=== PATIENT | female | born 1950 | race Caucasian/White ===

== ENCOUNTER 2020-09-15 15:47 | Outpatient (CLI) | payer MEDICARE, BC, SELFPAY ==
--- NOTE | 2020-09-15 16:04 | XR_ITS ---
WS: [id number] Lumbar spine with flexion, extension, and neutral lateral, 09/15/2020 Clinical Data: SPONDYLOLISTHESIS, LUMBAR REGION Comparison: None. Findings: No compression fractures are seen. There is disc space narrowing at L5-S1. There is 0.4 cm anterolis thesis of L4 on L5. No limitation of motion or change in subluxation is seen on flexion or extension. Minimal anterior osteoarthritic spurring is seen at L2-L4. There is calcification in the wall of the abdominal aorta but no aneurysm is seen. There are clips in the upper abdomen from a cholecystectomy. XR/XR lumbar spine f/e only [id number] Impression: 1. Degenerative disc disease at L5-S1. 2. Anterolisthesis of 0.4 cm of L4 and L5. 3. Negative for limitation of motion or change in subluxation on flexion or ext ension. 4. Minimal osteoarthritis L2-L4.
== END 2020-09-15 15:48 | disposition home or self-care (01) ==
LOC: RADWPI 16:02
PROVIDERS: PCP Nurse Practitioner Family; Visit Provider Nurse Practitioner
DX: M43.16 Spondylolisthesis, lumbar region (principal); M51.37 Other intervertebral disc degeneration, lumbosacral region; M47.816 Spondylosis without myelopathy or radiculopathy, lumbar region
CPT/HCPCS: 72120

== ENCOUNTER 2020-09-17 11:13 | Outpatient (CLI) | payer MEDICARE, BC, SELFPAY ==
[2020-09-17 11:46] LABS: Basophils % 0.3 %; Eosinophils # 0.2 10^3/uL (0.0-0.8); Eosinophils % 1.2 %; Hematocrit 42.9 % (37.0-47.0); Hemoglobin 13.9 g/dL (11.5-15.3); Lymphocytes # 2.5 10^3/uL (0.8-4.8); Mean Corpuscular HGB Conc 32.4 g/dL (30.0-36.0); Mean Corpuscular Hemoglobin 29.9 pg (28.0-34.0); Mean Corpuscular Volume 92.3 fL (81-99); Mean Platelet Volume 11.2 fL (7.4-10.4); Monocytes # 1.1 10^3/uL (0.2-0.9); Monocytes % 8.7 %; Neutrophils # 8.51 10^3/uL (1.8-7.7); Neutrophils % 69.6 %; Nucleated Red Blood Cells % 0 %; Platelet Count 333 10^3/cmm (130-400); Red Blood Count 4.65 10^6/uL (4.1-5.3); Red Cell Distribution Width 12.6 % (12.1-15.1); White Blood Count 12.3 10^3/uL (4.0-10.0)
[2020-09-17 12:19] LABS: Alanine Aminotransferase 35 U/L (0-33); Albumin Level 4.6 g/dL (3.5-5.2); Alkaline Phosphatase 119 IU/L (35-105); Anion Gap 13.4 (5-19); Aspartate Amino Transferase 27 U/L (0-32); Blood Urea Nitrogen 14 mg/dL (8-23); Calcium 9.8 mg/dL (8.5-10.5); Carbon Dioxide 31 mmol/L (22-29); Chloride 99 mmol/L (98-107); Globulin 2.5 g/dL (1.3-4.6); Glomerular Filtration Rate 99.1 mL/min (90-130); Glucose 95 mg/dL (65-115); Immunoglobulin IGA 60 mg/dL (70-400); Immunoglobulin IGG 621 mg/dL (700-1600); Immunoglobulin IGM 84 mg/dL (40-230); Osmolality Calculated 290 mOsm/kg (285-295); Potassium 3.4 mmol/L (3.5-5.1); Sodium 140 mmol/L (136-145); Total Bilirubin 0.4 mg/dL (0.15-1.2); Total Protein 7.1 g/dL (6.6-8.7)
[2020-09-18 16:03] LABS: Alternaria Alternata (M6) Ige <0.10 kU/L; Alternaria Class 0; Bermuda Class 0; Bermuda Grass (G2) Ige <0.10 kU/L; Cat Dander (E1) Ige <0.10 kU/L; Cat Dander Class 0; Common Ragweed (Short) (W1) Ig <0.10 kU/L; D. Farinae Class 0; Dermatophagoides Class 0; Dermatophagoides Farinae (D2) <0.10 kU/L; Dermatophagoides Pteronyssinus <0.10 kU/L; Dog Dander (E5) Ige <0.10 kU/L; Dog Dander Class 0; Elm (T8) Ige <0.10 kU/L; Elm Class 0; English Plantain (W9) Ige <0.10 kU/L; English Plantain Class 0; House Dust (Greer) (H1) Ige <0.10 kU/L; House Dust (Hollister- Stier) <0.10 kU/L; House Dust Class 0; Immunoglobulin E 5 kU/L (<OR=114); Immunoglobulin E 6 kU/L (<OR=114); Johnson Grass (G10) Ige <0.10 kU/L; Johnson Grass Cl 0; June Grass Class 0; June Grass(Kentucky Blue) (G8) <0.10 kU/L; Lamb'S Quarters (Goose Foot) <0.10 kU/L; Lamb'S Quarters Class 0; Maple (Box Elder) (T1) Ige <0.10 kU/L; Maple Class 0; Meadow Fescue (G4) Ige <0.10 kU/L; Meadow Fescue Class 0; Mucor Racemosus Class 0; Oak (T7) Ige <0.10 kU/L; Oak Class 0; Orchard Grass (Cocksfoot) (G3) <0.10 kU/L; Penicillium Class 0; Penicillium Notatum (M1) Ige <0.10 kU/L; Perennial Rye Grass (G5) Ige <0.10 kU/L; Perennial Rye Grass Class 0; Ragweeed Class 0; Rough Marsh Elder (W16) Ige <0.10 kU/L; Rough Marsh Elder Class 0; Sweet Vernal Class 0; Sweet Vernal Grass (G1) Ige <0.10 kU/L; Timothy Grass (G6) Ige <0.10 kU/L; Timothy Grass Class 0
== END 2020-09-17 11:14 | disposition home or self-care (01) ==
LOC: LAB 11:20
PROVIDERS: PCP Nurse Practitioner Family; Visit Provider Internal Medicine Pulmonary Disease
DX: D80.1 Nonfamilial hypogammaglobulinemia (principal); J45.909 Unspecified asthma, uncomplicated; R06.02 Shortness of breath; D89.2 Hypergammaglobulinemia, unspecified; J45.40 Moderate persistent asthma, uncomplicated
CPT/HCPCS: 80053; 82784; 82785; 85025; 86003

== ENCOUNTER → 2020-09-30 15:04 | Outpatient (BNVA) | payer MEDICARE, BC, SELFPAY | PROVIDERS: PCP Nurse Practitioner Family; Visit Provider Nurse Practitioner Family | DX: Z20.828 Contact with and (suspected) exposure to other viral communicable diseases (principal); J06.9 Acute upper respiratory infection, unspecified | CPT/HCPCS: 87635 ==

== ENCOUNTER 2020-10-03 08:36 | Outpatient (CLI) | payer MEDICARE, BC, SELFPAY ==
--- NOTE | 2020-10-03 08:55 | CT_ITS ---
WS: [id number] CT NECK TECHNIQUE: Contrast-enhanced CT of the neck with coronal and sagittal reformatted images. CLINICAL INFORMATION: THYROID NODULE COMPARISON: None. DLP: 2528.[address] scans at [facility] use at least one of these dose optimization techniques: automat ed exposure control; mA and/or kV adjustment per patient size (includes targeted exams where dose is matched to clinical indication); or iterative reconstruction. FINDINGS: Multinodular left thyroid lobe with multiple low-attenuation nodules. The largest nodule measures cheko roximately 10 mm. Nodularity extending into the thyroid isthmus. Prior right thyroidectomy. Parotid glands are normal. Normal submandibular glands. Tongue base is normal. Normal parapharyngeal fat. Normal posterior nasopharynx. No evidence of supraglottic or glottic mass. Normal vallecula and piriform sinuses. Subglottic airway is normal. Lung apices are well aerated. No cervical lymphadenopathy. Partially visualized intracranial contents appear unremarkable. Paranasal sinuses and mastoid air cells well aerated. CT/CT neck w con* [id number] IMPRESSION: 1. Multinodular left thyroid lobe extending into the isthmus. Largest nodules measure approximately 10 mm. 2. Prior right thyroidectomy. 3. No cervical lymphadenopathy. 4. Normal salivary glands. 5. Paranasal sinuses and mastoid air cells well aerated.
[2020-10-03] MEDS: iohexol 300 mg/mL 100 mL Btl IV (09:20)
== END 2020-10-03 08:37 | disposition home or self-care (01) ==
LOC: RADWPI 08:44
PROVIDERS: PCP Nurse Practitioner Family; Visit Provider Specialist
DX: E04.1 Nontoxic single thyroid nodule (principal)
CPT/HCPCS: 70491; Q9967

== ENCOUNTER 2020-10-16 08:03 | Outpatient (CLI) | payer MEDICARE, BC, SELFPAY ==
--- NOTE | 2020-10-16 08:09 | US_ITS ---
WS: [id number] ULTRASOUND RENAL TECHNIQUE: Ultrasound examination of both kidneys. CLINICAL INFORMATION: HEMATURIA/URINARY FREQUENCY COMPARISON: None. FINDINGS: RIGHT: Tiny right renal cyst measuring 12 mm. Right kidney is normal in size and appearance. Echogenicity: Normal. Cortical thickness: cm; Normal. Hydronephrosis: None. Perinephric fluid: None. Right kidney measures: 9.1 cm x 4.4 cm x 4.8 cm. LEFT: Left kidney is normal in size and appearance. Echogenicity: Normal. Cortical thickness: cm; Normal. Hydronephrosis: None. Perinephric fluid: None. Left kidney measures: 9.8 cm x 5.0 cm x 4.3 cm. Normal visualized aorta. US/US renal BI* [id number] IMPRESSION: Normal renal ultrasound
== END 2020-10-16 08:04 | disposition home or self-care (01) ==
LOC: RAD 08:07
PROVIDERS: PCP Nurse Practitioner Family; Visit Provider Nurse Practitioner Family
DX: R35.0 Frequency of micturition (principal); R31.9 Hematuria, unspecified
CPT/HCPCS: 76770

== ENCOUNTER 2020-10-24 09:14 | Outpatient (CLI) | payer MEDICARE, BC, SELFPAY ==
--- NOTE | 2020-10-24 09:17 | US_ITS ---
WS: [id number] URINARY BLADDER ULTRASOUND HISTORY: URINARY FREQUENCY/HEMATURIA COMPARISON: None available. Urinary bladder is well distended. No intraluminal filling defect. No free fluid adjacent to the urin rajeev bladder. Bladder Wall Thickness: 0.4 cm. Bladder Prevoid: 5.2 cm x 6.0 cm x 4.5 cm. Prevoid volume: 65 cubic cm Bladder Postvoid: No significant post void residual. US/US bladder [id number] IMPRESSION: No post void residual.
== END 2020-10-24 09:15 | disposition home or self-care (01) ==
LOC: RAD 09:16
PROVIDERS: PCP Nurse Practitioner Family; Visit Provider Nurse Practitioner Family
DX: R35.0 Frequency of micturition (principal); R31.9 Hematuria, unspecified
CPT/HCPCS: 76857

== ENCOUNTER → 2020-11-03 16:50 | Outpatient (BNVA) | payer MEDICARE, BC, SELFPAY | PROVIDERS: PCP Nurse Practitioner Family; Referring Provider Internal Medicine Pulmonary Disease; Visit Provider Nurse Practitioner Family | DX: N39.0 Urinary tract infection, site not specified (principal) | CPT/HCPCS: 81003; 87086 ==

== ENCOUNTER → 2020-11-17 14:32 | Outpatient (BNVA) | payer MEDICARE, SELFPAY | PROVIDERS: PCP Nurse Practitioner Family; Visit Provider Nurse Practitioner Family | DX: Z20.828 Contact with and (suspected) exposure to other viral communicable diseases (principal) | CPT/HCPCS: 87635 ==

== ENCOUNTER 2021-02-25 10:16 | Outpatient (CLI) | payer MEDICARE, SELFPAY ==
[2021-02-25 13:04] LABS: Basophils % 0.4 %; Eosinophils # 0.2 10^3/uL (0.0-0.8); Eosinophils % 1.9 %; Hematocrit 42.6 % (37.0-47.0); Hemoglobin 13.9 g/dL (11.5-15.3); Lymphocytes # 2.7 10^3/uL (0.8-4.8); Lymphocytes % 23.8 %; Mean Corpuscular HGB Conc 32.6 g/dL (30.0-36.0); Mean Corpuscular Hemoglobin 30.3 pg (28.0-34.0); Mean Corpuscular Volume 92.8 fL (81-99); Mean Platelet Volume 11.4 fL (7.4-10.4); Monocytes # 0.8 10^3/uL (0.2-0.9); Monocytes % 6.8 %; Neutrophils # 7.62 10^3/uL (1.8-7.7); Neutrophils % 66.8 %; Nucleated Red Blood Cells % 0 %; Platelet Count 374 10^3/cmm (130-400); Red Blood Count 4.59 10^6/uL (4.1-5.3); White Blood Count 11.4 10^3/uL (4.0-10.0)
[2021-02-25 13:26] LABS: Alanine Aminotransferase 23 U/L (0-33); Albumin Level 4.6 g/dL (3.5-5.2); Alkaline Phosphatase 101 IU/L (35-105); Anion Gap 13.4 (5-19); Aspartate Amino Transferase 17 U/L (0-32); Blood Urea Nitrogen 16 mg/dL (8-23); Calcium 8.9 mg/dL (8.5-10.5); Carbon Dioxide 27 mmol/L (22-29); Chloride 96 mmol/L (98-107); Globulin 2.3 g/dL (1.3-4.6); Glucose 100 mg/dL (65-115); Immunoglobulin IGA 91 mg/dL (70-400); Immunoglobulin IGG 646 mg/dL (700-1600); Immunoglobulin IGM 87 mg/dL (40-230); Lactate Dehydrogenase 161 U/L (135-214); Osmolality Calculated 277 mOsm/kg (285-295); Potassium 3.4 mmol/L (3.5-5.1); Sodium 133 mmol/L (136-145); Total Bilirubin 0.7 mg/dL (0.15-1.2); Total Protein 6.9 g/dL (6.6-8.7)
[2021-02-25 14:23] LABS: Erythrocyte Sedimentation Rate 24 mm/hr (0-15)
--- NOTE | 2021-02-25 17:45 | ONC CON_ITS ---
Dr. Koehler New Patient Note Patient: Anita Harmon Unit #: [id number]: 1950 Dicatated By: Greg Koehler M.D.Date of Visit: Feb 25, 2021 Onc MED New Patient/Consult Referring Physician: Chrissie Ortega Chief Complaint: Hypogammaglobulinemia. 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 She has history of having had polio at age 2, and she has post polio syndrome. Her other medical illnesses include hypertension, hyperlipidemia, and asthma/chronic bronchitis. She also has chronic pain due to fibromyalgia and degenerative disease of the spine. She has a history of having undergone an ablation procedure for cardiac arrhythmia. In February 2019 she was found on protein electrophoresis to have hypogammaglobulinemia with a total gammaglobulin level low at 0.58 g/dL. She had recently moved to this area from [place]. In December 2019 she was seen by Dr. Adair Hightower for hematology consultation. Her IgG level was reported to be low at 446 mg/dL. Replacement IVIG was not recommended, as she did not appear to be symptomatic with it. Sometime later she had further evaluation by Dr. Tram Carlin at [facility]. I do not have any of those records available. The patient indicates that her evaluation showed no evidence of multiple myeloma. She indicates that about a year ago she had a prolonged episode of bronchitis, lasting about 5 months. She has not, however, had any documented bacterial infections or other acute illnesses. She has limited activity due to her post polio syndrome. She is able to walk short distances holding onto something. She is otherwise sedentary. She also complains that she has no energy. Her ECOG score is 3. She has good appetite. She has been actively dieting, and she has had a weight loss of at least 15 pounds. She does not have fever. She has had some hot flashes and sweating. She has allergy related sinus symptoms. She does have some shortness of breath associated with her asthma and she also has some cough, mostly at night. She occasionally has chest pain. Lately she has been having some nausea and she also complains of having burning in her stomach. In addition, she recently has had diarrhea with 2-3 stools per day. She has a history of colonic polyps. Her last colonoscopy was about 6 years ago. She has had some ongoing bladder problems including intermittent episodes of hematuria and bladder incontinence. She has been seeing a urologist. She indicates that she has not had any documented urinary tract infection, though she has had antibiotic therapy on several occasions. She has generalized pain associated with fibromyalgia. She also has chronic low back pain and she recently has had more severe pain in her left sacroiliac area resulting from an injury. She is being seen at pain clinic. Past Medical History: Her medical history includes allergic rhinitis, asthma, chronic bronchitis, degenerative disease of the spine, fibromyalgia, history of cardiac arrhythmia, history of colonic polyps, history of thyroid nodules, hyperlipidemia, hypertension, post polio syndrome, and polio in 1953. Past Surgical History: Her surgical/procedural history includes rotator cuff repair on the right, hemithyroidectomy for thyroid nodules in 2018, cardiac ablation procedure in 2016, hysterectomy with unilateral oophorectomy in 1993, right foot surgery and left leg surgery in 1964, and tonsillectomy in 1964. Medications: Cartia XT 1 Caplet (of 180 mg) Capsule SR 24 HR Oral daily, Cyclobenzaprine HCl 1 Tablet (of 10 mg) Oral PRN, Fluticasone Furoate 1 [place](s) (of 27.5 mcg/spray) Suspension Nasal PRN, Gabapentin 1 Caplet (of 300 mg) Capsule Oral daily PRN, hydroCHLOROthiazide 1 Tablet (of 12.5 mg) Oral every am, Lisinopril 1 Tablet (of 10 mg) Oral b.i.d., Montelukast Sodium 1 Tablet (of 10 mg) Oral daily, Symbicort 1 Puff(s) (of 160-4.5 mcg/act) Aerosol Inhalation b.i.d., traMADol HCl 1 Tablet (of 50 mg) Oral b.i.d. Allergies: Celecoxib, Denosumab, Fluconazole, Metoprolol Tartrate, and Statins. Social History: Ms. Harmon is . She has a history of smoking 1 pack of cigarettes daily starting at age 16. She quit smoking at age 23. She does not drink alcohol. Family History: Father with pneumonia at age 93. Mother of heart attack at age 92. She has 2 sisters are still living and in good health. A maternal uncle had colon cancer. Her maternal grandfather had lung cancer and her paternal grandfather had a throat cancer. Review Of Symptoms: Constitutional - She complains that she has no energy. She has very limited activity. She is able to walk short distances holding onto something. She has good appetite. She has been on a diet, she has lost at least 15 pounds. She has not had fever. She does have some hot flashes and sweating. ECOG score is 3, Eyes - She has cataracts and she says she needs to have cataract surgery, ENMT - She has hearing loss and tinnitus. She has allergy related sinus symptoms. No mouth sores. No sore throat or difficulty swallowing, Hematologic/Lymphatic - No abnormal bruising or bleeding, Respiratory - She has asthma and she sometimes has shortness of breath. She also has some cough, mostly at night. No pleuritic pain or hemoptysis, Cardiovascular - She sometimes has chest pain. She has undergone cardiac ablation for arrhythmia, Gastrointestinal - She recently has had some nausea. She also complains of burning in her stomach. She also recently has been having diarrhea with 2-3 stools per day. No blood in the stool or black stools. She has a history of colonic polyps. Her last colonoscopy was 6 years ago, Genitourinary (F) - She has had episodes of hematuria and bladder incontinence. She has seen a urologist and she has been evaluated with cystoscopy, Musculoskeletal - She has generalized pain associated with fibromyalgia. She has chronic back pain and she recently has had pain radiating into the left hip and leg, Integumentary - No skin rash or other skin changes, Neurologic - No headache. She reports having occasional dizziness and facial numbness when her neck gets out of place. No other focal neurologic symptoms, Psychiatric - She has some anxiety. No depression. She has difficulty sleeping. Vital Signs: Performed on Feb 25, 2021 12:01: 8, 7, 33.40 (HIGH), 1.66 sq.m, 58 in, 99 %, 79 /min, 18 /min, 116/74 mm(hg), 98.2 F (LOW), and 159.8 lbs (HIGH). Physical Examination: Constitutional - She appears to be in reasonably good general health, Eyes - Sclerae nonicteric. Conjunctivae clear, ENMT - No lesions noted in the oral cavity, Neck - No mass or thyromegaly, Hematologic/Lymphatic - No cervical, clavicular, or axillary adenopathy, Respiratory - Lungs are clear with good air movement bilaterally, Cardiovascular - Heart rhythm is regular. There is no murmur, gallop, or rub noted, Abdomen - Soft and non-tender. Liver and spleen are not enlarged. There is no abdominal mass or ascites noted and there is no inguinal adenopathy, Back/Spine - She has significant tenderness in the lower lumbar/sacral area, Extremities - No edema. Pedal pulses are palpable bilaterally, Integumentary - No rashes. No suspicious skin lesions noted, Neurologic - She has weakness in the right leg and to a lesser extent the right arm from her polio. Problem List: 1. Hypogammaglobulinemia, presumed to be acquired. 2. History of polio in 1953 with post polio syndrome. 3. Hypertension. 4. Hyperlipidemia. 5. Asthma/bronchitis. 6. Allergic rhinitis. 7. Fibromyalgia. 8. Degenerative disease of the spine. 9. History of thyroid nodules. 10. History of colonic polyps. Problems Addressed with this Encounter and Plan: Patient with hypogammaglobulinemia. This is presumed to be acquired. Her previous evaluation at [facility] showed no evidence of multiple myeloma. Thus far she does not appear to be symptomatic with it, and there appears to have been no indication for treatment. I will check additional laboratory studies today to include CBC, comprehensive metabolic profile, sed rate, LDH level, serum protein electrophoresis, quantitative immunoglobulin levels, and serum free light chain assay. She will have further evaluation as indicated. However, unless she is having recurrent bacterial infections, there will be no indication for replacement IVIG. Signed By: Greg Koehler M.D. <<Signature on File>>
[2021-02-26 09:02] LABS: PROTEIN, TOTAL 6.4 g/dL (6.1-8.1)
[2021-02-26 12:52] LABS: ALBUMIN 3.9 g/dL (3.8-4.8); ALPHA 1 GLOBULIN 0.3 g/dL (0.2-0.3); ALPHA 2 GLOBULIN 0.8 g/dL (0.5-0.9); BETA 1 GLOBULIN 0.5 g/dL (0.4-0.6); BETA 2 GLOBULIN 0.3 g/dL (0.2-0.5); GAMMA GLOBULIN 0.6 g/dL (0.8-1.7)
[2021-02-26 16:07] LABS: KAPPA LIGHT CHAIN, FREE, SERUM 11.1 mg/L (3.3-19.4); KAPPA/LAMBDA LIGHT CHAINS FREE 1.06 (0.26-1.65); LAMBDA LIGHT CHAIN, FREE, SERU 10.5 mg/L (5.7-26.3)
== END 2021-02-25 10:17 | disposition home or self-care (01) ==
PROVIDERS: PCP Nurse Practitioner Family; Visit Provider Internal Medicine Medical Oncology
DX: D80.1 Nonfamilial hypogammaglobulinemia (principal); I10 Essential (primary) hypertension; E78.5 Hyperlipidemia, unspecified; J45.909 Unspecified asthma, uncomplicated; J40 Bronchitis, not specified as acute or chronic; J30.9 Allergic rhinitis, unspecified; M79.7 Fibromyalgia; M47.9 Spondylosis, unspecified; E04.2 Nontoxic multinodular goiter; Z86.010 Personal history of colon polyps; Z79.899 Other long term (current) drug therapy
CPT/HCPCS: 80053; 82784; 83615; 83883; 84155; 84165; 85025; 85651; 99204

== ENCOUNTER 2021-02-26 13:02 | Outpatient (CLI) | payer MEDICARE, SELFPAY ==
--- NOTE | 2021-02-26 13:07 | MM_ITS ---
WS: [id number] SCREENING DIGITAL MAMMOGRAM WITH CAD HISTORY: SCREENING COMPARISON: 01/31/2020, 01/22/2020 Bilateral CC and MLO views submitted. Computer aided detection analyzed. Breast composition: There are scattered areas of fibroglandular density. Increasing asymmetry in the anterior LEFT breast seen best on the MLO projection. Stable nodule measuring 6 mm with calcification RIGHT breast at 9:00. MM/[place] [id number] IMPRESSION: BI-RADS: 0-Incomplete: Need additional imaging evaluation FOLLOW UP: Need Additional Imaging LEFT breast: Spot compression views (CC and MLO). True ML. Ultrasound to follow if abnormality persists.
== END 2021-02-26 13:03 | disposition home or self-care (01) ==
LOC: RADSHAW 13:05
PROVIDERS: PCP Nurse Practitioner Family; Visit Provider Nurse Practitioner Family
DX: Z12.31 Encounter for screening mammogram for malignant neoplasm of breast (principal)
CPT/HCPCS: 77067

== ENCOUNTER 2021-03-23 14:45 | Outpatient (CLI) | payer MEDICARE, OTHER, SELFPAY ==
--- NOTE | 2021-03-23 15:00 | MM_ITS ---
WS: [id number] ADDITIONAL VIEWS LEFT MAMMOGRAM LEFT BREAST ULTRASOUND HISTORY: Left Breast asymmetry and density COMPARISON: 02/26/2021 LEFT MAMMOGRAM: Spot compression views and true ML. Mild increased asymmetric density in the anterior breast. No discrete mass or distortion. This is pro bably normal fibroglandular density. Ultrasound will be performed to confirm there is no underlying m ass. LEFT BREAST ULTRASOUND 2-D and color Doppler imaging submitted. Ultrasound directed to the upper outer quadrant of the LEFT breast. There is no solid mass or distort ion. There is a very small cyst at 3:00 with a maximum diameter of 4 mm. MM/[place] [id number] IMPRESSION: BI-RADS: 2-Benign FOLLOW UP: 1 Year Follow-up
--- NOTE | 2021-03-23 15:30 | US_ITS ---
WS: [id number] ADDITIONAL VIEWS LEFT MAMMOGRAM LEFT BREAST ULTRASOUND HISTORY: Left Breast asymmetry and density COMPARISON: 02/26/2021 LEFT MAMMOGRAM: Spot compression views and true ML. Mild increased asymmetric density in the anterior breast. No discrete mass or distortion. This is pro bably normal fibroglandular density. Ultrasound will be performed to confirm there is no underlying m ass. LEFT BREAST ULTRASOUND 2-D and color Doppler imaging submitted. Ultrasound directed to the upper outer quadrant of the LEFT breast. There is no solid mass or distort ion. There is a very small cyst at 3:00 with a maximum diameter of 4 mm. US/US breast LT limited* [id number] IMPRESSION: BI-RADS: 2-Benign FOLLOW UP: 1 Year Follow-up
== END 2021-03-23 14:46 | disposition home or self-care (01) ==
LOC: RADSHAW 14:50
PROVIDERS: PCP Nurse Practitioner Family; Visit Provider Nurse Practitioner Family
DX: N64.89 Other specified disorders of breast (principal)
CPT/HCPCS: 76642; 77065

== ENCOUNTER → 2021-04-10 09:56 | Outpatient (BNVA) | payer MEDICARE, OTHER, SELFPAY | PROVIDERS: PCP Nurse Practitioner Family; Visit Provider Surgery | DX: Z01.812 Encounter for preprocedural laboratory examination (principal); Z20.822 Contact with and (suspected) exposure to COVID-19 | CPT/HCPCS: 87635 ==

== ENCOUNTER 2021-04-15 07:36 | Day surgery (SDC) | payer MEDICARE, OTHER, SELFPAY ==
--- NOTE | 2021-04-15 08:08 | ANES.PREANE2 ---
Pre-Anesthetic Assessment Pre-Anesthetic Assessment: Height/Weight: Height 1.47 m Weight 72.303 kg Preop Diagnosis: History of colon polyps Proposed Procedure: Operation Date: 04/15/21 09:00 Proposed Procedures p Colonoscopy 75107 z86.010(Not Applicable) - Booker Story MD Was Beta Mamie taken within 24 hours: N/A Was Clonidine taken within 24 hours: N/A Social: Social History: No alcohol and No tobacco Exam: Pre-Anes Outpt Exam: alert, oriented x 3 and clear to auscultation bilaterally Airway: Submandibular: WNL Cervical ROM: WNL MP: 2 Dentition: Full Pulmonary: Pulmonary: Asthma CV/HEM: CV/HEM: Arrythmia (s/p ablation), HTN and Murmur () Metabolic: Metabolic: Hyperlipidemia Musc/skel: Comments: Post polio syndrome Anesthetic Plan: ASA status: 3 Anesthesia: MAC Risk of > 500 ml blood loss (7ml/kg in children): No PFSH Anesthesia PFSH: Medical History Diastolic heart failure History of aortic stenosis Hypertension Post-polio syndrome Recurrent UTI Surgical History H/O repair of left rotator cuff H/O repair of right rotator cuff H/O total hysterectomy Family History Mother Stroke Hypertension Family/Other Diabetes maternal aunt Thyroid condition maternal, maternal great aunt Breast cancer maternal aunt, age onset in her 50's Colon cancer, Onset Age: 61 maternal uncle Grandmother Stroke maternal, maternal great grandmother Father Hypertension Denies family history of Ovarian cancer Clotting disorder Heart disease Hyperlipidemia Anesthesia complication Bleeding disorder Uterine cancer Social History Smoking and tobacco status: former smoker Quit status (tobacco): has quit using tobacco Year quit tobacco: [id number] Former quit date comment: stopped at age 23 Second hand smoke exposure: No Smoking risk assessment/counseling performed?: Yes Alcohol intake: never Lives independently: Yes Household members: spouse and children Housing: House Marital status: service: No Current occupational status: disabled Pets and animals: Yes History of recent travel: No Current gender identity: Female Data Anesthesia Cardiac Studies: No Data to Display
[2021-04-15 08:11] VITALS: BP 133/68; PULSE 82; RESP 16; TEMP 36.4
--- NOTE | 2021-04-15 08:32 | P.HP_ITS ---
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 Patient had history of colon polyps removed back in 2013 and she denies any bleeding per rectum or colon cancer history. Patient recently moved to the area from [place]. And she is [place]. Interim history 04/15/2021 Patient comes today for surveillance colonoscopy ROS All systems have been reviewed negative except as per the above or per problem list Medications/Allergies* Home Medications Medication Instructions Recorded Confirmed Type alprazolam 0.5 mg tablet 0.5 mg PO DAILY PRN 09/10/20 04/13/21 History cyclobenzaprine 10 mg tablet 10 mg PO TID PRN 09/10/20 04/13/21 History diltiazem HCl 180 mg 180 mg PO BID cap 09/10/20 04/15/21 History capsule,extended release 24 hr fluticasone propionate 50 2 spray INTRANASAL DAILY PRN 09/10/20 04/13/21 History mcg/actuation nasal spray,suspension gabapentin 300 mg capsule 300 mg PO BID PRN 09/10/20 04/15/21 History lisinopril 10 mg tablet 10 mg PO BID 09/10/20 04/15/21 History ascorbic acid (vitamin C) 1,000 mg 1 gm PO DAILY tab 09/17/20 04/15/21 History tablet calcium carbonate 600 mg calcium 600 mg PO DAILY 09/17/20 04/15/21 History (1,500 mg) tablet cholecalciferol (vitamin D3) 125 125 mcg PO DAILY 09/17/20 04/15/21 History mcg (5,000 unit) capsule hydrochlorothiazide 12.5 mg capsule 12.5 mg PO DAILY 09/17/20 04/15/21 History omega-3 fatty acids 1,000 mg 1,000 mg PO DAILY 09/17/20 04/15/21 History capsule tramadol 50 mg tablet 50 mg PO DAILY PRN 12/01/20 04/15/21 History montelukast [Singulair] 10 mg PO DAILY PRN 04/13/21 04/15/21 History zinc 22 mg PO DAILY 04/13/21 04/15/21 History Allergies/Adverse Reactions Allergy/AdvReac Type Severity Reaction Status Date / Time [id number] Reductase Allergy Severe legs feel Verified 04/15/21 08:33 Inhibitor like rubber Pertinent History/Comorbid Conditions* Medical History (Updated 03/05/21 @ 10:28 by Booker Story MD) Diastolic heart failure History of aortic stenosis Hypertension Post-polio syndrome Recurrent UTI Surgical History (Updated 11/06/20 @ 22:03 by Angle Lockwood APRN) H/O repair of left rotator cuff H/O repair of right rotator cuff H/O total hysterectomy Family History (Updated 12/01/20 @ 14:07 by Kavita Stevens RN) Colon cancer Family/Other, Onset Age: 61 maternal uncle Diabetes Family/Other maternal aunt Breast cancer Family/Other maternal aunt, age onset in her 50's Hypertension Mother Father Thyroid condition Family/Other maternal, maternal great aunt Stroke Mother Grandmother maternal, maternal great grandmother Denies family history of Ovarian cancer Clotting disorder Heart disease Hyperlipidemia Anesthesia complication Bleeding disorder Uterine cancer Social History Smoking and tobacco status: former smoker Quit status (tobacco): has quit using tobacco Year quit tobacco: [id number] Former quit date comment: stopped at age 23 Second hand smoke exposure: No Smoking risk assessment/counseling performed?: Yes Alcohol intake: never Lives independently: Yes Household members: spouse and children Housing: House Marital status: service: No Current occupational status: disabled Pets and animals: Yes History of recent travel: No Current gender identity: Female Pertinent Exam Findings alert, oriented x 3, clear to auscultation bilaterally, regular rate & rhythm and procedure specific exam findings (Abdominal examination nontender nondistended soft) Recommendations Surgery/Procedure today (Surveillance colonoscopy) Other Plans: Plan of care; After thorough history and physical examination and reviewing the chart, plan to perform surveillance colonoscopy. I discussed with the patient in details the risks,benefits,alternatives and indications.The risk of aspiration, bleeding, soft tissue injury, perforation of the colon and other potential concomitant complications were explained to the patient in details,also the potential need for Laproscoy/Laparotomy to repair any related complications including but not limited to colectomy and or Closotomy.The patient understood this well and did agree to proceed. Rationale was carefully and clearly discussed with the patient.Appropriate informed consent have been reviewed and signed All questions have been answered and all concerns have been addressed to patient's satisfaction. Verbal and written Instructions were given to the patient for colonoscopy prep Coding Level of Care Code Acute Tack Maker for Charlotte Callaway
[2021-04-15] MEDS: sodium chloride 0.9% 1,000 ML 30 ML IV (08:35)
[2021-04-15 09:45] VITALS: BP 137/72; PULSE 81; RESP 16; TEMP 36.2; O2SAT 95
[2021-04-15 10:02] VITALS: BP 135/68; PULSE 69; RESP 18; TEMP 36.6; O2SAT 98
--- NOTE | 2021-04-15 12:48 | ANE.PACU2 ---
Inpatient post-anesthesia follow up: Airway intact: Yes Vital signs: Temperature 98 F Pulse Rate 69 Respiratory Rate 18 Blood Pressure 135/68 Pulse Oximetry 98 Oxygen Delivery Me thod Room Air Oxygen Flow Rate Fraction of Inspir ed Oxygen Hydration adequate: Yes Nausea and vomiting: No Pain level: 1 Mental status: Baseline
== END 2021-04-15 10:12 | disposition home or self-care (01) ==
PROVIDERS: PCP Nurse Practitioner Family; Visit Provider Surgery
PROC: 0DJD8ZZ Inspection of Lower Intestinal Tract, Via Natural or Artificial Opening Endoscopic (ICD-10-PCS; CPT 45378; principal; 2021-04-15 09:00)
DX: Z12.11 Encounter for screening for malignant neoplasm of colon (principal); Z86.010 Personal history of colon polyps; I11.0 Hypertensive heart disease with heart failure; I50.30 Unspecified diastolic (congestive) heart failure; E78.5 Hyperlipidemia, unspecified; Z85.42 Personal history of malignant neoplasm of other parts of uterus; Z87.891 Personal history of nicotine dependence; J45.909 Unspecified asthma, uncomplicated
CPT/HCPCS: 45385; 88305; 96360; 96361; J2704; J7030

== ENCOUNTER 2021-04-17 14:53 | Outpatient (CLI) | payer MEDICARE, OTHER, SELFPAY ==
--- NOTE | 2021-04-17 15:00 | USCV_ITS ---
Anita Harmon Age: 70 Gender: F : 1950 Exam Date: 04/17/2021 15:11 Ordering Phys: Girma Corona M.D ([email or web address]) Technologist: Flores Bailey [place] [facility] [place]: Chest pain BP: 130 / 75 HR: 75 Rhythm: Sinus Technical Quality: Technically difficult study MEASUREMENTS (Male / Female) Normal Values 2D ECHO LV Diastolic Diameter PLAX 4.0 cm 4.2 - 5.9 / 3.9 - 5.3 cm LV Systolic Diameter PLAX 2.5 cm IVS Diastolic Thickness 1.3 cm 0.6 - 1.0 / 0.6 - 0.9 cm IVS Systolic Thickness 1.6 cm LVPW Diastolic Thickness 0.7 cm 0.6 - 1.0 / 0.6 - 0.9 cm LVPW Systolic Thickness 1.1 cm RV Chamber Size 2.9 cm LVOT Diameter 2.0 cm LV Ejection Fraction 2D Teich 68.6 % LV Ejection Fraction MOD 2C 71.6 % LV Ejection Fraction 2C AL 72.5 % LA Diameter 3.4 cm LA Width 3.5 cm LA Height 4.0 cm RA Width 3.5 cm RA Height 4.1 cm Aorta at Sinotubular Diameter 2.6 cm M-MODE LV Diastolic Diameter MM 4.8 cm 4.2 - 5.9 / 3.9 - 5.3 cm LV Systolic Diameter MM 2.8 cm LV Ejection Fraction MM Teich 72.6 % IVS Diastolic Thickness MM 1.0 cm 0.6 - 1.0 / 0.6 - 0.9 cm IVS Systolic Thickness MM 1.5 cm LVPW Diastolic Thickness MM 0.9 cm 0.6 - 1.0 / 0.6 - 0.9 cm LVPW Systolic Thickness MM 1.9 cm Aortic Annulus Diameter 2.3 cm LA Ao Ratio MM 1.5 MV E Point Septal Separation 0.4 cm DOPPLER AV Peak Velocity 105.0 cm/s LVOT Peak Velocity 85.0 cm/s AV Area Cont Eq vti 3.0 cm squared AV Area Cont Eq pk 2.5 cm squared MV Area PHT 5.0 cm squared Mitral E to A Ratio 0.7 MV E' Velocity 36.5 cm/s Mitral E to MV E' Ratio 7.0 Mitral E to LV E' Lateral Ratio 6.9 Mitral E to LV E' Septal Ratio 7.2 TR Peak Velocity 237.8 cm/s TR Peak Gradient 22.6 mmHg TV Peak E Velocity 54.0 cm/s Right Atrial Pressure 3.0 mmHg Pulmonary Artery Systolic Pressu 25.6 mmHg PV Peak Velocity 60.0 cm/s RV Acceleration Time 0.0 s RV Ejection Time 0.3 s RV AcT/ET 0.2 FINDINGS Left Ventricle Normal left ventricular size. LV systolic function is normal with EF of 55-60%. No regional wall motion abnormalities. Grade 1 diastolic dysfunction Right Ventricle The right ventricle is normal in size and function. Right Atrium The right atrium is normal in size. Left Atrium The left atrium is normal in size. Mitral Valve Mild mitral annular calcification without significant stenosis or prolapse. There is trace mitral regurgitation. Aortic Valve Structurally normal aortic valve without significant sclerosis or stenosis. There is no aortic regurgitation. Tricuspid Valve Structurally normal tricuspid valve without significant stenosis. Mild tricuspid regurgitation. RVSP is 25-30mmHg Pulmonic Valve Structurally normal pulmonic valve without significant stenosis. There is no pulmonic regurgitation. Pericardium Normal pericardium without effusion. Aorta Normal ascending aorta dimension. CONCLUSIONS LV systolic function is normal with EF of 55-60% Grade 1 diastolic dysfunction Trace mitral regurgitation RVSP is normal and is 25-30mmHg No comparison studies are available Girma Corona MD (Electronically Signed) Final Date: 22 April 2021 13:56 S
== END 2021-04-17 14:54 | disposition home or self-care (01) ==
LOC: RAD 14:55
PROVIDERS: PCP Nurse Practitioner Family; Visit Provider Internal Medicine
DX: R07.9 Chest pain, unspecified (principal); I34.0 Nonrheumatic mitral (valve) insufficiency
CPT/HCPCS: 93306

== ENCOUNTER 2021-05-21 12:16 | Emergency (ER) | payer MEDICARE, OTHER, SELFPAY ==
[2021-05-21 12:28] VITALS: BP 132/71; PULSE 85; RESP 18; TEMP 36.7; O2SAT 97; BMI 34.0
--- NOTE | 2021-05-21 14:59 | XR_ITS ---
WS: [id number] Portable AP upright chest, 05/21/2021 Clinical Data: chest pain Comparison: None. Findings: No nodules, masses or effusions are seen. The heart is normal. The pulmonary vascularity is not increased. No pneumonia or pneumothorax is seen. The aortic arch shows mild tortuosity. There ar e orthopedic anchors in the right humeral head. XR/XR chest 1V portable [id number] Impression: Atherosclerosis.
[2021-05-21 15:03] VITALS: BP 137/81; PULSE 70; RESP 20; O2SAT 99
[2021-05-21 15:22] LABS: Basophils % 0.3 %; Eosinophils # 0.2 10^3/uL (0.0-0.8); Eosinophils % 1.4 %; Hematocrit 40.9 % (37.0-47.0); Hemoglobin 13.1 g/dL (11.5-15.3); Lymphocytes # 3.2 10^3/uL (0.8-4.8); Lymphocytes % 24.7 %; Mean Corpuscular Hemoglobin 29.6 pg (28.0-34.0); Mean Corpuscular Volume 92.3 fL (81-99); Mean Platelet Volume 11.7 fL (7.4-10.4); Monocytes % 7.8 %; Neutrophils # 8.34 10^3/uL (1.8-7.7); Neutrophils % 65.5 %; Nucleated Red Blood Cells % 0 %; Platelet Count 351 10^3/cmm (130-400); Red Blood Count 4.43 10^6/uL (4.1-5.3); Red Cell Distribution Width 13.2 % (12.1-15.1); White Blood Count 12.7 10^3/uL (4.0-10.0)
--- NOTE | 2021-05-21 15:57 | ED_ITS ---
Documented by User: Wilber Marcano DO 05/22/21 06:16 HPI - Chest Pain General: Chief Complaint: Chest Pain Stated Complaint: CHEST PAINS Time Seen by Provider: 05/21/21 14:40 History of Present Illness: HPI narrative: 70-year-old female presents emergency room with complaint of left-sided chest pain began earlier today while she was at rest there is all spontaneously after approximately 10 minutes. She did not notice any exacerbation by palpation or by movement. She has no known history of coronary artery disease no previous angiogram stenting bypass for stress testing. She not having any chest pain at this time. MD complaint: chest pain Onset (ago): hour(s) Timing of current episode: episodic Prior episodes: No Onset: during rest Pain location: left chest Pain radiation: none Severity: moderate Quality: aching and heaviness Relieving factors: nothing Exacerbating factors: nothing Context: recent illness Associated symptoms: Deny abdominal pain, diaphoresis, dyspnea, fever(s), leg edema, nausea, palpitations, sense of impending doom, syncope or vomiting Treatment prior to arrival: none Review of Systems Const: Denies: fever(s) or diaphoresis ENMT: Denies: throat pain, ear or mastoid pain, nasal discharge or nasal congestion Card: Denies: palpitations or syncope Resp: Denies: dyspnea GI: Denies: abdominal pain, nausea or vomiting : Denies: flank pain, difficulty voiding, dysuria, urinary frequency or urinary urgency Skin/Breast: Denies: rash or pruritus PFSH ED PFSH: Medical History Diastolic heart failure Diverticulosis History of aortic stenosis Hypertension Post-polio syndrome Recurrent UTI Surgical History H/O repair of left rotator cuff H/O repair of right rotator cuff H/O total hysterectomy Family History Mother Stroke Hypertension Family/Other Diabetes maternal aunt Thyroid condition maternal, maternal great aunt Breast cancer maternal aunt, age onset in her 50's Colon cancer, Onset Age: 61 maternal uncle Grandmother Stroke maternal, maternal great grandmother Father Hypertension Denies family history of Ovarian cancer Clotting disorder Heart disease Hyperlipidemia Anesthesia complication Bleeding disorder Uterine cancer Social History Smoking and tobacco status: former smoker Quit status (tobacco): has quit using tobacco Year quit tobacco: [id number] Former quit date comment: stopped at age 23 Second hand smoke exposure: No Smoking risk assessment/counseling performed?: Yes Alcohol intake: never Lives independently: Yes Household members: spouse and children Housing: House Marital status: service: No Current occupational status: disabled Pets and animals: Yes History of recent travel: No Current gender identity: Female Physical Exam Const: COMMON NORMALS: no acute distress GENERAL APPEARANCE: cooperative and comfortable ORIENTATION/CONSCIOUSNESS: Yes awake, Yes oriented to person, Yes oriented to place and Yes oriented to time HENMT: COMMON NORMALS: normocephalic, atraumatic, hearing grossly normal bilaterally and external ears normal HEAD & SCALP: normocephalic and atraumatic EXTERNAL EAR: Yes external ears normal Eye: COMMON NORMALS: Equal, round and reactive pupils present, EOMs intact bilaterally, conjunctivae normal and no scleral icterus CONJUNCTIVA: Yes conjunctivae normal PUPIL: Yes Equal, round and reactive pupils present Neck/C-Spine: COMMON NORMALS: full ROM, no lymphadenopathy, supple and no JVD Lymph: LYMPHATIC: no lymphadenopathy noted and no lymphedema noted Resp: COMMON NORMALS: normal respiratory effort, No retractions, No use of accessory muscles and clear to auscultation bilaterally AUSCULTATION: clear to auscultation bilaterally Cardio: COMMON NORMALS: no JVD, regular rate, regular rhythm and No murmurs present (Cardio) RATE: regular rate RHYTHM: regular rhythm GI: COMMON NORMALS: Soft to palpation and No hepatosplenomegaly present AUSCULTATION: Yes normoactive bowel sounds PALPATION: Yes Soft to palpation, No Tenderness to palpation present (GI), No Guarding due to palpation present (GI) and Yes No hepatosplenomegaly present Extremity: COMMON NORMALS: normal to inspection, capillary refill normal, no clubbing, cyanosis or edema, no calf tenderness and no pedal edema Neuro: SENSORIUM/ORIENTATION: Yes oriented to person, Yes oriented to place and Yes oriented to time Skin: COMMON NORMALS: no rashes or lesions noted GENERAL SKIN EXAM: no rashes or lesions noted Course Vital Signs: Vital signs: Vital Signs Temperature 98.0 F 05/21/21 12:28 Pulse Rate 64 05/21/21 19:36 Respiratory Rate 19 H 05/21/21 19:36 Blood Pressure 130/52 05/21/21 19:36 Pulse Oximetry 98 05/21/21 19:36 MDM - Chest Pain MDM Narrative: Medical decision making narrative: Care turned over to Dr. Han at change shift see his notes for final diagnosis and disposition Lab Data: Labs: Lab Results 05/21/21 05/21/21 05/21/21 Range/Units 15:10 15:10 15:10 WBC 12.7 H (4.0-10.0) 10^3/ uL RBC 4.43 (4.1-5.3) 10^6/u L Hgb 13.1 (11.5-15.3) g/dL Hct 40.9 (37.0-47.0) % MCV 92.3 (81-99) fL MCH 29.6 (28.0-34.0) pg MCHC 32.0 (30.0-36.0) g/dL RDW 13.2 (12.1-15.1) % Plt Count 351 (130-400) 10^3/c mm MPV 11.7 H (7.4-10.4) fL Neut % (Auto) 65.5 % Lymph % (Auto) 24.7 % Ashley % (Auto) 7.8 % Eos % (Auto) 1.4 % Baso % (Auto) 0.3 % Neut # (Auto) 8.34 H (1.8-7.7) 10^3/u L Lymph # (Auto) 3.2 (0.8-4.8) 10^3/u L Ashley # (Auto) 1.0 H (0.2-0.9) 10^3/u L Eos # (Auto) 0.2 (0.0-0.8) 10^3/u L Baso # (Auto) 0.0 (0.0-0.1) 10^3/u L Nucleated RBC % (a uto) 0 % Nucleated RBCs # 0.0 /100WBC Sodium Cancelled Potassium Cancelled Chloride Cancelled Carbon Dioxide Cancelled Anion Gap Cancelled BUN Cancelled Creatinine Cancelled GFR Calculation Cancelled Glucose Cancelled Calculated Osmolal ity Cancelled Calcium Cancelled Total Bilirubin Cancelled AST Cancelled ALT Cancelled Alkaline Phosphata se Cancelled Creatine Kinase Cancelled Troponin T Baselin e Cancelled Troponin T 120 Min lummi (0-10) ng/L Delta Troponin T (0-10) ABS# Total Protein Cancelled Albumin Cancelled Globulin Cancelled Lipase Cancelled 05/21/21 05/21/21 05/21/21 Range/Units 15:32 15:32 17:35 WBC (4.0-10.0) 10^3/ uL RBC (4.1-5.3) 10^6/u L Hgb (11.5-15.3) g/dL Hct (37.0-47.0) % MCV (81-99) fL MCH (28.0-34.0) pg MCHC (30.0-36.0) g/dL RDW (12.1-15.1) % Plt Count (130-400) 10^3/c mm MPV (7.4-10.4) fL Neut % (Auto) % Lymph % (Auto) % Ashley % (Auto) % Eos % (Auto) % Baso % (Auto) % Neut # (Auto) (1.8-7.7) 10^3/u L Lymph # (Auto) (0.8-4.8) 10^3/u L Ashley # (Auto) (0.2-0.9) 10^3/u L Eos # (Auto) (0.0-0.8) 10^3/u L Baso # (Auto) (0.0-0.1) 10^3/u L Nucleated RBC % (a uto) % Nucleated RBCs # /100WBC Sodium 138 Potassium 3.7 Chloride 98 Carbon Dioxide 28 Anion Gap 15.7 BUN 19 Creatinine 0.5 GFR Calculation 122.0 Glucose 101 Calculated Osmolal ity 288 Calcium 9.9 Total Bilirubin 0.7 AST 16 ALT 19 Alkaline Phosphata se 105 Creatine Kinase 41 Troponin T Baselin e 6 Troponin T 120 Min lummi 7.06 (0-10) ng/L Delta Troponin T 1.06 (0-10) ABS# Total Protein 6.6 Albumin 4.1 Globulin 2.5 Lipase 36 Discharge Plan Discharge Patient Disposition: Home Clinical Impression: Chest pain Qualifiers: Chest pain type: unspecified Qualified Code(s): R07.9 - Chest pain, unspecified Condition: Stable Prescriptions: No Action alprazolam 0.5 mg tablet 0.5 mg PO DAILY PRN (Reason: Anxiety) RF: 0 fluticasone propionate [Allergy Relief (fluticasone)] 50 mcg/actuation spray,suspension 2 spray INTRANASAL DAILY PRN (Reason: Dry Nasal Passages) RF: 0 lisinopril 10 mg tablet 10 mg PO BID RF: 0 gabapentin 300 mg capsule 300 mg PO BID PRN (Reason: Pain) RF: 0 cyclobenzaprine 10 mg tablet 10 mg PO TID PRN (Reason: Pain) RF: 0 diltiazem HCl [Cartia XT] 180 mg capsule,extended release 24hr 180 mg PO BID RF: 0 tramadol 50 mg tablet 50 mg PO DAILY PRN (Reason: Pain) RF: 0 hydrochlorothiazide 12.5 mg capsule 12.5 mg PO DAILY RF: 0 cholecalciferol (vitamin D3) 125 mcg (5,000 unit) capsule 125 mcg PO DAILY RF: 0 calcium carbonate [Calcium 600] 600 mg calcium (1,500 mg) tablet 600 mg PO DAILY RF: 0 omega-3 fatty acids [Fish Oil Concentrate] 1,000 mg capsule 1,000 mg PO DAILY RF: 0 ascorbic acid (vitamin C) 1,000 mg tablet 1 gm PO DAILY RF: 0 albuterol sulfate [Ventolin HFA] 90 mcg/actuation HFA aerosol inhaler 2 puff INHALATION QID PRN (Reason: shortness of breath or wheezing) Qty: 18 RF: 3 omeprazole 20 mg capsule,delayed release(DR/EC) 20 mg PO DAILY RF: 0 Symbicort 160-4.5 mcg/actuation HFA aerosol inhaler 2 puff INHALATION BID RF: 0 Elderberry 1 tab PO DAILY RF: 0 zinc 1 tab PO DAILY RF: 0 montelukast [Singulair] 10 mg tablet 10 mg PO DAILY PRN (Reason: Prevent Allergic Reaction) RF: 0 Discharge Orders: Discharge ED (Routine); Ordered 05/21/21 Ordered By: Omero Han Referrals: Chrissie Ortega, DIRECTOR OF CARDIAC REHABILITATION [Primary Care Provider] - 1-3 days Discharge Diet: Advance as tolerated Discharge Activity: Resume usual activity Patient Instructions: Chest Pain (ED) Coding Level of Care Code ED Fishing Accessories Maker for Chg Fwd Documented by User: Omero Han MD 05/21/21 19:35 HPI - Chest Pain General: Chief Complaint: Chest Pain Stated Complaint: CHEST PAINS Time Seen by Provider: 05/21/21 14:40 PFSH ED PFSH: Medical History Diastolic heart failure Diverticulosis History of aortic stenosis Hypertension Post-polio syndrome Recurrent UTI Surgical History H/O repair of left rotator cuff H/O repair of right rotator cuff H/O total hysterectomy Family History Mother Stroke Hypertension Family/Other Diabetes maternal aunt Thyroid condition maternal, maternal great aunt Breast cancer maternal aunt, age onset in her 50's Colon cancer, Onset Age: 61 maternal uncle Grandmother Stroke maternal, maternal great grandmother Father Hypertension Denies family history of Ovarian cancer Clotting disorder Heart disease Hyperlipidemia Anesthesia complication Bleeding disorder Uterine cancer Social History Smoking and tobacco status: former smoker Quit status (tobacco): has quit using tobacco Year quit tobacco: [id number] Former quit date comment: stopped at age 23 Second hand smoke exposure: No Smoking risk assessment/counseling performed?: Yes Alcohol intake: never Lives independently: Yes Household members: spouse and children Housing: House Marital status: service: No Current occupational status: disabled Pets and animals: Yes History of recent travel: No Current gender identity: Female Course Vital Signs: Vital signs: Vital Signs Temperature 98.0 F 05/21/21 12:28 Pulse Rate 64 05/21/21 19:36 Respiratory Rate 19 H 05/21/21 19:36 Blood Pressure 130/52 05/21/21 19:36 Pulse Oximetry 98 05/21/21 19:36 MDM - Chest Pain MDM Narrative: Medical decision making narrative: Patient presents here with chest pain has had negative troponins here and EKGs have been normal. She is pain-free here. She has no signs of aortic dissection. She is stable for discharge follow-up PCP in 2 to 4 days return if worsening. Lab Data: Labs: Lab Results 05/21/21 05/21/21 05/21/21 Range/Units 15:10 15:10 15:10 WBC 12.7 H (4.0-10.0) 10^3/ uL RBC 4.43 (4.1-5.3) 10^6/u L Hgb 13.1 (11.5-15.3) g/dL Hct 40.9 (37.0-47.0) % MCV 92.3 (81-99) fL MCH 29.6 (28.0-34.0) pg MCHC 32.0 (30.0-36.0) g/dL RDW 13.2 (12.1-15.1) % Plt Count 351 (130-400) 10^3/c mm MPV 11.7 H (7.4-10.4) fL Neut % (Auto) 65.5 % Lymph % (Auto) 24.7 % Ashley % (Auto) 7.8 % Eos % (Auto) 1.4 % Baso % (Auto) 0.3 % Neut # (Auto) 8.34 H (1.8-7.7) 10^3/u L Lymph # (Auto) 3.2 (0.8-4.8) 10^3/u L Ashley # (Auto) 1.0 H (0.2-0.9) 10^3/u L Eos # (Auto) 0.2 (0.0-0.8) 10^3/u L Baso # (Auto) 0.0 (0.0-0.1) 10^3/u L Nucleated RBC % (a uto) 0 % Nucleated RBCs # 0.0 /100WBC Sodium Cancelled Potassium Cancelled Chloride Cancelled Carbon Dioxide Cancelled Anion Gap Cancelled BUN Cancelled Creatinine Cancelled GFR Calculation Cancelled Glucose Cancelled Calculated Osmolal ity Cancelled Calcium Cancelled Total Bilirubin Cancelled AST Cancelled ALT Cancelled Alkaline Phosphata se Cancelled Creatine Kinase Cancelled Troponin T Baselin e Cancelled Troponin T 120 Min lummi (0-10) ng/L Delta Troponin T (0-10) ABS# Total Protein Cancelled Albumin Cancelled Globulin Cancelled Lipase Cancelled 05/21/21 05/21/21 05/21/21 Range/Units 15:32 15:32 17:35 WBC (4.0-10.0) 10^3/ uL RBC (4.1-5.3) 10^6/u L Hgb (11.5-15.3) g/dL Hct (37.0-47.0) % MCV (81-99) fL MCH (28.0-34.0) pg MCHC (30.0-36.0) g/dL RDW (12.1-15.1) % Plt Count (130-400) 10^3/c mm MPV (7.4-10.4) fL Neut % (Auto) % Lymph % (Auto) % Ashley % (Auto) % Eos % (Auto) % Baso % (Auto) % Neut # (Auto) (1.8-7.7) 10^3/u L Lymph # (Auto) (0.8-4.8) 10^3/u L Ashley # (Auto) (0.2-0.9) 10^3/u L Eos # (Auto) (0.0-0.8) 10^3/u L Baso # (Auto) (0.0-0.1) 10^3/u L Nucleated RBC % (a uto) % Nucleated RBCs # /100WBC Sodium 138 Potassium 3.7 Chloride 98 Carbon Dioxide 28 Anion Gap 15.7 BUN 19 Creatinine 0.5 GFR Calculation 122.0 Glucose 101 Calculated Osmolal ity 288 Calcium 9.9 Total Bilirubin 0.7 AST 16 ALT 19 Alkaline Phosphata se 105 Creatine Kinase 41 Troponin T Baselin e 6 Troponin T 120 Min lummi 7.06 (0-10) ng/L Delta Troponin T 1.06 (0-10) ABS# Total Protein 6.6 Albumin 4.1 Globulin 2.5 Lipase 36 Imaging Data^: CXR: Radiologist's impression: [address] [address] XRay Report Signed Patient: Anita Harmon Unit #: [id number] : 1950 [id number] Age/Sex: 70 / F ADM Date: 05/21/21 Loc: ER Room/Bed: Attending Dr: Ordering Provider/Ordering MD: Wilber Marcano DO Date of Service: 05/21/21 Procedure(s): XR chest 1V portable [id number] Accession Number(s): [id number] Report Number: [id number] WS: [id number] Portable AP upright chest, 05/21/2021 Clinical Data: chest pain Comparison: None. Findings: No nodules, masses or effusions are seen. The heart is normal. The pulmonary vascularity is not increased. No pneumonia or pneumothorax is seen. The aortic arch shows mild tortuosity. There are orthopedic anchors in the right humeral head. XR/XR chest 1V portable [id number] Impression: Atherosclerosis. Discharge Plan Discharge Patient Disposition: Home Clinical Impression: Chest pain Qualifiers: Chest pain type: unspecified Qualified Code(s): R07.9 - Chest pain, unspecified Condition: Stable Prescriptions: No Action alprazolam 0.5 mg tablet 0.5 mg PO DAILY PRN (Reason: Anxiety) RF: 0 fluticasone propionate [Allergy Relief (fluticasone)] 50 mcg/actuation spray,suspension 2 spray INTRANASAL DAILY PRN (Reason: Dry Nasal Passages) RF: 0 lisinopril 10 mg tablet 10 mg PO BID RF: 0 gabapentin 300 mg capsule 300 mg PO BID PRN (Reason: Pain) RF: 0 cyclobenzaprine 10 mg tablet 10 mg PO TID PRN (Reason: Pain) RF: 0 diltiazem HCl [Cartia XT] 180 mg capsule,extended release 24hr 180 mg PO BID RF: 0 tramadol 50 mg tablet 50 mg PO DAILY PRN (Reason: Pain) RF: 0 hydrochlorothiazide 12.5 mg capsule 12.5 mg PO DAILY RF: 0 cholecalciferol (vitamin D3) 125 mcg (5,000 unit) capsule 125 mcg PO DAILY RF: 0 calcium carbonate [Calcium 600] 600 mg calcium (1,500 mg) tablet 600 mg PO DAILY RF: 0 omega-3 fatty acids [Fish Oil Concentrate] 1,000 mg capsule 1,000 mg PO DAILY RF: 0 ascorbic acid (vitamin C) 1,000 mg tablet 1 gm PO DAILY RF: 0 albuterol sulfate [Ventolin HFA] 90 mcg/actuation HFA aerosol inhaler 2 puff INHALATION QID PRN (Reason: shortness of breath or wheezing) Qty: 18 RF: 3 omeprazole 20 mg capsule,delayed release(DR/EC) 20 mg PO DAILY RF: 0 Symbicort 160-4.5 mcg/actuation HFA aerosol inhaler 2 puff INHALATION BID RF: 0 Elderberry 1 tab PO DAILY RF: 0 zinc 1 tab PO DAILY RF: 0 montelukast [Singulair] 10 mg tablet 10 mg PO DAILY PRN (Reason: Prevent Allergic Reaction) RF: 0 Discharge Orders: Discharge ED (Routine); Ordered 05/21/21 Ordered By: Omero Han Referrals: Chrissie Ortega DIRECTOR OF CARDIAC REHABILITATION [Primary Care Provider] - 1-3 days Discharge Diet: Advance as tolerated Discharge Activity: Resume usual activity Patient Instructions: Chest Pain (ED) Coding Level of Care Code ED Fishing Accessories Maker for [place]
[2021-05-21 16:02] LABS: Alanine Aminotransferase 19 U/L (0-33); Albumin Level 4.1 g/dL (3.5-5.2); Alkaline Phosphatase 105 IU/L (35-105); Anion Gap 15.7 (5-19); Aspartate Amino Transferase 16 U/L (0-32); Blood Urea Nitrogen 19 mg/dL (8-23); Calcium 9.9 mg/dL (8.5-10.5); Carbon Dioxide 28 mmol/L (22-29); Chloride 98 mmol/L (98-107); Creatine Phosphokinase 41 U/L (26-192); Globulin 2.5 g/dL (1.3-4.6); Glucose 101 mg/dL (65-115); Lipase 36 U/L (13-60); Osmolality Calculated 288 mOsm/kg (285-295); Potassium 3.7 mmol/L (3.5-5.1); Sodium 138 mmol/L (136-145); Total Bilirubin 0.7 mg/dL (0.15-1.2); Total Protein 6.6 g/dL (6.6-8.7)
[2021-05-21 16:03] VITALS: BP 131/74; PULSE 67; RESP 18; O2SAT 98
[2021-05-21 16:03] LABS: Troponin(5th) Baseline 6 ng/L (0-10)
[2021-05-21] MEDS: aspirin 81 mg Chew Tablet 324 MG PO (16:04)
--- NOTE | 2021-05-21 16:59 | ECG_ITS ---
[facility] Test Date: 2021-05-21 Pat Name: Anita Harmon Department: Room: Gender: Female Shoe Folder: : 1950 Requested By: Wilber Valerio Order Number: [id number] Fuentes MD: Lea Andres M.D. Measurements Intervals [place] Rate: 61 P: 57 SC: 140 QRS: 40 QRSD: 102 T: 43 QT: 411 QTc: 417 Interpretive Statements SINUS RHYTHM LOW QRS VOLTAGE IN PRECORDIAL LEADS [QRS DEFLECTION < 1.0 mV IN CHEST LEADS] No previous ECG available for comparison Electronically Signed On 05-22-2021 6:35:55 CDT by Lea Andres M.D. [id number]
[2021-05-21 17:22] VITALS: BP 120/60; PULSE 71; RESP 18; O2SAT 100
[2021-05-21 18:21] LABS: Troponin 5 2HR 7.06 ng/L (0-10); Troponin 5 2HR Delta 1.06 ABS# (0-10)
[2021-05-21 19:36] VITALS: BP 130/52; PULSE 64; RESP 19; O2SAT 98
== END 2021-05-21 19:36 | disposition home or self-care (01) ==
PROVIDERS: Family Medicine; Emergency Provider Emergency Medicine; PCP Nurse Practitioner Family
DX: R07.9 Chest pain, unspecified (principal); I11.0 Hypertensive heart disease with heart failure; I50.30 Unspecified diastolic (congestive) heart failure; Z87.891 Personal history of nicotine dependence
CPT/HCPCS: 36415; 71045; 80053; 82550; 83690; 84484; 85025; 93005; 99283

== ENCOUNTER 2021-06-02 08:30 | Outpatient (CLI) | payer MEDICARE, OTHER, SELFPAY ==
--- NOTE | 2021-06-02 08:39 | CT_ITS ---
WS: [id number] CT ABDOMEN CONTRAST TECHNIQUE: Contrast enhanced CT of the abdomen with coronal and sagittal reformatted images. CLINICAL INFORMATION: ABDOMINAL PAIN LEFT UPPER QUADRANT, HYPOTENSION COMPARISON: None. DLP: 729.[address] scans at [facility] use at least one of these dose optimization techniques: automat ed exposure control; mA and/or kV adjustment per patient size (includes targeted exams where dose is matched to clinical indication); or iterative reconstruction. FINDINGS:Mild transmural thickening of the transverse colon with slight surrounding induration in the right upper quadrant with a few diverticuli suspicious for early or mild acute diverticulitis or col itis. Descending left colon has a more normal appearance. Moderate transverse colon constipation.Fat attenuation lesion within the proximal ascending colon and distal to the ileocecal valve measuring 1. 4 x 1.2 cm likely lipomatous polyp. This can be further evaluated with colonoscopy. Prior postoperative changes hysterectomy and cholecystectomy. Diffuse fatty infiltration the liver. N ormal portal vein and splenic vein. Normal spleen. Normal GE junction. Lung bases are well aerated. N ormal pancreas. Adrenal glands are normal. No hydronephrosis in either kidney. Right renal cyst measu ring 1.5 CM. Smaller right renal cysts. Normal caliber abdominal aorta. Mild aortic calcification. Fa t-containing inguinal hernia. Mild lumbar curve convex left. CT/CT abdomen w con* [id number] IMPRESSION: 1. Suspected transverse colon diverticulitis/colitis more prominent in the rig ht upper quadrant along the hepatic flexure. No abscess or fluid collection. 2. Moderate transverse colon constipation. 3. Fat attenuation lesion within the proximal ascending colon and distal to th e ileocecal valve measuring 1.4 x 1.2 cm likely lipomatous polyp. This can be f urther evaluated with colonoscopy. 4. Diffuse fatty infiltration of the liver. Prior cholecystectomy. Mild hepato megaly. 5. Normal bilateral renal parenchymal enhancement. 6. A few right renal cysts largest measuring 1.5 CM.
[2021-06-02] MEDS: iohexol 300 mg/mL 50 mL Btl PO (08:46)
[2021-06-02] MEDS: iohexol 300 mg/mL 100 mL Btl IV (09:11)
== END 2021-06-02 08:31 | disposition home or self-care (01) ==
PROVIDERS: PCP Nurse Practitioner Family; Visit Provider Nurse Practitioner Family
DX: R10.12 Left upper quadrant pain (principal); I95.9 Hypotension, unspecified; Q61.02 Congenital multiple renal cysts; K76.0 Fatty (change of) liver, not elsewhere classified
CPT/HCPCS: 74160; Q9967

== ENCOUNTER 2021-07-08 08:25 | Outpatient (CLI) | payer MEDICARE, OTHER, SELFPAY ==
--- NOTE | 2021-07-08 08:55 | CT_ITS ---
WS: [id number] CT ABDOMEN AND PELVIS WITH CONTRAST HISTORY: DIVERTICULITIS, ACUTE TECHNIQUE: Imaging performed of the abdomen and pelvis with IV contrast. Single phase imaging of the abdomen. Coronal and sagittal reformats are submitted. All CT scans at [facility] use at least one of these dose optimization techniques: automated exposure control; mA and/or kV adjustment per patient size (includes targeted exams where dose is matched to clinical indication); or iterativ e reconstruction. IV CONTRAST: Omnipaque 300; 95 mL IV. Oral contrast: Yes. DLP: 1096.61 mGycm COMPARISON: 06/02/2021 Lower thorax: Lung bases are clear. Heart is normal size. No hiatal hernia. Liver/biliary system: Normal size liver. Mild central bile duct dilatation. Probably physiologic. No mass. Normal portal vein. Gallbladder: Status post cholecystectomy. Pancreas: Normal size pancreas and pancreatic duct. No adjacent inflammation. Spleen: Normal size spleen. No mass or infarct. Adrenal glands: Normal. Right kidney: Normal size kidney. Cortical cyst with no solid mass. The largest cyst in the upper kid cierra measures 1.5 cm and stable. Left kidney: Normal. Aorta: Mild atherosclerosis with no aneurysm. Lymphadenopathy: None. Free fluid: None. GI tract: Extensive fecal retention. Colon is tortuous. Numerous diverticula throughout the colon. Th ere is no obstructive pattern. Previously described area of colitis or diverticulitis in the RIGHT co adolph has resolved. The appendix is not definitely visualized. Lipoma near the ileocecal valve is not a s well visualized today. Abdominal wall: Unremarkable abdominal wall. No hernia. Pelvis: Prior hysterectomy. No pelvic mass or free fluid. Extensive fatty replacement of several musc les in the RIGHT pelvis. Bones: Dystrophic changes at the LEFT femoral head. There is lateral subluxation of the abnormal femo ral head in relation to a vertical acetabulum. CT/CT abdomen pelvis w con* [id number] IMPRESSION: 1. Resolved diverticulitis/colitis of the RIGHT colon. 2. Numerous diverticula and diffuse constipation. No acute findings. 3. Prior cholecystectomy and hysterectomy. 4. Extensive fatty replacement of the muscles of the RIGHT pelvis. 5. 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
[2021-07-08] MEDS: iohexol 300 mg/mL 50 mL Btl PO (09:36)
[2021-07-08] MEDS: iohexol 300 mg/mL 100 mL Btl IV (10:13)
== END 2021-07-08 08:26 | disposition home or self-care (01) ==
PROVIDERS: PCP Clinical Nurse Specialist Adult Health; Visit Provider Clinical Nurse Specialist Adult Health
DX: K57.92 Diverticulitis of intestine, part unspecified, without perforation or abscess without bleeding (principal); R19.7 Diarrhea, unspecified; R10.12 Left upper quadrant pain; K59.00 Constipation, unspecified; K57.90 Diverticulosis of intestine, part unspecified, without perforation or abscess without bleeding; M16.12 Unilateral primary osteoarthritis, left hip; Z90.49 Acquired absence of other specified parts of digestive tract; Z90.710 Acquired absence of both cervix and uterus
CPT/HCPCS: 74177; Q9967

== ENCOUNTER → 2021-08-03 10:03 | Outpatient (BNVA) | payer MEDICARE, OTHER, SELFPAY | PROVIDERS: PCP Clinical Nurse Specialist Adult Health; Visit Provider Internal Medicine Pulmonary Disease | DX: Z01.818 Encounter for other preprocedural examination (principal); Z20.822 Contact with and (suspected) exposure to COVID-19; J45.909 Unspecified asthma, uncomplicated | CPT/HCPCS: 87635 ==

== ENCOUNTER 2021-08-06 12:39 | Outpatient (CLI) | payer MEDICARE, OTHER, SELFPAY ==
--- NOTE | 2021-08-06 13:20 | PFTS_ITS ---
Date of Study:08/06/21 Date of Dictation: MECHANICS: Forced vital capacity (FVC) is normal. Forced expiratory volume in one second (FEV1) is normal. FEV1/FVC is normal. FLOW VOLUME LOOP: Normal. LUNG VOLUMES: Total lung capacity (TLC) is normal. Residual volume (RV) is normal. DIFFUSING CAPACITY FOR CARBON MONOXIDE: Normal. INTERPRETATION: The pulmonary function tests are normal. MTDD
== END 2021-08-06 12:40 | disposition home or self-care (01) ==
LOC: RT 12:40
PROVIDERS: PCP Clinical Nurse Specialist Adult Health; Visit Provider Internal Medicine Pulmonary Disease
DX: J45.909 Unspecified asthma, uncomplicated (principal)
CPT/HCPCS: 94010; 94726; 94729

== ENCOUNTER 2021-09-02 13:56 | Outpatient (CLI) | payer MEDICARE, OTHER, SELFPAY ==
[2021-09-02 14:45] LABS: Basophils % 0.3 %; Eosinophils # 0.2 10^3/uL (0.0-0.8); Eosinophils % 1.8 %; Hematocrit 40.3 % (37.0-47.0); Lymphocytes # 2.8 10^3/uL (0.8-4.8); Lymphocytes % 23.1 %; Mean Corpuscular HGB Conc 32.3 g/dL (30.0-36.0); Mean Corpuscular Hemoglobin 29.9 pg (28.0-34.0); Mean Corpuscular Volume 92.6 fl (81-99); Mean Platelet Volume 11.1 fL (7.4-10.4); Neutrophils # 7.96 10^3/uL (1.8-7.7); Neutrophils % 66.5 %; Nucleated Red Blood Cells % 0 %; Platelet Count 347 10^3/cmm (130-400); Red Blood Count 4.35 10^6/uL (4.1-5.3); Red Cell Distribution Width 13.5 % (12.1-15.1)
[2021-09-02 15:18] LABS: Alanine Aminotransferase 18 U/L (0-33); Alkaline Phosphatase 101 IU/L (35-105); Anion Gap 12.3 (5-19); Aspartate Amino Transferase 13 U/L (0-32); Blood Urea Nitrogen 12 mg/dL (8-23); Carbon Dioxide 29 mmol/L (22-29); Chloride 103 mmol/L (98-107); Globulin 2.6 g/dL (1.3-4.6); Glomerular Filtration Rate 157.8 mL/min (90-130); Glucose 94 mg/dL (65-115); Osmolality Calculated 292 mOsm/kg (285-295); Potassium 3.3 mmol/L (3.5-5.1); Sodium 141 mmol/L (136-145); Total Bilirubin 0.3 mg/dL (0.15-1.2); Total Protein 6.6 g/dL (6.6-8.7)
[2021-09-03 16:23] LABS: PROTEIN, TOTAL 6.5 g/dL (6.1-8.1)
[2021-09-04 08:12] LABS: ALBUMIN 3.9 g/dL (3.8-4.8); ALPHA 1 GLOBULIN 0.4 g/dL (0.2-0.3); ALPHA 2 GLOBULIN 0.8 g/dL (0.5-0.9); BETA 1 GLOBULIN 0.5 g/dL (0.4-0.6); BETA 2 GLOBULIN 0.3 g/dL (0.2-0.5); GAMMA GLOBULIN 0.6 g/dL (0.8-1.7)
== END 2021-09-02 13:57 | disposition home or self-care (01) ==
LOC: ONCMED 14:01
PROVIDERS: PCP Clinical Nurse Specialist Adult Health; Visit Provider Internal Medicine Medical Oncology
DX: D80.1 Nonfamilial hypogammaglobulinemia (principal)
CPT/HCPCS: 36415; 80053; 84155; 84165; 85025; 88184; 88185

== ENCOUNTER 2021-11-23 14:10 | Outpatient (CLI) | payer MEDICARE, SELFPAY ==
[2021-11-23 15:19] LABS: Basophils # 0.1 10^3/uL (0.0-0.1); Basophils % 0.4 %; Eosinophils # 0.3 10^3/uL (0.0-0.8); Eosinophils % 2.5 %; Hematocrit 42.7 % (37.0-47.0); Hemoglobin 13.9 g/dL (11.5-15.3); Lymphocytes # 3.2 10^3/uL (0.8-4.8); Lymphocytes % 25.4 %; Mean Corpuscular HGB Conc 32.6 g/dL (30.0-36.0); Mean Corpuscular Hemoglobin 29.9 pg (28.0-34.0); Mean Corpuscular Volume 91.8 fl (81-99); Monocytes # 0.8 10^3/uL (0.2-0.9); Monocytes % 6.6 %; Neutrophils # 8.11 10^3/uL (1.8-7.7); Neutrophils % 64.9 %; Nucleated Red Blood Cells % 0 %; Platelet Count 398 10^3/cmm (130-400); Red Blood Count 4.65 10^6/uL (4.1-5.3); Red Cell Distribution Width 11.9 % (12.1-15.1); White Blood Count 12.5 10^3/uL (4.0-10.0)
[2021-11-23 15:46] LABS: Alanine Aminotransferase 22 U/L (0-33); Albumin Level 4.6 g/dL (3.5-5.2); Alkaline Phosphatase 110 IU/L (35-105); Anion Gap 19.8 (5-19); Aspartate Amino Transferase 23 U/L (0-32); Blood Urea Nitrogen 12 mg/dL (8-23); Carbon Dioxide 23 mmol/L (22-29); Chloride 97 mmol/L (98-107); Globulin 2.6 g/dL (1.3-4.6); Glomerular Filtration Rate 157.8 mL/min (90-130); Glucose 101 mg/dL (65-115); Osmolality Calculated 282 mOsm/kg (285-295); Potassium 3.8 mmol/L (3.5-5.1); Sodium 136 mmol/L (136-145); Total Bilirubin 0.4 mg/dL (0.15-1.2); Total Protein 7.2 g/dL (6.6-8.7)
[2021-11-23 17:25] LABS: Immunoglobulin IGA 78 mg/dL (70-400); Immunoglobulin IGG 735 mg/dL (700-1600); Immunoglobulin IGM 122 mg/dL (40-230)
[2021-11-23 18:20] LABS: Bilirubin Urine Neg (Negative); Blood Urine Trace (Negative); Glucose Urine UA Norm (Normal); Ketones Urine Negative (Negative); Leukocyte Esterase Urine Trace (Negative); Nitrate Urine Negative (Negative); Protein Urine Neg (Negative); Urine Appearance Clear (CLEAR); Urine Color Yellow (Yellow); Urobilinogen Urine Norm (Negative); pH Urine 5 (5-7)
[2021-11-23 18:21] LABS: Add Urine Microscopic? YES; Bacteria Urine 2+ /hpf; RBC Urine RARE /hpf (0-2); Squamous Epithelial Cell Urine 0-4 /hpf (0-5); WBC Urine 15-25 /hpf (0-5)
[2021-11-23 18:22] LABS: Add Urine Culture? Yes
--- NOTE | 2021-11-24 12:33 | ONC FU_ITS ---
Dr. Koehler Patient Follow-Up Note Patient: Anita Harmon Unit #: [id number]: [id number] Dicatated By: Greg Koehler M.D.Date of Visit:Nov 23, 2021 Onc Med Follow-up/Prog Note Chief Complaint: Hypogammaglobulinemia. 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 In February 2019 she was found on protein electrophoresis to have hypogammaglobulinemia with a total gammaglobulin level low at 0.58 g/dL. She had recently moved to this area from [place]. In December 2019 she was seen by Dr. Adair Hightower for hematology consultation. Her IgG level was reported to be low at 446 mg/dL. Replacement IVIG was not recommended, as she did not appear to be symptomatic with it. Sometime later she had further evaluation by Dr. Tram Carlin at [facility]. I did not have any of those records available. Her evaluation reportedly showed no evidence of multiple myeloma. I had seen her initially on 02/25/2021. She indicated that a year earlier she had a prolonged episode of bronchitis, lasting about 5 months. She otherwise had no documented bacterial infections or other acute illnesses. She had some ongoing bladder problems including intermittent episodes of hematuria and bladder incontinence. She had no documented urinary tract infection, but she had been given antibiotic therapy on several occasions. Her CBC at that time showed hemoglobin 13.9 g with white blood cell count 11,400 count 374,000. Sed rate was just slightly elevated at 24 mm/h. Comprehensive metabolic profile is unremarkable except for slightly low potassium at 3.4 mmol/L. Her protein electrophoresis showed decreased hypogammaglobulinemia with a total gammaglobulin of 0.6 g/dL. The quantitative immunoglobulin levels included slightly low IgG at 646 mg/dL, with IgA normal at 91 mg/dL and with IgM normal at 87 mg/dL. With those findings, she was recommended to continue expectant management. She has history of having had polio at age 2, and she has post polio syndrome. Her other medical illnesses include hypertension, hyperlipidemia, and asthma/chronic bronchitis. She also has chronic pain due to fibromyalgia and degenerative disease of the spine. She has a history of having undergone an ablation procedure for cardiac arrhythmia. She has a history of colonic polyps, and she has a history of the thyroid nodules. She underwent hemithyroidectomy in 2018. Her most recent colonoscopy was around 2014. She has a history of smoking 1 pack of cigarettes daily from age 16 to age 23. INTERIM HISTORY: In May 2021 she was seen in the emergency room with abdominal pain. Her abdominal CT scan showed suspected transverse colon diverticulitis/colitis which was noted to be more prominent in the right upper quadrant along the hepatic flexure. There was moderate transverse colon constipation. A fat attenuation lesion within the proximal ascending colon and distal to the ileocecal valve was felt to most likely represent a lipomatous polyp. There was evidence for diffuse fatty infiltration of the liver with mild hepatomegaly. The spleen was not enlarged. She was given empiric antibiotic therapy with ciprofloxacin and metronidazole with improvement noted on a follow-up CT abdomen/pelvis in June 2021. She is seen now for a follow-up visit. She has limited activity, and she complains that she feels exhausted all the time. Her ECOG score is 3. She has good appetite. She has not had fever. She occasionally has sweating at night. Other than having lots of pain with her postpolio syndrome and fibromyalgia, her main complaint is that she has been choking on food about every day. She is scheduled to see a prosthetics lab technician in [place] on the of this month. She also complains of having burning in her lips, tongue, and throat. She has been on Symbicort for her asthma. She still has some cough and shortness of breath. She also has been having pain in her left lateral chest area. It tends to occur with activity. She occasionally has nausea. She has not had any overt acid reflux symptoms. She has chronic constipation, which she also occasionally has diarrhea. She has not had any further rectal bleeding. She is having urinary frequency with some urgency/incontinence. Her most significant pain is in the left shoulder, back, and left leg. Lately she has had headaches, but she thinks that is coming from her neck. She has a little bit of dizziness. She also has neuralgia pain. Medications: Cartia XT 1 Caplet (of 180 mg) Capsule SR 24 HR Oral daily, Cyclobenzaprine HCl 1 Tablet (of 10 mg) Oral PRN, Fluticasone Furoate 1 Danevang(s) (of 27.5 mcg/spray) Suspension Nasal PRN, Gabapentin 1 Caplet (of 300 mg) Capsule Oral daily PRN, hydroCHLOROthiazide 1 Tablet (of 12.5 mg) Oral every am, Lisinopril 1 Tablet (of 10 mg) Oral b.i.d., Montelukast Sodium 1 Tablet (of 10 mg) Oral daily, Symbicort 1 Puff(s) (of 160-4.5 mcg/act) Aerosol Inhalation b.i.d., traMADol HCl 1 Tablet (of 50 mg) Oral b.i.d. Allergies: Celecoxib, Denosumab, Fluconazole, Metoprolol Tartrate, and Statins. Vital Signs: Weight is 169 pounds. Blood pressure 128/81, pulse 80, respirations 17, temp 98.5 degrees, oxygen saturation 98%. Physical Examination: Constitutional - She looks pretty good generally, Eyes - Sclerae nonicteric. Conjunctivae clear, ENMT - No lesions noted in the oral cavity, Hematologic/Lymphatic - No cervical, clavicular, or axillary adenopathy, Respiratory - Lungs are clear with good air movement bilaterally, Cardiovascular - Heart rhythm is regular. There is no murmur, gallop, or rub noted, Abdomen - Soft . Liver and spleen are not enlarged. There is no abdominal mass or ascites noted and there is no inguinal adenopathy, Extremities - No edema, Neurologic - She has residual weakness on the right side from her polio. Lab/Imaging: CBC shows hemoglobin 13.9 g, white blood cell count 12,500, and platelet count 398,000. Comprehensive metabolic profile shows normal renal function with BUN 12 and creatinine 0.4 mg/dL. Alkaline phosphatase is slightly elevated at 110/105 IU/L. The bilirubin and the other liver enzymes are normal. Her quantitative immunoglobulin levels are in the low normal range with IgG 735 mg/dL, IgA 78 mg/dL, and IgM 122 mg/dL. Problem List: 1. Hypogammaglobulinemia, presumed to be acquired. 2. History of polio in 1953 with post polio syndrome. 3. Hypertension. 4. Hyperlipidemia. 5. Asthma/bronchitis. 6. Allergic rhinitis. 7. Fibromyalgia. 8. Degenerative disease of the spine. 9. History of thyroid nodules. 10. History of colonic polyps. Problems Addressed with this Encounter and Plan: Patient with hypogammaglobulinemia. This is presumed to be acquired. Her previous evaluation at [facility] showed no evidence of multiple myeloma. Thus did not appear to be symptomatic with it. Expectant management was recommended, as there appeared to be no indication for treatment. During follow-up she empiric required antibiotic therapy for diverticulitis. Her clinical status has otherwise been stable. Her serum protein electrophoresis and serum free light chain studies have shown no evidence for underlying monoclonal gammopathy/plasma cell dyscrasia. Her quantitative immunoglobulin levels are just in the low normal range. As such, she will continue expectant management. I will check urinalysis and culture today, she will have treatment that has indicated. I will otherwise just plan to see her for a follow-up visit in 6 months. Signed By: Greg Koehler M.D. <<Signature on File>>
[2021-11-24 14:57] LABS: PROTEIN, TOTAL 7.3 g/dL (6.1-8.1)
[2021-11-25 09:22] LABS: ALBUMIN 4.5 g/dL (3.8-4.8); ALPHA 1 GLOBULIN 0.4 g/dL (0.2-0.3); ALPHA 2 GLOBULIN 0.8 g/dL (0.5-0.9); BETA 1 GLOBULIN 0.6 g/dL (0.4-0.6); BETA 2 GLOBULIN 0.3 g/dL (0.2-0.5); GAMMA GLOBULIN 0.7 g/dL (0.8-1.7)
== END 2021-11-23 14:11 | disposition home or self-care (01) ==
LOC: ONCMED 14:15
PROVIDERS: PCP Clinical Nurse Specialist Adult Health; Visit Provider Internal Medicine Medical Oncology
DX: D80.1 Nonfamilial hypogammaglobulinemia (principal); Z86.12 Personal history of poliomyelitis; I10 Essential (primary) hypertension; E78.5 Hyperlipidemia, unspecified; J45.909 Unspecified asthma, uncomplicated; M79.7 Fibromyalgia; M47.9 Spondylosis, unspecified; Z86.010 Personal history of colon polyps; K57.92 Diverticulitis of intestine, part unspecified, without perforation or abscess without bleeding; R52 Pain, unspecified; Z79.899 Other long term (current) drug therapy
CPT/HCPCS: 36415; 80053; 81001; 82784; 84155; 84165; 85025; 86023; 87077; 87086; 87186; 99214

== ENCOUNTER 2021-12-10 15:18 | Outpatient (CLI) | payer MEDICARE, OTHER, SELFPAY ==
[2021-12-10 16:54] LABS: Add Urine Microscopic? YES; Bacteria Urine TRACE /hpf; Bilirubin Urine Neg (Negative); Blood Urine 2+ (Negative); Glucose Urine UA Norm (Normal); Ketones Urine Negative (Negative); Leukocyte Esterase Urine 2+ (Negative); Nitrate Urine Negative (Negative); Protein Urine Neg (Negative); Squamous Epithelial Cell Urine 0-4 /hpf (0-5); Urine Appearance Clear (CLEAR); Urine Color Yellow (Yellow); Urobilinogen Urine Norm (Negative); WBC Urine 15-25 /hpf (0-5); pH Urine 5 (5-7)
[2021-12-10 16:55] LABS: Add Urine Culture? No
== END 2021-12-10 15:19 | disposition home or self-care (01) ==
PROVIDERS: PCP Clinical Nurse Specialist Adult Health; Visit Provider Internal Medicine Medical Oncology
DX: D80.1 Nonfamilial hypogammaglobulinemia (principal)
CPT/HCPCS: 81001

== ENCOUNTER 2022-03-24 13:33 | Outpatient (CLI) | payer MEDICARE, OTHER, SELFPAY ==
[2022-03-24 14:52] LABS: Anion Gap 12.5 (5-19); Blood Urea Nitrogen 15 mg/dL (8-23); Calcium 9.5 mg/dL (8.5-10.5); Carbon Dioxide 29 mmol/L (22-29); Chloride 101 mmol/L (98-107); Glucose 154 mg/dL (65-115); NT Pro B Type Natriuretic Pept 229 pg/mL (0-125); Osmolality Calculated 292 mOsm/kg (285-295); Potassium 3.5 mmol/L (3.5-5.1); Sodium 139 mmol/L (136-145)
== END 2022-03-24 13:34 | disposition home or self-care (01) ==
LOC: LAB 13:38
PROVIDERS: Visit Provider Internal Medicine
DX: I10 Essential (primary) hypertension (principal); R60.9 Edema, unspecified
CPT/HCPCS: 80048; 83880

== ENCOUNTER → 2022-04-01 13:43 | Outpatient (BNVA) | payer MEDICARE, OTHER, SELFPAY | PROVIDERS: Visit Provider Internal Medicine | DX: I11.0 Hypertensive heart disease with heart failure (principal); Z86.79 Personal history of other diseases of the circulatory system; Z87.891 Personal history of nicotine dependence | CPT/HCPCS: 99213; 99214 ==

== ENCOUNTER 2022-04-02 11:46 | Outpatient (CLI) | payer MEDICARE, OTHER, SELFPAY ==
[2022-04-02 13:17] LABS: Chol HDL Ratio 4.26 mg/dL (0.0-4.40); Cholesterol 264 mg/dL (0-200); HDL Cholesterol 62 mg/dL (60-100); LDL Cholesterol Calculated 174 mg/dL (50-129); LDL HDL Ratio 2.81 RATIO (0.00-3.22); Triglycerides 142 mg/dL (0-150)
== END 2022-04-02 11:47 | disposition home or self-care (01) ==
LOC: LAB 11:52
PROVIDERS: PCP Clinical Nurse Specialist Adult Health; Visit Provider Internal Medicine
DX: E78.5 Hyperlipidemia, unspecified (principal)
CPT/HCPCS: 80061

== ENCOUNTER 2022-04-08 10:21 | Outpatient (CLI) | payer MEDICARE, OTHER, SELFPAY ==
--- NOTE | 2022-04-08 10:26 | MM_ITS ---
WS: [id number] BILATERAL SCREENING DIGITAL BREAST TOMOSYNTHESIS MAMMOGRAM WITH CAD HISTORY: SCREENING COMPARISON: 03/23/2021, 02/26/2021 and 01/22/2020 Bilateral CC and MLO views with tomosynthesis and synthetic mammography submitted. Computer aided det ection analyzed. Breast composition: There are scattered areas of fibroglandular density. No suspicious masses, microc alcifications or architectural distortion. Benign calcifications RIGHT breast. Asymmetry in the LEFT breast is stable. MM/[place] [id number] IMPRESSION: BI-RADS: 2-Benign FOLLOW UP: 1 Year Follow-up
== END 2022-04-08 10:22 | disposition home or self-care (01) ==
LOC: RAD 10:23
PROVIDERS: PCP Clinical Nurse Specialist Adult Health; Visit Provider Clinical Nurse Specialist Adult Health
DX: Z12.31 Encounter for screening mammogram for malignant neoplasm of breast (principal)
CPT/HCPCS: 77063; 77067

== ENCOUNTER → 2022-05-20 09:24 | Outpatient (BNVA) | payer MEDICARE, OTHER, SELFPAY | PROVIDERS: PCP Clinical Nurse Specialist Adult Health; Visit Provider Internal Medicine Pulmonary Disease | DX: J45.40 Moderate persistent asthma, uncomplicated (principal); R91.8 Other nonspecific abnormal finding of lung field; D89.2 Hypergammaglobulinemia, unspecified; R68.2 Dry mouth, unspecified; H04.123 Dry eye syndrome of bilateral lacrimal glands; R13.10 Dysphagia, unspecified; Z87.891 Personal history of nicotine dependence; I10 Essential (primary) hypertension; E78.00 Pure hypercholesterolemia, unspecified | CPT/HCPCS: 85651; 86038; 86140; 86200; 86235; 86431; 99214 ==

== ENCOUNTER → 2022-05-31 13:09 | Outpatient (BNVA) | payer MEDICARE, OTHER, SELFPAY | PROVIDERS: PCP Clinical Nurse Specialist Adult Health; Visit Provider Clinical Nurse Specialist Adult Health | DX: R30.0 Dysuria (principal); N64.4 Mastodynia | CPT/HCPCS: 81003; 87077; 87086; 87184 ==

== ENCOUNTER 2022-06-18 12:55 | Outpatient (CLI) | payer MEDICARE, OTHER, SELFPAY ==
--- NOTE | 2022-06-18 13:10 | US_ITS ---
WS: [id number] ULTRASOUND RIGHT BREAST HISTORY: painful nipples COMPARISON: 03/23/2021 TECHNIQUE: 2-D and Doppler. In the area of pain involving the RIGHT breast there is a hypoechoic mass with mild heterogeneity frederick suring 12 x 7 x 12 mm. There is increased vascularity centrally. Mass is taller than it is wide and i s localized to the 12:00 at the areolar. This does appear separate from the nipple. No similar findin g on the LEFT breast. US/US breast BI limited* [id number] IMPRESSION: BI-RADS: 4-Suspicious Finding-Biopsy Should Be Considered FOLLOW-UP: Biopsy Recommended Ultrasound-guided biopsy RIGHT breast recommended of the heterogeneous mass at 12:00 which is palpable. Notified Sinan Wakefield NP at 06/18/2022 2:53 PM. Left message at the office for Sinan Wakefield review the report.
== END 2022-06-18 12:56 | disposition home or self-care (01) ==
LOC: RAD 12:56
PROVIDERS: PCP Clinical Nurse Specialist Adult Health; Visit Provider Clinical Nurse Specialist Adult Health
DX: N64.4 Mastodynia (principal); N63.15 Unspecified lump in the right breast, overlapping quadrants
CPT/HCPCS: 76642

== ENCOUNTER 2022-06-22 12:28 | Oncology outpatient (recurring) (ONCR) | payer MEDICARE, OTHER, SELFPAY ==
[2022-06-22 13:33] LABS: Basophils # 0.1 10^3/uL (0.0-0.1); Basophils % 0.4 %; Eosinophils # 0.3 10^3/uL (0.0-0.8); Eosinophils % 2.6 %; Hematocrit 42.8 % (37.0-47.0); Hemoglobin 13.6 g/dL (11.5-15.3); Lymphocytes # 3.6 10^3/uL (0.8-4.8); Lymphocytes % 27.8 %; Mean Corpuscular HGB Conc 31.8 g/dL (30.0-36.0); Mean Corpuscular Hemoglobin 29.2 pg (28.0-34.0); Mean Corpuscular Volume 91.8 fl (81-99); Mean Platelet Volume 12.3 fL (7.4-10.4); Monocytes % 7.9 %; Neutrophils # 7.99 10^3/uL (1.8-7.7); Neutrophils % 60.9 %; Nucleated Red Blood Cells % 0 %; Platelet Count 368 10^3/cmm (130-400); Red Blood Count 4.66 10^6/uL (4.1-5.3); Red Cell Distribution Width 13.5 % (12.1-15.1); White Blood Count 13.1 10^3/uL (4.0-10.0)
[2022-06-22 14:00] LABS: Alanine Aminotransferase 17 U/L (0-33); Albumin Level 4.4 g/dL (3.5-5.2); Alkaline Phosphatase 107 IU/L (35-105); Anion Gap 17.1 (5-19); Aspartate Amino Transferase 15 U/L (0-32); Blood Urea Nitrogen 17 mg/dL (8-23); Calcium 9.8 mg/dL (8.5-10.5); Carbon Dioxide 28 mmol/L (22-29); Chloride 99 mmol/L (98-107); Globulin 2.7 g/dL (1.3-4.6); Glucose 106 mg/dL (65-115); Immunoglobulin IGA 96 mg/dL (70-400); Immunoglobulin IGG 781 mg/dL (700-1600); Immunoglobulin IGM 131 mg/dL (40-230); Osmolality Calculated 292 mOsm/kg (285-295); Potassium 4.1 mmol/L (3.5-5.1); Sodium 140 mmol/L (136-145); Total Bilirubin 0.4 mg/dL (0.15-1.2); Total Protein 7.1 g/dL (6.6-8.7)
[2022-06-22 16:01] LABS: Miscellaneous Test See Scanned Lab Rpt
[2022-06-22 16:33] LABS: Add Urine Culture? No; Bilirubin Urine Neg (Negative); Blood Urine Neg (Negative); Glucose Urine UA Norm (Normal); Ketones Urine Negative (Negative); Leukocyte Esterase Urine 1+ (Negative); Nitrate Urine Negative (Negative); Protein Urine Neg (Negative); RBC Urine 0-4 /hpf (0-2); Squamous Epithelial Cell Urine 0-4 /hpf (0-5); Urine Appearance Clear (CLEAR); Urine Color Yellow (Yellow); Urobilinogen Urine Norm (Negative); WBC Urine 0-4 /hpf (0-5); pH Urine 7 (5-7)
[2022-06-23 12:57] LABS: KAPPA LIGHT CHAIN, FREE, SERUM 15.2 mg/L (3.3-19.4); KAPPA/LAMBDA LIGHT CHAINS FREE 1.06 (0.26-1.65); LAMBDA LIGHT CHAIN, FREE, SERU 14.4 mg/L (5.7-26.3)
[2023-08-09 16:36] LABS: Immunofixation Serum SEE REPORT
== END 2022-07-14 23:59 | disposition home or self-care (01) ==
PROVIDERS: PCP Clinical Nurse Specialist Adult Health; Visit Provider Internal Medicine Medical Oncology
DX: D80.1 Nonfamilial hypogammaglobulinemia (principal); M16.12 Unilateral primary osteoarthritis, left hip; R92.8 Other abnormal and inconclusive findings on diagnostic imaging of breast; R30.0 Dysuria
CPT/HCPCS: 36415; 80053; 81001; 82784; 83883; 84155; 84165; 85025; 86334; 99214

== ENCOUNTER 2022-06-23 10:20 | Outpatient (CLI) | payer MEDICARE, OTHER, SELFPAY ==
--- NOTE | 2022-06-23 10:45 | FL_ITS ---
WS: [id number] FL barium swallow [id number] REASON FOR EXAM: Difficulty with swallowing. FLUOROSCOPY TIME: 1min [id number] # OF SPOT FILMS: 58 TECHNIQUE: Due to the patient's limited mobility she was examined in the right lateral decubitus position and in the supine position. The swallowing of barium was evaluated with fluoroscopy and multiple rapid sequ ence spot films for the evaluation of motility. FINDINGS: The hypoechoic and oral pharynx appeared normally functional. No aspiration. Cervical and thoracic esophagus demonstrated persistent normal primary stripping wave. There are mini mal intermittent tertiary contractions in the thoracic esophagus. There is a moderate hiatal hernia with out significant Schatzki ring or stenosis. Reflux was not elicited. FL/FL barium swallow [id number] IMPRESSION: Barium swallow as above without significant abnormality.
== END 2022-06-23 10:21 | disposition home or self-care (01) ==
LOC: RAD 10:26
PROVIDERS: PCP Clinical Nurse Specialist Adult Health; Visit Provider Internal Medicine Pulmonary Disease
DX: R13.10 Dysphagia, unspecified (principal)
CPT/HCPCS: 74220

== ENCOUNTER → 2022-07-01 13:10 | Outpatient (BNVA) | payer MEDICARE, OTHER, SELFPAY | PROVIDERS: PCP Clinical Nurse Specialist Adult Health; Visit Provider Surgery | DX: R10.9 Unspecified abdominal pain (principal); D17.5 Benign lipomatous neoplasm of intra-abdominal organs | CPT/HCPCS: 99213 ==

== ENCOUNTER 2022-07-12 12:53 | Outpatient (CLI) | payer MEDICARE, OTHER, SELFPAY ==
--- NOTE | 2022-07-12 13:04 | US_ITS ---
WS: [id number] ULTRASOUND-GUIDED RIGHT BREAST BIOPSY CLINICAL INFORMATION: abnormal U/S right breast COMPARISON: June 18, 2022 FINDINGS: The procedure including risks, benefits, and complications were discussed with the patient who agreed to proceed. Using sterile technique patient was prepped and draped in the usual sterile fashion. Aft er 1% lidocaine utilizing real-time ultrasound guidance 5 14-gauge cores were obtained of the RIGHT b reast lesion at the 12 o'clock position areola. Subsequently a titanium clip was placed in the biopsy cavity. No immediate complications. Pathology demonstrates A. Breast, right breast areola lesion , ultrasound-guided biopsy: - Benign breast tissue with stromal sclerosis. - No atypia or malignancy identified. US/[place] [id number] IMPRESSION: 1. Uncomplicated ultrasound-guided RIGHT breast biopsy. 2. The pathology demonstrates benign breast tissue with stromal sclerosis. No atypia or malignancy. 3. Recommend 6 month follow-up with diagnostic mammography and ultrasound RIG T breast to confirm stability postbiopsy. BI-RADS: 2-Benign FOLLOW UP: 6 Month Follow-up
== END 2022-07-12 12:54 | disposition home or self-care (01) ==
LOC: RAD 12:54
PROVIDERS: PCP Clinical Nurse Specialist Adult Health; Visit Provider Clinical Nurse Specialist Adult Health
DX: N63.15 Unspecified lump in the right breast, overlapping quadrants (principal)
CPT/HCPCS: 19083; 88305

== ENCOUNTER 2022-07-21 13:26 | Outpatient (CLI) | payer MEDICARE, OTHER, SELFPAY ==
--- NOTE | 2022-07-21 13:41 | XR_ITS ---
WS: [id number] Chest 2 views, 07/21/2022 Clinical Data: rule out pneumonia Comparison: Portable chest, 05/21/2021. Findings: No nodules, masses or effusions are seen. The heart is normal. The pulmonary vascularity is not increased. No pneumothorax is seen. There is minimal patchy opacity in the lingula of the left u pper lobe obscuring the left cardiac border which could represent atelectasis and/or minimal pneumoni a. There are clips in the right upper quadrant from a cholecystectomy. There are orthopedic anchors i n the right humeral head. XR/XR chest 2V* [id number] Impression: Minimal opacity overlying left cardiac border which could represent atelectasis and/or minimal pneumonia in the lingula.
== END 2022-07-21 13:27 | disposition home or self-care (01) ==
LOC: RAD 13:31
PROVIDERS: PCP Clinical Nurse Specialist Adult Health; Visit Provider Internal Medicine Pulmonary Disease
DX: R05.8 Other specified cough (principal)
CPT/HCPCS: 71046

== ENCOUNTER → 2022-08-12 09:37 | Outpatient (BNVA) | payer MEDICARE, OTHER, SELFPAY | PROVIDERS: PCP Clinical Nurse Specialist Adult Health; Visit Provider Family Medicine | DX: N39.0 Urinary tract infection, site not specified (principal); R30.0 Dysuria | CPT/HCPCS: 81000; 87086 ==

== ENCOUNTER 2022-08-17 07:18 | Outpatient (CLI) | payer MEDICARE, OTHER, SELFPAY ==
--- NOTE | 2022-08-17 07:28 | CT_ITS ---
WS: [id number] CT ABDOMEN AND PELVIS WITH CONTRAST HISTORY: HX OF COLON LIPOMA/ABD PAIN TECHNIQUE: Imaging performed of the abdomen and pelvis with IV contrast. Single phase imaging of the abdomen. Coronal and sagittal reformats are submitted. All CT scans at [facility] use at [address] one of these dose optimization techniques: automated exposure control; mA and/or kV adjustment per patient size (includes targeted exams where dose is matched to clinical indication); or iterative re construction. IV CONTRAST: Omnipaque 350; 95 mL IV. Oral contrast: No DLP: 1190.12 mGy.cm COMPARISON: 07/08/2021 Lower thorax: Lung bases are clear. Heart is normal size. No hiatal hernia. Liver/biliary system: Normal size liver. No mass identified. There is mild intrahepatic duct dilatati on which has mildly progressed since the prior examinations. No obstructing lesions are identified. C ommon bile duct is top normal at 9 mm. Gallbladder: Prior cholecystectomy. Pancreas: Normal size pancreas and pancreatic duct. No adjacent inflammation. Spleen: Normal size spleen. No mass or infarct. Adrenal glands: Normal. Right kidney: Normal size kidney. Small scattered hypoechoic cyst. No solid mass. No obstruction. Left kidney: Normal. Aorta: Mild atherosclerosis with no aneurysm. Lymphadenopathy: None. Free fluid: None. GI tract: Stomach is well-distended with oral contrast. No small bowel obstruction. There is moderate diffuse constipation with scattered diverticula throughout the colon. The lipoma is reidentified tod ay involving the cecum measuring 2.2 x 1.0 cm. There is a stalk noted at the base of the lipoma there fore this is probably mobile. No obstruction. The appendix is not definitely identified. Abdominal wall: Unremarkable abdominal wall. No hernia. Pelvis: No free fluid or adenopathy within the pelvis. Marked atrophy of the muscle surrounding the R IGHT pelvis. Bones: Severe deformity involving the LEFT hip and acetabulum with partial lateral subluxation. CT/CT abdomen pelvis w con* [id number] IMPRESSION: 1. 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 Lipoma is on a stalk t herefore is probably mobile within the RIGHT colon. No obstruction. 2. Prior cholecystectomy. 3. Mild intrahepatic and extrahepatic bile duct dilatation. May be physiologic and related to the cholecystectomy. No abnormality is noted at the pancreatic head or within the distal common bile duct. 4. Mild diffuse constipation with scattered diffuse diverticula. 5. Severe deformity and lateral subluxation of the LEFT hip.
[2022-08-17] MEDS: iohexol 350 mg/mL 100 mL Btl PO (08:14)
[2022-08-17 08:49] LABS: Blood Urea Nitrogen 13 mg/dL (8-23)
[2022-08-17] MEDS: iohexol 350 mg/mL 100 mL Btl IV (09:02)
== END 2022-08-17 07:19 | disposition home or self-care (01) ==
PROVIDERS: PCP Clinical Nurse Specialist Adult Health; Visit Provider Surgery
DX: R10.9 Unspecified abdominal pain (principal); D17.5 Benign lipomatous neoplasm of intra-abdominal organs; K83.8 Other specified diseases of biliary tract; K59.00 Constipation, unspecified; K57.30 Diverticulosis of large intestine without perforation or abscess without bleeding
CPT/HCPCS: 74177; 82565; 84520

== ENCOUNTER 2022-08-24 20:00 | Outpatient (CLI) | payer MEDICARE, OTHER, SELFPAY | END 2022-08-24 20:01 | disposition home or self-care (01) | LOC: SLEEP 08-25 07:22 | PROVIDERS: PCP Clinical Nurse Specialist Adult Health; Visit Provider Internal Medicine Pulmonary Disease | DX: G47.33 Obstructive sleep apnea (adult) (pediatric) (principal) | CPT/HCPCS: 95810 ==

== ENCOUNTER → 2022-09-13 08:53 | Outpatient (BNVA) | payer MEDICARE, OTHER, SELFPAY | PROVIDERS: PCP Clinical Nurse Specialist Adult Health; Referring Provider Internal Medicine Medical Oncology; Visit Provider Student in an Organized Health Care Education/Training Program | DX: M16.12 Unilateral primary osteoarthritis, left hip (principal) | CPT/HCPCS: 73502; 99204 ==

== ENCOUNTER 2022-09-23 17:42 | Observation (INO) | payer MEDICARE, OTHER, SELFPAY ==
[2022-09-23] VITALS (19 sets, daily range): BP systolic 111–142; BP diastolic 52–75; PULSE 87–120; RESP 16–20; TEMP 36.8; O2SAT 90–100; BMI 33.6
--- NOTE | 2022-09-23 17:58 | XRR_ITS ---
PROCEDURE INFORMATION: Exam: XR Left Hip Exam date and time: 09/23/2022 7:05 PM Age: 71 years old Clinical indication: Hip pain; Left hip; Patient HX: Patient is scheduled for hip replacement TECHNIQUE: Imaging protocol: Radiologic exam of the Left hip. Views: 2 or 3 views hip with pelvis when performed. COMPARISON: CR XR hip LT 2-3V wo/w pel* [id number] 09/13/2022 8:54 AM FINDINGS: Bones/joints: Severe joint space narrowing with [id number] contact and flattening of the femoral head. Negative for fracture. Soft tissues: Unremarkable. XR/XR hip LT 2-3V wo/w pel* [id number] IMPRESSION: Severe DJD of the left hip.
--- NOTE | 2022-09-23 18:13 | W.ED.EXTPRO ---
HPI - Extremity Problem General: Chief complaint: Weakness Stated complaint: wEAKNESS, LEG/ARM TINGLE Time Seen by Provider: 09/23/22 17:53 Source: patient and EMS Mode of arrival: EMS Limitations: no limitations History of Present Illness: 71-year-old female who has a history of chronic hip pain along with fibromyalgia states that over the last few weeks she has had worsening pain in that hip she supposed to have a hip replacement states she is also had weakness has been severely weak and feels dehydrated states she does not be able walk she denies any fever denies any vomiting denies any diarrhea denies any chest pain. Associated symptoms: Deny chest pain, fever(s) or rash Review of Systems Const: Denies: fever(s), chills, body aches or change in appetite Eyes: Denies: blurry vision or eye discomfort ENMT: Denies: throat pain or dental pain Card: Denies: chest pain Resp: Denies: dyspnea GI: Denies: abdominal pain, nausea, vomiting or diarrhea : Denies: dysuria Musc: Reports: extremity pain Skin/Breast: Denies: rash Neuro: Denies: headache(s) Psych: Denies: depression Josiah/Lymph: Denies: easy bruising All/Imm: Denies: urticaria PFSH ED PFSH: Medical History Aortic atherosclerosis Arthritis Asthma Degenerative arthritis 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 Diastolic heart failure Diverticulosis Fibromyalgia History of aortic stenosis Hyperlipidemia Hypertension Nonfamilial hypogammaglobulinemia Post-polio syndrome Recurrent UTI Restrictive cardiomyopathy Surgical History H/O cardiac radiofrequency ablation H/O partial thyroidectomy H/O repair of left rotator cuff H/O repair of right rotator cuff H/O total hysterectomy History of colonoscopy with polypectomy History of ear surgery tube in left ear History of surgery on lower extremity 3 surgeries on the right leg, 1 surgery on left leg History of tonsillectomy Family History Mother Stroke Hypertension Family/Other Diabetes maternal aunt Thyroid condition maternal, maternal great aunt Breast cancer maternal aunt, age onset in her 50's Colon cancer, Onset Age: 61 maternal uncle Grandmother Stroke maternal, maternal great grandmother Father Hypertension Denies family history of Ovarian cancer Clotting disorder Heart disease Hyperlipidemia Anesthesia complication Bleeding disorder Uterine cancer Social History Smoking and tobacco status: never smoked Physical Exam Const: COMMON NORMALS: no acute distress, patient oriented x3 and healthy appearing HENMT: COMMON NORMALS: normocephalic and atraumatic HEAD & SCALP: normocephalic and atraumatic Eye: COMMON NORMALS: Equal, round and reactive pupils present and EOMs intact bilaterally PUPIL: Yes Equal, round and reactive pupils present Neck/C-Spine: COMMON NORMALS: full ROM and supple Chest: COMMONS NORMALS: normal inspection of the chest and normal palpation of entire chest wall Resp: COMMON NORMALS: normal respiratory effort, No retractions, No use of accessory muscles and clear to auscultation bilaterally AUSCULTATION: clear to auscultation bilaterally Cardio: COMMON NORMALS: regular rate, regular rhythm and No murmurs present (Cardio) RATE: regular rate RHYTHM: regular rhythm GI: COMMON NORMALS: Normal to inspection, nondistended, normoactive bowel sounds present, Soft to palpation, non-tender and no masses PALPATION: Yes Soft to palpation Extremity: COMMON NORMALS: normal to inspection and full ROM Neuro: COMMON NORMALS: patient oriented x3, moves all extremities and no focal motor deficits Psych: COMMON NORMALS: mental status grossly normal, Normal thought process present and cooperative THOUGHT PROCESS: Normal thought process present Skin: COMMON NORMALS: no rashes or lesions noted and no wounds GENERAL SKIN EXAM: no rashes or lesions noted Course Vital Signs: Vital signs: Vital Signs Temperature 98.2 F 09/23/22 17:44 Pulse Rate 120 H 09/23/22 17:44 Respiratory Rate 16 09/23/22 20:58 Blood Pressure 114/71 09/23/22 19:00 Pulse Oximetry 100 09/23/22 19:05 Oxygen Delivery Me thod 09/23/22 17:44 MDM - Extremity (Nontraumatic) Medical Decision Making Patient presents with left hip pain that is chronic in nature she also having some weakness difficulty walking due to severe weakness she is does appear to be slightly dehydrated here also has a leukocytosis no fever no signs of infection spoke to hospitalist will admit for observation. Lab Data : 09/23/22 18:05 09/23/22 18:05 Radiology Impressions Hip/Pelvis X-Ray 09/23/22 17:58 IMPRESSION: Severe DJD of the left hip. Chest/Abdomen/Pelvis CT 09/23/22 18:24 IMPRESSION: No acute findings. IMPRESSION: No acute findings. COMMENTS: Consistent with the [place] [employer]'s Incidental Findings Committee white paper (J Am Mayo Radiol 2018): Any incidental renal lesion less than 1 cm or classified as too small to characterize, or any incidental cystic renal lesion characterized as simple-appearing, is likely benign. No follow-up imaging is recommended for these lesions per consensus recommendations based on imaging criteria. Laboratory Results WBC 22.6 10^3/uL (4.0-10.0) H 09/23/22 18:05 RBC 4.52 10^6/uL (4.1-5.3) 09/23/22 18:05 Hgb 13.6 g/dL (11.5-15.3) 09/23/22 18:05 Hct 40.4 % (37.0-47.0) 09/23/22 18:05 MCV 89.4 fl (81-99) 09/23/22 18:05 MCH 30.1 pg (28.0-34.0) 09/23/22 18:05 MCHC 33.7 g/dL (30.0-36.0) 09/23/22 18:05 RDW 13.6 % (12.1-15.1) 09/23/22 18:05 Plt Count 387 10^3/cmm (130-400) 09/23/22 18:05 MPV 11.3 fL (7.4-10.4) H 09/23/22 18:05 Neut % (Auto) 79.7 % 09/23/22 18:05 Lymph % (Auto) 11.1 % 09/23/22 18:05 [place] % (Auto) 8.3 % 09/23/22 18:05 Eos % (Auto) 0.2 % 09/23/22 18:05 Baso % (Auto) 0.2 % 09/23/22 18:05 Neut # (Auto) 18.03 10^3/uL (1.8-7.7) H 09/23/22 18:05 Lymph # (Auto) 2.5 10^3/uL (0.8-4.8) 09/23/22 18:05 [place] # (Auto) 1.9 10^3/uL (0.2-0.9) H 09/23/22 18:05 Eos # (Auto) 0.0 10^3/uL (0.0-0.8) 09/23/22 18:05 Baso # (Auto) 0.1 10^3/uL (0.0-0.1) 09/23/22 18:05 Nucleated RBC % (auto) 0 % 09/23/22 18:05 Nucleated RBCs # 0.0 /100WBC 09/23/22 18:05 Sodium 133 mmol/L (136-145) L 09/23/22 18:05 Potassium 3.1 mmol/L (3.5-5.1) L 09/23/22 18:05 Chloride 92 mmol/L (98-107) L 09/23/22 18:05 Carbon Dioxide 25 mmol/L (22-29) 09/23/22 18:05 Anion Gap 19.1 (5-19) H 09/23/22 18:05 BUN 15 mg/dL (8-23) 09/23/22 18:05 Creatinine 0.7 mg/dL (0.5-0.9) 09/23/22 18:05 GFR Calculation Not Reportable 09/23/22 18:05 Glucose 171 mg/dL (65-115) H 09/23/22 18:05 Calculated Osmolality 281 mOsm/kg (285-295) L 09/23/22 18:05 Lactate 2.3 mmol/L (0.5-2.2) H 09/23/22 18:05 Calcium 10.0 mg/dL (8.5-10.5) 09/23/22 18:05 Total Bilirubin 1.0 mg/dL (0.15-1.2) 09/23/22 18:05 AST 16 U/L (0-32) 09/23/22 18:05 ALT 20 U/L (0-33) 09/23/22 18:05 Alkaline Phosphatase 120 U/L (35-105) H 09/23/22 18:05 Troponin T Baseline 9 ng/L (0-10) 09/23/22 18:05 Troponin T 120 Minute 10.67 ng/L (0-10) H 09/23/22 20:25 Delta Troponin T 1.67 ABS# (0-10) 09/23/22 20:25 Total Protein 7.6 g/dL (6.6-8.7) 09/23/22 18:05 Albumin 4.3 g/dL (3.5-5.2) 09/23/22 18:05 Globulin 3.3 g/dL (1.3-4.6) 09/23/22 18:05 Lipase 28 U/L (13-60) 09/23/22 18:05 Urine Color Yellow (Yellow) 09/23/22 19:08 Urine Appearance Clear (CLEAR) 09/23/22 19:08 Urine pH 6 (5-7) 09/23/22 19:08 Ur Specific [place] 1.010 (1.005-1.030) 09/23/22 19:08 Urine Protein 1+ (Negative) H 09/23/22 19:08 Urine Glucose (UA) Norm (Normal) 09/23/22 19:08 Urine Ketones 1+ (Negative) H 09/23/22 19:08 Urine Blood 2+ (Negative) H 09/23/22 19:08 Urine Nitrate Negative (Negative) 09/23/22 19:08 Urine Bilirubin Neg (Negative) 09/23/22 19:08 Urine Urobilinogen Norm mg/dL (Negative) 09/23/22 19:08 Ur Leukocyte Esterase Negative (Negative) 09/23/22 19:08 Urine RBC 0-4 /hpf (0-2) H 09/23/22 19:08 Urine WBC 10-15 /hpf (0-5) H 09/23/22 19:08 Ur Squamous Epith Cells 0-4 /hpf (0-5) H 09/23/22 19:08 Calcium Oxalate Crystal 3 /hpf 09/23/22 19:08 Amorphous Sediment Not Reportable 09/23/22 19:08 Urine Bacteria None /hpf (NONE) 09/23/22 19:08 Urine Mucus 1+ /hpf 09/23/22 19:08 EKG Data EKG 1: I personally reviewed and interpreted this EKG as follows: EKG interpretation date: 09/23/22 EKG interpretation time: 18:45 Interpretation: sinus tach hr [address] or t wave abnormalities qrs 98 qtc 401 EKG 2: I personally reviewed and interpreted this EKG as follows: EKG interpretation date: 09/23/22 EKG interpretation time: 20:46 Interpretation: nsr hr [address] or t wave abnormalities qrs 97 qtc 418 Discharge Plan Discharge Patient Disposition: Placed in Observation Clinical Impression: Leukocytosis, Hip pain, left, Weakness Coding Level of Care Code ED Inspector Optical Instrument for Chg Fwd Exam Comprehensive
[2022-09-23 18:15] LABS: Basophils # 0.1 10^3/uL (0.0-0.1); Basophils % 0.2 %; Eosinophils % 0.2 %; Hematocrit 40.4 % (37.0-47.0); Hemoglobin 13.6 g/dL (11.5-15.3); Lymphocytes # 2.5 10^3/uL (0.8-4.8); Lymphocytes % 11.1 %; Mean Corpuscular HGB Conc 33.7 g/dL (30.0-36.0); Mean Corpuscular Hemoglobin 30.1 pg (28.0-34.0); Mean Corpuscular Volume 89.4 fl (81-99); Mean Platelet Volume 11.3 fL (7.4-10.4); Monocytes # 1.9 10^3/uL (0.2-0.9); Monocytes % 8.3 %; Neutrophils # 18.03 10^3/uL (1.8-7.7); Neutrophils % 79.7 %; Nucleated Red Blood Cells % 0 %; Platelet Count 387 10^3/cmm (130-400); Red Blood Count 4.52 10^6/uL (4.1-5.3); Red Cell Distribution Width 13.6 % (12.1-15.1); White Blood Count 22.6 10^3/uL (4.0-10.0)
--- NOTE | 2022-09-23 18:24 | CTR_ITS ---
PROCEDURE INFORMATION: Exam: CTA Chest With Contrast Exam date and time: 09/23/2022 7:51 PM Age: 71 years old Clinical indication: Other: Left side pain; Dyspnea and other: Some pain; Additional info: Chest and left hip pain TECHNIQUE: Imaging protocol: Computed tomographic angiography of the chest with contrast. 3D rendering (Not supervised by radiologist): MIP and/or 3D reconstructed images were created by the technologist. Radiation optimization: All CT scans at this facility use at least one of these dose optimization techniques: automated exposure control; mA and/or kV adjustment per patient size (includes targeted exams where dose is matched to clinical indication); or iterative reconstruction. Contrast material: OMNIPAQUE 350; Contrast volume: 95 ml; Contrast route: INTRAVENOUS (IV); COMPARISON: CT abdomen pelvis w con* [id number] 08/17/2022 8:52 AM RADIATION DOSE METRICS: Total DLP (mGy-cm): 1190.39 FINDINGS: Pulmonary arteries: Normal. No pulmonary emboli. Aorta: No aortic aneurysm. No aortic dissection. Lungs: No consolidation. No masses. Pleural spaces: No pneumothorax. No pleural effusion. Heart: No cardiomegaly. No pericardial effusion. Lymph nodes: No enlarged lymph nodes. Bones/joints: Multiple rotator cuff anchors noted in the right humeral head. No acute fracture. Soft tissues: Unremarkable. PROCEDURE INFORMATION: Exam: CT Abdomen And Pelvis With Contrast Exam date and time: 09/23/2022 7:51 PM Age: 71 years old Clinical indication: Other: Left side pain; Dyspnea and other: Some pain; Additional info: Chest and left hip pain TECHNIQUE: Imaging protocol: Computed tomography of the abdomen and pelvis with contrast. Radiation optimization: All CT scans at this facility use at least one of these dose optimization techniques: automated exposure control; mA and/or kV adjustment per patient size (includes targeted exams where dose is matched to clinical indication); or iterative reconstruction. Contrast material: OMNIPAQUE 350; Contrast volume: 95 ml; Contrast route: INTRAVENOUS (IV); COMPARISON: CT abdomen pelvis w con* [id number] 08/17/2022 8:52 AM RADIATION DOSE METRICS: Total DLP (mGy-cm): 1190.39 FINDINGS: Liver: Normal. No mass. Gallbladder and bile ducts: Cholecystectomy. No ductal dilation. Pancreas: Normal. No ductal dilation. Spleen: Normal. No splenomegaly. Adrenal glands: Normal. No mass. Kidneys and ureters: Few scattered cysts noted in the right kidney measuring up to 2.7 cm in size. No hydronephrosis. Stomach and bowel: Colonic diverticulosis. No obstruction. No mucosal thickening. Appendix: No evidence of appendicitis. Intraperitoneal space: Unremarkable. No free air. No significant fluid collection. Vasculature: Unremarkable. No abdominal aortic aneurysm. Lymph nodes: Unremarkable. No enlarged lymph nodes. Urinary bladder: Kaye catheter noted within a decompressed bladder. Reproductive: Hysterectomy. Bones/joints: Severe DJD with joint space narrowing and [id number]-[id number] contact of the left hip. No acute fracture. Soft tissues: Unremarkable. CT/CT angio chest w abd pel w con IMPRESSION: No acute findings. IMPRESSION: No acute findings. COMMENTS: Consistent with the [place] [employer]'s Incidental Findings Committee white paper (J Am Mayo Radiol 2018): Any incidental renal lesion less than 1 cm or classified as too small to characterize, or any incidental cystic renal lesion characterized as simple-appearing, is likely benign. No follow-up imaging is recommended for these lesions per consensus recommendations based on imaging criteria.
[2022-09-23 18:40] LABS: Alanine Aminotransferase 20 U/L (0-33); Albumin Level 4.3 g/dL (3.5-5.2); Alkaline Phosphatase 120 U/L (35-105); Anion Gap 19.1 (5-19); Aspartate Amino Transferase 16 U/L (0-32); Blood Urea Nitrogen 15 mg/dL (8-23); Carbon Dioxide 25 mmol/L (22-29); Chloride 92 mmol/L (98-107); Globulin 3.3 g/dL (1.3-4.6); Glucose 171 mg/dL (65-115); Lipase 28 U/L (13-60); Osmolality Calculated 281 mOsm/kg (285-295); Potassium 3.1 mmol/L (3.5-5.1); Sodium 133 mmol/L (136-145); Total Protein 7.6 g/dL (6.6-8.7)
[2022-09-23] MEDS: sodium chloride 0.9% 1,000 ML 999 ML IV (18:40)
[2022-09-23] MEDS: morphine 4 mg/mL SDV 1 mL IVP ×2 (18:42→20:58)
[2022-09-23] MEDS: ondansetron 2 mg/ML SDV 2 mL 4 MG IVP (18:42)
--- NOTE | 2022-09-23 18:45 | ECG_ITS ---
[facility] Test Date: 2022-09-23 Pat Name: Anita Harmon Department: Room: Gender: Female Special Education Paraprofessional: : 1950 Requested By: Omero Han Order Number: [id number] Fuentes MD: Camden Ba M.D. Measurements Intervals [place] Rate: 103 P: 44 AR: 134 QRS: 43 QRSD: 98 T: 47 QT: 341 QTc: 448 Interpretive Statements SINUS TACHYCARDIA LOW QRS VOLTAGE IN PRECORDIAL LEADS [QRS DEFLECTION < 1.0 mV IN CHEST LEADS] ABNORMAL RHYTHM ECG Compared to ECG 05/21/2021 17:24:44 Sinus rhythm no longer present Electronically Signed On 09-25-2022 14:04:42 GENERAL ACCOUNTING MANAGER by Camden Ba M.D. [id number]
[2022-09-23 19:06] LABS: Troponin(5th) Baseline 9 ng/L (0-10)
[2022-09-23 19:08] LABS: Lactate (Lactic Acid level) 2.3 mmol/L (0.5-2.2)
[2022-09-23 19:29] LABS: Add Urine Culture? Yes; Add Urine Microscopic? YES; Bilirubin Urine Neg (Negative); Blood Urine 2+ (Negative); Calcium Oxalate Crystals Urine 3 /hpf; Glucose Urine UA Norm (Normal); Ketones Urine 1+ (Negative); Leukocyte Esterase Urine Negative (Negative); Mucus Urine 1+ /hpf; Nitrate Urine Negative (Negative); Protein Urine 1+ (Negative); RBC Urine 0-4 /hpf (0-2); Squamous Epithelial Cell Urine 0-4 /hpf (0-5); Urine Appearance Clear (CLEAR); Urine Color Yellow (Yellow); Urobilinogen Urine Norm (Negative); pH Urine 6 (5-7)
[2022-09-23] MEDS: iohexol 350 mg/mL 500 mL Btl (per mL) IV (19:55)
--- NOTE | 2022-09-23 20:46 | ECG_ITS ---
[facility] Test Date: 2022-09-23 Pat Name: Anita Harmon Department: Room: Gender: Female Weeder: : 1950 Requested By: Omero Han Order Number: [id number] Fuentes MD: Camden Ba M.D. Measurements Intervals [place] Rate: 93 P: 54 OK: 140 QRS: 56 QRSD: 97 T: 52 QT: 367 QTc: 458 Interpretive Statements SINUS RHYTHM SEPTAL MYOCARDIAL INFARCTION , OF INDETERMINATE AGE [40+ ms Q WAVE IN V1/V2] Compared to ECG 09/23/2022 18:45:13 Myocardial infarct finding now present Sinus tachycardia no longer present Electronically Signed On 09-25-2022 15:17:44 CONSUMER AFFAIRS MANAGER by Camden Ba M.D. [id number]
[2022-09-23 20:56] LABS: Troponin 5 2HR 10.67 ng/L (0-10)
[2022-09-23 20:59] LABS: Troponin 5 2HR Delta 1.67 ABS# (0-10)
[2022-09-23] MEDS: LORazepam 1 mg Tablet PO (21:55)
[2022-09-23 22:00] LABS: Erythrocyte Sedimentation Rate 27 mm/hr (0-15)
--- NOTE | 2022-09-23 22:41 | P.HP_ITS ---
Providers/Chief Complaint Admitting Physician: Jm Le Primary Care Provider: Sinan Wakefield Chief Complaint: wEAKNESS, LEG/ARM TINGLE History of Present Illness Pleasant 71-year-old lady with multiple comorbidities, including postpolio syndrome, severe DJD left hip, fibromyalgia, usually using a scooter to get around, has had some episodes of weakness, states that today had gotten out of bed, got into a chair, and then felt so weak she could not get up from the mirza r. Feels like her arms and legs would not cooperate when she try to use them. She states she has had some episodes of falls recently, one time falling down unknowingly as well with possible presyncopal episode. She has been having some headaches, has had to use her inhalers more often. Denies nausea vomiting or diarrhea. Has had some cramping in lower abdomen. Has had occasional pain in the left upper quadrant. Has also had some pain below the right shoulder blade, although has had to brace herself when she was falling down multiple times with her right arm. She states that she is so unusually weak that although usually she is able to transfer to and from her scooter, could not do that right now. Review of Systems Const: Reports: fatigue and malaise; Denies: fever(s) or chills Eyes: Denies: change in vision, eye discomfort or eye redness ENMT: Denies: throat pain, oral sores or ear or mastoid pain Card: Denies: chest pain, edema, pre-syncope or dyspnea on exertion Resp: Denies: dyspnea, productive cough, change in phlegm color or hemoptysis GI: Reports: abdominal pain and GI cramping (Suprapubic); Denies: nausea, vomiting, diarrhea, constipation, hematochezia or melena : Denies: flank pain, urinary frequency or hematuria Musc: Denies: back pain, joint swelling or joint redness Skin/Breast: Denies: rash or new lesions Neuro: Reports: headache(s); Denies: numbness in extremities, weakness in extremities, dizziness, confusion or seizure-like activity Endo: Denies: polyuria or polydipsia Josiah/Lymph: Denies: easy bleeding or tender lymph nodes All/Imm: Denies: urticaria or tongue swelling Medications/Allergies Home Medications Medication Instructions Recorded Confirmed Last Taken Type cyclobenzaprine 10 mg tablet 10 mg PO TID PRN Pain 09/10/20 09/14/22 Unknown History diltiazem HCl 180 mg 180 mg PO BID 09/10/20 09/14/22 05/21/21 History capsule,extended release 24 hr (Cartia XT) fluticasone propionate 50 2 spray intranasal DAILY PRN Dry 09/10/20 09/14/22 05/21/21 History mcg/actuation nasal Nasal Passages spray,suspension (Allergy Relief (fluticasone)) albuterol sulfate 90 mcg/actuation 2 puff inhalation QID PRN 09/17/20 09/14/22 Unknown Rx aerosol inhaler (Ventolin HFA) shortness of breath or wheezing #18 grams ascorbic acid (vitamin C) 1,000 mg 1 gm PO DAILY 09/17/20 09/14/22 05/21/21 History tablet calcium carbonate 600 mg calcium 600 mg PO DAILY 09/17/20 09/14/22 05/21/21 History (1,500 mg) tablet (Calcium) cholecalciferol (vitamin D3) 125 125 mcg PO DAILY 09/17/20 09/14/22 05/21/21 History mcg (5,000 unit) capsule zinc 1 tab PO DAILY 05/21/21 09/14/22 05/21/21 History montelukast 10 mg tablet 10 mg PO DAILY Prevent Allergic 08/27/21 09/14/22 Unknown Rx (Singulair) Reaction #30 tabs lisinopril 10 mg tablet 10 mg PO BID 09/30/21 09/14/22 Unknown History gabapentin 300 mg capsule 300 mg PO BID PRN Pain #60 caps 06/17/22 09/14/22 Unknown Rx hydrochlorothiazide 25 mg tablet 25 mg PO DAILY 06/22/22 09/14/22 Unknown History alprazolam 0.5 mg tablet 0.5 mg PO DAILY PRN Anxiety #30 07/08/22 09/14/22 Unknown Rx tabs omeprazole 20 mg capsule,delayed 20 mg PO DAILY #90 caps 07/08/22 09/14/22 Unknown Rx release budesonide-formoterol HFA 80 2 puff inhalation BID #10.2 grams 08/31/22 09/14/22 Unknown Rx mcg-4.5 mcg/actuation aerosol inhaler (Symbicort) meloxicam 15 mg tablet 15 mg PO DAILY #30 tabs 09/13/22 09/14/22 Unknown Rx nitroglycerin 0.4 mg sublingual 0.4 mg sublingual Q5M PRN chest 09/14/22 09/14/22 Unknown Rx tablet pain #20 tabs Allergies Allergy/AdvReac Type Severity Reaction Status Date / Time Cbpmfrj-OES-EfW Reductase Allergy Severe legs feel Verified 09/14/22 13:09 Inhibitor like rubber [Osjjoha-Jej-Tfu Reductase Inhibitor] PFSH Acute PFSH: Medical History Aortic atherosclerosis Arthritis Asthma Degenerative arthritis 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 Diastolic heart failure Diverticulosis Fibromyalgia History of aortic stenosis Hyperlipidemia Hypertension Nonfamilial hypogammaglobulinemia Post-polio syndrome Recurrent UTI Restrictive cardiomyopathy Surgical History H/O cardiac radiofrequency ablation H/O partial thyroidectomy H/O repair of left rotator cuff H/O repair of right rotator cuff H/O total hysterectomy History of colonoscopy with polypectomy History of ear surgery tube in left ear History of surgery on lower extremity 3 surgeries on the right leg, 1 surgery on left leg History of tonsillectomy Hx of adenoidectomy Family History Mother Stroke Hypertension Family/Other Diabetes maternal aunt Thyroid condition maternal, maternal great aunt Breast cancer maternal aunt, age onset in her 50's Colon cancer, Onset Age: 61 maternal uncle Grandmother Stroke maternal, maternal great grandmother Father Hypertension Denies family history of Ovarian cancer Clotting disorder Heart disease Hyperlipidemia Anesthesia complication Bleeding disorder Uterine cancer Social History Smoking and tobacco status: never smoked Vitals/I&O/Wt Last Vital Signs Temp 98.2 F 09/23/22 17:44 Pulse 87 09/23/22 22:21 Resp 16 09/23/22 22:21 BP 111/75 09/23/22 22:21 Pulse Ox 97 09/23/22 22:21 O2 Del Method 09/23/22 17:44 Weight last 48 hrs Weight 73.936 kg Physical Exam Narrative: Accompanied by family Const: COMMON NORMALS: patient oriented x3 and alert GENERAL APPEARANCE: cooperative ORIENTATION/CONSCIOUSNESS: Yes awake HENMT: COMMON NORMALS: oropharynx normal Neck/C-Spine: COMMON NORMALS: no JVD Resp: COMMON NORMALS: normal respiratory effort and clear to auscultation bilaterally AUSCULTATION: clear to auscultation bilaterally Cardio: COMMON NORMALS: no JVD, regular rhythm, S1 normal heart sound present, S2 normal heart sound present and No murmurs present (Cardio) RHYTHM: regular rhythm HEART SOUNDS: S1 normal heart sound present and S2 normal heart sound present GI: COMMON NORMALS: Normal to inspection, nondistended, normoactive bowel sounds present, Soft to palpation and non-tender PALPATION: Yes Soft to palpation Extremity: COMMON NORMALS: no joint enlargement and no pedal edema Neuro: COMMON NORMALS: patient oriented x3 and moves all extremities SENSORIUM/ORIENTATION: Yes alert Skin: COMMON NORMALS: no rashes or lesions noted GENERAL SKIN EXAM: no ra shes or lesions noted Urinary Catheter Management: Kaye: Cath Placed During This Visit: yes Urinary Catheter Date of Insertion: 09/23/22 Urinary Catheter Time of Insertion: 19:05 Data : 09/23/22 18:05 09/23/22 18:05 Micro: Microbiology 09/23/22 19:00 Blood Culture - Preliminary Blood SPECIMEN COLLECTED 09/23/22 18:56 Blood Culture - Preliminary Blood SPECIMEN COLLECTED A&P Assessment and plan (1) Weakness: IV hydration, check VBG, will check A1c, will give low-dose Lantus, sliding scale insulin. Treat possible UTI. Will additionally check orthostatics, TSH, serum cortisol, magnesium, Phos, B12, folic acid, vitamin D. CK. Complete troponin EKG series. We will additionally check COVID-19 PCR, influenza. PT assessment. Reported history of aortic stenosis, will assess limited TTE. In case not improving, and no additional flexion, consider other etiologies, further assessment with consideration including PMR, will check CRP, although CRP is not elevated. Or of neurologic causes, spinal stenosis, Guillain-Perez? or variant, etc. Does not otherwise have symptoms of cauda equina syndrome at this time. She does have some suprapubic cramping, but CT abdomen pelvis was nonacute. (2) Leukocytosis: Unclear cause of leukocytosis, possibly UTI related, follow-up urine culture. Treat empirically for now. Additionally assess serum cortisol, TSH. Does have left hip pain, quite significant DJD. Hip without erythema, significant swelling, less likely joint infection. We will request blood culture. (3) Hyperglycemia: Without known history of diabetes, also noted urine ketones. Will check serum ketones, A1c. Check VBG. (4) Ketonuria: As above (5) UTI (urinary tract infection): Possible UTI, although UA somewhat borderline. Follow-up urine culture. Ceftriaxone empirically for now. Plan Alk phos elevation: 120. Follow-up liver parameters. Consider following up GG T. Stiffness LLE: We will check CK. Does have severe DJD left hip. Left hip pain: Severe DJD, plans for hip replacement. Headaches: Has been having headaches, using her inhaler more. We will check COVID-19, flu. Hypokalemia: replace, check Mg Post polio syndrome, right lower extremity deformity. Also has severe DJD left hip. Will check vitamin D. Requested to list home medications, please review and reconcile once available. Aortic atherosclerosis Arthritis Asthma DJD Diastolic CHF History of diverticulitis Aortic stenosis HLD HTN Nonfamilial hypogammaglobulinemia Post polio syndrome Recurrent UTI Restrictive cardiomyopathy Other chronic problems noted Attestations Medical Necessity Statement*: Place in observation for additional assessment management of episodes of weakness, falls, presyncope. Coding Level of Care Code Acute Presales Engineer for g Fwd Diagnoses Weakness R53.1 Leukocytosis D72.829 Hyperglycemia R73.9 Ketonuria R82.4 UTI (urinary tract infection) N39.0
[2022-09-24] VITALS (9 sets, daily range): BP systolic 90–119; BP diastolic 47–69; PULSE 60–101; RESP 15–18; TEMP 36.4–36.9; O2SAT 91–96
[2022-09-24 00:07] LABS: Base Excess VBG 3.6 mmol/L (-3.0-3.0); Blood Gas Operator Identificat JB; Blood Gas Sample Site Not specified; Blood Gas Sample Type Venous; HCO3 VBG 26.6 mmol/L (24-28); Oxygen Device ROOM AIR; PCO2 VBG 34.6 mmHg (41-51); PO2 VBG 40.2 mmHg (25-40)
[2022-09-24] MEDS: cefTRIAXone 1,000 MG in sodium chloride 0.9% (plus) 50 ML 100 MG IV ×2 (01:00→23:13)
[2022-09-24] MEDS: lactated ringers 1,000 ML 100 ML IV ×3 (01:00→21:49)
[2022-09-24] MEDS: enoxaparin 40 mg/0.4 mL Syringe SUBCUT ×2 (01:01→23:12)
[2022-09-24 01:41] LABS: Influenza A by IFA negative (Negative); Influenza B by IFA negative (Negative)
[2022-09-24] MEDS: albuterol 2.5 mg/3 mL Neb INHALATION ×4 (01:48→20:40)
--- NOTE | 2022-09-24 01:52 | ECG_ITS ---
[facility] Test Date: 2022-09-24 Pat Name: Anita Harmon Department: Room: 253 Gender: Female Facilities Management Executive: : 1950 Requested By: Omero Han Order Number: [id number] Fuentes MD: Camden Ba M.D. Measurements Intervals [place] Rate: 94 P: 48 WV: 150 QRS: 29 QRSD: 96 T: 42 QT: 360 QTc: 451 Interpretive Statements SINUS RHYTHM Compared to ECG 09/23/2022 20:46:25 Myocardial infarct finding no longer present Electronically Signed On 09-25-2022 15:20:34 PRODUCTION QUALITY ANALYST by Camden Ba M.D. [id number]
[2022-09-24 02:38] LABS: Estmated Average Glucose 108; Hemoglobin A1C 5.4 % (4.0-6.0)
[2022-09-24 03:09] LABS: Adenovirus Not Detected (NOT DETECT); Chlamydia Pneumoniae Not Detected (NOT DETECT); Coronavirus 229E,HKU1,NL63,OC4 Not Detected (NOT DETECT); Human Metapneumovirus Not Detected (NOT DETECT); Human Rhinovirus/Enterovirus Not Detected (NOT DETECT); Influenza A Not Detected (NOT DETECT); Influenza A H1 Not Detected (NOT DETECT); Influenza A H1-2009 Not Detected (NOT DETECT); Influenza A H3 Not Detected (NOT DETECT); Influenza B Not Detected (NOT DETECT); Mycoplasma Pneumoniae Not Detected (NOT DETECT); Parainfluenza Virus Type 1 Not Detected (NOT DETECT); Parainfluenza Virus Type 2 Not Detected (NOT DETECT); Parainfluenza Virus Type 3 Not Detected (NOT DETECT); Parainfluenza Virus Type 4 Not Detected (NOT DETECT); Respiratory Syncytial Virus A Not Detected (NOT DETECT); Respiratory Syncytial Virus B Not Detected (NOT DETECT); SARS-COV-2 Not Detected (NOT DETECT)
[2022-09-24] MEDS: cyclobenzaprine 10 mg Tablet PO ×2 (04:06→21:47)
[2022-09-24 06:01] LABS: Basophils % 0.2 %; Eosinophils # 0.1 10^3/uL (0.0-0.8); Eosinophils % 0.4 %; Hematocrit 36.7 % (37.0-47.0); Lymphocytes # 2.7 10^3/uL (0.8-4.8); Lymphocytes % 15.8 %; Mean Corpuscular HGB Conc 32.7 g/dL (30.0-36.0); Mean Corpuscular Volume 91.8 fl (81-99); Mean Platelet Volume 12.1 fL (7.4-10.4); Monocytes # 1.9 10^3/uL (0.2-0.9); Monocytes % 11.3 %; Neutrophils # 12.03 10^3/uL (1.8-7.7); Neutrophils % 71.9 %; Nucleated Red Blood Cells % 0 %; Platelet Count 319 10^3/cmm (130-400); Red Cell Distribution Width 13.9 % (12.1-15.1); White Blood Count 16.7 10^3/uL (4.0-10.0)
[2022-09-24 06:29] LABS: Ketone (Acetest) Serum Negative (Negative)
[2022-09-24 06:30] LABS: Troponin 5 6HR 14.81 ng/L (0-10); Troponin 5 6HR Delta 5.81 ng/L (0-12)
[2022-09-24 06:37] LABS: Alanine Aminotransferase 78 U/L (0-33); Albumin Level 3.6 g/dL (3.5-5.2); Alkaline Phosphatase 131 U/L (35-105); Anion Gap 17.1 (5-19); Aspartate Amino Transferase 95 U/L (0-32); Blood Urea Nitrogen 11 mg/dL (8-23); Carbon Dioxide 27 mmol/L (22-29); Chloride 98 mmol/L (98-107); Globulin 2.9 g/dL (1.3-4.6); Glucose 117 mg/dL (65-115); Osmolality Calculated 288 mOsm/kg (285-295); Potassium 3.1 mmol/L (3.5-5.1); Sodium 139 mmol/L (136-145); Total Bilirubin 1.4 mg/dL (0.15-1.2); Total Protein 6.5 g/dL (6.6-8.7)
[2022-09-24 06:49] LABS: Cortisol Random 17.59 ug/dL (2.47-19.5)
[2022-09-24 06:57] LABS: Creatine Phosphokinase 50 U/L (26-192); Magnesium 1.8 mg/dL (1.7-2.3); Phosphorus 2.9 mg/dL (2.5-4.5)
[2022-09-24 07:01] LABS: Folate Level > 20.0 ng/mL (4.8-37.3)
[2022-09-24 07:14] LABS: 25 Hydroxy Vitamin D 50 ng/mL (30-100); Vitamin B12 612 pg/mL (232-1245)
[2022-09-24] MEDS: montelukast sodium 10 mg Tablet PO (08:56)
[2022-09-24] MEDS: pantoprazole DR 40 mg Tablet PO (08:56)
[2022-09-24] MEDS: dilTIAZem ER (24HR) 180 mg Capsule PO ×2 (08:56→17:24)
[2022-09-24] MEDS: acetaminophen 325 mg Tablet 650 MG PO ×2 (08:58→17:26)
[2022-09-24] MEDS: budesonide 0.5 mg/2 mL Neb 0.25 MG INHALATION ×2 (09:15→20:40)
--- NOTE | 2022-09-24 11:32 | P.PN_ITS ---
Subjective Subjective: Seen this morning. No acute events overnight. Patient states feels a lot better and is about to work with physical therapy at this time when seen. She says she is trying to get an appointment with the sleep center however its been a month and she has not had an appointment yet so that her BiPAP can be set up. Vitals/I&O/Wt Last Vital Signs Temp 98.1 F 09/24/22 07:49 Pulse 101 H 09/24/22 09:17 Resp 18 09/24/22 09:17 BP 99/61 09/24/22 07:49 Pulse Ox 91 09/24/22 09:17 O2 Del Method 09/24/22 09:17 09/23/22 09/24/22 09/24/22 22:59 06:59 14:59 Intake Total 50 / 50 1120 / 1120 Output Total 750 / 750 Balance -700 / -700 1120 / 1120 Weight last 48 hrs Weight 81.828 kg Weight 73.057 kg Weight 73.936 kg Physical Exam Narrative: Accompanied by family Const: COMMON NORMALS: patient oriented x3 and alert GENERAL APPEARANCE: cooperative ORIENTATION/CONSCIOUSNESS: Yes awake HENMT: COMMON NORMALS: oropharynx normal Neck/C-Spine: COMMON NORMALS: no JVD Resp: COMMON NORMALS: normal respiratory effort and clear to auscultation bilaterally AUSCULTATION: clear to auscultation bilaterally Cardio: COMMON NORMALS: no JVD, regular rhythm, S1 normal heart sound present, S2 normal heart sound present and No murmurs present (Cardio) RHYTHM: regular rhythm HEART SOUNDS: S1 normal heart sound present and S2 normal heart sound present GI: COMMON NORMALS: Normal to inspection, nondistended, normoactive bowel sounds present, Soft to palpation and non-tender PALPATION: Yes Soft to palpation Extremity: COMMON NORMALS: no joint enlargement and no pedal edema Neuro: COMMON NORMALS: patient oriented x3 and moves all extremities SENSORIUM/ORIENTATION: Yes alert Skin: COMMON NORMALS: no rashes or lesions noted GENERAL SKIN EXAM: no rashes or lesions noted Urinary Catheter Management: Kaye: Cath Placed During This Visit: yes Reason for Continuing Indwelling Catheter: Other Urinary Catheter Date of Insertion: 09/23/22 Urinary Catheter Time of Insertion: 19:05 Data : 09/24/22 04:36 09/24/22 04:36 Micro: Microbiology 09/23/22 19:00 Blood Culture - Preliminary Blood SPECIMEN COLLECTED 09/23/22 18:56 Blood Culture - Preliminary Blood SPECIMEN COLLECTED A&P Assessment and plan (1) UTI (urinary tract infection): (2) Hyperglycemia: (3) Ketonuria: (4) Leukocytosis: (5) Left hip pain: (6) Nonfamilial hypogammaglobulinemia: (7) Suspected sleep apnea: (8) History of colon polyps: (9) Asthma: (10) Recurrent UTI: (11) Diastolic heart failure: (12) History of aortic stenosis: (13) Hypertension: (14) Weakness: Plan #Generalized weakness #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 Check hemoglobin A1c. Patient was hyperglycemic on admission and had urine ketones. Did not report any poor oral intake or nausea vomiting prior to hospital admission. Did complain of generalized weakness. She states last few weeks and months she has had a decline. She is supposed to go for hip replacement soon and is working with outpatient orthopedics to have that scheduled ? Unsure cause of leukocytosis. Possibly UTI related versus stress response to dehydration. ? Continue IV fluids for now ? Check orthostatic vitals, TSH, cortisol, vitamin D, folic acid, B12 ? Follow urine culture ? Continue diltiazem 180 twice daily. We will hold lisinopril for now ? PT OT ? Patient need to follow-up with orthopedic surgery, primary care doctor as an outpatient for further management. ? Patient needs continued hospitalization for monitoring today. Recheck labs in AM. Full code DVT prophylaxis: Heparin Attestations Medical Necessity Statement*: Place in observation for additional assessment management of episodes of weakness, falls, presyncope. Coding Level of Care Code Acute Sprinkler Installer for Charlotte Callaway Diagnoses UTI (urinary tract infection) N39.0 Hyperglycemia R73.9 Ketonuria R82.4 Leukocytosis D72.829 Left hip pain M25.552 Nonfamilial hypogammaglobulinemia D80.1 Suspected sleep apnea R29.818 History of colon polyps Z86.010 Asthma J45.909 Recurrent UTI N39.0 Diastolic heart failure I50.30 History of aortic stenosis Z86.79 Hypertension I10 Weakness R53.1
[2022-09-24] MEDS: potassium chloride ER 20 mEq Tablet 40 MEQ PO (12:32)
[2022-09-24] MEDS: gabapentin 300 mg Capsule PO (21:47)
--- NOTE | 2022-09-24 23:34 | USCV_ITS ---
Anita Harmon Age: 71 Gender: F : 1950 Exam Date: 09/24/2022 00:07 Ordering Phys: Jm Le MD Technologist: ZHOU Exam Location: [facility] [place] Indication: weakness, aortic stenosis. History of ablation therapy for trigeminy 2016 BP: 111 / 75 HR: 94 Rhythm: Sinus Technical Quality: Adequate MEASUREMENTS (Male / Female) Normal Values 2D ECHO LV Diastolic Diameter PLAX 4.0 cm 4.2 - 5.9 / 3.9 - 5.3 cm LV Systolic Diameter PLAX 2.4 cm IVS Diastolic Thickness 0.9 cm 0.6 - 1.0 / 0.6 - 0.9 cm IVS Systolic Thickness 1.3 cm LVPW Diastolic Thickness 1.2 cm 0.6 - 1.0 / 0.6 - 0.9 cm LVPW Systolic Thickness 1.2 cm LVOT Diameter 1.9 cm LV Ejection Fraction 2D Teich 70.9 % LV Ejection Fraction MOD 2C 59.2 % LV Ejection Fraction 2C AL 58.8 % LA Diameter 3.3 cm LA Width 4.4 cm LA Height 4.7 cm RA Width 3.8 cm RA Height 4.5 cm Aorta at Sinotubular Diameter 2.8 cm IVC Diameter 1.4 cm M-MODE Aortic Annulus Diameter 2.5 cm LA Ao Ratio MM 1.4 MV E Point Septal Separation 0.3 cm DOPPLER AV Peak Velocity 119.0 cm/s LVOT Peak Velocity 111.0 cm/s AV Area Cont Eq vti 2.1 cm squared AV Area Cont Eq pk 2.6 cm squared MV Area PHT 5.1 cm squared Mitral E to A Ratio 0.7 MV E' Velocity 38.5 cm/s Mitral E to MV E' Ratio 9.0 Mitral E to LV E' Lateral Ratio 9.1 Mitral E to LV E' Septal Ratio 8.9 TR Peak Velocity 283.4 cm/s TR Peak Gradient 32.1 mmHg TR Mean Velocity 307.0 cm/s TR Mean Gradient 37.7 mmHg TR Velocity Time Integral 0.0 cm TV Peak E Velocity 65.0 cm/s Right Atrial Pressure 5.0 mmHg Pulmonary Artery Systolic Pressu 37.1 mmHg PV Peak Velocity 98.0 cm/s RV Acceleration Time 0.1 s RV Ejection Time 0.3 s RV AcT/ET 0.2 FINDINGS Left Ventricle Normal left ventricular size and systolic function, EF 59 %. No regional wall motion abnormalities. Right Ventricle The right ventricle is normal in size and function. Right Atrium The right atrium is normal in size. Left Atrium The left atrium is normal in size. Mitral Valve Mild to moderate mitral annular calcification. Aortic Valve No gross abnormalities noted Tricuspid Valve Moderate tricuspid valve regurgitation. Estimated pulmonary artery peak systolic pressure 37 mmHg Pulmonic Valve Pulmonic valve not well visualized. Pericardium Normal pericardium without effusion. Aorta Normal ascending aorta dimension. IVC Normal inferior vena cava. CONCLUSIONS Normal left ventricular size and systolic function, EF 59 %. No regional wall motion abnormalities. Mild to moderate mitral annular calcification. Moderate tricuspid valve regurgitation. Estimated pulmonary artery peak systolic pressure 37 mmHg. There is no pericardial effusion. There are no intracardiac masses. No similar previous studies are available for comparison Dr Cadmen Ba MD FAC (Electronically Signed) Final Date: 24 September 2022 20:39 S
[2022-09-25] VITALS: BP 96/60; PULSE 89; RESP 17; TEMP 36.5; O2SAT 93
[2022-09-25 01:00] VITALS: BP 161/83; PULSE 65; RESP 17; TEMP 36.5; O2SAT 96
[2022-09-25 04:00] VITALS: BP 111/68; PULSE 89; RESP 18; TEMP 36.6; O2SAT 95
[2022-09-25 05:29] LABS: Basophils % 0.2 %; Eosinophils # 0.3 10^3/uL (0.0-0.8); Eosinophils % 2.8 %; Hematocrit 34.1 % (37.0-47.0); Lymphocytes # 2.3 10^3/uL (0.8-4.8); Lymphocytes % 20.4 %; Mean Corpuscular HGB Conc 32.3 g/dL (30.0-36.0); Mean Corpuscular Hemoglobin 30.1 pg (28.0-34.0); Mean Corpuscular Volume 93.2 fl (81-99); Mean Platelet Volume 11.3 fL (7.4-10.4); Monocytes # 1.1 10^3/uL (0.2-0.9); Monocytes % 10.2 %; Nucleated Red Blood Cells % 0 %; Platelet Count 290 10^3/cmm (130-400); Red Blood Count 3.66 10^6/uL (4.1-5.3); Red Cell Distribution Width 13.9 % (12.1-15.1); White Blood Count 11.2 10^3/uL (4.0-10.0)
[2022-09-25 07:30] LABS: Alanine Aminotransferase 51 U/L (0-33); Albumin Level 2.9 g/dL (3.5-5.2); Alkaline Phosphatase 101 U/L (35-105); Blood Urea Nitrogen 7 mg/dL (8-23); Calcium 8.6 mg/dL (8.5-10.5); Carbon Dioxide 21 mmol/L (22-29); Chloride 105 mmol/L (98-107); Glucose 102 mg/dL (65-115); Osmolality Calculated 282 mOsm/kg (285-295); Sodium 137 mmol/L (136-145); Total Bilirubin 0.6 mg/dL (0.15-1.2); Total Protein 5.9 g/dL (6.6-8.7)
[2022-09-25 07:39] LABS: Anion Gap 15.1 (5-19); Aspartate Amino Transferase 34 U/L (0-32); Potassium 4.1 mmol/L (3.5-5.1)
[2022-09-25 08:00] VITALS: BP 121/72; PULSE 91; RESP 16; TEMP 36.7; O2SAT 93
[2022-09-25] MEDS: dilTIAZem ER (24HR) 180 mg Capsule PO (08:32)
[2022-09-25] MEDS: montelukast sodium 10 mg Tablet PO (08:32)
[2022-09-25] MEDS: pantoprazole DR 40 mg Tablet PO (08:32)
[2022-09-25] MEDS: lactated ringers 1,000 ML 100 ML IV (08:32)
--- NOTE | 2022-09-25 09:07 | P.DS_ITS ---
Discharge Providers Date of Admission: 09/23/22 21:43 Date of Discharge: September 25, 2022 Attending Provider at Admission: Jm Le Attending Provider at Discharge: Carolyn Mario MD Primary Care Provider: Sinan Wakefield Diagnoses at Discharge Discharge Diagnosis (1) UTI (urinary tract infection): Status: Acute (2) Hyperglycemia: Status: Acute (3) Ketonuria: Status: Acute (4) Leukocytosis: Status: Acute (5) Left hip pain: Status: Acute (6) Nonfamilial hypogammaglobulinemia: Status: Acute (7) Suspected sleep apnea: Status: Acute (8) History of colon polyps: Status: Acute (9) Asthma: Status: Acute (10) Recurrent UTI: Status: Acute (11) Diastolic heart failure: Status: Acute (12) History of aortic stenosis: Status: Acute (13) Hypertension: Status: Acute (14) Weakness: Status: Acute Reason for Visit Reason for Visit: wEAKNESS, LEG/ARM TINGLE Brief History: Pleasant 71-year-old lady with multiple comorbidities, including postpolio syndrome, severe DJD left hip, fibromyalgia, usually using a scooter to get around, has had some episodes of weakness, states that today had gotten out of bed, got into a chair, and then felt so weak she could not get up from the chair.? Feels like her arms and legs would not cooperate when she try to use them.? She states she has had some episodes of falls recently, one time falling down unknowingly as well with possible presyncopal episode. She has been having some headaches, has had to use her inhalers more often.? Denies nausea vomiting or diarrhea.? Has had some cramping in lower abdomen.? Has had occasional pain in the left upper quadrant. Has also had some pain below the right shoulder blade, although has had to brace herself when she was falling down multiple times with her right arm. She states that she is so unusually weak that although usually she is able to transfer to and from her scooter, could not do that right now. Hospital Course Hospital Course She presented with generalized weakness and dehydration. She also had urine ketones at admission. She was resuscitated with IV fluids and felt a lot better. Her blood pressure medications were adjusted. Hydrochlorothiazide was stopped. Lisinopril was also discontinued. Blood pressure a lot better at that point. Leukocytosis was there most likely due to stress response due to dehydration. Patient was evaluated by physical therapy as well. Due to hospital hospital stay patient'sbaseline and felt much better. Weakness is also improving. She is supposed to have a hip replacement done with orthopedic surgery as an outpatient. She was encouraged to follow-up with Dr. Gregory as an outpatient. Patient also had concerns regarding her sleep study and setting up CPAP for her sleep apnea. They will be calling centralized scheduling to have that scheduled. PT recommended KAFO brace for the patient which will be set up by patient's primary care. Discussed all of the above and patient in detail care with patient and her is able to demonstrate understanding and agreed to the above plan. Patient's labs reviewed today. She did have a good possibility of a UTI and has a history of recurrent UTIs. Patient was covered empirically with 5 days of antibiotics with cefpodoxime at discharge. Patient is discharged home in stable condition. Patient to follow-up with PCP at this point. Physical Exam Narrative: Accompanied by family Const: COMMON NORMALS: patient oriented x3 and alert GENERAL APPEARANCE: cooperative ORIENTATION/CONSCIOUSNESS: Yes awake HENMT: COMMON NORMALS: oropharynx normal Neck/C-Spine: COMMON NORMALS: no JVD Resp: COMMON NORMALS: normal respiratory effort and clear to auscultation bilaterally AUSCULTATION: clear to auscultation bilaterally Cardio: COMMON NORMALS: no JVD, regular rhythm, S1 normal heart sound present, S2 normal heart sound present and No murmurs present (Cardio) RHYTHM: regular rhythm HEART SOUNDS: S1 normal heart sound present and S2 normal heart sound present GI: COMMON NORMALS: Normal to inspection, nondistended, normoactive bowel sounds present, Soft to palpation and non-tender PALPATION: Yes Soft to palpation Extremity: COMMON NORMALS: no joint enlargement and no pedal edema Neuro: COMMON NORMALS: patient oriented x3 and moves all extremities SENSORIUM/ORIENTATION: Yes alert Skin: COMMON NORMALS: no rashes or lesions noted GENERAL SKIN EXAM: no rashes or lesions noted Urinary Catheter Management: Kaye: Cath Placed During This Visit: yes Reason for Continuing Indwelling Catheter: Other Urinary Catheter Date of Insertion: 09/23/22 Urinary Catheter Time of Insertion: 19:05 Discharge Data Studies Completed and Pending Completed Studies During Hospitalization Category Date Time Status CT angio chest w abd pel w con Stat Cat Scan 09/23/22 18:24 Completed XR hip LT 2-3V wo/w pel* [id number] Stat Exams 09/23/22 17:58 Completed CV. echo complete* [id number] Routine Ultrasound 09/24/22 23:34 Completed Pending at discharge Category Date Time Status Blood Culture Stat Lab 09/23/22 19:00 Results Complete Blood Count w/Auto AM LABS Lab 09/26/22 04:00 Ordered Comprehensive Metabolic Panel AM LABS Lab 09/26/22 04:00 Ordered Urine Culture Stat Lab 09/23/22 19:08 Results Radiology Impressions Hip/Pelvis X-Ray 09/23/22 17:58 IMPRESSION: Severe DJD of the left hip. Chest/Abdomen/Pelvis CT 09/23/22 18:24 IMPRESSION: No acute findings. IMPRESSION: No acute findings. COMMENTS: Consistent with the [employer]'s Incidental Findings Committee white paper (J Am Mayo Radiol 2018): Any incidental renal lesion less than 1 cm or classified as too small to characterize, or any incidental cystic renal lesion characterized as simple-appearing, is likely benign. No follow-up imaging is recommended for these lesions per consensus recommendations based on imaging criteria. Laboratory Results WBC 11.2 10^3/uL (4.0-10.0) H 09/25/22 05:10 RBC 3.66 10^6/uL (4.1-5.3) L 09/25/22 05:10 Hgb 11.0 g/dL (11.5-15.3) L 09/25/22 05:10 Hct 34.1 % (37.0-47.0) L 09/25/22 05:10 MCV 93.2 fl (81-99) 09/25/22 05:10 MCH 30.1 pg (28.0-34.0) 09/25/22 05:10 MCHC 32.3 g/dL (30.0-36.0) 09/25/22 05:10 RDW 13.9 % (12.1-15.1) 09/25/22 05:10 Plt Count 290 10^3/cmm (130-400) 09/25/22 05:10 MPV 11.3 fL (7.4-10.4) H 09/25/22 05:10 Neut % (Auto) 66.0 % 09/25/22 05:10 Lymph % (Auto) 20.4 % 09/25/22 05:10 Power % (Auto) 10.2 % 09/25/22 05:10 Eos % (Auto) 2.8 % 09/25/22 05:10 Baso % (Auto) 0.2 % 09/25/22 05:10 Neut # (Auto) 7.40 10^3/uL (1.8-7.7) 09/25/22 05:10 Lymph # (Auto) 2.3 10^3/uL (0.8-4.8) 09/25/22 05:10 Power # (Auto) 1.1 10^3/uL (0.2-0.9) H 09/25/22 05:10 Eos # (Auto) 0.3 10^3/uL (0.0-0.8) 09/25/22 05:10 Baso # (Auto) 0.0 10^3/uL (0.0-0.1) 09/25/22 05:10 Nucleated RBC % (auto) 0 % 09/25/22 05:10 Nucleated RBCs # 0.0 /100WBC 09/25/22 05:10 ESR 27 mm/hr (0-15) H 09/23/22 18:05 Specimen Type Venous 09/23/22 23:58 Sample Site Not specified 09/23/22 23:58 Eliseo Test N/a 09/23/22 23:58 VBG pH 7.50 (7.32-7.42) H 09/23/22 23:58 VBG pCO2 34.6 mmHg (41-51) L 09/23/22 23:58 VBG pO2 40.2 mmHg (25-40) H 09/23/22 23:58 VBG HCO3 26.6 mmol/L (24-28) 09/23/22 23:58 VBG Base Excess 3.6 mmol/L (-3.0-3.0) H 09/23/22 23:58 VBG Hematocrit 41.0 % (37-47) 09/23/22 23:58 O2 Delivery Device Room air 09/23/22 23:58 System Development Engineer ID Arnie 09/23/22 23:58 Sodium 137 mmol/L (136-145) 09/25/22 07:02 Potassium 4.1 mmol/L (3.5-5.1) 09/25/22 07:02 Chloride 105 mmol/L (98-107) 09/25/22 07:02 Carbon Dioxide 21 mmol/L (22-29) L 09/25/22 07:02 Anion Gap 15.1 (5-19) 09/25/22 07:02 BUN 7 mg/dL (8-23) L 09/25/22 07:02 Creatinine 0.4 mg/dL (0.5-0.9) L 09/25/22 07:02 GFR Calculation Not Reportable 09/25/22 07:02 Glucose 102 mg/dL (65-115) 09/25/22 07:02 Estimat Average Glucose 108 09/23/22 18:05 Hemoglobin A1c 5.4 % (4.0-6.0) 09/23/22 18:05 Calculated Osmolality 282 mOsm/kg (285-295) L 09/25/22 07:02 Lactate 2.3 mmol/L (0.5-2.2) H 09/23/22 18:05 Calcium 8.6 mg/dL (8.5-10.5) 09/25/22 07:02 Phosphorus 2.9 mg/dL (2.5-4.5) 09/24/22 04:36 Phosphorus 3.0 mg/dL (2.5-4.5) 09/24/22 04:36 Magnesium 1.8 mg/dL (1.7-2.3) 09/24/22 04:36 Total Bilirubin 0.6 mg/dL (0.15-1.2) 09/25/22 07:02 AST 34 U/L (0-32) H 09/25/22 07:02 ALT 51 U/L (0-33) H 09/25/22 07:02 Alkaline Phosphatase 101 U/L (35-105) 09/25/22 07:02 Creatine Kinase 50 U/L (26-192) 09/24/22 04:36 Troponin T Baseline 9 ng/L (0-10) 09/23/22 18:05 Troponin T 120 Minute 10.67 ng/L (0-10) H 09/23/22 20:25 Delta Troponin T 1.67 ABS# (0-10) 09/23/22 20:25 Troponin T Hi Sens 6Hr 14.81 ng/L (0-10) H 09/24/22 04:36 Troponin T Hi Sens 6Hr Delta 5.81 ng/L (0-12) 09/24/22 04:36 C-Reactive Protein 3.0 mg/L (0.0-4.9) 09/23/22 18:05 Total Protein 5.9 g/dL (6.6-8.7) L 09/25/22 07:02 Albumin 2.9 g/dL (3.5-5.2) L 09/25/22 07:02 Globulin 3.0 g/dL (1.3-4.6) 09/25/22 07:02 Lipase 28 U/L (13-60) 09/23/22 18:05 Vitamin B12 612 pg/mL (232-1245) 09/24/22 04:36 25-OH Vitamin D Total 50 ng/mL (30-100) 09/24/22 04:36 Folate > 20.0 ng/mL (4.8-37.3) 09/24/22 04:36 TSH 2.30 uIU/mL (0.27-4.20) 09/24/22 04:36 Random Cortisol 17.59 ug/dL (2.47-19.5) 09/24/22 04:36 Urine Color Yellow (Yellow) 09/23/22 19:08 Urine Appearance Clear (CLEAR) 09/23/22 19:08 Urine pH 6 (5-7) 09/23/22 19:08 Ur Specific [place] 1.010 (1.005-1.030) 09/23/22 19:08 Urine Protein 1+ (Negative) H 09/23/22 19:08 Urine Glucose (UA) Norm (Normal) 09/23/22 19:08 Urine Ketones 1+ (Negative) H 09/23/22 19:08 Urine Blood 2+ (Negative) H 09/23/22 19:08 Urine Nitrate Negative (Negative) 09/23/22 19:08 Urine Bilirubin Neg (Negative) 09/23/22 19:08 Urine Urobilinogen Norm mg/dL (Negative) 09/23/22 19:08 Ur Leukocyte Esterase Negative (Negative) 09/23/22 19:08 Urine RBC 0-4 /hpf (0-2) H 09/23/22 19:08 Urine WBC 10-15 /hpf (0-5) H 09/23/22 19:08 Ur Squamous Epith Cells 0-4 /hpf (0-5) H 09/23/22 19:08 Calcium Oxalate Crystal 3 /hpf 09/23/22 19:08 Amorphous Sediment Not Reportable 09/23/22 19:08 Urine Bacteria None /hpf (NONE) 09/23/22 19:08 Urine Mucus 1+ /hpf 09/23/22 19:08 Serum Ketones Negative (Negative) 09/24/22 04:36 Coronavirus 229E (PCR) Not detected (NOT DETECT) 09/24/22 01:05 Influenza Type A Ag negative (Negative) 09/24/22 01:05 Influenza Type B Ag negative (Negative) 09/24/22 01:05 SARS-CoV-2 (PCR) Not detected (NOT DETECT) 09/24/22 01:05 Vitals Last Vital Signs Temp 98.0 F 09/25/22 08:00 Pulse 91 09/25/22 08:00 Resp 16 09/25/22 08:00 BP 121/72 09/25/22 08:00 Pulse Ox 93 09/25/22 08:00 O2 Del Method 09/25/22 08:00 Discharge Plan Discharge Patient Disposition: Home Condition: Stable Prescriptions: New cefpodoxime 200 mg tablet 200 mg PO BID 4 Days Qty: 8 0RF Rx Instructions: must administer with a meal/food Continued fluticasone propionate [Allergy Relief (fluticasone)] 50 mcg/actuation spray,suspension 2 spray INTRANASAL DAILY PRN (Reason: Dry Nasal Passages) Rx Instructions: administer into each nostril cyclobenzaprine 10 mg tablet 10 mg PO TID PRN (Reason: Pain) diltiazem HCl [Cartia XT] 180 mg capsule,extended release 24hr 180 mg PO BID cholecalciferol (vitamin D3) 125 mcg (5,000 unit) capsule 125 mcg PO DAILY calcium carbonate [Calcium 600] 600 mg calcium (1,500 mg) tablet 600 mg PO DAILY ascorbic acid (vitamin C) 1,000 mg tablet 1 gm PO DAILY albuterol sulfate [Ventolin HFA] 90 mcg/actuation HFA aerosol inhaler 2 puff INHALATION QID PRN (Reason: shortness of breath or wheezing) Qty: 18 3RF nitroglycerin 0.4 mg tablet, sublingual 0.4 mg sublingual Q5M PRN (Reason: chest pain) Qty: 20 0RF Rx Instructions: do not exceed 3 doses per episode montelukast [Singulair] 10 mg tablet 10 mg PO DAILY Qty: 30 3RF gabapentin 300 mg capsule 300 mg PO BID PRN (Reason: Pain) Qty: 60 2RF omeprazole 20 mg capsule,delayed release(DR/EC) 20 mg PO DAILY Qty: 90 3RF alprazolam 0.5 mg tablet 0.5 mg PO DAILY PRN (Reason: Anxiety) Qty: 30 5RF budesonide-formoterol [Symbicort] 80-4.5 mcg/actuation HFA aerosol inhaler 2 puff inhalation BID Qty: 10.2 3RF zinc 1 tab PO DAILY Discontinued lisinopril 10 mg tablet 10 mg PO BID hydrochlorothiazide 25 mg tablet 25 mg PO DAILY Discharge Orders: Discharge Order (Routine); Ordered 09/25/22 Ordered By: Carolyn Mario Referrals: Sinan Wakefield, [employer] [Primary Care Provider] - 4-7 days Discharge Diet: Usual diet Discharge Activity: Resume usual activity Patient Instructions: Cefpodoxime Proxetil (By mouth), Opioid Safety Activity Restrictions/Additional Instructions: F/u with PCP for setting up sleep study and cpap outpatient F/U with Dr. Gregory for your left hip Complete your antibiotics as directed F/u with PCP within 4-7 days of discharge You will need a KAFO brace as an outpatient. Please work with your PCP to have that setup. Discharge Attestations Time Spent in Discharge Care*: greater than 30 min Quality Metrics Clinical Quality Measures [ No reported AMI, CVA or VTE this stay] Coding Level of Care Code Acute Chg FW DC note Diagnoses UTI (urinary tract infection) N39.0 Hyperglycemia R73.9 Ketonuria R82.4 Leukocytosis D72.829 Left hip pain M25.552 Nonfamilial hypogammaglobulinemia D80.1 Suspected sleep apnea R29.818 History of colon polyps Z86.010 Asthma J45.909 Recurrent UTI N39.0 Diastolic heart failure I50.30 History of aortic stenosis Z86.79 Hypertension I10 Weakness R53.1
[2022-09-25 09:20] VITALS: PULSE 83; RESP 18; O2SAT 95
[2022-09-25] MEDS: budesonide 0.5 mg/2 mL Neb 0.25 MG INHALATION (09:42)
[2022-09-25] MEDS: albuterol 2.5 mg/3 mL Neb INHALATION (09:42)
[2022-09-25 11:42] VITALS: BP 127/83; PULSE 94; RESP 17; TEMP 36.7; O2SAT 95
== END 2022-09-25 13:00 | disposition home or self-care (01) ==
LOC: ER 21:54 → MEDSURG 22:07
PROVIDERS: Admitting Provider Internal Medicine; Emergency Provider Emergency Medicine; PCP Clinical Nurse Specialist Adult Health; Visit Provider Internal Medicine
DX: N39.0 Urinary tract infection, site not specified (principal); R73.9 Hyperglycemia, unspecified; R82.4 Acetonuria; D72.829 Elevated white blood cell count, unspecified; D80.1 Nonfamilial hypogammaglobulinemia; R29.818 Other symptoms and signs involving the nervous system; Z86.010 Personal history of colon polyps; J45.909 Unspecified asthma, uncomplicated; I11.0 Hypertensive heart disease with heart failure; I50.30 Unspecified diastolic (congestive) heart failure; Z86.79 Personal history of other diseases of the circulatory system; R53.1 Weakness; G47.33 Obstructive sleep apnea (adult) (pediatric); M79.7 Fibromyalgia; E78.5 Hyperlipidemia, unspecified; M16.12 Unilateral primary osteoarthritis, left hip
CPT/HCPCS: 36415; 51702; 71275; 73502; 74177; 80053; 81001; 82009; 82306; 82533; 82550; 82607; 82746; 82803; 83036; 83605; 83690; 83735; 84100; 84443; 84484; 85025; 85651; 86140; 87040; 87086; 87635; 87804; 93005; 93306; 94640; 96361; 96372; 96374; 96375; 97110; 97162; 97530; 99285; G0378; J0696; J1650; J2270; J2405; J7030; J7120; J7613; J7626; Q9967

== ENCOUNTER 2022-10-05 20:00 | Outpatient (CLI) | payer MEDICARE, OTHER, SELFPAY | END 2022-10-05 20:01 | disposition home or self-care (01) | LOC: SLEEP 10-06 05:10 | PROVIDERS: PCP Clinical Nurse Specialist Adult Health; Visit Provider Internal Medicine Pulmonary Disease | DX: G47.33 Obstructive sleep apnea (adult) (pediatric) (principal) | CPT/HCPCS: 95811 ==

== ENCOUNTER → 2022-10-11 09:19 | Outpatient (BNVA) | payer MEDICARE, OTHER, SELFPAY | PROVIDERS: PCP Clinical Nurse Specialist Adult Health; Visit Provider Student in an Organized Health Care Education/Training Program | DX: M16.12 Unilateral primary osteoarthritis, left hip (principal); G14 Postpolio syndrome; M25.361 Other instability, right knee | CPT/HCPCS: 73502; 99214 ==

== ENCOUNTER → 2022-10-14 15:25 | Outpatient (BNVA) | payer MEDICARE, OTHER, SELFPAY | PROVIDERS: PCP Clinical Nurse Specialist Adult Health; Visit Provider Internal Medicine | DX: I11.0 Hypertensive heart disease with heart failure (principal); I50.30 Unspecified diastolic (congestive) heart failure; I35.0 Nonrheumatic aortic (valve) stenosis | CPT/HCPCS: 99214 ==

== ENCOUNTER 2022-10-22 08:52 | Outpatient (CLI) | payer MEDICARE, OTHER, SELFPAY ==
[2022-10-22 09:05] VITALS: BMI 33.8
--- NOTE | 2022-10-22 09:15 | ECG_ITS ---
[facility] Test Date: 2022-10-22 Pat Name: Anita Harmon Department: Room: Gender: Female Bartender Helper: : 1950 Requested By: Girma Corona Order Number: [id number] Fuentes MD: Girma Corona M.D. Interpretive Statements NAME OF STUDY: LEXISCAN SESTAMIBI STRESS TEST INDICATION: [Chest Pain] Procedure: At the baseline, the blood pressure was 132/68 mmHg with a heart rate of 76 bpm. The electrocardiogram showed normal sinus rhythm, normal axis with normal ST and T's. The Lexiscan was infused over a period of 20 seconds. A total of 0.4 mg of Lexiscan was infused. The stress phase was continued for a total of 5 minutes. Heart rate was at the end of stress phase was 93 bpm and a blood pressure of 107/62 mmHg. The EKG at the peak infusion revealed normal sinus rhythm with no significant ST-T wave changes. Sestamibi was injected 20 seconds after the Lexiscan infusion. Blood pressure at the end of recovery phase was 122/62 mmHg with a heart rate of 86 bpm. Conclusion: 1. Normal EKG response to Lexiscan infusion 2. No Lexiscan induced chest pain or cardiac arrhythmia. 3. Normal blood pressure and heart rate response. 4. Sestamibi/sestamibi perfusion scan pending; see separate report. Electronically Signed On 11-07-2022 13:34:52 TRAINING SPECIALIST by Girma Corona M.D. [email or web address]
--- NOTE | 2022-10-22 09:16 | NMCV_ITS ---
NM ignacio perf SPECT r/s* [id number] Anita Harmon Age: 71 Gender: F : 1950 Exam Date: 10/22/2022 10:22 Ordering Phys: Girma Corona M.D ([email or web address]) Technologist: CHASITY Dempsey Exam Location: [facility] [place] Indications: CHEST PAIN STRESS TEST Please [facility] for [facility] IMAGE PROTOCOL Rest/Stress 1 Lexiscan Day Radiopharmaceutical Dose (mCi) Administration Site Administered by Rest: Tc-99m 10.6 IV CHASITY Norman Sestamibi Stress:Tc-99m 32.8 IV CHASITY Norman Sestamibi Rest: 22-Oct-2022 60 Discovery 630 Stress: 22-Oct-2022 30 Discovery 630 0.4mg Lexiscan. Supine position only as patient was unable to lay prone. SPECT RESULTS Technical Quality: Excellent Raw Data Analysis: Normal Image Corrections: No attenuation or motion correction applied Summed Stress Score: 7 Summed Rest Score: 3 Summed Difference Score: 4 PERFUSION FINDINGS There is a small in size, partially reversible perfusion defect noted in the apical lateral and inferolateral france. This is consistent with small sized prior infarct with small to medium sized area of nils-infarct ischemia in the left circumflex artery territory. FUNCTIONAL RESULTS (calculated via Gated SPECT) Stress Image LV EF (%): 83 Stress EDV (mL):52 TID: 1 Stress ESV (mL):9 FUNCTIONAL FINDINGS: There is normal left ventricular systolic function. IMPRESSIONS 1. 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 2. LV systolic function is normal Girma Corona MD (Electronically Signed) Final Date: 25 October 2022 09:11 S
[2022-10-22] MEDS: regadenoson 0.4 Mg/5 ml Syringe IVP (10:56)
[2022-10-22 11:08] VITALS: BP 122/62; PULSE 86
== END 2022-10-22 08:53 | disposition home or self-care (01) ==
LOC: CDL 08:53
PROVIDERS: PCP Clinical Nurse Specialist Adult Health; Visit Provider Internal Medicine
DX: R07.9 Chest pain, unspecified (principal)
CPT/HCPCS: 36415; 78452; 93017; 96374; A9500; J2785

== ENCOUNTER 2022-10-27 07:20 | Emergency (ER) | payer MEDICARE, OTHER, SELFPAY ==
--- NOTE | 2022-10-27 07:23 | XRR_ITS ---
PROCEDURE INFORMATION: Exam: XR Chest Exam date and time: 10/27/2022 7:47 AM Age: 71 years old Clinical indication: Pain; Angina pectoris; Additional info: Cp TECHNIQUE: Imaging protocol: Radiologic exam of the chest. Views: 1 view. Total images: 1 COMPARISON: CR XR chest 2V* [id number] 07/21/2022 1:50 PM FINDINGS: Lungs: Unremarkable. No consolidation. Pleural spaces: Unremarkable. No pleural effusion. No pneumothorax. Heart/Mediastinum: Unremarkable. No cardiomegaly. Bones/joints: Unremarkable. Soft tissues: Soft tissue anchor in the right humeral head. XR/XR chest 1V portable [id number] IMPRESSION: No acute findings.
[2022-10-27 07:28] VITALS: BP 142/76; PULSE 85; RESP 14; TEMP 36.3; O2SAT 99; BMI 33.8
--- NOTE | 2022-10-27 07:49 | ECG_ITS ---
[facility] Test Date: 2022-10-27 Pat Name: Anita Harmon Department: Room: Gender: Female Pre Billing Specialist: : 1950 Requested By: Manolo Gregory Order Number: [id number] Fuentes MD: Camden Ba M.D. Measurements Intervals [place] Rate: 72 P: 57 MT: 150 QRS: 53 QRSD: 101 T: 41 QT: 414 QTc: 456 Interpretive Statements SINUS RHYTHM Compared to ECG 09/24/2022 01:52:54 No significant changes Electronically Signed On 10-27-2022 18:08:14 TEST EQUIPMENT MECHANIC by Camden Ba M.D. [id number]
--- NOTE | 2022-10-27 08:07 | W.ED.CHESTPA ---
HPI - Chest Pain General: Chief Complaint: Chest Pain Stated Complaint: chest pain/SOB Time Seen by Provider: 10/27/22 07:28 Source: patient Mode of arrival: ambulatory History of Present Illness: 71-year-old female presents emergency room stating she could not catch her breath. Gives an extensive description of difficulties having with a new BiPAP machine. States she woke up with it last night felt like it was not working but felt like it was smothering her. She states she has been having chest pressure intermittently for the last 2 weeks. She took nitro for the first time last night took 2 tablets 5 minutes apart and states she had resolution of her symptoms she is completely asymptomatic now her vitals are stable and she is not having any difficulty breathing. Patient has a history of postpolio syndrome and uses a motorized chair to get around. MD complaint: chest pain Onset (ago): minute(s) Timing of current episode: episodic Prior episodes: Yes Onset: during rest Pain location: substernal Pain radiation: none Severity: mild Quality: heaviness Relieving factors: nitroglycerin Exacerbating factors: nothing Associated symptoms: Reports dyspnea; Deny abdominal pain, diaphoresis, fever(s), leg edema, nausea, palpitations, sense of impending doom, syncope or vomiting Treatment prior to arrival: nitroglycerin Review of Systems Const: Denies: fever(s), chills, fatigue, malaise or diaphoresis ENMT: Denies: throat pain, ear or mastoid pain, nasal discharge or nasal congestion Card: Reports: chest pain; Denies: palpitations, irregular heart rhythm, edema or syncope Resp: Reports: dyspnea; Denies: productive cough or non-productive cough GI: Denies: abdominal pain, nausea or vomiting : Denies: flank pain, difficulty voiding, dysuria, urinary frequency or urinary urgency Skin/Breast: Denies: rash or pruritus PFSH ED PFSH: Medical History Aortic atherosclerosis Arthritis Asthma Degenerative arthritis 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 Diastolic heart failure Diverticulosis Fibromyalgia History of aortic stenosis Hyperlipidemia Hypertension Nonfamilial hypogammaglobulinemia Post-polio syndrome Recurrent UTI Restrictive cardiomyopathy Surgical History H/O cardiac radiofrequency ablation H/O partial thyroidectomy H/O repair of left rotator cuff H/O repair of right rotator cuff H/O total hysterectomy History of colonoscopy with polypectomy History of ear surgery tube in left ear History of surgery on lower extremity 3 surgeries on the right leg, 1 surgery on left leg History of tonsillectomy Hx of adenoidectomy Family History Mother Stroke Hypertension Family/Other Diabetes maternal aunt Thyroid condition maternal, maternal great aunt Breast cancer maternal aunt, age onset in her 50's Colon cancer, Onset Age: 61 maternal uncle Grandmother Stroke maternal, maternal great grandmother Father Hypertension Denies family history of Ovarian cancer Clotting disorder Heart disease Hyperlipidemia Anesthesia complication Bleeding disorder Uterine cancer Social History Smoking and tobacco status: never smoked Alcohol intake: never Marital status: Marital status details: to Richard Physical Exam Const: COMMON NORMALS: no acute distress GENERAL APPEARANCE: cooperative and comfortable ORIENTATION/CONSCIOUSNESS: Yes awake, Yes oriented to person, Yes oriented to place and Yes oriented to time HENMT: COMMON NORMALS: normocephalic, atraumatic and hearing grossly normal bilaterally HEAD & SCALP: normocephalic and atraumatic Resp: COMMON NORMALS: normal respiratory effort, No retractions, No use of accessory muscles and clear to auscultation bilaterally AUSCULTATION: clear to auscultation bilaterally Cardio: COMMON NORMALS: regular rate, regular rhythm and No murmurs present (Cardio) RATE: regular rate RHYTHM: regular rhythm GI: COMMON NORMALS: Soft to palpation and No hepatosplenomegaly present AUSCULTATION: Yes normoactive bowel sounds PALPATION: Yes Soft to palpation, No Tenderness to palpation present (GI), No Guarding due to palpation present (GI) and Yes No hepatosplenomegaly present Extremity: COMMON NORMALS: normal to inspection, capillary refill normal, no clubbing, cyanosis or edema, no calf tenderness and no pedal edema Neuro: SENSORIUM/ORIENTATION: Yes oriented to person, Yes oriented to place and Yes oriented to time Skin: COMMON NORMALS: no rashes or lesions noted GENERAL SKIN EXAM: no rashes or lesions noted Course Vital Signs: Vital signs: Vital Signs Temperature 97.4 F L 10/27/22 07:28 Pulse Rate 79 10/27/22 10:56 Respiratory Rate 18 10/27/22 10:56 Blood Pressure 145/81 10/27/22 10:56 Pulse Oximetry 99 10/27/22 10:56 Oxygen Delivery Me thod 10/27/22 07:28 MDM - Chest Pain Medical Decision Making Cardiac enzymes negative EKG did not show anything acute chest x-ray unremarkable. Given Jorde of her symptoms were brought upon by difficulty with the BiPAP. She did recently have a stress test did not think repeating it is necessarily helpful to have her follow-up with cardiology. There was some question of some nils-infarct ischemia from the looks of the suspect they are planning to treat medically she has no change in troponin now we will refer her back to her cardiology clinic. Medical Records I reviewed the patient's medical records. Lab Data I reviewed the patient's lab results. 10/27/22 07:59 Radiology Impressions Chest X-Ray 10/27/22 07:23 IMPRESSION: No acute findings. Laboratory Results WBC 11.6 10^3/uL (4.0-10.0) H 10/27/22 07:59 RBC 4.52 10^6/uL (4.1-5.3) 10/27/22 07:59 Hgb 13.4 g/dL (11.5-15.3) 10/27/22 07:59 Hct 41.2 % (37.0-47.0) 10/27/22 07:59 MCV 91.2 fl (81-99) 10/27/22 07:59 MCH 29.6 pg (28.0-34.0) 10/27/22 07:59 MCHC 32.5 g/dL (30.0-36.0) 10/27/22 07:59 RDW 13.5 % (12.1-15.1) 10/27/22 07:59 Plt Count 362 10^3/cmm (130-400) 10/27/22 07:59 MPV 11.0 fL (7.4-10.4) H 10/27/22 07:59 Neut % (Auto) 60.4 % 10/27/22 07:59 Lymph % (Auto) 28.9 % 10/27/22 07:59 Crawford % (Auto) 7.9 % 10/27/22 07:59 Eos % (Auto) 2.3 % 10/27/22 07:59 Baso % (Auto) 0.3 % 10/27/22 07:59 Neut # (Auto) 6.98 10^3/uL (1.8-7.7) 10/27/22 07:59 Lymph # (Auto) 3.4 10^3/uL (0.8-4.8) 10/27/22 07:59 Crawford # (Auto) 0.9 10^3/uL (0.2-0.9) 10/27/22 07:59 Eos # (Auto) 0.3 10^3/uL (0.0-0.8) 10/27/22 07:59 Baso # (Auto) 0.0 10^3/uL (0.0-0.1) 10/27/22 07:59 Nucleated RBC % (auto) 0 % 10/27/22 07:59 Nucleated RBCs # 0.0 /100WBC 10/27/22 07:59 Sodium 139 mmol/L (136-145) 10/27/22 07:40 Potassium 3.2 mmol/L (3.5-5.1) L 10/27/22 07:40 Chloride 99 mmol/L (98-107) 10/27/22 07:40 Carbon Dioxide 29 mmol/L (22-29) 10/27/22 07:40 Anion Gap 14.2 (5-19) 10/27/22 07:40 BUN 16 mg/dL (8-23) 10/27/22 07:40 Creatinine 0.6 mg/dL (0.5-0.9) 10/27/22 07:40 GFR Calculation Not Reportable 10/27/22 07:40 Glucose 126 mg/dL (65-115) H 10/27/22 07:40 Calculated Osmolality 291 mOsm/kg (285-295) 10/27/22 07:40 Calcium 10.0 mg/dL (8.5-10.5) 10/27/22 07:40 Total Bilirubin 0.6 mg/dL (0.15-1.2) 10/27/22 07:40 AST 16 U/L (0-32) 10/27/22 07:40 ALT 21 U/L (0-33) 10/27/22 07:40 Alkaline Phosphatase 100 U/L (35-105) 10/27/22 07:40 Troponin T Baseline 8 ng/L (0-10) 10/27/22 07:59 Troponin T 120 Minute 8.37 ng/L (0-10) 10/27/22 09:58 Delta Troponin T 0.37 ABS# (0-10) 10/27/22 09:58 NT-Pro-B Natriuret Pep 34 pg/mL (0-125) 10/27/22 07:40 Total Protein 7.3 g/dL (6.6-8.7) 10/27/22 07:40 Albumin 4.0 g/dL (3.5-5.2) 10/27/22 07:40 Globulin 3.3 g/dL (1.3-4.6) 10/27/22 07:40 Discharge Plan Discharge Patient Disposition: Home Clinical Impression: Atypical chest pain, Apnea, sleep Condition: Stable Prescriptions: No Action cyclobenzaprine 10 mg tablet 10 mg PO TID PRN (Reason: Pain) diltiazem HCl [Cartia XT] 180 mg capsule,extended release 24hr 180 mg PO BID cholecalciferol (vitamin D3) 125 mcg (5,000 unit) capsule 125 mcg PO DAILY calcium carbonate [Calcium 600] 600 mg calcium (1,500 mg) tablet 600 mg PO DAILY ascorbic acid (vitamin C) 1,000 mg tablet 1 gm PO DAILY albuterol sulfate [Ventolin HFA] 90 mcg/actuation HFA aerosol inhaler 2 puff INHALATION QID PRN (Reason: shortness of breath or wheezing) Qty: 18 3RF (DME) kafo See Rx Instructions .Route .MEDSUPPLY Qty: 1 0RF Rx Instructions: As directed Double upright locking hinge KAFO hydrochlorothiazide 12.5 mg capsule 12.5 mg PO DAILY montelukast [Singulair] 10 mg tablet 10 mg PO DAILY Qty: 30 3RF gabapentin 300 mg capsule 300 mg PO BID PRN (Reason: Pain) Qty: 60 2RF budesonide-formoterol [Symbicort] 80-4.5 mcg/actuation HFA aerosol inhaler 2 puff inhalation BID Qty: 10.2 3RF fluticasone propionate [Allergy Relief (fluticasone)] 50 mcg/actuation spray,suspension 2 spray INTRANASAL DAILY PRN (Reason: Dry Nasal Passages) Qty: 16 5RF Rx Instructions: administer into each nostril alprazolam 0.5 mg tablet 0.5 mg PO DAILY PRN (Reason: Anxiety) Qty: 30 2RF nitroglycerin 0.4 mg tablet, sublingual 0.4 mg sublingual Q5M PRN (Reason: chest pain) Qty: 20 0RF Rx Instructions: do not exceed 3 doses per episode zinc acetate 50 mg (zinc) Capsule 50 mg PO DAILY Qty: 0 potassium chloride 10 mEq capsule, extended release 10 meq PO EVERY OTHER DAY omeprazole 20 mg capsule,delayed release(DR/EC) 20 mg PO DAILY PRN (Reason: Heartburn) Discharge Orders: Discharge ED (Routine); Ordered 10/27/22 Ordered By: Wilber Marcano Referrals: Sinan Wakefield, SENIOR BACK END JAVA DEVELOPER [Primary Care Provider] - Discharge Diet: Usual diet Discharge Activity: Resume usual activity Patient Instructions: Opioid Safety, Pain Management Activity Restrictions/Additional Instructions: You are seen for shortness of breath related to the use of your BiPAP machine. Recommending follow-up with your primary caregiver and the supplier gave the BiPAP to see if any adjustments are needed for that. He recently had a stress test. We do not recommend that at this point that you have another 1 he had reported some mild chest discomfort related to shortness of breath the cardiac enzymes and EKG were normal no recommendation for change medication at this time follow-up with a rental clerk tool and equipment in the next 1 to 2 weeks return to the emergency room if further problems. Coding Level of Care Code ED Director Franchise Sales for [employer] Fwtomas Exam Detailed
[2022-10-27 08:09] LABS: Basophils % 0.3 %; Eosinophils # 0.3 10^3/uL (0.0-0.8); Eosinophils % 2.3 %; Hematocrit 41.2 % (37.0-47.0); Hemoglobin 13.4 g/dL (11.5-15.3); Lymphocytes # 3.4 10^3/uL (0.8-4.8); Lymphocytes % 28.9 %; Mean Corpuscular HGB Conc 32.5 g/dL (30.0-36.0); Mean Corpuscular Hemoglobin 29.6 pg (28.0-34.0); Mean Corpuscular Volume 91.2 fl (81-99); Monocytes # 0.9 10^3/uL (0.2-0.9); Monocytes % 7.9 %; Neutrophils # 6.98 10^3/uL (1.8-7.7); Neutrophils % 60.4 %; Nucleated Red Blood Cells % 0 %; Platelet Count 362 10^3/cmm (130-400); Red Blood Count 4.52 10^6/uL (4.1-5.3); Red Cell Distribution Width 13.5 % (12.1-15.1); White Blood Count 11.6 10^3/uL (4.0-10.0)
[2022-10-27 08:30] LABS: Troponin(5th) Baseline 8 ng/L (0-10)
[2022-10-27 08:45] LABS: Alanine Aminotransferase 21 U/L (0-33); Alkaline Phosphatase 100 U/L (35-105); Anion Gap 14.2 (5-19); Aspartate Amino Transferase 16 U/L (0-32); Blood Urea Nitrogen 16 mg/dL (8-23); Carbon Dioxide 29 mmol/L (22-29); Chloride 99 mmol/L (98-107); Globulin 3.3 g/dL (1.3-4.6); Glucose 126 mg/dL (65-115); NT Pro B Type Natriuretic Pept 34 pg/mL (0-125); Osmolality Calculated 291 mOsm/kg (285-295); Potassium 3.2 mmol/L (3.5-5.1); Sodium 139 mmol/L (136-145); Total Bilirubin 0.6 mg/dL (0.15-1.2); Total Protein 7.3 g/dL (6.6-8.7)
--- NOTE | 2022-10-27 09:24 | ECG_ITS ---
[facility] Test Date: 2022-10-27 Pat Name: Anita Harmon Department: Room: Gender: Female Assembler Hydraulic Backhoe: : 1950 Requested By: Manolo Gregory Order Number: [id number] Dill MD: Camden Ba M.D. Measurements Intervals [place] Rate: 71 P: 52 AR: 140 QRS: 63 QRSD: 92 T: 56 QT: 419 QTc: 457 Interpretive Statements SINUS RHYTHM Compared to ECG 10/27/2022 07:49:38 No significant changes Electronically Signed On 10-27-2022 18:25:44 KITCHEN FOOD SERVER by Camden Ba M.D. [id number]
[2022-10-27 09:52] VITALS: BP 160/72; PULSE 71; RESP 18; O2SAT 99
[2022-10-27 10:22] LABS: Troponin 5 2HR 8.37 ng/L (0-10)
[2022-10-27 10:46] LABS: Troponin 5 2HR Delta 0.37 ABS# (0-10)
[2022-10-27 10:56] VITALS: BP 145/81; PULSE 79; RESP 18; O2SAT 99
== END 2022-10-27 10:55 | disposition home or self-care (01) ==
PROVIDERS: Physician Assistant; Emergency Provider Family Medicine; PCP Clinical Nurse Specialist Adult Health
DX: R07.89 Other chest pain (principal); G47.30 Sleep apnea, unspecified; I11.0 Hypertensive heart disease with heart failure; I50.30 Unspecified diastolic (congestive) heart failure; E78.5 Hyperlipidemia, unspecified
CPT/HCPCS: 36415; 71045; 80053; 83880; 84484; 85025; 93005; 99285

== ENCOUNTER 2022-11-01 13:07 | Outpatient (CLI) | payer MEDICARE, OTHER, SELFPAY ==
[2022-11-01 14:28] LABS: Basophils % 0.3 %; Eosinophils # 0.2 10^3/uL (0.0-0.8); Eosinophils % 2.1 %; Hematocrit 42.9 % (37.0-47.0); Hemoglobin 14.1 g/dL (11.5-15.3); Lymphocytes % 32.7 %; Mean Corpuscular HGB Conc 32.9 g/dL (30.0-36.0); Mean Corpuscular Hemoglobin 29.6 pg (28.0-34.0); Mean Corpuscular Volume 90.1 fl (81-99); Mean Platelet Volume 11.9 fL (7.4-10.4); Monocytes # 0.7 10^3/uL (0.2-0.9); Monocytes % 7.4 %; Neutrophils # 5.23 10^3/uL (1.8-7.7); Neutrophils % 57.3 %; Nucleated Red Blood Cells % 0 %; Platelet Count 394 10^3/cmm (130-400); Red Blood Count 4.76 10^6/uL (4.1-5.3); Red Cell Distribution Width 13.3 % (12.1-15.1); White Blood Count 9.1 10^3/uL (4.0-10.0)
[2022-11-01 14:57] LABS: Alanine Aminotransferase 24 U/L (0-33); Albumin Level 4.3 g/dL (3.5-5.2); Alkaline Phosphatase 99 U/L (35-105); Anion Gap 14.4 (5-19); Aspartate Amino Transferase 21 U/L (0-32); Blood Urea Nitrogen 14 mg/dL (8-23); Calcium 9.6 mg/dL (8.5-10.5); Carbon Dioxide 29 mmol/L (22-29); Chloride 101 mmol/L (98-107); Globulin 3.1 g/dL (1.3-4.6); Glucose 97 mg/dL (65-115); Immunoglobulin IGA 112 mg/dL (70-400); Immunoglobulin IGG 754 mg/dL (700-1600); Immunoglobulin IGM 114 mg/dL (40-230); Osmolality Calculated 292 mOsm/kg (285-295); Potassium 3.4 mmol/L (3.5-5.1); Sodium 141 mmol/L (136-145); Total Bilirubin 0.7 mg/dL (0.15-1.2); Total Protein 7.4 g/dL (6.6-8.7)
[2022-11-02 06:39] LABS: PROTEIN, TOTAL 6.7 g/dL (6.1-8.1)
[2022-11-02 11:54] LABS: ALPHA 1 GLOBULIN 0.4 g/dL (0.2-0.3); ALPHA 2 GLOBULIN 0.8 g/dL (0.5-0.9); BETA 1 GLOBULIN 0.5 g/dL (0.4-0.6); BETA 2 GLOBULIN 0.3 g/dL (0.2-0.5); GAMMA GLOBULIN 0.7 g/dL (0.8-1.7)
== END 2022-11-01 13:08 | disposition home or self-care (01) ==
PROVIDERS: PCP Clinical Nurse Specialist Adult Health; Visit Provider Internal Medicine Medical Oncology
DX: D80.1 Nonfamilial hypogammaglobulinemia (principal)
CPT/HCPCS: 36415; 80053; 82784; 84155; 84165; 85025

== ENCOUNTER 2022-11-12 06:00 | Oncology outpatient (recurring) (ONCR) | payer MEDICARE, OTHER, SELFPAY | END 2022-11-13 23:59 | disposition home or self-care (01) | PROVIDERS: PCP Clinical Nurse Specialist Adult Health; Visit Provider Internal Medicine Medical Oncology | DX: D80.1 Nonfamilial hypogammaglobulinemia (principal); M16.12 Unilateral primary osteoarthritis, left hip; R92.8 Other abnormal and inconclusive findings on diagnostic imaging of breast; R30.0 Dysuria; G14 Postpolio syndrome; G47.33 Obstructive sleep apnea (adult) (pediatric); J45.40 Moderate persistent asthma, uncomplicated; R91.8 Other nonspecific abnormal finding of lung field; D89.2 Hypergammaglobulinemia, unspecified; R68.2 Dry mouth, unspecified; H04.123 Dry eye syndrome of bilateral lacrimal glands; R13.10 Dysphagia, unspecified; Z87.891 Personal history of nicotine dependence | CPT/HCPCS: 99214 ==

== ENCOUNTER → 2022-11-15 13:27 | Outpatient (BNVA) | payer MEDICARE, OTHER, SELFPAY | PROVIDERS: PCP Clinical Nurse Specialist Adult Health; Visit Provider Nurse Practitioner Family | DX: N39.0 Urinary tract infection, site not specified (principal) | CPT/HCPCS: 81000; 87086 ==

== ENCOUNTER → 2022-11-19 09:15 | Outpatient (BNVA) | payer MEDICARE, OTHER, SELFPAY | PROVIDERS: PCP Clinical Nurse Specialist Adult Health; Visit Provider Nurse Practitioner Family | DX: I11.0 Hypertensive heart disease with heart failure (principal); I50.30 Unspecified diastolic (congestive) heart failure | CPT/HCPCS: 99214 ==

== ENCOUNTER 2022-11-22 06:00 | Oncology outpatient (recurring) (ONCR) | payer MEDICARE, OTHER, SELFPAY ==
[2022-11-22 15:19] LABS: Add Urine Microscopic? NO; Charge for UA Resulting for Rev
[2022-11-22 15:44] LABS: Bilirubin Urine Neg (Negative); Blood Urine Neg (Negative); Glucose Urine UA Norm (Normal); Ketones Urine Negative (Negative); Leukocyte Esterase Urine Negative (Negative); Nitrate Urine Negative (Negative); Protein Urine Neg (Negative); Urine Appearance Clear (CLEAR); Urine Color Yellow (Yellow); Urobilinogen Urine Neg (Negative); pH Urine 5 (5-7)
== END 2022-12-13 23:59 | disposition home or self-care (01) ==
LOC: ONCMED 12-15 11:05
PROVIDERS: PCP Clinical Nurse Specialist Adult Health; Visit Provider Internal Medicine Medical Oncology
DX: R35.0 Frequency of micturition (principal); R30.9 Painful micturition, unspecified
CPT/HCPCS: 81003

== ENCOUNTER → 2022-12-30 12:14 | Outpatient (BNVA) | payer MEDICARE, OTHER, SELFPAY | PROVIDERS: PCP Clinical Nurse Specialist Adult Health; Visit Provider Clinical Nurse Specialist Adult Health | DX: E87.6 Hypokalemia (principal) | CPT/HCPCS: 80048 ==

== ENCOUNTER 2023-01-06 12:25 | Outpatient (CLI) | payer MEDICARE, OTHER, SELFPAY ==
--- NOTE | 2023-01-06 12:30 | CT_ITS ---
WS: [id number] CT LEFT HIP NONCONTRAST TECHNIQUE: Noncontrast CT of the LEFT hip to include the LEFT knee and tibia/fibula. CLINICAL INFORMATION: Surgery 01/26/2023 DLP: 670.[address] scans at [facility] use at least one of these dose optimization techniques: automated e xposure control; mA and/or kV adjustment per patient size (includes targeted exams where dose is matc hed to clinical indication); or iterative reconstruction. FINDINGS: Advanced osteoarthritis LEFT hip with ilyl-xt-mowp articulation and superior subluxation of the femor al head with impingement on the superolateral acetabulum. Hypertrophic changes along the superolatera l acetabulum. Mild flattening of the femoral head with sclerosis. Erosion of the acetabulum. External rotation of the LEFT hip. Advanced facet arthropathy lower lumbar spine. Mild degenerative arthritis bilateral sacroiliac joint s. Sigmoid diverticulosis. CT/CT hip LT wo con* [id number] IMPRESSION: Images obtained for preoperative purposes.
== END 2023-01-06 12:26 | disposition home or self-care (01) ==
LOC: RAD 12:27
PROVIDERS: PCP Clinical Nurse Specialist Adult Health; Visit Provider Student in an Organized Health Care Education/Training Program
DX: M16.12 Unilateral primary osteoarthritis, left hip (principal)
CPT/HCPCS: 73700

== ENCOUNTER → 2023-01-10 09:30 | Outpatient (BNVA) | payer MEDICARE, OTHER, SELFPAY | PROVIDERS: PCP Clinical Nurse Specialist Adult Health; Visit Provider Student in an Organized Health Care Education/Training Program | DX: M16.12 Unilateral primary osteoarthritis, left hip (principal); G14 Postpolio syndrome | CPT/HCPCS: 99214 ==

== ENCOUNTER → 2023-01-12 11:11 | Outpatient (BNVA) | payer MEDICARE, OTHER, SELFPAY | PROVIDERS: PCP Clinical Nurse Specialist Adult Health; Visit Provider Clinical Nurse Specialist Adult Health | DX: R35.0 Frequency of micturition (principal) | CPT/HCPCS: 81000 ==

== ENCOUNTER 2023-01-18 11:34 | Outpatient (CLI) | payer MEDICARE, OTHER, SELFPAY | END 2023-01-18 11:35 | disposition home or self-care (01) | LOC: RT 01-19 11:36 | PROVIDERS: PCP Clinical Nurse Specialist Adult Health; Visit Provider Student in an Organized Health Care Education/Training Program | DX: Z13.6 Encounter for screening for cardiovascular disorders (principal) | CPT/HCPCS: 93005 ==

== ENCOUNTER 2023-01-26 11:10 | Inpatient (IN) | payer MEDICARE, OTHER, SELFPAY ==
[2022-11-09 14:10] VITALS: BMI 33.6
--- NOTE | 2022-11-09 14:28 | P.ANESASSM_ITS ---
Pre-Anesthetic Assessment Height/Weight: Height 1.47 m Weight 73.028 kg Preop Diagnosis: History of colon polyps Operation Date: 11/17/22 07:00 Proposed Procedures p total left hip replacement 56480 M16.12(Left) - Polo Gregory DO Familial anesthetic complications: None Social No alcohol and No tobacco Exam alert, oriented x 3, clear to auscultation bilaterally and regular rate & rhythm Airway Mallampati: Class II Dentition: other (missing) Pulmonary Asthma and Sleep Apnea CV/HEM Coronary Artery Disease, Congestive Heart Failure and Hypertension EF 60%, negative stress test 11/04 [facility] polio affects R leg and arm, has some Curvature of spine Anesthetic Plan ASA status: 3 Anesthesia: Regional (specify below) (Spinal) Other: ? adductor Risk of > 500 ml blood loss (7ml/kg in children): Yes, adequate IV access and fluids planned Medications/Allergies Home Medications Medication Instructions Recorded Confirmed Last Taken Type cyclobenzaprine 10 mg tablet 10 mg PO TID PRN Pain 09/10/20 11/09/22 09/23/22 10:00 History albuterol sulfate 90 mcg/actuation 2 puff inhalation QID PRN 09/17/20 11/09/22 09/23/22 17:00 Rx aerosol inhaler (Ventolin HFA) shortness of breath or wheezing #18 grams ascorbic acid (vitamin C) 1,000 mg 1 gm PO DAILY 09/17/20 11/09/22 10/27/22 History tablet calcium carbonate 600 mg calcium 600 mg PO DAILY 09/17/20 11/09/22 10/27/22 History (1,500 mg) tablet (Calcium) cholecalciferol (vitamin D3) 125 125 mcg PO DAILY 09/17/20 11/09/22 10/27/22 History mcg (5,000 unit) capsule zinc acetate 50 mg (zinc) capsule 50 mg PO DAILY ##0 05/21/21 11/09/22 10/27/22 History montelukast 10 mg tablet 10 mg PO DAILY Prevent Allergic 08/27/21 11/09/22 10/26/22 Rx (Singulair) Reaction #30 tabs budesonide-formoterol HFA 80 2 puff inhalation BID #10.2 grams 08/31/22 11/09/22 10/27/22 Rx mcg-4.5 mcg/actuation aerosol inhaler (Symbicort) hydrochlorothiazide 12.5 mg capsule 25 mg PO DAILY 09/28/22 11/09/22 10/27/22 History 6.25 mg kafo #1 ea 09/28/22 11/09/22 Unknown Rx fluticasone propionate 50 2 spray intranasal DAILY PRN Dry 10/11/22 11/09/22 Unknown Rx mcg/actuation nasal Nasal Passages #16 grams spray,suspension (Allergy Relief (fluticasone)) alprazolam 0.5 mg tablet 0.5 mg PO DAILY PRN Anxiety #30 10/15/22 11/09/22 Unknown Rx tabs nitroglycerin 0.4 mg sublingual 0.4 mg sublingual Q5M PRN chest 10/21/2210/27/22 Rx tablet pain #20 tabs omeprazole 20 mg capsule,delayed 20 mg PO DAILY PRN Heartburn 10/27/22 11/09/22 Unknown History release lisinopril 10 mg tablet 10 mg PO DAILY #30 tabs 10/28/22 11/09/22 Unknown Rx Cartia XT 180 mg capsule,extended 180 mg PO BID #60 caps 10/29/22 11/09/22 Unknown Rx release (diltiazem HCl) gabapentin 300 mg capsule 300 mg PO BID PRN Pain #60 caps 11/03/22 11/09/22 Unknown Rx potassium chloride 10 mEq 10 meq PO DAILY 11/03/22 11/09/22 Unknown History capsule,extended release budesonide-formoterol HFA 80 inhalation 11/09/22 11/09/22 Unknown History mcg-4.5 mcg/actuation aerosol inhaler (Symbicort) magnesium 250 mg tablet 250 mg PO DAILY 11/09/22 11/09/22 Unknown History Allergies Allergy/AdvReac Type Severity Reaction Status Date / Time Gfuzywk-GRX-OvX Reductase Allergy Severe legs feel Verified 11/09/22 14:00 Inhibitor like rubber [Tnhdjxa-Czi-Rfh Reductase Inhibitor] [facility] Anesthesia Medical History Aortic atherosclerosis Arthritis Asthma Degenerative arthritis 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 Diastolic heart failure Diverticulosis Fibromyalgia History of aortic stenosis Hyperlipidemia Hypertension Nonfamilial hypogammaglobulinemia Post-polio syndrome Recurrent UTI Restrictive cardiomyopathy Surgical History H/O cardiac radiofrequency ablation H/O partial thyroidectomy H/O repair of left rotator cuff H/O repair of right rotator cuff H/O total hysterectomy History of colonoscopy with polypectomy History of ear surgery tube in left ear History of surgery on lower extremity 3 surgeries on the right leg, 1 surgery on left leg History of tonsillectomy Hx of adenoidectomy Family History Mother Stroke Hypertension Family/Other Diabetes maternal aunt Thyroid condition maternal, maternal great aunt Breast cancer maternal aunt, age onset in her 50's Colon cancer, Onset Age: 61 maternal uncle Grandmother Stroke maternal, maternal great grandmother Father Hypertension Denies family history of Ovarian cancer Clotting disorder Heart disease Hyperlipidemia Anesthesia complication Bleeding disorder Uterine cancer Social History Smoking and tobacco status: never smoked Alcohol intake: never Marital status: Marital status details: to Richard Willy Anesthesia Cardiac Studies: Echocardiogram 09/24/22 Echocardiogram Ultrasound 04/17/21 Sestamibi Stress Test (Cardiology) 10/22
--- NOTE | 2023-01-18 10:13 | ECG_ITS ---
[facility] Test Date: 2023-01-18 Pat Name: Anita Harmon Department: Room: Gender: Female Piped Buttonhole Machine Operator: : 1950 Requested By: Polo Gregory Order Number: [id number] Fuentes MD: Steven Reyes M.D. Measurements Intervals [place] Rate: 84 P: 50 TN: 143 QRS: 33 QRSD: 98 T: 15 QT: 370 QTc: 439 Interpretive Statements SINUS RHYTHM LOW QRS VOLTAGE IN PRECORDIAL LEADS [QRS DEFLECTION < 1.0 mV IN CHEST LEADS] Compared to ECG 10/27/2022 09:49:31 Low QRS voltage now present Electronically Signed On 01-18-2023 18:21:32 CONSTRUCTION PIT WORKER by Steven Reyes M.D. [id number]
[2023-01-18 10:14] VITALS: BMI 32.5
--- NOTE | 2023-01-18 10:49 | ANES.PREANE2 ---
Pre-Anesthetic Assessment Height/Weight: Height 1.47 m Weight 70.76 kg Preop Diagnosis: Left hip degenerative joint disease Operation Date: 01/26/23 07:00 Proposed Procedures p total left hip replacement 98922 M16.12(Left) - Polo Gregory DO Familial anesthetic complications: none Social No alcohol and No tobacco Exam alert, oriented x 3, clear to auscultation bilaterally and regular rate & rhythm Airway Mallampati: Class II Dentition: full Pulmonary Asthma and Sleep Apnea CV/HEM Congestive Heart Failure (diastolic) Mycardial perfusion scan 11/04 ?IMPRESSIONS ?1. 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 ?2. LV systolic function is normal Sestamibi Stress test Conclusion: 1.? Normal EKG response to Lexiscan infusion 2.? No Lexiscan induced chest pain or cardiac arrhythmia. 3.? Normal blood pressure and heart rate response. 4.? Sestamibi/sestamibi perfusion scan pending; see separate report. Echo 10/05 CONCLUSIONS ?Normal left ventricular size and systolic function, EF 59 %. No ?regional wall motion abnormalities. ?Mild to moderate mitral annular calcification. ?Moderate tricuspid valve regurgitation. ? Estimated pulmonary artery peak systolic pressure 37 mmHg. ?There is no pericardial effusion. ?There are no intracardiac masses. 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, has some Curvature of spine Anesthetic Plan ASA status: 4 Anesthesia: Regional (specify below) Risk of > 500 ml blood loss (7ml/kg in children): No Medications/Allergies Home Medications Medication Instructions Recorded Confirmed Last Taken Type albuterol sulfate 90 mcg/actuation 2 puff inhalation QID PRN 09/17/20 01/12/23 09/23/22 17:00 Rx aerosol inhaler (Ventolin HFA) shortness of breath or wheezing #18 grams ascorbic acid (vitamin C) 1,000 mg 1 gm PO DAILY 09/17/20 01/18/23 01/17/23 History tablet calcium carbonate 600 mg calcium 600 mg PO DAILY 09/17/20 01/18/23 01/17/23 History (1,500 mg) tablet (Calcium) cholecalciferol (vitamin D3) 125 125 mcg PO DAILY 09/17/20 01/18/23 01/17/23 History mcg (5,000 unit) capsule zinc acetate 50 mg (zinc) capsule 50 mg PO DAILY ##0 05/21/21 01/12/23 10/27/22 History montelukast 10 mg tablet 10 mg PO DAILY Prevent Allergic 08/27/21 01/12/23 10/26/22 Rx (Singulair) Reaction #30 tabs budesonide-formoterol HFA 80 2 puff inhalation BID #10.2 grams 08/31/22 01/18/23 01/18/23 Rx mcg-4.5 mcg/actuation aerosol inhaler (Symbicort) kafo #1 ea 09/28/22 01/12/23 Unknown Rx fluticasone propionate 50 2 spray intranasal DAILY PRN Dry 10/11/22 01/12/23 Unknown Rx mcg/actuation nasal Nasal Passages #16 grams spray,suspension (Allergy Relief (fluticasone)) alprazolam 0.5 mg tablet 0.5 mg PO DAILY PRN Anxiety #30 10/15/22 01/12/23 Unknown Rx tabs nitroglycerin 0.4 mg sublingual 0.4 mg sublingual Q5M PRN chest 10/21/22 01/12/23 10/27/22 Rx tablet pain #20 tabs omeprazole 20 mg capsule,delayed 20 mg PO DAILY PRN Heartburn 10/27/22 01/12/23 Unknown History release lisinopril 10 mg tablet 10 mg PO DAILY #30 tabs 10/28/22 01/12/23 Unknown Rx Cartia XT 180 mg capsule,extended 180 mg PO BID #60 caps 10/29/22 01/18/23 01/17/23 Rx release (diltiazem HCl) potassium chloride 10 mEq 10 meq PO DAILY 11/03/22 01/18/23 01/17/23 History capsule,extended release magnesium 250 mg tablet 250 mg PO DAILY 11/09/22 01/18/23 01/17/23 History hydrochlorothiazide 25 mg tablet 25 mg PO DAILY 12/30/22 01/18/23 01/17/23 History nystatin 100,000 unit/mL oral 1 ml PO DAILY #60 mL 01/12/23 01/18/23 Unknown Rx suspension sulfamethoxazole 800 1 tab PO Q12H #10 tabs 01/12/23 01/18/23 Unknown Rx mg-trimethoprim 160 mg tablet (Bactrim DS) cyclobenzaprine 10 mg tablet 10 mg PO TID PRN Pain #90 tabs 01/17/23 01/18/23 Unknown Rx Allergies Allergy/AdvReac Type Severity Reaction Status Date / Time Vmrrfgh-GVO-VkE Reductase Allergy Severe legs feel Verified 01/12/23 11:10 Inhibitor like rubber [Vfbxwks-Rrk-Tjv Reductase Inhibitor] PFSH Anesthesia Medical History Aortic atherosclerosis Asthma Degenerative arthritis Degenerative joint disease of spine Diastolic heart failure Diverticulosis Fibromyalgia History of aortic stenosis Hyperlipidemia Hypertension Nonfamilial hypogammaglobulinemia Post-polio syndrome Recurrent UTI Restrictive cardiomyopathy Surgical History H/O cardiac radiofrequency ablation H/O partial thyroidectomy H/O repair of left rotator cuff H/O repair of right rotator cuff H/O total hysterectomy History of colonoscopy with polypectomy History of ear surgery tube in left ear History of surgery on lower extremity 3 surgeries on the right leg, 1 surgery on left leg History of tonsillectomy Hx of adenoidectomy Family History Mother Stroke Hypertension Family/Other Diabetes maternal aunt Thyroid condition maternal, maternal great aunt Breast cancer maternal aunt, age onset in her 50's Colon cancer, Onset Age: 61 maternal uncle Grandmother Stroke maternal, maternal great grandmother Father Hypertension Denies family history of Ovarian cancer Clotting disorder Heart disease Hyperlipidemia Anesthesia complication Bleeding disorder Uterine cancer Social History Smoking and tobacco status: never smoked Alcohol intake: never Marital status: Marital status details: to Richard Data Anesthesia Cardiac Studies: Echocardiogram 09/24/22 Echocardiogram Ultrasound 04/17/21 Sestamibi Stress Test (Cardiology) 10/22/22
[2023-01-18 10:54] LABS: Add Urine Microscopic? YES; Bilirubin Urine Neg (Negative); Blood Urine Trace (Negative); Glucose Urine UA Norm (Normal); Ketones Urine Negative (Negative); Leukocyte Esterase Urine Negative (Negative); Nitrate Urine Negative (Negative); Protein Urine Neg (Negative); Urine Appearance Clear (CLEAR); Urine Color Yellow (Yellow); Urobilinogen Urine Neg (Negative); pH Urine 5 (5-7)
[2023-01-18 11:00] LABS: RBC Urine RARE /hpf (0-2); Squamous Epithelial Cell Urine RARE /hpf (0-5)
[2023-01-18 11:01] LABS: Add Urine Culture? No
[2023-01-26] VITALS (19 sets, daily range): BP systolic 84–135; BP diastolic 46–66; PULSE 61–92; RESP 15–18; TEMP 36.1–36.8; O2SAT 93–100
--- NOTE | 2023-01-26 06:45 | XRR_ITS ---
PROCEDURE INFORMATION: Exam: XR Chest Exam date and time: 01/26/2023 6:55 AM Age: 72 years old Clinical indication: Screening exam; Pre-employment physical; Prior surgery; Surgery type: Pre op clearance; Additional info: Preop clearance TECHNIQUE: Imaging protocol: Radiologic exam of the chest. Views: 1 view. COMPARISON: CR XR chest 1V portable [id number] 10/27/2022 7:47 AM FINDINGS: Lungs: Normal lung volumes. No interstitial or air space opacities seen. Pleural spaces: No pleural effusion. No pneumothorax. Heart/Mediastinum: Normal heart size. Normal mediastinum. Midline trachea. Bones/joints: No acute osseous abnormalities seen. Postsurgical changes of the right humeral head are once again seen. Surgical clips are seen in the right upper quadrant of the abdomen, likely related to prior cholecystectomy. XR/XR chest 1V portable [id number] IMPRESSION: No acute cardiopulmonary disease on the chest radiograph.
--- NOTE | 2023-01-26 07:07 | W.PM.OPSUD ---
Surgery/Procedure H&P Update DATE OF PROCEDURE: January 26, 2023 DATE H&P PERFORMED: 01/10/23 CHANGES TO PREVIOUS DOCUMENTATION: None PREOP DIAGNOSIS: Left hip degenerative joint disease PRIMARY INDICATION FOR PROCEDURE: Left hip degenerative joint disease PLANNED PROCEDURE: Operation Date: 01/26/23 08:10 Proposed Procedures p total left hip replacement 17602,M16. 12(Left) - Polo Gregory DO
[2023-01-26] MEDS: lactated ringers 500 ML IV (07:37)
[2023-01-26] MEDS: acetaminophen 1,000 MG/100 ML PIGGYBACK 400 MG IV ×3 (07:38→23:04)
--- NOTE | 2023-01-26 07:39 | ANES.PAUD2 ---
Pre-Anesthetic Update Pre-Anesthetic Assessment: Date of Surgery/Procedure: 01/26/23 Preop Diagnosis: Left hip degenerative joint disease Proposed Procedure: Operation Date: 01/26/23 08:10 Proposed Procedures p total left hip replacement 40916,M16. 12(Left) - Polo Gregory, DO Any changes to Pre-Anesthetic Assessment?: No Last Intake: Intake Last Liquid Date 01/25/23 Last Liquid Time 23:45 Last Solid Date 01/25/23 Last Solid Time 17:00 Vitals: Temperature 97.7 F 01/26/23 07:05 Temperature Source Temporal Artery S can 01/26/23 07:05 Pulse Rate 79 01/26/23 07:05 Respiratory Rate 18 01/26/23 07:05 Blood Pressure 135/65 01/26/23 07:05 Blood Pressure Kathy n 88 01/26/23 07:05 Pulse Oximetry 99 01/26/23 07:05 Oxygen Delivery Me thod 01/26/23 07:05 Exam: Pre-Anes Outpt Exam: alert, oriented x 3, clear to auscultation bilaterally and regular rate & rhythm Cardiac Studies: Echocardiogram 09/24/22 Echocardiogram Ultrasound 04/17/21 Sestamibi Stress Test (Cardiology) 10/22/22
[2023-01-26] MEDS: ketorolac 30 mg/mL INJ IVP (07:42)
[2023-01-26 07:58] LABS: Basophils # 0.1 10^3/uL (0.0-0.1); Basophils % 0.5 %; Eosinophils # 0.2 10^3/uL (0.0-0.8); Hematocrit 43.9 % (37.0-47.0); Hemoglobin 14.3 g/dL (11.5-15.3); Mean Corpuscular HGB Conc 32.6 g/dL (30.0-36.0); Mean Corpuscular Hemoglobin 28.9 pg (28.0-34.0); Mean Corpuscular Volume 88.9 fl (81-99); Mean Platelet Volume 11.2 fL (7.4-10.4); Monocytes # 0.9 10^3/uL (0.2-0.9); Monocytes % 7.7 %; Neutrophils # 6.89 10^3/uL (1.8-7.7); Neutrophils % 62.5 %; Nucleated Red Blood Cells % 0 %; Platelet Count 421 10^3/cmm (130-400); Red Blood Count 4.94 10^6/uL (4.1-5.3); Red Cell Distribution Width 13.1 % (12.1-15.1)
[2023-01-26] MEDS: midazolam 1 mg/mL INJ 2 mL 2 MG IVP (08:08)
[2023-01-26 08:15] LABS: Alanine Aminotransferase 43 U/L (0-33); Albumin Level 4.5 g/dL (3.5-5.2); Alkaline Phosphatase 94 U/L (35-105); Anion Gap 19.1 (5-19); Aspartate Amino Transferase 34 U/L (0-32); Blood Urea Nitrogen 16 mg/dL (8-23); Carbon Dioxide 26 mmol/L (22-29); Chloride 98 mmol/L (98-107); Creatinine Clr Calc Pharmacy 71.0057; Globulin 3.1 g/dL (1.3-4.6); Glucose 127 mg/dL (65-115); Osmolality Calculated 293 mOsm/kg (285-295); Potassium 3.1 mmol/L (3.5-5.1); Sodium 140 mmol/L (136-145); Total Bilirubin 0.6 mg/dL (0.15-1.2); Total Protein 7.6 g/dL (6.6-8.7)
[2023-01-26] MEDS: sodium chloride 0.9% 1,000 ML 30 ML IV (08:35)
[2023-01-26] MEDS: ceFAZolin 2,000 MG in sodium chloride 0.9% (plus) 50 ML 100 MG IV ×3 (08:40→23:56)
[2023-01-26] MEDS: tranexamic acid 1,000 mg/10mL SDV 1000 MG IV (09:22)
--- NOTE | 2023-01-26 10:34 | SUR.OPER ---
Family Notified Of Patient's Status Via Phone.
[2023-01-26] MEDS: vancomycin 1,000 MG SDV 1000 MG XX (10:57)
--- NOTE | 2023-01-26 11:48 | XR_ITS ---
WS: [id number] XR hip LT 2-3V wo/w pel* [id number] REASON FOR EXAM: postop KALYANI FINDINGS: Total left hip arthroplasty. Components of the arthroplasty are in proper position and alignment. No bone abnormality. XR/XR hip LT 2-3V wo/w pel* [id number] IMPRESSION: Total left hip arthroplasty without abnormality.
--- NOTE | 2023-01-26 12:08 | P.OP_ITS ---
Brief Operative Note Date of procedure: 01/26/23 Pre-op diagnosis: Left hip degenerative joint disease, acetabular dysplasia Post-op diagnosis: same Procedure Done: Left total hip arthroplasty, posterior approach?Stuart robotic assisted Surgeon: Polo Gregory Estimated blood loss (mL): 300 Complications: None Post-op Plan: Patient taken to PACU in stable condition. Spinal anesthesia wearing off. Patient's dressings on in place clean dry and intact. Will be admitted to the floor postoperatively. PT/OT. Will likely need residential placement after surgery due to inability to have help at home. Postpolio syndrome patient. Left lower extremity can be weightbearing as tolerated. We will have postoperative antibiotics, postoperative TXA, postop DVT prophylaxis and pain control. Orthopedics will continue to follow postoperatively on the floor. Condition: stable Disposition: floor Coding Level of Care Code Acute Code for Charlotte Fwtomas
--- NOTE | 2023-01-26 12:08 | P.OP_ITS ---
Operative Report Date of procedure: January 26, 2023 Pre-op diagnosis: Preop Diagnosis Left hip degenerative joint disease, left hip acetabular dysplasia. Post-op diagnosis: Same Procedure: Procedure: Right total hip arthroplasty?Stuart posterior approach Implants: [place] Trident TriTanium acetabular shell 50 mm Jason 6.5 mm acetabular screws 3x (20 mm, 20 mm, 30 mm) MDM liner inner diameter 38 mm alpha code D [place] Accolade II size 3 132 degree MDM 38 D outer diameter with +0 mm femoral head Surgeon: Polo Gregory DO Estimated blood loss: 300 mL IV fluids: 500 mL Urine output: 250 mL Complications: None Findings: See operative report narrative Condition: stable Disposition: floor Brief History: Patient was seen evaluate in the outpatient setting worked up for left hip degenerative joint disease with acetabular dysplasia. Patient has postpolio syndrome on the right side. This is her main stabilizing leg for transfers and has severe pain and cannot even sit comfortably in her scooter at baseline. We talked about treatment options as far as nonoperative and operative intervention. Offered a corticosteroid injection but ultimately at this point time she like to have this fixed if at all possible. She has been seen evaluated by her healthcare primary providers as well as specialist and cleared to proceed with surgical intervention as she has been medically optimized. At this point time we detailed out the risk benefits complication alternatives to treatment options. She understands the risks with surgery for left total hip arthroplasty at this point time agrees to proceed. All questions been answered. Procedure: Patient was seen evaluate in preoperative holding area.? Consent was reviewed and signed with patient.? Correct extremity was then marked.? Patient seen evaluate by anesthesia department once cleared for surgery she was taken back to the operative suite.? She underwent spinal anesthesia per the anesthesia department.? This point time she was then placed on the operative suite and table.? She was then placed in lateral decubitus patient worked with the left hip up.? She was secured to the pegboard.? All bony prominences well-padded she was properly secured to the bed.? At this point time the left lower extremity was then prepped and draped in standard orthopedic fashion with care not to drape out the iliac wing for pelvic array placement.? Final timeout performed.? Patient received appropriate preoperative antibiotics. Started off with establishment of my pelvic array pins.? A small longitudinal incision was made directly over the iliac wing. 2 fingerbreadths above the ASIS along the iliac wing.? Sharp scalpel excision through skin and subcutaneous tissue directly onto bone.? Next I then loaded my pelvic pin.? This was then drilled through the iliac wing corridor with excellent fixation.? Next I then loaded the guide which was placed directly onto bone and then subsequently placed 2 more pins to secure fixation.? Next the pelvic array was then sent had excellent visualization with the Stuart robot and was secured.? Next a sterile EKG electrode was placed at the distal aspect of the femur for our distal referencing checkpoint. Next I proceeded with my standard posterior approach.? Sharp scalpel through skin and subcutaneous tissue this was centered over the greater trochanter.? I then utilized a Dow elevator over the gluteus sarah fascia.? Next the fascia was then split longitudinally with bipolar electrocautery.? Next a Charnley retractor was then placed.? All bone was then placed into the abductors.? A standard full-thickness release of the piriformis and the short external rotators along with the capsule to 1 full thick sleeve for later repair was then placed straight down to the lesser trochanter.? Lesser trochanter was then subsequently identified.? Prior to dislocating the hip we then placed our greater trochanter femur checkpoint.? We marked our appropriate checkpoint for referencing on her pelvic array.? At this point in time we then established both of our checkpoints as well as her referencing for leg lengths I utilized the small square staple on the lateral aspect of the thigh to lalito my distal point.? The legs were marked and traced to have appropriate position on the drapes to allow for accurate reading.? Once this was then established I then proceeded with dislocation of the femoral head.? At this point Hohmann's were then placed superiorly and inferiorly.? sciatic nerve was protected throughout this case.? At this point time I then utilized the Stuart robot and referencing point to reference different aspects along the femoral head and neck for my appropriate neck length.? These were referenced on the inferior mid substance as well as up into the superior shoulder of the femoral neck.? This marked my Subsequently oscillating saw was used to make my femoral neck cut.? Next the leg was placed in appropriate position and my anterior and posterior acetabular retractors then placed.? Next I excised the labrum and then remove the pulse in our.? I did do a small release of the inferior capsule which was severely taut to allow for easier placement of my reamers as well as reduction.? Acetabulum was thoroughly irrigated.? At this point we then proceeded with our acetabular mapping 15 points on the undersurface of the acetabulum as well as on the undersurface of the acetabulum and had confirming checkpoints to confirm that this was appropriate. Once satisfied with her acetabular registration we then proceeded with utilizing the [employer] robot for acetabular reaming. At this point in time keeping my retractors in place I subsequently loaded up the Stuart robot for my acetabular reaming.? I subsequently medialized with a 42mm with appropriate positioning.? Next I then set my 50 reamer under the Stuart robot and subsequently held this with appropriate preplanned preop planned 40 degrees abduction and 20 degrees of version. I then susequently reamed this to the appropriate depth.? We opened up the acetabular shell of the 50 mm Jason this was then loaded onto my impacting system and then I subsequently impacted this to appropriate depth and placement of Clusterholes for screw fixation.? Excellent press-fit fixation was noted of the acetabulum. This was then removed from the robot and I used the Stuart probe at the center to confirm on the CT scan that this was down on bone which it was.? Next I then drilled and placed 3 acetabular screws with excellent fixation these were drilled and measured to be 20 mm, 20 mm, 30 mm this was in the posterior superior aspect of the acetabulum had excellent fixation.? This completed her acetabular fixation. Given patient's unique anatomy given postpolio syndrome and high risk of dislocation I selected to utilize a MDM liner for added stability. We then loaded the MDM cementless liner 38 mm inner diameter alpha code D which was set at the appropriate position and then impacted with excellent fixation. ? I then placed a sponge into the acetabulum to protect the polyethylene while my femur preparation was performed.? At this point time I then utilized a small rongeur to clear off the shoulder of the femoral neck to clear out the soft tissue envelope for my box osteotome.? Next box osteotome was used a canal find er was placed as well as a lateral lysing rattail rasp.? Once I was appropriately lateralized I then sequentially broached up to a size 3 femoral stem.? This was impacted to appropriate depth and flushed with my femoral neck cut.? This point I loaded a standard size neck and subsequently reduced the hip.? At this point in time the hip was taken through range of motion before evaluating with the robot on her leg lengths.? Patient appeared to have equal leg lengths clinically.? The hip was taken through range of motion and had excellent stability with hip flexion and internal rotation with no evidence of instability had an appropriate shuck.? This point time utilized the Stuart probe from our femur checkpoint down to her distal checkpoint and had appropriate matching of her preoperative plan and had near close leg lengths however given patient's unique anatomy postpolio syndrome or concern was more for patient's stability. Satisfied with the appropriate tension of the abductors as well as excellent stability and leg lengths at this point I dislocated the hip and then called for my final implants.? Opened up a size 3 femoral Accolade 2 stem.? My trials were then removed and then subsequently impacted my Accolade 2 stem to the same level.? I once again trialed these standard +0 mm offset reduced this and again was excellent stability and leg lengths. I called for the final MDM liner this was assembled on the back table in the [facility] femoral head was then impacted on the dry trunnion and had excellent fixation and the hip was subsequently reduced.? We measured our final leg lengths which were appropriate patient had excellent stability in all ranges of motion.? This point time a robotic pins and checkpoints were removed.? I remove the femur checkpoint as well as my pelvic array and iliac wing pins.? Appropriate counts were then made.? This point time thoroughly irrigated the wound bed with pulse lavage.? Vancomycin powder was then sprinkled into the wound bed.? I then performed a standard capsular and external rotator repair utilizing #5 Ethibond and this was tied and repaired through bone tunnels hip was then kept in abduction external rotation 1 and subsequently closed the fascial layer with Ethibond suture as well as running strata fix suture.? I then closed the deep subcutaneous layer as well as superficial subcutaneous layer with running strata fix suture as well as 4-0 strata fix for skin.? Prineo glue dressing was then placed over the skin.? I then irrigated the pelvic array pin site.? There is were then closed with interrupted 0,2-0 Vicryl suture and Monocryl as well as Prineo glue for the skin.? Incisions were then covered with Silverlon dressing.? Patient was awakened from anesthesia and taken to PACU in stable condition Disposition: Patient taken to PACU in stable condition.? She will receive appropriate discharge instructions as well as DVT prophylaxis and pain medication.? She will be admitted to the floor for observation should be eval uated by the internal medicine team for medical management.? Patient received appropriate DVT prophylaxis as well as pain medication PT/OT weightbearing as tolerated left lower extremity with posterior hip precautions.? We will follow- up with patient in the office in 2 weeks.? Patient understands agrees with current plan.? All questions answered.
--- NOTE | 2023-01-26 12:08 | PM.PACU ---
PACU note Narrative: Patient taken to PACU in stable condition recovering well dressings on in place clean dry and intact. Patient's spinal anesthesia wearing off. She started regain full sensation to the left lower extremity we will assess thoroughly tomorrow after final anesthesia is worn off. She is able to wiggle her toes as well as plantarflex and dorsiflex her ankle. Distal pulses are palpable. Exam: awake Disposition: admitted
--- NOTE | 2023-01-26 12:17 | P.CONIM_ITS ---
Providers/Reason For Consult Consulting Physician/Specialty*: Hospitalist Reason for Consult*: Postoperative management Attending Physician: Polo Gregory DO Primary Care Provider: Sinan Wakefield History of Present Illness History of Present Illness Anita Harmon is a 72 year old female postop day 1 status post left total hip arthroplasty, CBC showing postoperative anemia, hospital service was requested for medical comanagement. Patient has remained hemodynamically stable currently on room air. No active distress. She carries history of sleep apnea, history of polio when she was a child. 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 No active discomfort. Review of Systems Const: Denies: fever(s) Eyes: Denies: change in vision ENMT: Denies: throat pain Card: Denies: chest pain Resp: Denies: dyspnea GI: Denies: abdominal pain : Denies: flank pain Musc: Denies: neck pain Skin/Breast: Denies: rash Neuro: Denies: headache(s) Psych: Denies: anxiety Endo: Denies: polyuria Josiah/Lymph: Denies: easy bruising All/Imm: Denies: urticaria Medications/Allergies Home Medications Medication Instructions Recorded Confirmed Last Taken Type albuterol sulfate 90 mcg/actuation 2 puff inhalation QID PRN 09/17/20 01/26/23 09/23/22 17:00 Rx aerosol inhaler (Ventolin HFA) shortness of breath or wheezing #18 grams ascorbic acid (vitamin C) 1,000 mg 1 gm PO DAILY 09/17/20 01/26/23 01/24/23 History tablet calcium carbonate 600 mg calcium 600 mg PO DAILY 09/17/20 01/26/23 01/24/23 History (1,500 mg) tablet (Calcium) cholecalciferol (vitamin D3) 125 125 mcg PO DAILY 09/17/20 01/26/23 01/24/23 History mcg (5,000 unit) capsule zinc acetate 50 mg (zinc) capsule 50 mg PO DAILY ##0 05/21/21 01/26/23 01/24/23 History montelukast 10 mg tablet 10 mg PO DAILY Prevent Allergic 08/27/21 01/26/23 01/24/23 Rx (Singulair) Reaction #30 tabs budesonide-formoterol HFA 80 2 puff inhalation BID #10.2 grams 08/31/22 01/26/23 01/25/23 Rx mcg-4.5 mcg/actuation aerosol inhaler (Symbicort) kafo #1 ea 09/28/22 01/27/23 Unknown Rx fluticasone propionate 50 2 spray intranasal DAILY PRN Dry 10/11/22 01/26/23 01/25/23 Rx mcg/actuation nasal Nasal Passages #16 grams spray,suspension (Allergy Relief (fluticasone)) nitroglycerin 0.4 mg sublingual 0.4 mg sublingual Q5M PRN chest 10/21/22 01/26/23 10/27/22 Rx tablet pain #20 tabs omeprazole 20 mg capsule,delayed 20 mg PO DAILY PRN Heartburn 10/27/22 01/26/23 Unknown History release lisinopril 10 mg tablet 10 mg PO DAILY #30 tabs 10/28/22 01/26/23 01/25/23 Rx Cartia XT 180 mg capsule,extended 180 mg PO BID #60 caps 10/29/22 01/26/23 01/25/23 Rx release (diltiazem HCl) potassium chloride 10 mEq 10 meq PO DAILY 11/03/22 01/26/23 01/25/23 History capsule,extended release magnesium 250 mg tablet 250 mg PO DAILY 11/09/22 01/26/23 01/24/23 History hydrochlorothiazide 25 mg tablet 25 mg PO DAILY 12/30/22 01/26/23 01/25/23 History nystatin 100,000 unit/mL oral 1 ml PO DAILY #60 mL 01/12/23 01/26/23 01/25/23 Rx suspension cyclobenzaprine 10 mg tablet 10 mg PO TID PRN Pain #90 tabs 01/17/23 01/26/23 Unknown Rx alprazolam 0.5 mg tablet 0.5 mg PO DAILY PRN anxiety #30 01/19/23 01/26/23 01/26/23 Rx tabs Allergies Allergy/AdvReac Type Severity Reaction Status Date / Time Etxdday-YJW-IsU Reductase Allergy Severe legs feel Verified 01/26/23 07:01 Inhibitor like rubber [Zycsxdq-Ggw-Tjy Reductase Inhibitor] PFSH Acute PFSH: Medical History Aortic atherosclerosis Asthma Degenerative arthritis Degenerative joint disease of spine Diastolic heart failure Diverticulosis Fibromyalgia History of aortic stenosis Hyperlipidemia Hypertension Nonfamilial hypogammaglobulinemia Post-polio syndrome Recurrent UTI Restrictive cardiomyopathy Surgical History H/O cardiac radiofrequency ablation H/O partial thyroidectomy H/O repair of left rotator cuff H/O repair of right rotator cuff H/O total hysterectomy History of colonoscopy with polypectomy History of ear surgery tube in left ear History of surgery on lower extremity 3 surgeries on the right leg, 1 surgery on left leg History of tonsillectomy Hx of adenoidectomy Family History Mother Stroke Hypertension Family/Other Diabetes maternal aunt Thyroid condition maternal, maternal great aunt Breast cancer maternal aunt, age onset in her 50's Colon cancer, Onset Age: 61 maternal uncle Grandmother Stroke maternal, maternal great grandmother Father Hypertension Denies family history of Ovarian cancer Clotting disorder Heart disease Hyperlipidemia Anesthesia complication Bleeding disorder Uterine cancer Social History Smoking and tobacco status: never smoked Alcohol intake: never Marital status: Marital status details: to Richard Vitals/I&O/Wt Last Vital Signs Temp 97.0 F L 01/26/23 11:47 Pulse 77 01/26/23 12:05 Resp 17 01/26/23 12:05 BP 84/62 01/26/23 12:05 Pulse Ox 98 01/26/23 12:05 O2 Del Method 01/26/23 12:05 01/25/23 01/26/23 01/26/23 22:59 06:59 14:59 Intake Total 1410 / 1410 Output Total 350 / 350 Balance 1060 / 1060 Physical Exam Narrative: Anxious. Euvolemic Awake and alert Sitting on excreter Awake and alert Nonfocal neuro exam Hemodynamically stable Complexion is normal EOMI Urinary Catheter Management: Kaye: Cath Placed During This Visit: yes Urinary Catheter Date of Insertion: 01/26/23 Urinary Catheter Time of Insertion: 08:50 Data 01/26/23 07:38 01/26/23 07:38 A&P Assessment and plan (1) Chronic cystitis: (2) Stomatitis: (3) JONY (obstructive sleep apnea): (4) Post-polio syndrome: (5) Anemia: Plan Postop day 1 Postoperative anemia Check H&H at 10 AM Hemodynamically stable Hold antihypertensives Judicious use of anticoagulating agent for DVT prophylaxis Obstructive sleep apnea: CPAP at night History of asthma: No acute exacerbation Continue DuoNeb Opioids along bowel regimen Full code History of hypogammaglobinemia: Follows with Dr. Koehler No acute exacerbation Disposition plan: Patient will need SNF placement, most likely on Tuesday, [facility] Consult Attestations Medical Necessity Statement: As per orthopedics Diagnoses Chronic cystitis N30.20 Stomatitis K12.1 JONY (obstructive sleep apnea) G47.33 Post-polio syndrome G14 Anemia D64.9
[2023-01-26] MEDS: montelukast sodium 10 mg Tablet PO (12:40)
[2023-01-26] MEDS: ondansetron 2 mg/ML SDV 2 mL 4 MG IVP ×2 (12:40→17:26)
[2023-01-26] MEDS: lactated ringers 1,000 ML 100 ML IV (12:40)
[2023-01-26] MEDS: potassium chloride ER 20 mEq Tablet 40 MEQ PO ×2 (12:55→13:06)
[2023-01-26] MEDS: chlorhexidine gluconate 0.12% Btl 473 mL 30 ML MUCOUS MEM ×3 (13:06→21:19)
[2023-01-26] MEDS: oxyCODONE 5 mg IR Tab/Cap PO ×3 (14:47→23:56)
[2023-01-26] MEDS: albuterol 2.5 mg/3 mL Neb INHALATION ×2 (15:15→20:44)
--- NOTE | 2023-01-26 15:33 | ANE.PACU2 ---
Inpatient post-anesthesia follow up: Airway intact: Yes Vital signs: Temperature 97.0 F Pulse Rate 70 Respiratory Rate 18 Blood Pressure 105/66 Pulse Oximetry 99 Oxygen Delivery Me thod Room Air Oxygen Flow Rate Fraction of Inspir ed Oxygen Hydration adequate: Yes Nausea and vomiting: No Pain level: 2 Mental status: Baseline
[2023-01-26] MEDS: ketorolac 30 mg/mL INJ 15 MG IVP (17:25)
[2023-01-26] MEDS: sennosides-docusate Tablet 2 TAB PO (17:26)
[2023-01-26] MEDS: calcium carb-vit d 600mg/400unit 1 Tablet 1 EACH PO (17:26)
[2023-01-26] MEDS: iron polysaccharide complex 150 mg Capsule PO (17:26)
[2023-01-26] MEDS: mupirocin oint 22 gm 1 APPLIC NASAL (17:27)
[2023-01-26] MEDS: budesonide 0.5 mg/2 mL Neb INHALATION (20:44)
[2023-01-26] MEDS: HYDROmorphone 1 mg/mL INJ 1 mL 0.5 MG IVP (21:15)
[2023-01-27] VITALS (14 sets, daily range): BP systolic 99–162; BP diastolic 58–79; PULSE 86–118; RESP 14–20; TEMP 36.6–37.5; O2SAT 91–99
[2023-01-27] MEDS: ketorolac 30 mg/mL INJ 15 MG IVP (01:41)
[2023-01-27 05:51] LABS: Basophils % 0.2 %; Eosinophils # 0.1 10^3/uL (0.0-0.8); Eosinophils % 1.1 %; Hematocrit 27.5 % (37.0-47.0); Hemoglobin 8.7 g/dL (11.5-15.3); Lymphocytes # 2.1 10^3/uL (0.8-4.8); Lymphocytes % 17.8 %; Mean Corpuscular HGB Conc 31.6 g/dL (30.0-36.0); Mean Corpuscular Hemoglobin 29.4 pg (28.0-34.0); Mean Corpuscular Volume 92.9 fl (81-99); Mean Platelet Volume 11.2 fL (7.4-10.4); Monocytes # 1.1 10^3/uL (0.2-0.9); Monocytes % 9.7 %; Neutrophils # 8.25 10^3/uL (1.8-7.7); Neutrophils % 70.9 %; Nucleated Red Blood Cells % 0 %; Platelet Count 272 10^3/cmm (130-400); Red Blood Count 2.96 10^6/uL (4.1-5.3); Red Cell Distribution Width 13.5 % (12.1-15.1); White Blood Count 11.6 10^3/uL (4.0-10.0)
[2023-01-27 06:05] LABS: Anion Gap 10.8 (5-19); Blood Urea Nitrogen 15 mg/dL (8-23); Calcium 8.6 mg/dL (8.5-10.5); Carbon Dioxide 26 mmol/L (22-29); Chloride 105 mmol/L (98-107); Creatinine Clr Calc Pharmacy 71.0057; Glucose 118 mg/dL (65-115); Osmolality Calculated 288 mOsm/kg (285-295); Potassium 3.8 mmol/L (3.5-5.1); Sodium 138 mmol/L (136-145)
[2023-01-27] MEDS: acetaminophen 1,000 MG/100 ML PIGGYBACK 400 MG IV (06:31)
[2023-01-27] MEDS: budesonide 0.5 mg/2 mL Neb INHALATION (07:51)
[2023-01-27] MEDS: albuterol 2.5 mg/3 mL Neb INHALATION ×3 (07:51→15:05)
[2023-01-27 08:03] LABS: Hematocrit 26.8 % (37.0-47.0); Hemoglobin 8.6 g/dL (11.5-15.3)
[2023-01-27] MEDS: iron polysaccharide complex 150 mg Capsule PO ×2 (08:59→17:44)
[2023-01-27] MEDS: montelukast sodium 10 mg Tablet PO (08:59)
[2023-01-27] MEDS: cholecalciferol (vitamin D3) 1,000 unit Tablet 1000 UNIT PO (08:59)
[2023-01-27] MEDS: sennosides-docusate Tablet 2 TAB PO ×2 (08:59→17:44)
[2023-01-27] MEDS: ceFAZolin 2,000 MG in sodium chloride 0.9% (plus) 50 ML 100 MG IV (08:59)
[2023-01-27] MEDS: mupirocin oint 22 gm 1 APPLIC NASAL ×2 (09:00→17:43)
[2023-01-27] MEDS: calcium carb-vit d 600mg/400unit 1 Tablet 1 EACH PO ×2 (09:00→17:44)
[2023-01-27] MEDS: multivitamin therapeutic Tablet 1 TAB PO (09:00)
[2023-01-27] MEDS: hydroCHLOROthiazide 25 mg Tablet PO (09:00)
[2023-01-27] MEDS: ondansetron 2 mg/ML SDV 2 mL 4 MG IVP (09:00)
[2023-01-27] MEDS: pantoprazole DR 40 mg Tablet PO (09:00)
[2023-01-27] MEDS: chlorhexidine gluconate 0.12% Btl 473 mL 30 ML MUCOUS MEM ×4 (09:01→20:13)
[2023-01-27 09:28] LABS: Hematocrit 29.4 % (37.0-47.0); Hemoglobin 9.3 g/dL (11.5-15.3)
--- NOTE | 2023-01-27 10:25 | PM.PN ---
Subjective Subjective: Hemoglobin stable No overnight events Patient endorsing nausea Vitals/I&O/Wt Last Vital Signs Temp 97.9 F 01/27/23 04:00 Pulse 102 H 01/27/23 07:52 Resp 16 01/27/23 07:52 BP 102/58 01/27/23 04:00 Pulse Ox 96 01/27/23 07:52 O2 Del Method 01/27/23 07:52 FiO2 21 01/26/23 20:47 01/26/23 01/27/23 01/27/23 22:59 06:59 14:59 Intake Total 260 / 1670 1270 / 2940 Output Total 600 / 950 Balance 260 / 1320 670 / 1990 Physical Exam Narrative: Awake and alert Nonfocal neuro exam Chronic leg weakness from polio Doing well on room air S1, S2 Euvolemic Urinary Catheter Management: Kaye: Cath Placed During This Visit: yes, but has since been removed by the nurse Reason for Continuing Indwelling Catheter: Decision to DC Catheter Urinary Catheter Date of Insertion: 01/26/23 Urinary Catheter Time of Insertion: 08:50 Date Urinary Catheter Removed: 01/27/23 Time Urinary Catheter Discontinued: 06:28 Data 01/27/23 09:19 01/27/23 05:23 A&P Assessment and plan (1) Anemia: (2) Post-polio syndrome: Plan H&H has been stable Discontinue IV fluids Start cardiac diet We can continue DVT prophylaxis Full code Patient is awaiting senior care placement which will be most likely on Tuesday Attestations Medical Necessity Statement*: On Tuesday Diagnoses Anemia D64.9 Post-polio syndrome G14
[2023-01-27] MEDS: lactated ringers 1,000 ML 100 ML IV ×2 (11:10→20:14)
--- NOTE | 2023-01-27 12:05 | PC.OT ---
OT EVALUATION ATTEMPTED THIS A.M. PATIENT FEELING POORLY AND HAS RETURNED TO BED. AGREEABLE TO ATTEMPT IN P.M.
[2023-01-27 13:00] LABS: Urine Color Yellow (Yellow)
[2023-01-27 13:01] LABS: Add Urine Microscopic? YES; Bilirubin Urine Neg (Negative); Blood Urine Neg (Negative); Glucose Urine UA Norm (Normal); Ketones Urine 1+ (Negative); Leukocyte Esterase Urine Trace (Negative); Nitrate Urine Negative (Negative); Protein Urine Neg (Negative); RBC Urine 0-4 /hpf (0-2); Urine Appearance Hazy (CLEAR); Urobilinogen Urine Neg (Negative); pH Urine 5 (5-7)
[2023-01-27 13:02] LABS: Add Urine Culture? No; WBC Urine 0-4 /hpf (0-5)
--- NOTE | 2023-01-27 14:05 | XRR_ITS ---
PROCEDURE INFORMATION: Exam: XR Left Hip Exam date and time: 01/27/2023 1:34 PM Age: 72 years old Clinical indication: Condition or disease; Joint replacement status; Left; Prior surgery; Surgery date: Post-operative (0-2 days); Surgery type: Total hip; Additional info: Assess status of post-op condition TECHNIQUE: Imaging protocol: Radiologic exam of the left hip. Views: 2 or 3 views hip with pelvis when performed. COMPARISON: CR XR hip LT 2-3V wo/w pel* [id number] 01/26/2023 10:59 AM FINDINGS: Bones/joints: metallic orthopedic hardware seen in the left hip. In good position. No acute fracture. Soft tissues: Unremarkable. XR/XR hip LT 2-3V wo/w pel* [id number] IMPRESSION: 1. No acute findings. 2. Metallic arthroplasty is seen in the left hip stable since prior
[2023-01-27] MEDS: oxyCODONE 5 mg IR Tab/Cap PO ×2 (14:28→21:40)
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
[2023-01-27] MEDS: ALPRAZolam 0.5 mg Tablet PO (16:03)
[2023-01-27] MEDS: apixaban 5 mg Tablet 2.5 MG PO (17:44)
[2023-01-27] MEDS: HYDROmorphone 1 mg/mL INJ 1 mL 0.5 MG IVP (20:44)
[2023-01-28] VITALS (15 sets, daily range): BP systolic 94–128; BP diastolic 55–77; PULSE 79–116; RESP 14–20; TEMP 36.5–38.3; O2SAT 83–100
[2023-01-28] MEDS: oxyCODONE 5 mg IR Tab/Cap PO ×5 (01:38→21:41)
[2023-01-28] MEDS: ketorolac 30 mg/mL INJ 15 MG IVP (04:00)
[2023-01-28] MEDS: lactated ringers 1,000 ML 100 ML IV (04:01)
[2023-01-28 05:09] LABS: Basophils % 0.2 %; Eosinophils # 0.1 10^3/uL (0.0-0.8); Eosinophils % 0.6 %; Hematocrit 23.7 % (37.0-47.0); Hemoglobin 7.6 g/dL (11.5-15.3); Lymphocytes # 2.8 10^3/uL (0.8-4.8); Lymphocytes % 16.8 %; Mean Corpuscular HGB Conc 32.1 g/dL (30.0-36.0); Mean Corpuscular Hemoglobin 29.6 pg (28.0-34.0); Mean Corpuscular Volume 92.2 fl (81-99); Mean Platelet Volume 11.6 fL (7.4-10.4); Monocytes % 12.3 %; Neutrophils # 11.48 10^3/uL (1.8-7.7); Neutrophils % 69.7 %; Nucleated Red Blood Cells % 0 %; Platelet Count 249 10^3/cmm (130-400); Red Blood Count 2.57 10^6/uL (4.1-5.3); Red Cell Distribution Width 13.6 % (12.1-15.1); White Blood Count 16.5 10^3/uL (4.0-10.0)
[2023-01-28 05:37] LABS: Anion Gap 15.5 (5-19); Blood Urea Nitrogen 7 mg/dL (8-23); Calcium 8.3 mg/dL (8.5-10.5); Carbon Dioxide 25 mmol/L (22-29); Chloride 102 mmol/L (98-107); Glucose 107 mg/dL (65-115); Osmolality Calculated 286 mOsm/kg (285-295); Potassium 3.5 mmol/L (3.5-5.1); Sodium 139 mmol/L (136-145)
[2023-01-28 05:51] LABS: Creatinine Clr Calc Pharmacy 71.0057
[2023-01-28] MEDS: iron polysaccharide complex 150 mg Capsule PO (07:59)
[2023-01-28] MEDS: pantoprazole DR 40 mg Tablet PO (08:00)
[2023-01-28] MEDS: apixaban 5 mg Tablet 2.5 MG PO (08:00)
[2023-01-28] MEDS: cholecalciferol (vitamin D3) 1,000 unit Tablet 1000 UNIT PO (08:01)
[2023-01-28] MEDS: hydroCHLOROthiazide 25 mg Tablet PO (08:01)
[2023-01-28] MEDS: montelukast sodium 10 mg Tablet PO (08:01)
[2023-01-28] MEDS: calcium carb-vit d 600mg/400unit 1 Tablet 1 EACH PO ×2 (08:02→18:32)
[2023-01-28] MEDS: multivitamin therapeutic Tablet 1 TAB PO (08:02)
[2023-01-28] MEDS: chlorhexidine gluconate 0.12% Btl 473 mL 30 ML MUCOUS MEM ×4 (08:03→21:38)
[2023-01-28] MEDS: mupirocin oint 22 gm 1 APPLIC NASAL ×2 (08:05→18:32)
--- NOTE | 2023-01-28 08:31 | PM.PN ---
Subjective Subjective: Patient seen and evaluated. Family at bedside patient resting comfortably. Patient's walked with therapy. Patient had drop in hemoglobin to 7.6 with a recheck of 8.3. Dressings clean dry and intact spoke with internal medicine and CT scan of the pelvis and hip was reviewed no significant postoperative hematoma collection noted or GI bleed appreciated. They are doing an anemia work-up. We will hold on Eliquis at this time and discontinue IV fluids as patient is tolerating diet and liquids to see if some of her hemoglobin is more dilutional. Appreciate internal medicine's assistance. At this point time she can continue to be weightbearing as tolerated to the left lower extremity for transfers recommend continue to work with PT/OT. Vitals/I&O/Wt Last Vital Signs Temp 99.1 F 01/28/23 05:03 Pulse 112 H 01/28/23 05:03 Resp 16 01/28/23 06:26 BP 94/55 01/28/23 05:03 Pulse Ox 83 L 01/28/23 05:03 O2 Del Method 01/28/23 05:03 FiO2 21 01/26/23 20:47 01/27/23 01/28/23 01/28/23 22:59 06:59 14:59 Intake Total 1006.667 / 1156.667 878.333 / 2035.000 Output Total 850 / 850 300 / 1150 Balance 156.667 / 306.667 578.333 / 885.000 Physical Exam Narrative: Patient seen and examined. Patient resting comfortably at bedside. No respiratory distress. Patient able to tolerate gentle hip range of motion without any pain or discomfort. Silverlon dressings on in place are clean dry and intact normal postoperative swelling/ecchymosis around the incision site left thigh compartments are soft and compressible. Patient is able to wiggle toes plantarflex and dorsiflex ankle endorses sensation intact light touch distally. Distal pulses are palpable. Urinary Catheter Management: Kaye: Cath Placed During This Visit: yes, but has since been removed by the nurse Reason for Continuing Indwelling Catheter: Not indwelling catheter Urinary Catheter Date of Insertion: 01/26/23 Urinary Catheter Time of Insertion: 08:50 Date Urinary Catheter Removed: 01/25/23 Time Urinary Catheter Discontinued: 06:00 Data 01/28/23 04:49 01/28/23 04:49 CT Abd/Pel: My impression: CT scan of the abdomen pelvis demonstrates stable left total hip arthroplasty with no significant postoperative hematoma accumulation or active bleed. A&P Assessment and plan (1) Status post total replacement of left hip: (2) Anemia: (3) Post-polio syndrome: Plan Weightbearing as tolerated to the left lower extremity Posterior hip precautions PT/OT Advance diet CT scan abdomen pelvis reviewed no postoperative hematoma appreciated. A.m. labs hemoglobin 7.6 with recheck 8.3. Internal medicine on board for medical management appreciate their assistance-working up patient's anemia likely some of this is dilutional CT scan negative for any significant postoperative hematoma collection or GI bleed. Agree with holding Eliquis as well as discontinuing IV fluids at this time and will just continue to monitor H&H. Pain control DVT prophylaxis-held given downtrending hemoglobin Case management for discharge planning as patient will likely need custodial placement. Continue to need hospitalization for pain control, nausea PT/OT, anemia workup Attestations Medical Necessity Statement*: Status post left total hip arthroplasty and requiring anemia workup Coding Level of Care Code Acute Code for Chg Fwd Diagnoses Status post total replacement of left hip Z96.642 Anemia D64.9 Post-polio syndrome G14 Time Spent (min) 30
[2023-01-28] MEDS: budesonide 0.5 mg/2 mL Neb INHALATION ×2 (08:51→20:52)
[2023-01-28] MEDS: albuterol 2.5 mg/3 mL Neb INHALATION ×3 (08:52→20:52)
--- NOTE | 2023-01-28 09:09 | CT_ITS ---
WS: [id number] CT ABDOMEN AND PELVIS NONCONTRAST HISTORY: acute anemia, on eliquis TECHNIQUE: Imaging performed through the abdomen and pelvis. Coronal and sagittal reformats are submi tted. All CT scans at [facility] use at least one of these dose optimization techniques: auto mated exposure control; mA and/or kV adjustment per patient size (includes targeted exams where dose is matched to clinical indication); or iterative reconstruction. DLP: 784.34 mGy.cm COMPARISON: 08/17/2022 Lower thorax: Lung bases are clear. Visualized heart is normal. No hiatal hernia. Liver: Mild hepatomegaly and hepatic steatosis. No bile duct dilatation or mass. Gallbladder: Prior cholecystectomy. Pancreas: Normal size and attenuation. Normal pancreatic duct. No pancreatitis or mass. Spleen: Normal. Adrenal glands: Normal. No mass. Right kidney: Normal size kidney with no mass or hydronephrosis. Left kidney: Normal size kidney with no mass or hydronephrosis. Aorta: Mild atherosclerosis abdominal aorta with no aneurysm. No free fluid, intraperitoneal air or significant lymphadenopathy. GI tract: Normal noncontrast imaging of the stomach, small bowel and colon. No obstruction or wall th ickening. Normal appendix. Abdominal wall: Negative. No hernia. Pelvis: Prior hysterectomy. No free fluid or adenopathy. Asymmetry of the paraspinal muscles. Moderate atrophy of the RIGHT psoas and RIGHT hip muscles. Osseous structures: Recent LEFT hip arthroplasty. Postsurgical changes are noted in the soft tissues. Numerous foci of air and stranding within the soft tissue planes. Consistent with the recent postope rative status. Small amount of thickening of muscle surrounding the hip probably from postsurgical bl eeding. Most significant changes are in the LEFT psoas and LEFT piriformis muscle. CT/CT abdomen pelvis wo con [id number] IMPRESSION: 1. No evidence for acute diverticulitis. 2. No free air or free fluid within the abdomen or pelvis. 3. Recent postoperative changes at the LEFT hip. 4. Chronic asymmetry involving the psoas muscle and muscle surrounding the hip s and pelvis. Marked atrophy on the RIGHT. 5. Despite the asymmetry the LEFT psoas muscle in the LEFT piriformis muscle a re larger suggests there is been a small amount of intramuscular bleeding from the recent surgery. This is only a small amount of postop bleeding.
[2023-01-28 09:57] LABS: Ferritin 116 ng/mL (15-150); Iron 17 ug/dL (37-145)
[2023-01-28] MEDS: sennosides-docusate Tablet 2 TAB PO ×2 (10:12→18:31)
[2023-01-28 10:13] LABS: Vitamin B12 1331 pg/mL (232-1245)
[2023-01-28 10:25] LABS: Folate Level > 20.0 ng/mL (4.8-37.3)
[2023-01-28 10:28] LABS: Hematocrit 25.5 % (37.0-47.0); Hemoglobin 8.3 g/dL (11.5-15.3)
[2023-01-28] MEDS: polyethylene glycol 3350 Pkt 17 gm PO (12:17)
[2023-01-28] MEDS: cefTRIAXone 1,000 MG in sodium chloride 0.9% (plus) 50 ML 100 MG IV (12:17)
[2023-01-28] MEDS: sucralfate 1 gm Tablet PO ×2 (12:19→23:31)
[2023-01-28] MEDS: iron sucrose 200 MG in sodium chloride 0.9% (100 ml) 100 ML 220 MG IV (13:19)
[2023-01-28 16:44] LABS: Hematocrit 25.4 % (37.0-47.0); Hemoglobin 8.3 g/dL (11.5-15.3)
--- NOTE | 2023-01-28 16:49 | PM.PN ---
Subjective Subjective: Patient was seen this morning, she complains of some pain in her left hip, no fevers, no chills, denies any blood or black stools has not had a bowel movement, denies a history of GI bleeds, no history of blood transfusions, she reports a remote history of a colonoscopy Vitals/I&O/Wt Last Vital Signs Temp 97.7 F 01/28/23 11:48 Pulse 89 01/28/23 16:24 Resp 16 01/28/23 16:39 BP 121/69 01/28/23 16:24 Pulse Ox 96 01/28/23 16:39 O2 Del Method 01/28/23 11:56 O2 Flow Rate 2 01/28/23 11:56 FiO2 21 01/26/23 20:47 01/28/23 01/28/23 01/28/23 06:59 14:59 22:59 Intake Total 878.333 / 2035.000 240 / 240 Output Total 300 / 1150 Balance 578.333 / 885.000 240 / 240 Physical Exam Const: COMMON NORMALS: no acute distress Resp: COMMON NORMALS: normal respiratory effort, No retractions, No use of accessory muscles and clear to auscultation bilaterally AUSCULTATION: clear to auscultation bilaterally Cardio: COMMON NORMALS: regular rate, regular rhythm, S1 normal heart sound present and S2 normal heart sound present RATE: regular rate RHYTHM: regular rhythm HEART SOUNDS: S1 normal heart sound present and S2 normal heart sound present GI: COMMON NORMALS: Normal to inspection, nondistended, normoactive bowel sounds present and non-tender Back/Pelvis: OTHER: Left hip, bruised, surgical site clean and dry, some bruising, tracking along psoas muscle Extremity: COMMON NORMALS: no pedal edema Urinary Catheter Management: Kaye: Cath Placed During This Visit: yes, but has since been removed by the nurse Reason for Continuing Indwelling Catheter: Not indwelling catheter Urinary Catheter Date of Insertion: 01/26/23 Urinary Catheter Time of Insertion: 08:50 Date Urinary Catheter Removed: 01/25/23 Time Urinary Catheter Discontinued: 06:00 Data 01/28/23 16:16 01/28/23 04:49 A&P Assessment and plan (1) Anemia: (2) Post-polio syndrome: (3) GI bleed: (4) Iron deficiency anemia: (5) UTI (urinary tract infection): Plan Acute anemia -Concerns for slow GI bleed -Some component related to postoperative anemia, some related to dilutional related to IV fluids -However abdominal CT shows 1.? No evidence for acute diverticulitis. 2.? No free air or free fluid within the abdomen or pelvis. 3.? Recent postoperative changes at the LEFT hip. 4.? Chronic asymmetry involving the psoas muscle and muscle surrounding the hips and pelvis. Marked atrophy on the RIGHT. 5.? Despite the asymmetry the LEFT psoas muscle in the LEFT piriformis muscle are larger suggests there is been a small amount of intramuscular bleeding from the recent surgery. This is only a small amount of postop bleeding -No evidence of retroperitoneal bleed -Some component related to dilution -The concern is with her acute drop in hemoglobin, and she was on Eliquis for DVT prophylaxis she might have a slow GI bleed -She does have evidence of iron deficiency anemia -We will get Hemoccult stool -Hold Eliquis -Protonix, Carafate -Monitor hemodynamics, monitor hemoglobin closely -She will receive 2 doses of IV Venofer -Transfuse if hemoglobin less than 7 -If her hemoglobin does drop below 7, will discuss with general surgery for consideration of EGD -Rocephin for possible UTI -SCDs for DVT prophylaxis, on anticoagulation currently on hold due to anemia -Receiving PT OT -Status post left hip arthroplasty, for 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
[2023-01-28] MEDS: pantoprazole 40 mg SDV IVP (21:42)
[2023-01-28 22:17] LABS: Hematocrit 24.3 % (37.0-47.0); Hemoglobin 7.8 g/dL (11.5-15.3)
[2023-01-29] VITALS (18 sets, daily range): BP systolic 101–134; BP diastolic 53–74; PULSE 85–105; RESP 13–21; TEMP 36.1–37.8; O2SAT 91–99
[2023-01-29 04:23] LABS: Basophils # 0.1 10^3/uL (0.0-0.1); Basophils % 0.3 %; Eosinophils # 0.3 10^3/uL (0.0-0.8); Eosinophils % 1.7 %; Hematocrit 24.4 % (37.0-47.0); Hemoglobin 7.8 g/dL (11.5-15.3); Lymphocytes # 2.3 10^3/uL (0.8-4.8); Lymphocytes % 15.3 %; Mean Corpuscular Hemoglobin 29.8 pg (28.0-34.0); Mean Corpuscular Volume 93.1 fl (81-99); Mean Platelet Volume 11.6 fL (7.4-10.4); Monocytes # 1.6 10^3/uL (0.2-0.9); Monocytes % 10.5 %; Neutrophils # 10.82 10^3/uL (1.8-7.7); Neutrophils % 71.7 %; Nucleated Red Blood Cells % 0 %; Platelet Count 251 10^3/cmm (130-400); Red Blood Count 2.62 10^6/uL (4.1-5.3); Red Cell Distribution Width 13.5 % (12.1-15.1); White Blood Count 15.1 10^3/uL (4.0-10.0)
[2023-01-29 04:52] LABS: Blood Urea Nitrogen 7 mg/dL (8-23); Calcium 8.7 mg/dL (8.5-10.5); Carbon Dioxide 29 mmol/L (22-29); Chloride 96 mmol/L (98-107); Glucose 112 mg/dL (65-115); Osmolality Calculated 285 mOsm/kg (285-295); Sodium 138 mmol/L (136-145)
[2023-01-29 04:56] LABS: Creatinine Clr Calc Pharmacy 71.0057
[2023-01-29] MEDS: oxyCODONE 5 mg IR Tab/Cap PO ×4 (05:41→23:02)
[2023-01-29 06:50] LABS: SARS Covid-2 Antigen negative (Negative)
[2023-01-29] MEDS: budesonide 0.5 mg/2 mL Neb INHALATION ×2 (07:21→19:29)
[2023-01-29] MEDS: albuterol 2.5 mg/3 mL Neb INHALATION ×4 (07:22→19:29)
--- NOTE | 2023-01-29 07:49 | USR_ITS ---
PROCEDURE INFORMATION: Exam: US Duplex Lower Extremity Veins, Bilateral Exam date and time: 01/29/2023 9:49 AM Age: 72 years old Clinical indication: Pain; Leg, lower; Bilateral; Prior surgery; Surgery date: Post-operative (0-2 days); Surgery type: Lt hip; Additional info: Dvt TECHNIQUE: Imaging protocol: Real-time duplex ultrasound of the bilateral extremities with 2-D styles scale, color Doppler flow and spectral waveform analysis including responses to compression and other maneuvers (when performed) with image documentation. Complete exam focused on the lower extremity veins. COMPARISON: [place] bladder [id number] 10/24/2020 9:44 AM FINDINGS: Right deep veins: Unremarkable. The common femoral, femoral, proximal profunda femoral and popliteal veins are patent without thrombus. Normal Doppler waveforms. Normal compressibility and/or augmentation response. Right superficial veins: Saphenofemoral junction is patent without thrombus. Left deep veins: Unremarkable. The common femoral, femoral, proximal profunda femoral and popliteal veins are patent without thrombus. Normal Doppler waveforms. Normal compressibility and/or augmentation response. Left superficial veins: Saphenofemoral junction is patent without thrombus. Soft tissues: Unremarkable. US/[place] [id number] IMPRESSION: No evidence of deep vein thrombosis.
--- NOTE | 2023-01-29 08:01 | PM.PN ---
Subjective Subjective: POD 3 Patient resting comfortably. Reports no changes from yesterday. Denies any shortness of breath, chest pain, headaches. Intermittent lightheadedness that comes and goes when she is up mobilizing. Mild left hip pain. Denies any new injuries. Vitals/I&O/Wt Last Vital Signs Temp 100.0 F H 01/29/23 05:08 Pulse 85 01/29/23 07:24 Resp 16 01/29/23 07:24 BP 106/60 01/29/23 05:08 Pulse Ox 92 01/29/23 07:24 O2 Del Method 01/29/23 07:24 O2 Flow Rate 2 01/28/23 20:58 FiO2 21 01/26/23 20:47 01/28/23 01/29/23 01/29/23 22:59 06:59 14:59 Intake Total 1600 / 1840 400 / 2240 Output Total 400 / 400 300 / 700 Balance 1200 / 1440 100 / 1540 Physical Exam Narrative: She is alert orient x3 she has good general appearance normal mood and affect. She is wiggling her left lower extremity without any problems she flex and extends the knee slightly with some discomfort in the left hip. She has good sensation to light touch toes are warm with good cap refill calves are supple no medial thigh tenderness. Incision is clean and dry with Silverlon dressing present. Urinary Catheter Management: Kaye: Cath Placed During This Visit: yes, but has since been removed by the nurse Reason for Continuing Indwelling Catheter: Not indwelling catheter Urinary Catheter Date of Insertion: 01/26/23 Urinary Catheter Time of Insertion: 08:50 Date Urinary Catheter Removed: 01/25/23 Time Urinary Catheter Discontinued: 06:00 Data 01/29/23 03:50 01/29/23 03:50 Micro: Microbiology 01/26/23 15:27 Occult Blood (FIT) - Final Stool Routine Collection A&P Assessment and plan (1) Status post total replacement of left hip: Hemoglobin is unchanged from yesterday at 7.8. Encouraged patient to continue with incentive spirometer for pulmonary toilet. From orthopedic standpoint ready for discharge when stable. Will defer to medical team for medical management. Continue to mobilize with physical therapy as tolerated. (2) Anemia: Attestations Medical Necessity Statement*: Defer to medical team Coding Level of Care Code Acute Code for Chg Fwd Diagnoses Status post total replacement of left hip Z96.642 Anemia D64.9
--- NOTE | 2023-01-29 08:41 | PM.PO ---
Providers/Reason For Consult Consulting Physician/Specialty*: Callum Oliva M.D./General Surgery Reason for Consult*: Acute blood loss anemia post left hip arthroplasty Attending Physician: Polo Gregory DO Primary Care Provider: Sinan Wakefield History of Present Illness History of Present Illness Anita Harmon is a 72 year old female who underwent left hip arthroplasty 48 hours ago, and is now demonstrating drop in hemoglobin by lab (which she appears to be tolerating thus far to a significant degree based on vital signs) and concern is raised that on-going chemoprophylaxis against DVT could be exacerbating acute upper GI blood loss. Request has been placed for urgent EGD today. Review of Systems General: Reports: 10 or more systems reviewed and unremarkable except in HPI and below Const: Denies: fever(s) or chills Eyes: Denies: change in vision Card: Denies: chest pain or irregular heart rhythm Resp: Denies: dyspnea, productive cough or hemoptysis GI: Denies: hematemesis, coffee ground emesis, hematochezia or melena : Denies: flank pain Musc: Reports: joint pain (left hip due to recent surgery) Neuro: Denies: numbness in extremities, dizziness or vertigo Josiah/Lymph: Denies: easy bruising or easy bleeding Medications/Allergies Home Medications Medication Instructions Recorded Confirmed Last Taken Type albuterol sulfate 90 mcg/actuation 2 puff inhalation QID PRN 09/17/20 01/26/23 09/23/22 17:00 Rx aerosol inhaler (Ventolin HFA) shortness of breath or wheezing #18 grams ascorbic acid (vitamin C) 1,000 mg 1 gm PO DAILY 09/17/20 01/26/23 01/24/23 History tablet calcium carbonate 600 mg calcium 600 mg PO DAILY 09/17/20 01/26/23 01/24/23 History (1,500 mg) tablet (Calcium) cholecalciferol (vitamin D3) 125 125 mcg PO DAILY 09/17/20 01/26/23 01/24/23 History mcg (5,000 unit) capsule zinc acetate 50 mg (zinc) capsule 50 mg PO DAILY ##0 05/21/21 01/26/23 01/24/23 History montelukast 10 mg tablet 10 mg PO DAILY Prevent Allergic 08/27/21 01/26/2301/24/23 Rx (Singulair) Reaction #30 tabs budesonide-formoterol HFA 80 2 puff inhalation BID #10.2 grams 08/31/22 01/26/23 01/25/23 Rx mcg-4.5 mcg/actuation aerosol inhaler (Symbicort) kafo #1 ea 09/28/22 01/27/23 Unknown Rx fluticasone propionate 50 2 spray intranasal DAILY PRN Dry 10/11/22 01/26/23 01/25/23 Rx mcg/actuation nasal Nasal Passages #16 grams spray,suspension (Allergy Relief (fluticasone)) nitroglycerin 0.4 mg sublingual 0.4 mg sublingual Q5M PRN chest 10/21/22 01/26/23 10/27/22 Rx tablet pain #20 tabs omeprazole 20 mg capsule,delayed 20 mg PO DAILY PRN Heartburn 10/27/22 01/26/23 Unknown History release lisinopril 10 mg tablet 10 mg PO DAILY #30 tabs 10/28/22 01/26/23 01/25/23 Rx Cartia XT 180 mg capsule,extended 180 mg PO BID #60 caps 10/29/22 01/26/23 01/25/23 Rx release (diltiazem HCl) potassium chloride 10 mEq 10 meq PO DAILY 11/03/22 01/26/23 01/25/23 History capsule,extended release magnesium 250 mg tablet 250 mg PO DAILY 11/09/22 01/26/23 01/24/23 History hydrochlorothiazide 25 mg tablet 25 mg PO DAILY 12/30/22 01/26/23 01/25/23 History nystatin 100,000 unit/mL oral 1 ml PO DAILY #60 mL 01/12/23 01/26/23 01/25/23 Rx suspension cyclobenzaprine 10 mg tablet 10 mg PO TID PRN Pain #90 tabs 01/17/23 01/26/23 Unknown Rx alprazolam 0.5 mg tablet 0.5 mg PO DAILY PRN anxiety #30 01/19/23 01/26/23 01/26/23 Rx tabs acetaminophen 500 mg tablet 500 mg PO Q6H Postop pain 14 days 01/28/23 Unknown Rx (Tylenol Extra Strength) #56 tabs cefdinir 300 mg capsule 300 mg PO BID 5 days #10 caps 01/28/23 Unknown Rx docusate sodium 100 mg capsule 100 mg PO DAILY PRN constipation 01/28/23 Unknown Rx (Colace) 10 days #10 caps ferrous sulfate 325 mg (65 mg 325 mg PO BID 30 days #60 tabs 01/28/23 Unknown Rx iron) tablet,delayed release ondansetron 4 mg disintegrating 4 mg PO DAILY 5 days #5 tabs 01/28/23 Unknown Rx tablet oxycodone 5 mg tablet 5 mg PO Q6H PRN pain 7 days #28 01/28/23 Unknown Rx tabs Allergies Allergy/AdvReac Type Severity Reaction Status Date / Time Lnzpjol-FKO-AtD Reductase Allergy Severe legs feel Verified 01/26/23 07:01 Inhibitor like rubber [Ladbhdh-Tid-Elt Reductase Inhibitor] Current Medications Generic Name Dose Route Start Last Admin Trade Name Freq PRN Reason Stop Dose Admin Albuterol Sulfate 2.5 mg 01/26/23 16:00 01/29/23 07:22 Albuterol 2.5 Mg/3 Ml Neb INHALATION 2.5 mg QID.RESPIRATORY JANIA Administration Alprazolam 0.5 mg 01/27/23 15:50 01/27/23 16:03 Alprazolam 0.5 Mg Tablet PO 0.5 mg TID PRN Administration ANXIETY Apixaban 2.5 mg 01/27/23 09:00 01/28/23 08:00 Apixaban 5 Mg Tablet PO 2.5 mg BID JANIA Administration Budesonide 0.5 mg 01/26/23 20:00 01/29/23 07:21 Budesonide 0.5 Mg/2 Ml Neb INHALATION 0.5 mg BID.RESPIRATORY JANIA Administration Calcium Carbonate 1 each 01/26/23 18:00 01/28/23 18:32 Calcium Carb-Vit D 600mg/400unit 1 Tablet PO 1 each BID JANIA Administration Chlorhexidine Gluconate 30 ml 01/26/23 13:00 01/28/23 21:38 Chlorhexidine Gluconate 0.12% Btl 473 Ml MUCOUS MEM 30 ml QID JANIA Administration Hydrochlorothiazide 25 mg 01/27/23 09:00 01/28/23 08:01 Hydrochlorothiazide 25 Mg Tablet PO 25 mg DAILY JANIA Administration Hydromorphone HCl 0.5 mg 01/26/23 12:04 01/27/23 20:44 Hydromorphone 1 Mg/Ml Inj 1 Ml IVP 0.5 mg Q4H PRN Administration BREAKTHROUGH PAIN Iron Sucrose 200 mg/ Sodium 110 mls @ 220 mls/hr 01/28/23 12:00 01/28/23 18:26 Chloride IV 01/29/23 12:29 Infused Q24H [facility] Infusion Lisinopril 10 mg 01/28/23 21:00 01/28/23 21:40 Lisinopril 10 Mg Tablet PO Not Given DAILY@2100 [facility] Montelukast Sodium 10 mg 01/26/23 13:00 01/28/23 08:01 Montelukast Sodium 10 Mg Tablet PO 10 mg DAILY [facility] Administration Multivitamins Therapeutic 1 tab 01/27/23 09:00 01/28/23 08:02 Multivitamin Therapeutic Tablet PO 1 tab DAILY [facility] Administration Mupirocin 1 applic 01/26/23 18:00 01/28/23 18:32 Mupirocin Oint 22 Gm NASAL 01/31/23 17:59 1 applic BID [facility] Administration Non-Formulary 180 mg 01/26/23 21:00 01/28/23 21:47 Medication (Cartia PO 180 mg Xt 180mg Cp24) BID@0900,2100 [facility] Administration Ondansetron HCl 4 mg 01/26/23 12:04 01/27/23 09:00 Ondansetron 2 Mg/Ml Sdv 2 Ml IVP 4 mg Q6H PRN Administration NAUSEA AND VOMITING Oxycodone HCl 5 mg 01/26/23 12:04 01/29/23 05:41 Oxycodone 5 Mg Ir Tab/Cap PO 5 mg Q4H PRN Administration MODERATE PAIN Pantoprazole Sodium 40 mg 01/28/23 09:15 01/28/23 21:42 Pantoprazole 40 Mg Sdv IVP 40 mg Q12H [facility] Administration Senna/Docusate Sodium 2 tab 01/26/23 18:00 01/28/23 18:31 Sennosides-Docusate Tablet PO 2 tab BID [facility] Administration Sucralfate 1 gm 01/28/23 12:00 01/28/23 23:31 Sucralfate 1 Gm Tablet PO 1 gm Q12H [facility] Administration Vitamin D 1,000 unit 01/27/23 09:00 01/28/23 08:01 Cholecalciferol (Vitamin D3) 1,000 Unit Tablet PO 1,000 unit DAILY JANIA Administration PFSH Acute PFSH: Medical History Aortic atherosclerosis Asthma Degenerative arthritis Degenerative joint disease of spine Diastolic heart failure Diverticulosis Fibromyalgia History of aortic stenosis Hyperlipidemia Hypertension Nonfamilial hypogammaglobulinemia Post-polio syndrome Recurrent UTI Restrictive cardiomyopathy Surgical History H/O cardiac radiofrequency ablation H/O partial thyroidectomy H/O repair of left rotator cuff H/O repair of right rotator cuff H/O total hysterectomy History of colonoscopy with polypectomy History of ear surgery tube in left ear History of surgery on lower extremity 3 surgeries on the right leg, 1 surgery on left leg History of tonsillectomy Hx of adenoidectomy Family History Mother Stroke Hypertension Family/Other Diabetes maternal aunt Thyroid condition maternal, maternal great aunt Breast cancer maternal aunt, age onset in her 50's Colon cancer, Onset Age: 61 maternal uncle Grandmother Stroke maternal, maternal great grandmother Father Hypertension Denies family history of Ovarian cancer Clotting disorder Heart disease Hyperlipidemia Anesthesia complication Bleeding disorder Uterine cancer Social History Smoking and tobacco status: never smoked Alcohol intake: never Marital status: Marital status details: to Richard Vitals/I&O/Wt Last Vital Signs Temp 100.0 F H 01/29/23 05:08 Pulse 85 01/29/23 07:24 Resp 16 01/29/23 07:24 BP 106/60 01/29/23 05:08 Pulse Ox 92 01/29/23 07:24 O2 Del Method 01/29/23 07:24 O2 Flow Rate 2 01/28/23 20:58 FiO2 21 01/26/23 20:47 01/28/23 01/29/23 01/29/23 22:59 06:59 14:59 Intake Total 1600 / 1840 400 / 2240 Output Total 400 / 400 300 / 700 Balance 1200 / 1440 100 / 1540 Physical Exam Const: COMMON NORMALS: no acute distress and patient oriented x3 HENMT: COMMON NORMALS: normocephalic HEAD & SCALP: normocephalic Eye: COMMON NORMALS: conjunctivae normal and no scleral icterus CONJUNCTIVA: Yes conjunctivae normal Neck/C-Spine: COMMON NORMALS: supple Resp: COMMON NORMALS: normal respiratory effort and clear to auscultation bilaterally AUSCULTATION: clear to auscultation bilaterally Cardio: COMMON NORMALS: regular rate and No murmurs present (Cardio) RATE: regular rate GI: COMMON NORMALS: Normal to inspection, nondistended, normoactive bowel sounds present and non-tender Extremity: LEFT LOWER EXTREMITY: Yes hip joint (fresh incision without drainage) Neuro: COMMON NORMALS: patient oriented x3, CN's II-XII intact bilaterally and no focal motor deficits Psych: COMMON NORMALS: cooperative and normal affect Urinary Catheter Management: Kaye: Cath Placed During This Visit: yes, but has since been removed by the nurse Reason for Continuing Indwelling Catheter: Not indwelling catheter Urinary Catheter Date of Insertion: 01/26/23 Urinary Catheter Time of Insertion: 08:50 Date Urinary Catheter Removed: 01/25/23 Time Urinary Catheter Discontinued: 06:00 Data 01/29/23 03:50 01/29/23 03:50 Micro: Microbiology 01/26/23 15:27 Occult Blood (FIT) - Final Stool Routine Collection Perioperative Risk Evaluation Type of surgery: Procedure risk: low risk procedure Status of surgery: Priority: urgent (neccessary within 6-24 hours) Medical history: Implantable Devices [employer] Implant Date Expiration Date Acetabular shell 1 [employer] [place]. 01/26/23 08/10/26 CLUSTERHOLE ACETAB ULAR SHELL 1 01/26/23 05/20/24 Coated hip femur p rosthesis, modular 1 [employer] [place]. 01/26/23 07/15/26 Metallic femoral h ead prosthesis 1 [employer] [place]. 01/26/23 10/12/27 Non-constrained po lyethylene acetabu lar liner 1 [employer] [place]. 01/26/23 08/05/26 Orthopaedic bone s crew, non-bioabsor bable, sterile 1 [employer] [place]. 01/26/23 08/08/25 Orthopaedic bone s crew, non-bioabsor bable, sterile 1 [employer] [place]. 01/26/23 09/24/27 Orthopaedic bone s crew, non-bioabsor bable, sterile 1 [employer] [place]. 01/26/23 04/22/26 Assessment: Risk of cardiovascular perioperative events: Low At this time, there is a low risk for cardiovascular perioperative events associated with this urgent low risk procedure. Risk of noncardiovascular perioperative events: Low At this time, there is a low risk for noncardiovascular perioperative events associated with this urgent low risk procedure. Recommendations: Patient medically optimized for surgery: Yes Yolanda-op med management: Currently, there are no high priority active medications. Therefore, no specific actions are indicated. Cardiac Studies: Echocardiogram 09/24/22 A&P Assessment and plan (1) Iron deficiency anemia: Plan EGD with possible biopsy on 01/29/23 Coding Level of Care Code Acute Code for Chg Fwd Diagnoses Iron deficiency anemia D50.9
[2023-01-29] MEDS: sodium chloride 0.9% 1,000 ML 30 ML IV (09:00)
--- NOTE | 2023-01-29 09:14 | PC.NURSE ---
Dr. Parada gave verbal order to order a HGB/HCT at 1200 noon today. Order completed.
[2023-01-29] MEDS: potassium chloride ER 20 mEq Tablet 40 MEQ PO (09:49)
[2023-01-29] MEDS: potassium chloride ER 20 mEq Tablet PO (09:50)
[2023-01-29] MEDS: montelukast sodium 10 mg Tablet PO (10:11)
[2023-01-29] MEDS: piperacillin-tazobactam 3.375 GM in sodium chloride 0.9% (plus) 50 ML IV ×2 (10:11→17:21)
[2023-01-29] MEDS: hydroCHLOROthiazide 25 mg Tablet PO (10:12)
[2023-01-29] MEDS: cholecalciferol (vitamin D3) 1,000 unit Tablet 1000 UNIT PO (10:12)
[2023-01-29] MEDS: multivitamin therapeutic Tablet 1 TAB PO (10:12)
--- NOTE | 2023-01-29 10:36 | P.PN_ITS ---
Subjective Subjective: Patient was seen this morning, she is feeling better, she feels a bit lightheaded, and feels weak, denies any bloody or black stools, she did have a bowel movement today look bloody her Hemoccult was negative however she remains persistently anemic, discussed risks and benefits of EGD she agreed to proceed Vitals/I&O/Wt Last Vital Signs Temp 98.0 F 01/29/23 09:30 Pulse 93 01/29/23 09:30 Resp 18 01/29/23 09:30 BP 101/55 01/29/23 09:30 Pulse Ox 93 01/29/23 09:30 O2 Del Method 01/29/23 09:30 O2 Flow Rate 3 01/29/23 09:22 FiO2 21 01/26/23 20:47 01/28/23 01/29/23 01/29/23 22:59 06:59 14:59 Intake Total 1600 / 1840 400 / 2240 200 / 200 Output Total 400 / 400 300 / 700 Balance 1200 / 1440 100 / 1540 200 / 200 Physical Exam Const: COMMON NORMALS: no acute distress and patient oriented x3 Resp: COMMON NORMALS: normal respiratory effort, No retractions, No use of accessory muscles and clear to auscultation bilaterally AUSCULTATION: clear to auscultation bilaterally Cardio: COMMON NORMALS: regular rate, regular rhythm, S1 normal heart sound present and S2 normal heart sound present RATE: regular rate RHYTHM: regular rhythm HEART SOUNDS: S1 normal heart sound present and S2 normal heart sound present GI: COMMON NORMALS: Normal to inspection, nondistended, normoactive bowel sounds present, non-tender and no masses Back/Pelvis: OTHER: On examination, left hip, bruising, swelling Extremity: COMMON NORMALS: no pedal edema Neuro: COMMON NORMALS: patient oriented x3 Psych: COMMON NORMALS: mental status grossly normal Urinary Catheter Management: Kaye: Cath Placed During This Visit: yes, but has since been removed by the nurse Reason for Continuing Indwelling Catheter: Not indwelling catheter Urinary Catheter Date of Insertion: 01/26/23 Urinary Catheter Time of Insertion: 08:50 Date Urinary Catheter Removed: 01/25/23 Time Urinary Catheter Discontinued: 06:00 Data 01/29/23 03:50 01/29/23 03:50 Micro: Microbiology 01/26/23 15:27 Occult Blood (FIT) - Final Stool Routine Collection A&P Assessment and plan (1) Anemia: (2) Post-polio syndrome: (3) GI bleed: (4) Iron deficiency anemia: (5) UTI (urinary tract infection): Plan Acute anemia -Concerns for slow GI bleed, will undergo EGD today -Some component related to postoperative anemia, some related to dilutional r elated to IV fluids -However abdominal CT shows 1.? No evidence for acute diverticulitis. 2.? No free air or free fluid within the abdomen or pelvis. 3.? Recent postoperative changes at the LEFT hip. 4.? Chronic asymmetry involving the psoas muscle and muscle surrounding the hips and pelvis. Marked atrophy on the RIGHT. 5.? Despite the asymmetry the LEFT psoas muscle in the LEFT piriformis muscle are larger suggests there is been a small amount of intramuscular bleeding from the recent surgery. This is only a small amount of postop bleeding -No evidence of retroperitoneal bleed -Some component related to dilution -The concern is with her acute drop in hemoglobin, and she was on Eliquis for DVT prophylaxis she might have a slow GI bleed -She does have evidence of iron deficiency anemia -Hemoccult stool negative -Hold Eliquis -Protonix, Carafate -Monitor hemodynamics, monitor hemoglobin closely -She will receive 2 doses of IV Venofer -Transfuse if hemoglobin less than 7 -undergoing EGD -Rocephin for possible UTI -She did have low-grade temperatures overnight, venous ultrasound for DVT, possibly postoperative, on antibiotics, broadened to Zosyn -SCDs for DVT prophylaxis, on anticoagulation currently on hold due to anemia -Receiving PT OT -Status post left hip arthroplasty, 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
--- NOTE | 2023-01-29 11:09 | PC.SOCIAL ---
Pg 2 IMM Explained to pt & , Pg 2 IMM. No questions voiced. Provided pt a copy. Initialed, dated, & timed a copy & placed in chart.
--- NOTE | 2023-01-29 11:12 | ANES.PAUD2 ---
Pre-Anesthetic Update Pre-Anesthetic Assessment: Date of Surgery/Procedure: 01/29/23 Preop Diagnosis: Abdominal pain/lipoma of the colon Proposed Procedure: Operation Date: 01/26/23 08:10 Proposed Procedures p total left hip replacement 09133,M16. 12(Left) - Polo Gregory DO Operation Date: 01/29/23 08:45 Proposed Procedures p EGD(Not Applicable) - Callum Oliva MD Any changes to Pre-Anesthetic Assessment?: No Last Intake: Intake Last Liquid Date 01/25/23 Last Liquid Time 23:45 Last Solid Date 01/25/23 Last Solid Time 17:00 Labs Last 48hrs: Short CBC 01/28/23 01/28/23 01/28/23 Range/Units 04:49 10:19 16:16 WBC 16.5 H (4.0-10.0) 10^3/ uL Hgb 7.6 L 8.3 L 8.3 L (11.5-15.3) g/dL Hct 23.7 L 25.5 L 25.4 L (37.0-47.0) % MCV 92.2 (81-99) fl Plt Count 249 (130-400) 10^3/c mm Neut % (Auto) 69.7 % Neut # (Auto) 11.48 H (1.8-7.7) 10^3/u L 01/28/23 01/29/23 Range/Units 22:12 03:50 WBC 15.1 H (4.0-10.0) 10^3/ uL Hgb 7.8 L 7.8 L (11.5-15.3) g/dL Hct 24.3 L 24.4 L (37.0-47.0) % MCV 93.1 (81-99) fl Plt Count 251 (130-400) 10^3/c mm Neut % (Auto) 71.7 % Neut # (Auto) 10.82 H (1.8-7.7) 10^3/u L BMP 01/28/23 01/29/23 04:49 03:50 Sodium 139 138 Potassium 3.5 3.0 L Chloride 102 96 L Carbon Dioxide 25 29 BUN 7 L 7 L Creatinine 0.4 L 0.4 L Glucose 107 112 Calcium 8.3 L 8.7 Urine 01/27/23 Range/Units 12:35 Urine Color Yellow (Yellow) Urine Appearance Hazy A (CLEAR) Urine pH 5 (5-7) Ur Specific Gravit y 1.020 (1.005-1.030) Urine Protein Neg (Negative) Urine Glucose (UA) Norm (Normal) Urine Ketones 1+ H (Negative) Urine Nitrate Negative (Negative) Urine Bilirubin Neg (Negative) Ur Leukocyte Rosa ase Trace H (Negative) Urine RBC 0-4 H (0-2) /hpf Urine WBC 0-4 H (0-5) /hpf COVID Results 01/29/23 06:00 SARS-CoV-2 Ag (Rap id) negative Vitals: Temperature 98.0 F 01/29/23 09:30 Temperature Source Oral 01/29/23 09:30 Pulse Rate 87 01/29/23 11:08 Pulse Rhythm 01/29/23 08:05 Pulse Strength 2+ Slightly Dimin ished 01/29/23 08:05 Respiratory Rate 16 01/29/23 11:08 Respiratory Effort Non-Labored 01/29/23 08:05 Respiratory Depth Normal 01/29/23 08:05 Respiratory Patter n 01/29/23 08:05 Blood Pressure 101/55 01/29/23 09:30 Blood Pressure Kathy n 70 01/29/23 09:30 Blood Pressure Pos ition Semi Fowlers 01/29/23 05:08 Pulse Oximetry 93 01/29/23 11:08 Oxygen Delivery Me thod 01/29/23 11:08 Oxygen Flow Rate 3 01/29/23 09:22 Fraction of Inspir ed Oxygen 21 01/26/23 20:47 Exam: Pre-Anes Outpt Exam: alert, oriented x 3, clear to auscultation bilaterally and regular rate & rhythm Additional Exam Findings (including area of procedure): Postop anemia. Cardiac Studies: Echocardiogram 09/24/22 Echocardiogram Ultrasound 04/17/21 Sestamibi Stress Test (Cardiology) 10/22/22
--- NOTE | 2023-01-29 11:13 | ANE.PACU2 ---
Inpatient post-anesthesia follow up: Airway intact: Yes Vital signs: Temperature 98.0 F Pulse Rate 87 Respiratory Rate 16 Blood Pressure [Or thostatic 162/75 Standing Left Arm] Blood Pressure [Or thostatic 146/76 Sitting Left Arm] Blood Pressure [Or thostatic 123/71 Lying Left Arm] Blood Pressure 101/55 Pulse Oximetry 93 Oxygen Delivery Me thod Room Air Oxygen Flow Rate 3 Fraction of Inspir ed Oxygen 21 Hydration adequate: Yes Nausea and vomiting: No Pain level: 2 Mental status: Baseline
[2023-01-29 12:19] LABS: Hematocrit 25.2 % (37.0-47.0)
[2023-01-29] MEDS: sucralfate 1 gm Tablet PO ×2 (12:22→23:28)
[2023-01-29] MEDS: iron sucrose 200 MG in sodium chloride 0.9% (100 ml) 100 ML 220 MG IV (12:44)
[2023-01-29] MEDS: chlorhexidine gluconate 0.12% Btl 473 mL 30 ML MUCOUS MEM ×3 (15:45→21:46)
[2023-01-29] MEDS: sennosides-docusate Tablet 2 TAB PO (17:21)
[2023-01-29] MEDS: calcium carb-vit d 600mg/400unit 1 Tablet 1 EACH PO (17:21)
[2023-01-29] MEDS: mupirocin oint 22 gm 1 APPLIC NASAL (17:22)
[2023-01-29 18:03] LABS: Hematocrit 26.3 % (37.0-47.0); Hemoglobin 8.3 g/dL (11.5-15.3)
[2023-01-29] MEDS: pantoprazole 40 mg SDV IVP (21:46)
[2023-01-29] MEDS: ALPRAZolam 0.5 mg Tablet PO (23:28)
[2023-01-30] VITALS (16 sets, daily range): BP systolic 101–104; BP diastolic 61–78; PULSE 86–107; RESP 16–22; TEMP 36.5–37.2; O2SAT 93–100
[2023-01-30] MEDS: piperacillin-tazobactam 3.375 GM in sodium chloride 0.9% (plus) 50 ML IV ×3 (01:29→17:10)
[2023-01-30] MEDS: albuterol 2.5 mg/3 mL Neb INHALATION ×3 (08:11→15:21)
[2023-01-30] MEDS: budesonide 0.5 mg/2 mL Neb INHALATION (08:11)
--- NOTE | 2023-01-30 08:39 | P.PN_ITS ---
Subjective Subjective: POD 4 Patient appears comfortable having a breathing treatment. Denies any left hip pain or changes with her hip pain. She underwent EGD yesterday. Denies any chest pain, shortness of breath, headaches or lightheadedness. Vitals/I&O/Wt Last Vital Signs Temp 97.7 F 01/30/23 04:00 Pulse 90 01/30/23 08:13 Resp 17 01/30/23 08:13 BP 101/62 01/30/23 08:00 Pulse Ox 96 01/30/23 08:13 O2 Del Method 01/30/23 08:13 O2 Flow Rate 3 01/29/23 20:00 FiO2 21 01/26/23 20:47 01/29/23 01/30/23 01/30/23 22:59 06:59 14:59 Intake Total 480 / 850 170 / 1020 160 / 160 Output Total 200 / 200 Balance 280 / 650 170 / 820 160 / 160 Physical Exam Narrative: She is alert orient x3 she has good general appearance normal mood and affect.? She is wiggling her left lower extremity without any problems she flex and extends the knee slightly with some discomfort in the left hip.? She has good sensation to light touch toes are warm with good cap refill calves are supple no medial thigh tenderness.? Incision is clean and dry with Silverlon dressing present and is clean and dry. Urinary Catheter Management: Kaye: Cath Placed During This Visit: yes, but has since been removed by the nurse Reason for Continuing Indwelling Catheter: Not indwelling catheter Urinary Catheter Date of Insertion: 01/26/23 Urinary Catheter Time of Insertion: 08:50 Date Urinary Catheter Removed: 01/25/23 Time Urinary Catheter Discontinued: 06:00 Data 01/29/23 17:45 01/29/23 03:50 A&P Assessment and plan (1) Status post total replacement of left hip: Physical therapy to continue to work with mobilization in hip precautions. Enc ouraged her to continue with incentive spirometry for pulmonary toilet. Hemoglobin at 8 3 up from yesterday at 7.8. Will defer to medical team for anticoagulation therapy. Patient underwent E GD yesterday. Patient appears stable from orthopedic/ left total hip perspective. Attestations Medical Necessity Statement*: Defer to medical team. Coding Level of Care Code Acute Code for Chg Fwd Diagnoses Status post total replacement of left hip Z96.642
[2023-01-30] MEDS: oxyCODONE 5 mg IR Tab/Cap PO ×3 (08:52→17:10)
[2023-01-30] MEDS: calcium carb-vit d 600mg/400unit 1 Tablet 1 EACH PO ×2 (08:52→17:09)
[2023-01-30] MEDS: mupirocin oint 22 gm 1 APPLIC NASAL ×2 (08:52→17:11)
[2023-01-30] MEDS: sennosides-docusate Tablet 2 TAB PO ×2 (08:52→17:09)
[2023-01-30] MEDS: chlorhexidine gluconate 0.12% Btl 473 mL 30 ML MUCOUS MEM ×4 (08:52→20:02)
[2023-01-30 09:48] LABS: Blood Urea Nitrogen 5 mg/dL (8-23); Calcium 8.8 mg/dL (8.5-10.5); Carbon Dioxide 30 mmol/L (22-29); Chloride 98 mmol/L (98-107); Creatinine Clr Calc Pharmacy 71.0057; Glucose 118 mg/dL (65-115); Osmolality Calculated 290 mOsm/kg (285-295); Sodium 141 mmol/L (136-145)
[2023-01-30 09:53] LABS: Basophils % 0.4 %; Eosinophils # 0.3 10^3/uL (0.0-0.8); Eosinophils % 2.8 %; Hematocrit 25.7 % (37.0-47.0); Hemoglobin 8.2 g/dL (11.5-15.3); Lymphocytes # 2.5 10^3/uL (0.8-4.8); Lymphocytes % 21.7 %; Mean Corpuscular HGB Conc 31.9 g/dL (30.0-36.0); Mean Corpuscular Hemoglobin 29.5 pg (28.0-34.0); Mean Corpuscular Volume 92.4 fl (81-99); Mean Platelet Volume 11.2 fL (7.4-10.4); Neutrophils # 7.46 10^3/uL (1.8-7.7); Neutrophils % 65.5 %; Nucleated Red Blood Cells % 0 %; Platelet Count 348 10^3/cmm (130-400); Red Blood Count 2.78 10^6/uL (4.1-5.3); Red Cell Distribution Width 13.6 % (12.1-15.1); White Blood Count 11.4 10^3/uL (4.0-10.0)
[2023-01-30] MEDS: potassium chloride ER 20 mEq Tablet 40 MEQ PO (10:31)
--- NOTE | 2023-01-30 11:56 | P.PN_ITS ---
Subjective Subjective: Patient was seen this morning, she tells me that she is working well with physical therapy, she is ambulating up to the bathroom with physical therapy, she nearly gave out, denies any bloody or black stools, she does report dizziness and lightheadedness when she sits up Vitals/I&O/Wt Last Vital Signs Temp 98.2 F 01/30/23 11:49 Pulse 96 01/30/23 11:49 Resp 17 01/30/23 11:49 BP 104/62 01/30/23 11:49 Pulse Ox 96 01/30/23 11:49 O2 Del Method 01/30/23 11:04 O2 Flow Rate 3 01/29/23 20:00 FiO2 21 01/26/23 20:47 01/29/23 01/30/23 01/30/23 22:59 06:59 14:59 Intake Total 480 / 850 170 / 1020 160 / 160 Output Total 200 / 200 200 / 200 Balance 280 / 650 170 / 820 -40 / -40 Physical Exam Const: COMMON NORMALS: no acute distress and patient oriented x3 Resp: COMMON NORMALS: normal respiratory effort, No retractions, No use of accessory muscles and clear to auscultation bilaterally AUSCULTATION: clear to auscultation bilaterally Cardio: COMMON NORMALS: regular rate, regular rhythm, S1 normal heart sound present and S2 normal heart sound present RATE: regular rate RHYTHM: regular rhythm HEART SOUNDS: S1 normal heart sound present and S2 normal heart sound present GI: COMMON NORMALS: Normal to inspection, nondistended, normoactive bowel sounds present and non-tender Extremity: COMMON NORMALS: no pedal edema NARRATIVE EXTREMITY EXAM: Left hip bruised Neuro: COMMON NORMALS: patient oriented x3 Psych: COMMON NORMALS: mental status grossly normal Urinary Catheter Management: Kaye: Cath Placed During This Visit: yes, but has since been removed by the nurse Reason for Continuing Indwelling Catheter: Not indwelling catheter Urinary Catheter Date of Insertion: 01/26/23 Urinary Catheter Time of Insertion: 08:50 Date Urinary Catheter Removed: 01/25/23 Time Urinary Catheter Discontinued: 06:00 Data 01/30/23 09:11 01/30/23 09:11 A&P Assessment and plan (1) Anemia: (2) Post-polio syndrome: (3) GI bleed: (4) Iron deficiency anemia: (5) UTI (urinary tract infection): Plan Acute anemia -Concerns for slow GI bleed, EGD had no acute findings of bleeding -Some component related to postoperative anemia, some related to dilutional related to IV fluids -The concern is with her acute drop in hemoglobin, and she was on Eliquis for DVT prophylaxis, concerns for possible postoperative bleeding into the hip -However abdominal CT shows 1.? No evidence for acute diverticulitis. 2.? No free air or free fluid within the abdomen or pelvis. 3.? Recent postoperative changes at the LEFT hip. 4.? Chronic asymmetry involving the psoas muscle and muscle surrounding the hips and pelvis. Marked atrophy on the RIGHT. 5.? Despite the asymmetry the LEFT psoas muscle in the LEFT piriformis muscle are larger suggests there is been a small amount of intramuscular bleeding from the recent surgery. This is only a small amount of postop bleeding -No evidence of retroperitoneal bleed -Some component related to dilution -EGD no acute bleeding -Hemoccult stool negative so I doubt a lower GI bleed -She does have evidence of iron deficiency anemia -Hemoccult stool negative -Hold Eliquis -Monitor hemodynamics, monitor hemoglobin closely -She has received 2 doses of IV Venofer -Transfuse if hemoglobin less than 7 -On Zosyn for possible UTI -She did have low-grade temperatures overnight, venous ultrasound for DVT negative for DVT,, possibly postoperative, on antibiotics, broadened to Zosyn -SCDs for DVT prophylaxis, start aspirin 81 mg for DVT prophylaxis -Receiving PT OT -Status post left hip arthroplasty, 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
[2023-01-30] MEDS: aspirin 81 mg EC Tablet PO (12:08)
[2023-01-30] MEDS: TRAMadol 50 mg Tablet PO (18:05)
[2023-01-30] MEDS: ALPRAZolam 0.5 mg Tablet PO (19:47)
[2023-01-31] VITALS (16 sets, daily range): BP systolic 97–126; BP diastolic 59–69; PULSE 78–96; RESP 12–20; TEMP 36.5–37.7; O2SAT 92–99
[2023-01-31] MEDS: oxyCODONE 5 mg IR Tab/Cap PO ×2 (00:52→11:51)
[2023-01-31] MEDS: piperacillin-tazobactam 3.375 GM in sodium chloride 0.9% (plus) 50 ML IV ×2 (00:53→08:33)
[2023-01-31 05:15] LABS: Basophils % 0.3 %; Eosinophils # 0.4 10^3/uL (0.0-0.8); Hematocrit 25.5 % (37.0-47.0); Hemoglobin 7.9 g/dL (11.5-15.3); Lymphocytes # 2.4 10^3/uL (0.8-4.8); Lymphocytes % 22.2 %; Mean Corpuscular Hemoglobin 29.8 pg (28.0-34.0); Mean Corpuscular Volume 96.2 fl (81-99); Mean Platelet Volume 11.1 fL (7.4-10.4); Monocytes # 1.4 10^3/uL (0.2-0.9); Monocytes % 12.4 %; Neutrophils # 6.56 10^3/uL (1.8-7.7); Neutrophils % 60.4 %; Nucleated Red Blood Cells % 0.2 %; Platelet Count 340 10^3/cmm (130-400); Red Blood Count 2.65 10^6/uL (4.1-5.3); Red Cell Distribution Width 14.1 % (12.1-15.1); White Blood Count 10.9 10^3/uL (4.0-10.0)
[2023-01-31 05:33] LABS: Anion Gap 12.7 (5-19); Blood Urea Nitrogen 8 mg/dL (8-23); Calcium 8.6 mg/dL (8.5-10.5); Carbon Dioxide 29 mmol/L (22-29); Chloride 102 mmol/L (98-107); Glucose 138 mg/dL (65-115); Osmolality Calculated 291 mOsm/kg (285-295); Potassium 3.7 mmol/L (3.5-5.1); Sodium 140 mmol/L (136-145)
[2023-01-31 05:37] LABS: Creatinine Clr Calc Pharmacy 71.0057
[2023-01-31 07:20] LABS: H. Pylori / CLO Test Negative
[2023-01-31] MEDS: albuterol 2.5 mg/3 mL Neb INHALATION ×2 (08:13→12:06)
[2023-01-31] MEDS: budesonide 0.5 mg/2 mL Neb INHALATION (08:14)
[2023-01-31] MEDS: cholecalciferol (vitamin D3) 1,000 unit Tablet 1000 UNIT PO (08:32)
[2023-01-31] MEDS: montelukast sodium 10 mg Tablet PO (08:32)
[2023-01-31] MEDS: pantoprazole DR 40 mg Tablet PO (08:32)
[2023-01-31] MEDS: hydroCHLOROthiazide 25 mg Tablet PO (08:32)
[2023-01-31] MEDS: calcium carb-vit d 600mg/400unit 1 Tablet 1 EACH PO (08:32)
[2023-01-31] MEDS: aspirin 81 mg EC Tablet PO (08:32)
[2023-01-31] MEDS: sennosides-docusate Tablet 2 TAB PO (08:32)
[2023-01-31] MEDS: multivitamin therapeutic Tablet 1 TAB PO (08:33)
[2023-01-31] MEDS: mupirocin oint 22 gm 1 APPLIC NASAL (08:33)
[2023-01-31] MEDS: chlorhexidine gluconate 0.12% Btl 473 mL 30 ML MUCOUS MEM ×2 (08:33→12:05)
[2023-01-31] MEDS: TRAMadol 50 mg Tablet PO (08:43)
[2023-01-31] MEDS: ALPRAZolam 0.5 mg Tablet PO (08:43)
--- NOTE | 2023-01-31 11:10 | PC.SOCIAL ---
IMM Update pg 2 of IMM updated and reviewed w/ patient. Copy provided and copy in chart dated, and initialed.
--- NOTE | 2023-01-31 11:39 | PM.DCS ---
Discharge Providers Date of Admission: 01/26/23 11:10 Date of Discharge: January 31, 2023 Attending Provider at Admission: Polo Gregory DO Attending Provider at Discharge: Polo Gregory DO Primary Care Provider: Sinan Wakefield Diagnoses at Discharge Discharge Diagnosis (1) Anemia: Status: Acute (2) Post-polio syndrome: Status: Acute (3) GI bleed: Status: Acute (4) Iron deficiency anemia: Status: Acute (5) UTI (urinary tract infection): Status: Acute Reason for Visit Reason for Visit: M16.53, [id number] Hospital Course Hospital Course Anita Harmon is a 72 year old female postop day 1 status post left total hip arthroplasty, CBC showing postoperative anemia, hospital service was requested for medical comanagement.? Patient has remained hemodynamically stable currently on room air.? No active distress.? She carries history of sleep apnea, history of polio when she was a child.? 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? No active discomfort.? Patient was admitted to [facility] for acute anemia status post left hip arthroplasty, -She underwent EGD, no evidence of acute bleeding, her Hemoccult stools were negative, no evidence of bloody or black stools -CT scan of the abdomen did not show any retroperitoneal bleed, did show some asymmetry of left psoas muscle and the left piriformis muscles a larger suggesting a small amount of intramuscular bleeding -Patient's hemoglobin did drop as low as 7.6 -With evidence of iron deficiency anemia, she received 2 doses of IV Venofer here -On examination her left hip, was slightly bruised, with bruising tracking around left gluteus, and down left thigh -Likely patient had some predisposing iron deficiency anemia, and with her surgery, and with her being placed on Eliquis for DVT prophylaxis, she likely has developed postoperative anemia and bleeding around the left hip -Patient overall was clinically monitored, I gave her 1 unit of blood on discharge given her hemoglobin 7.9 and her complaints of weakness and tiredness -Patient will be discharged with close follow-up with primary care provider as outpatient -Repeat hemoglobin in 48 hours -In terms of DVT prophylaxis, I have discharged on aspirin 81 mg once daily -I had an extensive discussion with patient and her family about my concerns for DVT -On the 1 hand I do not want her to develop worsening anemia and bleeding when she was on the Eliquis, but on the other hand I do not want her to have a DVT or PE which are both associated significant morbidity and mortality -Certainly is a difficult situation, but what I would recommend is ambulation, calf Exercises, and to follow-up with Dr. Gregory as outpatient in 2 weeks decide if her hemoglobin is stable to resume anticoagulation -After discussing the risk and benefits, patient and family voiced understanding, agreed to proceed with plan -Given her iron deficiency anemia, I will have her follow-up with hematology oncology as outpatient for consideration of IV infusions she does have hypogammaglobinemia, consideration of possible bone marrow biopsy -She also had a UTI during hospitalization, had postoperative low-grade temperature, no oxygen requirements, no cough complaints, urine culture so far negative, venous ultrasound negative for DVT, monitor for fevers as outpatient Physical Exam Const: COMMON NORMALS: no acute distress and patient oriented x3 Resp: COMMON NORMALS: normal respiratory effort, No retractions, No use of accessory muscles and clear to auscultation bilaterally AUSCULTATION: clear to auscultation bilaterally Cardio: COMMON NORMALS: regular rate, regular rhythm, S1 normal heart sound present and S2 normal heart sound present RATE: regular rate RHYTHM: regular rhythm HEART SOUNDS: S1 normal heart sound present and S2 normal heart sound present GI: COMMON NORMALS: Normal to inspection, nondistended, normoactive bowel sounds present Extremity: COMMON NORMALS: no pedal edema Neuro: COMMON NORMALS: patient oriented x3 Psych: COMMON NORMALS: mental status grossly normal Urinary Catheter Management: Kaye: Cath Placed During This Visit: yes, but has since been removed by the nurse Reason for Continuing Indwelling Catheter: Not indwelling catheter Urinary Catheter Date of Insertion: 01/26/23 Urinary Catheter Time of Insertion: 08:50 Date Urinary Catheter Removed: 01/25/23 Time Urinary Catheter Discontinued: 06:00 Discharge Data Studies Completed and Pending Completed Studies During Hospitalization Category Date Time Status CT abdomen pelvis wo con [id number] Routine Cat Scan 01/28/23 09:09 Completed XR chest 1V portable [id number] Routine Exams 01/26/23 06:45 Completed XR hip LT 2-3V wo/w pel* [id number] Routine Exams 01/26/23 11:48 Completed XR hip LT 2-3V wo/w pel* [id number] Stat Exams 01/27/23 14:05 [place] [id number] Stat Ultrasound 01/29/23 07:49 Completed Pending at discharge Category Date Time Status Basic Metabolic Panel AM LABS Lab 02/01/23 04:00 Ordered Basic Metabolic Panel AM LABS Lab 02/02/23 04:00 Ordered Complete Blood Count w/Auto AM LABS Lab 02/01/23 04:00 Ordered Complete Blood Count w/Auto AM LABS Lab 02/02/23 04:00 Ordered Leukocyte Reduced RBC Stat Lab 01/31/23 09:57 Results Type and Screen Stat Lab 01/31/23 09:57 Results Radiology Impressions Chest X-Ray 01/26/23 06:45 IMPRESSION: No acute cardiopulmonary disease on the chest radiograph. Hip/Pelvis X-Ray 01/27/23 14:05 IMPRESSION: 1. No acute findings. 2. Metallic arthroplasty is seen in the left hip stable since prior Abdomen/Pelvis CT 01/28/23 09:09 IMPRESSION: 1. No evidence for acute diverticulitis. 2. No free air or free fluid within the abdomen or pelvis. 3. Recent postoperative changes at the LEFT hip. 4. Chronic asymmetry involving the psoas muscle and muscle surrounding the hips and pelvis. Marked atrophy on the RIGHT. 5. Despite the asymmetry the LEFT psoas muscle in the LEFT piriformis muscle are larger suggests there is been a small amount of intramuscular bleeding from the recent surgery. This is only a small amount of postop bleeding. Venous Duplex 01/29/23 07:49 IMPRESSION: No evidence of deep vein thrombosis. Laboratory Results WBC 10.9 10^3/uL (4.0-10.0) H 01/31/23 04:48 RBC 2.65 10^6/uL (4.1-5.3) L 01/31/23 04:48 Hgb 7.9 g/dL (11.5-15.3) L 01/31/23 04:48 Hct 25.5 % (37.0-47.0) L 01/31/23 04:48 MCV 96.2 fl (81-99) 01/31/23 04:48 MCH 29.8 pg (28.0-34.0) 01/31/23 04:48 MCHC 31.0 g/dL (30.0-36.0) 01/31/23 04:48 RDW 14.1 % (12.1-15.1) 01/31/23 04:48 Plt Count 340 10^3/cmm (130-400) 01/31/23 04:48 MPV 11.1 fL (7.4-10.4) H 01/31/23 04:48 Neut % (Auto) 60.4 % 01/31/23 04:48 Lymph % (Auto) 22.2 % 01/31/23 04:48 [place] % (Auto) 12.4 % 01/31/23 04:48 Eos % (Auto) 4.0 % 01/31/23 04:48 Baso % (Auto) 0.3 % 01/31/23 04:48 Neut # (Auto) 6.56 10^3/uL (1.8-7.7) 01/31/23 04:48 Lymph # (Auto) 2.4 10^3/uL (0.8-4.8) 01/31/23 04:48 [place] # (Auto) 1.4 10^3/uL (0.2-0.9) H 01/31/23 04:48 Eos # (Auto) 0.4 10^3/uL (0.0-0.8) 01/31/23 04:48 Baso # (Auto) 0.0 10^3/uL (0.0-0.1) 01/31/23 04:48 Nucleated RBC % (auto) 0.2 % 01/31/23 04:48 Nucleated RBCs # 0.0 /100WBC 01/31/23 04:48 Sodium 140 mmol/L (136-145) 01/31/23 04:48 Potassium 3.7 mmol/L (3.5-5.1) 01/31/23 04:48 Chloride 102 mmol/L (98-107) 01/31/23 04:48 Carbon Dioxide 29 mmol/L (22-29) 01/31/23 04:48 Anion Gap 12.7 (5-19) 01/31/23 04:48 BUN 8 mg/dL (8-23) 01/31/23 04:48 Creatinine 0.4 mg/dL (0.5-0.9) L 01/31/23 04:48 GFR Calculation Not Reportable 01/31/23 04:48 Glucose 138 mg/dL (65-115) H 01/31/23 04:48 Calculated Osmolality 291 mOsm/kg (285-295) 01/31/23 04:48 Calcium 8.6 mg/dL (8.5-10.5) 01/31/23 04:48 Iron 17 ug/dL (37-145) L 01/28/23 04:49 Ferritin 116 ng/mL (15-150) 01/28/23 04:49 Total Bilirubin 0.6 mg/dL (0.15-1.2) 01/26/23 07:38 AST 34 U/L (0-32) H 01/26/23 07:38 ALT 43 U/L (0-33) H 01/26/23 07:38 Alkaline Phosphatase 94 U/L (35-105) 01/26/23 07:38 Total Protein 7.6 g/dL (6.6-8.7) 01/26/23 07:38 Albumin 4.5 g/dL (3.5-5.2) 01/26/23 07:38 Globulin 3.1 g/dL (1.3-4.6) 01/26/23 07:38 Vitamin B12 1331 pg/mL (232-1245) H 01/28/23 04:49 Folate > 20.0 ng/mL (4.8-37.3) 01/28/23 04:49 Urine Color Yellow (Yellow) 01/27/23 12:35 Urine Appearance Hazy (CLEAR) A 01/27/23 12:35 Urine pH 5 (5-7) 01/27/23 12:35 Ur Specific [place] 1.020 (1.005-1.030) 01/27/23 12:35 Urine Protein Neg (Negative) 01/27/23 12:35 Urine Glucose (UA) Norm (Normal) 01/27/23 12:35 Urine Ketones 1+ (Negative) H 01/27/23 12:35 Urine Blood Neg (Negative) 01/27/23 12:35 Urine Nitrate Negative (Negative) 01/27/23 12:35 Urine Bilirubin Neg (Negative) 01/27/23 12:35 Urine Urobilinogen Neg mg/dL (Negative) 01/27/23 12:35 Ur Leukocyte Esterase Trace (Negative) H 01/27/23 12:35 Urine RBC 0-4 /hpf (0-2) H 01/27/23 12:35 Urine WBC 0-4 /hpf (0-5) H 01/27/23 12:35 Ur Squamous Epith Cells None /hpf (0-5) 01/27/23 12:35 Amorphous Sediment Not Reportable 01/27/23 12:35 Urine Bacteria None /hpf (NONE) 01/27/23 12:35 H. pylori IgG Antibody Negative 01/29/23 09:20 SARS-CoV-2 Ag (Rapid) negative (Negative) 01/29/23 06:00 Blood Type A Positive 01/31/23 09:57 Rho(D) Type Positive 01/31/23 09:57 Antibody Screen Negative 01/31/23 09:57 PEG Antibody Screen Negative 01/26/23 07:38 Crossmatch See Detail 01/31/23 09:57 Vitals Last Vital Signs Temp 97.7 F 01/31/23 08:28 Pulse 88 01/31/23 08:28 Resp 20 H 01/31/23 08:28 BP 97/62 01/31/23 08:28 Pulse Ox 98 01/31/23 08:28 O2 Del Method 01/31/23 08:28 O2 Flow Rate 3 01/31/23 08:00 FiO2 21 01/26/23 20:47 Discharge Plan Discharge Patient Disposition: Xfer SNF Condition: Stable Prescriptions: New Colace 100 mg capsule 100 mg PO DAILY PRN (Reason: constipation) 10 Days Qty: 10 0RF ondansetron 4 mg tablet,disintegrating 4 mg PO DAILY 5 Days Qty: 5 0RF oxycodone 5 mg tablet 5 mg PO Q6H PRN (Reason: pain) 7 Days Qty: 28 0RF Tylenol Extra Strength 500 mg tablet 500 mg PO Q6H 14 Days Qty: 56 0RF cefdinir 300 mg capsule 300 mg PO BID 5 Days Qty: 10 0RF ferrous sulfate 325 mg (65 mg iron) tablet,delayed release (DR/EC) 325 mg PO BID 30 Days Qty: 60 0RF aspirin 81 mg capsule 81 mg PO DAILY 30 Days Qty: 30 0RF Continued cholecalciferol (vitamin D3) 125 mcg (5,000 unit) capsule 125 mcg PO DAILY calcium carbonate [Calcium 600] 600 mg calcium (1,500 mg) tablet 600 mg PO DAILY ascorbic acid (vitamin C) 1,000 mg tablet 1 gm PO DAILY albuterol sulfate [Ventolin HFA] 90 mcg/actuation HFA aerosol inhaler 2 puff INHALATION QID PRN (Reason: shortness of breath or wheezing) Qty: 18 3RF (DME) kafo See Rx Instructions .Route .MEDSUPPLY Qty: 1 0RF Rx Instructions: As directed Double upright locking hinge KAFO hydrochlorothiazide 25 mg tablet 25 mg PO DAILY magnesium 250 mg tablet 250 mg PO DAILY nystatin 100,000 unit/mL suspension 1 ml PO DAILY Qty: 60 0RF Rx Instructions: swish and spit montelukast [Singulair] 10 mg tablet 10 mg PO DAILY Qty: 30 3RF budesonide-formoterol [Symbicort] 80-4.5 mcg/actuation HFA aerosol inhaler 2 puff inhalation BID Qty: 10.2 3RF fluticasone propionate [Allergy Relief (fluticasone)] 50 mcg/actuation spray,suspension 2 spray INTRANASAL DAILY PRN (Reason: Dry Nasal Passages) Qty: 16 5RF Rx Instructions: administer into each nostril nitroglycerin 0.4 mg tablet, sublingual 0.4 mg sublingual Q5M PRN (Reason: chest pain) Qty: 20 0RF Rx Instructions: do not exceed 3 doses per episode potassium chloride 10 mEq capsule, extended release 10 meq PO DAILY cyclobenzaprine 10 mg tablet 10 mg PO TID PRN (Reason: Pain) Qty: 90 2RF alprazolam 0.5 mg tablet 0.5 mg PO DAILY PRN (Reason: anxiety) Qty: 30 0RF zinc acetate 50 mg (zinc) Capsule 50 mg PO DAILY Qty: 0 omeprazole 20 mg capsule,delayed release(DR/EC) 20 mg PO DAILY PRN (Reason: Heartburn) Held lisinopril 10 mg tablet 10 mg PO DAILY Qty: 30 11RF Hold Instructions: Resume on 02/07/23. hold until bp improves Rx Instructions: One at bedtime, if BP high enough diltiazem HCl [Cartia XT] 180 mg capsule,extended release 24hr 180 mg PO BID Qty: 60 11RF Hold Instructions: Resume on 02/07/23. hold until bp improves Discharge Orders: Discharge Order (Routine); Ordered 01/31/23 Ordered By: Shahab Parada Referrals: [facility] [Outside] Polo Gregory DO [Physician] - 02/10/23 9:00 am Isabella Booth MD [Staff Physician] - 2 weeks (fe defeciency) Discharge Diet: Advance as tolerated Discharge Activity: Increase activity as tolerated Patient Instructions: Opioid Safety Activity Restrictions/Additional Instructions: Orthopedic discharge instructions: Take pain medication as prescribed Take antinausea medication as needed Supplement with Citracal vitamin D for bone health and healing Ice as needed for pain and swelling Posterior hip precautions Patient is allowed to weight-bear as tolerated to the left lower extremity Keep incision clean dry and intact May leave Silverlon dressings on in place for 1 week then may remove and redress with a dry dressing Follow-up with Dr. Gregory in the office in 2 weeks Contact the office for any questions or concerns Patient will need to use home Bipap and settings are 13 IPAP over 9 EPAP -Please follow-up with primary care provider -Please recheck hemoglobin in 48 hours Discharge Attestations Time Spent in Discharge Care*: greater than 30 min Quality Metrics Clinical Quality Measures [ No reported AMI, CVA or VTE this stay] Coding Level of Care Code 41804 Total time (in minutes) for Discharge: 40 Diagnoses Anemia D64.9 Post-polio syndrome G14 GI bleed K92.2 Iron deficiency anemia D50.9 UTI (urinary tract infection) N39.0
--- NOTE | 2023-01-31 11:56 | PC.SOCIAL ---
IMM Update pg 2 of IMM updated and reviewed w/ patient. Copy provided and copy in chart dated, and initialed.
[2023-01-31] MEDS: FUROsemide 10 mg/mL SDV 4mL 40 MG IVP (12:05)
--- NOTE | 2023-01-31 16:02 | PM.PN ---
Subjective Subjective: Patient seen and examined this morning she is sitting upright and have breakfast is work with therapy seems less fatigued. Patient states she is ready for discharge today. Vitals/I&O/Wt Last Vital Signs Temp 98.3 F 01/31/23 15:32 Pulse 96 01/31/23 15:32 Resp 18 01/31/23 15:32 BP 126/66 01/31/23 15:32 Pulse Ox 96 01/31/23 15:32 O2 Del Method 01/31/23 12:00 O2 Flow Rate 3 01/31/23 08:00 FiO2 21 01/26/23 20:47 01/31/23 01/31/23 01/31/23 06:59 14:59 22:59 Intake Total 250 / 950 350 / 350 350 / 700 Output Total 400 / 600 1750 / 1750 700 / 2450 Balance -150 / 350 -1400 / -1400 -350 / -1750 Physical Exam Narrative: She is alert orient x3 she has good general appearance normal mood and affect.? She is wiggling her left lower extremity, wiggles toes plantarflex and dorsiflex ankle tolerates hip range of motion with no pain or discomfort. She has good sensation to light touch toes are warm with good cap refill calves are supple no medial thigh tenderness.? Incision is clean and dry with Silverlon dressing present and is clean and dry. Normal postoperative swelling and ecchymosis to the left hip. Urinary Catheter Management: Kaye: Cath Placed During This Visit: yes, but has since been removed by the nurse Reason for Continuing Indwelling Catheter: Not indwelling catheter Urinary Catheter Date of Insertion: 01/26/23 Urinary Catheter Time of Insertion: 08:50 Date Urinary Catheter Removed: 01/25/23 Time Urinary Catheter Discontinued: 06:00 Data 01/31/23 04:48 01/31/23 04:48 A&P Assessment and plan (1) Status post total replacement of left hip: (2) Anemia: (3) Post-polio syndrome: Plan Weightbearing as tolerated to the left lower extremity Posterior hip precautions PT/OT Advance diet A.m. labs hemoglobin 7.9?spoke with internal medicine they like to give her 1 unit of PRBC prior to her discharge, agreed in proceeding with this and spoke with patient she is agreeable to this as well. Internal medicine on board for medical management appreciate their assistance Spoke with internal medicine will have her discontinue our plan for Eliquis postoperatively given she has have a lower hemoglobin in the postoperative course and would recommend given her postpolio syndrome degree of mobility at baseline but at a higher risk of hypercoagulable events given her recent surgery would recommend a full dose aspirin 325 mg once daily postoperatively Pain control DVT prophylaxis-updated to aspirin 325 mg daily postoperatively Stable for discharge from orthopedic standpoint. Patient will discharge to SNF later today. Patient understands and agrees with current plan. All questions answered. She will see me in the office in 2 weeks. 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
--- NOTE | 2023-01-31 17:31 | PC.NURSE ---
Attempted calling report to [facility] no answer.
== END 2023-01-31 15:30 | disposition skilled nursing facility (03) | DRG 470 ==
LOC: MEDSURG 11:13
PROVIDERS: Family Medicine; Internal Medicine; Surgery; Admitting Provider Student in an Organized Health Care Education/Training Program; PCP Clinical Nurse Specialist Adult Health; Visit Provider Student in an Organized Health Care Education/Training Program
PROC: 8E0Y0CZ Robotic Assisted Procedure of Lower Extremity, Open Approach (ICD-10-PCS; CPT 27130; principal; 2023-01-26 07:40)
PROC: 0DJ08ZZ Inspection of Upper Intestinal Tract, Via Natural or Artificial Opening Endoscopic (ICD-10-PCS; CPT 43235; principal; 2023-01-29 08:45)
DX: M16.12 Unilateral primary osteoarthritis, left hip (principal); D62 Acute posthemorrhagic anemia; D80.1 Nonfamilial hypogammaglobulinemia; G14 Postpolio syndrome; D50.9 Iron deficiency anemia, unspecified; N30.20 Other chronic cystitis without hematuria; Z79.51 Long term (current) use of inhaled steroids; G47.33 Obstructive sleep apnea (adult) (pediatric); E89.0 Postprocedural hypothyroidism; Z87.440 Personal history of urinary (tract) infections; I10 Essential (primary) hypertension; M79.7 Fibromyalgia
CPT/HCPCS: 36415; 36430; 51702; 71045; 73502; 74176; 80048; 80053; 81001; 82274; 82607; 82728; 82746; 83540; 85014; 85018; 85025; 86850; 86900; 86920; 87077; 87426; 93970; 94640; 94660; 97110; 97116; 97161; 97167; 97530; 97535; C1713; C1776; C9113; J0131; J0690; J0696; J1170; J1756; J1885; J1940; J2250; J2370; J2405; J2543; J2704; J3010; J3370; J7030; J7120; J7613; J7626; P9016

== ENCOUNTER 2023-02-07 08:00 | Oncology outpatient (recurring) (ONCR) | payer OTHER, MEDICARE, SELFPAY ==
[2023-01-17 12:12] LABS: Basophils % 0.3 %; Eosinophils # 0.2 10^3/uL (0.0-0.8); Eosinophils % 1.7 %; Hematocrit 42.9 % (37.0-47.0); Hemoglobin 13.9 g/dL (11.5-15.3); Lymphocytes # 3.2 10^3/uL (0.8-4.8); Lymphocytes % 28.1 %; Mean Corpuscular HGB Conc 32.4 g/dL (30.0-36.0); Mean Corpuscular Hemoglobin 29.3 pg (28.0-34.0); Mean Corpuscular Volume 90.3 fl (81-99); Mean Platelet Volume 12.1 fL (7.4-10.4); Monocytes # 0.8 10^3/uL (0.2-0.9); Monocytes % 6.6 %; Neutrophils % 63.1 %; Nucleated Red Blood Cells % 0 %; Platelet Count 359 10^3/cmm (130-400); Red Blood Count 4.75 10^6/uL (4.1-5.3); Red Cell Distribution Width 13.1 % (12.1-15.1); White Blood Count 11.6 10^3/uL (4.0-10.0)
[2023-01-17 12:27] LABS: Alanine Aminotransferase 19 U/L (0-33); Albumin Level 4.2 g/dL (3.5-5.2); Alkaline Phosphatase 99 U/L (35-105); Aspartate Amino Transferase 36 U/L (0-32); Blood Urea Nitrogen 15 mg/dL (8-23); Calcium 9.4 mg/dL (8.5-10.5); Carbon Dioxide 26 mmol/L (22-29); Chloride 102 mmol/L (98-107); Globulin 3.2 g/dL (1.3-4.6); Glucose 110 mg/dL (65-115); Immunoglobulin IGA 107 mg/dL (70-400); Immunoglobulin IGG 821 mg/dL (700-1600); Immunoglobulin IGM 81 mg/dL (40-230); Osmolality Calculated 295 mOsm/kg (285-295); Sodium 142 mmol/L (136-145); Total Bilirubin 0.3 mg/dL (0.15-1.2); Total Protein 7.4 g/dL (6.6-8.7)
[2023-01-17 13:59] LABS: Anion Gap 17.4 (5-19); Potassium 3.4 mmol/L (3.5-5.1)
[2023-01-18 12:09] LABS: PROTEIN, TOTAL 6.9 g/dL (6.1-8.1)
[2023-01-18 15:29] LABS: KAPPA LIGHT CHAIN, FREE, SERUM 14.9 mg/L (3.3-19.4); KAPPA/LAMBDA LIGHT CHAINS FREE 1.02 (0.26-1.65); LAMBDA LIGHT CHAIN, FREE, SERU 14.6 mg/L (5.7-26.3)
[2023-01-18 16:44] LABS: ALPHA 1 GLOBULIN 0.4 g/dL (0.2-0.3); ALPHA 2 GLOBULIN 0.9 g/dL (0.5-0.9); BETA 1 GLOBULIN 0.5 g/dL (0.4-0.6); BETA 2 GLOBULIN 0.3 g/dL (0.2-0.5); GAMMA GLOBULIN 0.8 g/dL (0.8-1.7)
[2023-02-07 08:42] LABS: Basophils % 0.4 %; Eosinophils # 0.3 10^3/uL (0.0-0.8); Eosinophils % 2.4 %; Hematocrit 36.2 % (37.0-47.0); Hemoglobin 11.8 g/dL (11.5-15.3); Lymphocytes # 1.9 10^3/uL (0.8-4.8); Lymphocytes % 17.8 %; Mean Corpuscular HGB Conc 32.6 g/dL (30.0-36.0); Mean Corpuscular Hemoglobin 30.6 pg (28.0-34.0); Mean Corpuscular Volume 93.8 fl (81-99); Mean Platelet Volume 10.5 fL (7.4-10.4); Monocytes # 0.9 10^3/uL (0.2-0.9); Monocytes % 8.5 %; Neutrophils # 7.34 10^3/uL (1.8-7.7); Neutrophils % 70.4 %; Nucleated Red Blood Cells % 0 %; Platelet Count 501 10^3/cmm (130-400); Red Blood Count 3.86 10^6/uL (4.1-5.3); Red Cell Distribution Width 14.3 % (12.1-15.1); White Blood Count 10.4 10^3/uL (4.0-10.0)
[2023-02-07 09:04] LABS: Alanine Aminotransferase 21 U/L (0-33); Albumin Level 3.8 g/dL (3.5-5.2); Alkaline Phosphatase 133 U/L (35-105); Anion Gap 16.2 (5-19); Aspartate Amino Transferase 18 U/L (0-32); Blood Urea Nitrogen 8 mg/dL (8-23); Calcium 8.8 mg/dL (8.5-10.5); Carbon Dioxide 30 mmol/L (22-29); Chloride 94 mmol/L (98-107); Ferritin 471 ng/mL (15-150); Globulin 2.9 g/dL (1.3-4.6); Glucose 105 mg/dL (65-115); Iron 56 ug/dL (37-145); Osmolality Calculated 283 mOsm/kg (285-295); Potassium 3.2 mmol/L (3.5-5.1); Sodium 137 mmol/L (136-145); Total Bilirubin 0.6 mg/dL (0.15-1.2); Total Iron Binding Capacity 280 mcg/dl; Total Protein 6.7 g/dL (6.6-8.7); Unsaturated Iron Binding 224 ug/dL (112-347)
[2023-02-07 09:08] LABS: Creatinine Clr Calc Pharmacy 71.0057
== END 2023-02-11 23:59 | disposition home or self-care (01) ==
PROVIDERS: Nurse Practitioner Family; PCP Clinical Nurse Specialist Adult Health; Visit Provider Internal Medicine Medical Oncology
DX: D80.1 Nonfamilial hypogammaglobulinemia (principal); R30.0 Dysuria; M62.838 Other muscle spasm; Z96.642 Presence of left artificial hip joint; Z87.440 Personal history of urinary (tract) infections; R58 Hemorrhage, not elsewhere classified; N93.9 Abnormal uterine and vaginal bleeding, unspecified
CPT/HCPCS: 36415; 80053; 82728; 82784; 83540; 83550; 83883; 84155; 84165; 85025; 99213; 99214

== ENCOUNTER → 2023-02-10 09:03 | Outpatient (BNVA) | payer OTHER, SELFPAY | PROVIDERS: PCP Clinical Nurse Specialist Adult Health; Visit Provider Student in an Organized Health Care Education/Training Program | DX: Z96.642 Presence of left artificial hip joint (principal) | CPT/HCPCS: 73502; 99024 ==

== ENCOUNTER 2023-03-07 13:48 | Outpatient (CLI) | payer MEDICARE, OTHER, SELFPAY ==
[2023-03-07 14:40] LABS: Basophils % 0.4 %; Eosinophils # 0.3 10^3/uL (0.0-0.8); Eosinophils % 2.7 %; Hematocrit 41.3 % (37.0-47.0); Hemoglobin 13.8 g/dL (11.5-15.3); Lymphocytes # 2.8 10^3/uL (0.8-4.8); Lymphocytes % 25.1 %; Mean Corpuscular HGB Conc 33.4 g/dL (30.0-36.0); Mean Corpuscular Hemoglobin 30.9 pg (28.0-34.0); Mean Corpuscular Volume 92.6 fl (81-99); Monocytes # 0.9 10^3/uL (0.2-0.9); Monocytes % 7.7 %; Neutrophils # 7.23 10^3/uL (1.8-7.7); Neutrophils % 63.7 %; Nucleated Red Blood Cells % 0 %; Platelet Count 380 10^3/cmm (130-400); Red Blood Count 4.46 10^6/uL (4.1-5.3); Red Cell Distribution Width 13.5 % (12.1-15.1); White Blood Count 11.3 10^3/uL (4.0-10.0)
[2023-03-07 14:58] LABS: Alanine Aminotransferase 22 U/L (0-33); Albumin Level 4.1 g/dL (3.5-5.2); Alkaline Phosphatase 117 U/L (35-105); Anion Gap 13.2 (5-19); Aspartate Amino Transferase 18 U/L (0-32); Blood Urea Nitrogen 15 mg/dL (8-23); Carbon Dioxide 29 mmol/L (22-29); Chloride 98 mmol/L (98-107); Ferritin 186 ng/mL (15-150); Globulin 2.9 g/dL (1.3-4.6); Glucose 133 mg/dL (65-115); Iron 35 ug/dL (37-145); Osmolality Calculated 287 mOsm/kg (285-295); Percent Saturation 12.6 % (20-50); Potassium 3.2 mmol/L (3.5-5.1); Sodium 137 mmol/L (136-145); Total Bilirubin 0.3 mg/dL (0.15-1.2); Total Iron Binding Capacity 276 mcg/dl; Unsaturated Iron Binding 241 ug/dL (112-347)
== END 2023-03-07 13:49 | disposition home or self-care (01) ==
PROVIDERS: Nurse Practitioner Family; PCP Clinical Nurse Specialist Adult Health; Visit Provider Internal Medicine Medical Oncology
DX: D80.1 Nonfamilial hypogammaglobulinemia (principal); D64.9 Anemia, unspecified
CPT/HCPCS: 36415; 80053; 82728; 83540; 83550; 85025

== ENCOUNTER → 2023-03-24 10:11 | Outpatient (BNVA) | payer MEDICARE, OTHER, SELFPAY | PROVIDERS: PCP Clinical Nurse Specialist Adult Health; Visit Provider Student in an Organized Health Care Education/Training Program | DX: Z96.642 Presence of left artificial hip joint | CPT/HCPCS: 73502; 99024 ==

== ENCOUNTER 2023-04-14 11:12 | Outpatient (CLI) | payer MEDICARE, OTHER, SELFPAY ==
--- NOTE | 2023-04-14 11:24 | MM_ITS ---
WS: [id number] BILATERAL 3D TOMOSYNTHESIS DIGITAL DIAGNOSTIC MAMMOGRAPHY WITH CAD CLINICAL INFORMATION: 6 mo follow up mammogram HISTORY: 6 months postbiopsy COMPARISON: April 08, 2022 TECHNIQUE: Bilateral CC, MLO, and ML views. FINDINGS: The breasts are composed of heterogeneous fibroglandular density, which can limit the detection of sm all underlying mass lesions. Biopsy clip subareolar RIGHT breast. LEFT breast is unchanged in appearance. A few incidental punctate calcifications. ULTRASOUND BREAST BILATERAL TECHNIQUE: Ultrasound bilateral breast focused area of concern. CLINICAL INFORMATION: 6 mo follow up mammogram COMPARISON: March 23, 2021 FINDINGS: RIGHT BREAST: Ultrasound subareolar RIGHT breast with attention to the previously described lesion. 1 2:00 hypoechoic lesion previously biopsied is stable in appearance. This measures approximately 9 x 6 x 7 mm today. LEFT BREAST: 3 x 4 x 2 mm incidental LEFT breast cyst at the 12:00 position 3 cm from the nipple unc hanged from ultrasound March 23, 2021 MM/[place] [id number] IMPRESSION: BI-RADS: 2-Benign FOLLOW UP: 1 Year Follow-up Recommend return to annual screening mammography.
== END 2023-04-14 11:13 | disposition home or self-care (01) ==
LOC: RAD 11:17
PROVIDERS: PCP Clinical Nurse Specialist Adult Health; Visit Provider Clinical Nurse Specialist Adult Health
DX: R92.8 Other abnormal and inconclusive findings on diagnostic imaging of breast (principal)
CPT/HCPCS: 76642; 77062; G0279

== ENCOUNTER → 2023-04-26 12:49 | Outpatient (BNVA) | payer MEDICARE, OTHER, SELFPAY | PROVIDERS: PCP Electrodiagnostic Medicine; Visit Provider Internal Medicine | DX: J45.40 Moderate persistent asthma, uncomplicated (principal); G47.33 Obstructive sleep apnea (adult) (pediatric); R91.8 Other nonspecific abnormal finding of lung field; D89.2 Hypergammaglobulinemia, unspecified; R68.2 Dry mouth, unspecified; H04.123 Dry eye syndrome of bilateral lacrimal glands; R13.10 Dysphagia, unspecified | CPT/HCPCS: 99214 ==

== ENCOUNTER → 2023-05-03 14:07 | Outpatient (BNVA) | payer MEDICARE, OTHER, SELFPAY | PROVIDERS: PCP Electrodiagnostic Medicine; Visit Provider Nurse Practitioner Family | DX: Z96.642 Presence of left artificial hip joint (principal); M54.32 Sciatica, left side | CPT/HCPCS: 73502; 99213 ==

== ENCOUNTER 2023-05-19 12:32 | Outpatient (CLI) | payer MEDICARE, OTHER, SELFPAY ==
--- NOTE | 2023-05-19 12:59 | USCV_ITS ---
Anita Harmon Age: 72 Gender: F : 1950 Exam Date: 05/19/2023 13:12 Ordering Phys: Angle Lockwood APRN Technologist: SHARI [place]am Location: [facility] [place] [facility] [place] Indication: LLE PAIN AND SWELLING HISTORY: Lower extremity swelling. Lower extremity pain. PROCEDURES: Venous duplex imaging was performed in only the left lower extremity. The following venous structures were evaluated: common femoral vein, profunda vein, proximal portion of the greater saphenous vein, superficial femoral vein, and the popliteal vein. In addition, the posterior tibial and peroneal trunk were evaluated. Serial compression, augmentation maneuvers, and spectral Doppler flow evaluation were performed. FINDINGS: No evidence of DVT seen in any vessel visualized at this time. CONCLUSIONS No evidence of left lower extremity DVT. Keon De Los Santos MD (Electronically Signed) Final Date: 19 May 2023 13:18 S
== END 2023-05-19 12:33 | disposition home or self-care (01) ==
LOC: RAD 12:35
PROVIDERS: PCP Electrodiagnostic Medicine; Visit Provider Nurse Practitioner Family
DX: M79.89 Other specified soft tissue disorders (principal); M79.662 Pain in left lower leg
CPT/HCPCS: 93971

== ENCOUNTER → 2023-05-24 08:49 | Outpatient (BNVA) | payer MEDICARE, OTHER, SELFPAY | PROVIDERS: PCP Electrodiagnostic Medicine; Visit Provider Nurse Practitioner Family | DX: I11.0 Hypertensive heart disease with heart failure (principal); I50.30 Unspecified diastolic (congestive) heart failure; Z87.891 Personal history of nicotine dependence | CPT/HCPCS: 99214 ==

== ENCOUNTER 2023-05-25 13:45 | Oncology outpatient (recurring) (ONCR) | payer MEDICARE, OTHER, SELFPAY ==
[2023-05-18 11:09] VITALS: BP 134/82; PULSE 81; RESP 18; TEMP 36.2; O2SAT 97
[2023-05-18 11:31] LABS: Basophils % 0.3 %; Eosinophils # 0.2 10^3/uL (0.0-0.8); Eosinophils % 2.5 %; Hematocrit 41.3 % (37.0-47.0); Lymphocytes # 2.4 10^3/uL (0.8-4.8); Lymphocytes % 26.2 %; Mean Corpuscular HGB Conc 33.9 g/dL (30.0-36.0); Mean Corpuscular Hemoglobin 30.6 pg (28.0-34.0); Mean Corpuscular Volume 90.2 fl (81-99); Mean Platelet Volume 10.7 fL (7.4-10.4); Monocytes # 0.7 10^3/uL (0.2-0.9); Monocytes % 7.8 %; Neutrophils # 5.74 10^3/uL (1.8-7.7); Nucleated Red Blood Cells % 0 %; Platelet Count 333 10^3/cmm (130-400); Red Blood Count 4.58 10^6/uL (4.1-5.3); Red Cell Distribution Width 13.6 % (12.1-15.1); White Blood Count 9.1 10^3/uL (4.0-10.0)
[2023-05-18 11:59] LABS: Alanine Aminotransferase 20 U/L (0-33); Albumin Level 4.1 g/dL (3.5-5.2); Alkaline Phosphatase 100 U/L (35-105); Anion Gap 14.1 (5-19); Aspartate Amino Transferase 19 U/L (0-32); Blood Urea Nitrogen 16 mg/dL (8-23); Calcium 9.2 mg/dL (8.5-10.5); Carbon Dioxide 29 mmol/L (22-29); Chloride 101 mmol/L (98-107); Globulin 2.9 g/dL (1.3-4.6); Glucose 134 mg/dL (65-115); Immunoglobulin IGA 126 mg/dL (70-400); Immunoglobulin IGG 802 mg/dL (700-1600); Immunoglobulin IGM 214 mg/dL (40-230); Osmolality Calculated 295 mOsm/kg (285-295); Potassium 3.1 mmol/L (3.5-5.1); Sodium 141 mmol/L (136-145); Total Bilirubin 0.6 mg/dL (0.15-1.2)
[2023-05-18 13:56] LABS: Add Urine Microscopic? NO; Charge for UA Resulting for Rev
[2023-05-18 14:18] LABS: Bilirubin Urine Neg (Negative); Blood Urine Neg (Negative); Glucose Urine UA Norm (Normal); Ketones Urine Negative (Negative); Leukocyte Esterase Urine Negative (Negative); Nitrate Urine Negative (Negative); Protein Urine Neg (Negative); Specific Gravity, Urine 1.015 (1.005-1.030); Urine Appearance Clear (CLEAR); Urine Color Yellow (Yellow); Urobilinogen Urine Norm (Negative); pH Urine 8 (5-7)
[2023-05-18 14:19] LABS: Sulfosalicylic Acid Urine Negative (Negative)
[2023-05-18 14:55] LABS: NT Pro B Type Natriuretic Pept 170 pg/mL (0-125)
[2023-05-19 07:23] LABS: PROTEIN, TOTAL 6.8 g/dL (6.1-8.1)
[2023-05-19 13:15] LABS: KAPPA LIGHT CHAIN, FREE, SERUM 19.1 mg/L (3.3-19.4); KAPPA/LAMBDA LIGHT CHAINS FREE 1.03 (0.26-1.65); LAMBDA LIGHT CHAIN, FREE, SERU 18.6 mg/L (5.7-26.3)
[2023-05-19 14:50] LABS: ALBUMIN 3.9 g/dL (3.8-4.8); ALPHA 1 GLOBULIN 0.4 g/dL (0.2-0.3); ALPHA 2 GLOBULIN 0.8 g/dL (0.5-0.9); BETA 1 GLOBULIN 0.5 g/dL (0.4-0.6); BETA 2 GLOBULIN 0.3 g/dL (0.2-0.5); GAMMA GLOBULIN 0.9 g/dL (0.8-1.7)
[2023-05-25 13:21] VITALS: BP 131/69; PULSE 99; RESP 18; TEMP 36.6; O2SAT 95
[2023-05-25 14:04] LABS: Anion Gap 17.1 (5-19); Blood Urea Nitrogen 17 mg/dL (8-23); Calcium 9.3 mg/dL (8.5-10.5); Carbon Dioxide 26 mmol/L (22-29); Chloride 101 mmol/L (98-107); Glucose 127 mg/dL (65-115); NT Pro B Type Natriuretic Pept 74 pg/mL (0-125); Osmolality Calculated 293 mOsm/kg (285-295); Potassium 4.1 mmol/L (3.5-5.1); Sodium 140 mmol/L (136-145)
== END 2023-06-13 23:59 | disposition home or self-care (01) ==
PROVIDERS: Nurse Practitioner Family; PCP Electrodiagnostic Medicine; Visit Provider Internal Medicine Medical Oncology
DX: E78.6 Lipoprotein deficiency (principal); I50.30 Unspecified diastolic (congestive) heart failure; E87.6 Hypokalemia
CPT/HCPCS: 36415; 80048; 80053; 81003; 82784; 83735; 83880; 83883; 84155; 84165; 85025; 99214

== ENCOUNTER 2023-05-27 10:49 | Outpatient (CLI) | payer MEDICARE, OTHER, SELFPAY ==
[2023-05-27 11:26] LABS: Anion Gap 17.6 (5-19); Blood Urea Nitrogen 18 mg/dL (8-23); Calcium 9.1 mg/dL (8.5-10.5); Carbon Dioxide 28 mmol/L (22-29); Chloride 95 mmol/L (98-107); Glucose 146 mg/dL (65-115); Osmolality Calculated 289 mOsm/kg (285-295); Potassium 3.6 mmol/L (3.5-5.1); Sodium 137 mmol/L (136-145)
[2023-05-27 12:05] LABS: NT Pro B Type Natriuretic Pept 38 pg/mL (0-125)
== END 2023-05-27 10:50 | disposition home or self-care (01) ==
PROVIDERS: PCP Electrodiagnostic Medicine; Visit Provider Nurse Practitioner Family
DX: I50.30 Unspecified diastolic (congestive) heart failure (principal); Z87.891 Personal history of nicotine dependence
CPT/HCPCS: 36415; 80048; 83880; 99213

== ENCOUNTER 2023-06-02 15:12 | Outpatient (CLI) | payer MEDICARE, OTHER, SELFPAY ==
--- NOTE | 2023-06-02 15:15 | USCV_ITS ---
Anita Harmon Age: 72 Gender: F : 1950 Exam Date: 06/02/2023 15:27 Ordering Phys: Eugenie Stevens Technologist: Sonia Chandler Exam Location: [facility] [place] Indication: SOB, BP: 117 / 70 HR: 79 Rhythm: Sinus Technical Quality: Adequate MEASUREMENTS (Male / Female) Normal Values 2D ECHO LV Diastolic Diameter PLAX 3.9 cm 4.2 - 5.9 / 3.9 - 5.3 cm LV Systolic Diameter PLAX 1.9 cm IVS Diastolic Thickness 1.2 cm 0.6 - 1.0 / 0.6 - 0.9 cm IVS Systolic Thickness 1.6 cm LVPW Diastolic Thickness 1.0 cm 0.6 - 1.0 / 0.6 - 0.9 cm LVPW Systolic Thickness 1.7 cm LVOT Diameter 2.2 cm LV Ejection Fraction 2D Teich 82.8 % LV Ejection Fraction MOD 2C 45.3 % LV Ejection Fraction 2C AL 45.6 % LA Diameter 2.9 cm LA Width 2.6 cm LA Height 5.8 cm RA Width 3.5 cm RA Height 4.7 cm Aorta at Sinotubular Diameter 2.8 cm IVC Diameter 1.5 cm M-MODE Aortic Annulus Diameter 3.3 cm LA Ao Ratio MM 0.9 MV E Point Septal Separation 0.6 cm DOPPLER AV Peak Velocity 120.0 cm/s LVOT Peak Velocity 117.0 cm/s AV Area Cont Eq vti 4.1 cm squared AV Area Cont Eq pk 3.6 cm squared MV Peak Velocity 111.0 cm/s MV Area PHT 4.0 cm squared Mitral E to A Ratio 0.8 MV E' Velocity 44.0 cm/s Mitral E to MV E' Ratio 9.2 Mitral E to LV E' Lateral Ratio 8.1 Mitral E to LV E' Septal Ratio 10.6 TR Peak Velocity 239.8 cm/s TR Peak Gradient 23.0 mmHg Right Atrial Pressure 5.0 mmHg Pulmonary Artery Systolic Pressu 28.0 mmHg PV Peak Velocity 83.3 cm/s RV Acceleration Time 0.1 s RV Ejection Time 0.3 s RV AcT/ET 0.3 FINDINGS Left Ventricle Normal left ventricular size, systolic function and wall thickness, with no regional wall motion abnormalities. Grade I/IV diastolic dysfunction (abnormal relaxation filling pattern), normal to mildly elevated filling pressures. Left ventricular ejection fraction is estimated at 55 %. Right Ventricle Normal right ventricular size and systolic function. Right Atrium The right atrium is normal in size. Left Atrium The left atrium is normal in size. Mitral Valve Structurally normal mitral valve without significant stenosis or prolapse. There is no mitral regurgitation. Aortic Valve Structurally normal aortic valve without significant sclerosis or stenosis. There is no aortic regurgitation. Tricuspid Valve Structurally normal tricuspid valve. Trace to mild tricuspid valve regurgitation. Pulmonic Valve Pulmonic valve not well visualized. Pericardium Normal pericardium without effusion. Aorta Normal ascending aorta dimension. IVC The inferior vena cava appears normal. CONCLUSIONS Normal left ventricular size, systolic function and wall thickness, with no regional wall motion abnormalities. Grade I/IV diastolic dysfunction (abnormal relaxation filling pattern), normal to mildly elevated filling pressures. Left ventricular ejection fraction is estimated at 55 %. No changes noted from the previous study done [address] Steven Reyes MD (Electronically Signed) Final Date: 02 June 2023 17:21 S
== END 2023-06-02 15:13 | disposition home or self-care (01) ==
PROVIDERS: PCP Electrodiagnostic Medicine; Visit Provider Nurse Practitioner Family
DX: M70.62 Trochanteric bursitis, left hip (principal); Z96.642 Presence of left artificial hip joint; I50.30 Unspecified diastolic (congestive) heart failure
CPT/HCPCS: 73502; 93306; 99213

== ENCOUNTER 2023-07-13 12:26 | Emergency (ER) | payer MEDICARE, OTHER, SELFPAY ==
[2023-07-13 12:43] VITALS: BP 130/73; PULSE 86; RESP 18; TEMP 36.4; O2SAT 98; BMI 33.2
--- NOTE | 2023-07-13 15:40 | ED_ITS ---
HPI - Allergic Reaction General: Chief complaint: Allergic Reaction Stated complaint: allergic reaction Time Seen by Provider: 07/13/23 15:40 History of Present Illness: HPI narrative: Patient presents to the ER with complaints of nausea vomiting shortness of breath palpitations all darted yesterday approximately 1 hour after she received a shot in her left hip and left SI joint region. The shots were supposed to be plain lidocaine with no steroid. But they ended up being lidocaine with Kenalog. Patient has hypogammaglobulinemia has not supposed have any steroids at all per patient. Today patient shortness of breath is better but she still has nausea and vomiting. She has not been able to eat anything since last night. And she knows she is dehydrated. Review of Systems General: Reports: 10 or more systems reviewed and unremarkable except in HPI and below PFSH ED PFSH: Medical History Aortic atherosclerosis Asthma Degenerative arthritis Degenerative joint disease of spine Diastolic heart failure Diverticulosis Fibromyalgia History of aortic stenosis Hyperlipidemia Hypertension Nonfamilial hypogammaglobulinemia Post-polio syndrome Recurrent UTI Restrictive cardiomyopathy Surgical History H/O cardiac radiofrequency ablation H/O partial thyroidectomy H/O repair of left rotator cuff H/O repair of right rotator cuff H/O total hysterectomy History of colonoscopy with polypectomy History of ear surgery tube in left ear History of surgery on lower extremity 3 surgeries on the right leg, 1 surgery on left leg History of tonsillectomy History of total hip arthroplasty Hx of adenoidectomy Family History Mother Stroke Hypertension Family/Other Diabetes maternal aunt Thyroid condition maternal, maternal great aunt Breast cancer maternal aunt, age onset in her 50's Colon cancer, Onset Age: 61 maternal uncle Grandmother Stroke maternal, maternal great grandmother Father Hypertension Denies family history of Ovarian cancer Clotting disorder Heart disease Hyperlipidemia Anesthesia complication Bleeding disorder Uterine cancer Social History Smoking and tobacco status: former smoker Quit status (tobacco): has quit using tobacco Year quit tobacco: smoked as a tean for 3 ye Alcohol intake: never Substance/Drug Use: never Marital status: Marital status details: to Richard Do you think of yourself as: Straight/Heterosexual Physical Exam Const: COMMON NORMALS: no acute distress, average body habitus, patient oriented x3, no limitations, healthy appearing, alert and well nourished HENMT: COMMON NORMALS: normocephalic, atraumatic, hearing grossly normal bilaterally, external ears normal, Normal external nose present and moist oral mucous membranes HEAD & SCALP: normocephalic and atraumatic NOSE: Normal external nose present EXTERNAL EAR: Yes external ears normal Eye: COMMON NORMALS: Equal, round and reactive pupils present, EOMs intact bilaterally, conjunctivae normal and no scleral icterus CONJUNCTIVA: Yes conjunctivae normal PUPIL: Yes Equal, round and reactive pupils present Neck/C-Spine: COMMON NORMALS: full ROM, no lymphadenopathy, supple, no meningeal signs, no JVD and Thyroid normal THYROID: Thyroid normal Chest: COMMONS NORMALS: normal inspection of the chest and normal palpation of entire chest wall Resp: COMMON NORMALS: normal respiratory effort, No retractions, No use of accessory muscles and clear to auscultation bilaterally AUSCULTATION: clear to auscultation bilaterally Cardio: COMMON NORMALS: no JVD, regular rate, regular rhythm, S1 normal heart sound present, S2 normal heart sound present, No gallops present (Cardio), No clicks present (Cardio), No murmurs present (Cardio) and No rub (Cardio) RATE: regular rate RHYTHM: regular rhythm HEART SOUNDS: S1 normal heart sound present and S2 normal heart sound present GI: COMMON NORMALS: Normal to inspection, nondistended, normoactive bowel sounds present, Soft to palpation, non-tender, No hepatosplenomegaly present and no masses PALPATION: Yes Soft to palpation and Yes No hepatosplenomegaly present Neuro: COMMON NORMALS: patient oriented x3 SENSORIUM/ORIENTATION: Yes alert MENINGEAL SIGNS: Yes no meningeal signs Course Vital Signs: Vital signs: Vital Signs Temperature 97.6 F 07/13/23 12:43 Pulse Rate 75 07/13/23 16:48 Respiratory Rate 18 07/13/23 16:48 Blood Pressure 130/73 07/13/23 12:43 Pulse Oximetry 95 07/13/23 16:48 Oxygen Delivery Me thod Room Air 07/13/23 16:48 MDM - Allergic Reaction Medical Decision Making Patient presented to the ER with complaints of receiving a Kenalog steroid injection yesterday and since then has had nausea vomiting and shortness of b reath and palpitations and she think she is having a reaction to this. Lab work was obtained in a normal fashion which showed her white count was slightly elevated at 13.7 and testing was little low at 3.2. Otherwise benign. EKG and chest x-ray was benign. She was given 1 L of normal saline and 4 mg Zofran IV in the ER. Patient be discharged home with oral Zofran. Patient should follow- up with her PCP on an as-needed basis peripherally with the next 7 days for further evaluation and testing. Differential Diagnosis Unlikely anaphylaxis, allergic reaction, angioedema, contact dermatitis, adverse reaction to drug, viral enanthem or urticaria Lab Data I reviewed the patient's lab results. 07/13/23 16:11 07/13/23 16:11 Laboratory Results WBC 13.70 10^3/uL (3.29-11.43) H 07/13/23 16:11 RBC 4.80 10^6/uL (3.85-5.65) 07/13/23 16:11 Hgb 14.60 g/dL (11.27-16.99) 07/13/23 16:11 Hct 43.6 % (36-47) 07/13/23 16:11 MCV 90.8 fl (85-98) 07/13/23 16:11 MCH 30.4 pg (27-33) 07/13/23 16:11 MCHC 33.5 g/dL (30-55) 07/13/23 16:11 RDW 12.9 % (12.1-15.1) 07/13/23 16:11 Plt Count 404 10^3/cmm (157-399) H 07/13/23 16:11 MPV 11.0 fL (7.4-10.4) H 07/13/23 16:11 Neut % (Auto) 70.4 % 07/13/23 16:11 Lymph % (Auto) 20.6 % 07/13/23 16:11 Hood % (Auto) 7.0 % 07/13/23 16:11 Eos % (Auto) 1.4 % 07/13/23 16:11 Baso % (Auto) 0.3 % 07/13/23 16:11 Neut # (Auto) 9.65 10^3/uL (1.8-7.7) H 07/13/23 16:11 Lymph # (Auto) 2.8 10^3/uL (0.8-4.8) 07/13/23 16:11 Hood # (Auto) 1.0 10^3/uL (0.2-0.9) H 07/13/23 16:11 Eos # (Auto) 0.2 10^3/uL (0.0-0.8) 07/13/23 16:11 Baso # (Auto) 0.0 10^3/uL (0.0-0.1) 07/13/23 16:11 Nucleated RBC % (auto) 0 % 07/13/23 16:11 Nucleated RBCs # 0.0 /100WBC 07/13/23 16:11 Sodium 139 mmol/L (136-145) 07/13/23 16:11 Potassium 3.2 mmol/L (3.5-5.1) L 07/13/23 16:11 Chloride 97 mmol/L (98-107) L 07/13/23 16:11 Carbon Dioxide 28 mmol/L (22-29) 07/13/23 16:11 Anion Gap 17.2 (5-19) 07/13/23 16:11 BUN 17 mg/dL (8-23) 07/13/23 16:11 Creatinine 0.5 mg/dL (0.5-0.9) 07/13/23 16:11 GFR Calculation Not Reportable 07/13/23 16:11 Glucose 108 mg/dL (65-115) 07/13/23 16:11 Calculated Osmolality 290 mOsm/kg (285-295) 07/13/23 16:11 Calcium 9.7 mg/dL (8.5-10.5) 07/13/23 16:11 Total Bilirubin 1.0 mg/dL (0.15-1.2) 07/13/23 16:11 AST 24 U/L (0-32) 07/13/23 16:11 ALT 30 U/L (0-33) 07/13/23 16:11 Alkaline Phosphatase 122 U/L (35-105) H 07/13/23 16:11 Total Protein 7.8 g/dL (6.6-8.7) 07/13/23 16:11 Albumin 4.9 g/dL (3.5-5.2) 07/13/23 16:11 Globulin 2.9 g/dL (1.3-4.6) 07/13/23 16:11 EKG Data EKG 1: I personally reviewed and interpreted this EKG as follows: EKG interpretation date: 07/13/23 EKG interpretation time: 15:53 Prior EKG tracings: not available for review Interpretation: EKG showed ventricular rate 77 beats minute, CA interval 158, QRS duration 97, QTc 430, sinus rhythm, possible left atrial lodgment, Q waves in V3 V4 Discharge Plan Discharge Patient Disposition: Home Clinical Impression: Heart palpitations Nausea & vomiting Qualifiers: Vomiting type: unspecified Qualified Code(s): R11.2 - Nausea with vomiting, unspecified Condition: Stable Prescriptions: New ondansetron HCl 4 mg tablet 4 mg PO Q8H PRN (Reason: nausea and vomiting) Qty: 10 0RF No Action cholecalciferol (vitamin D3) 125 mcg (5,000 unit) capsule 125 mcg PO DAILY calcium carbonate [Calcium 600] 600 mg calcium (1,500 mg) tablet 600 mg PO DAILY ascorbic acid (vitamin C) 1,000 mg tablet 1 gm PO DAILY albuterol sulfate [Ventolin HFA] 90 mcg/actuation HFA aerosol inhaler 2 puff INHALATION QID PRN (Reason: shortness of breath or wheezing) Qty: 18 3RF (DME) kafo See Rx Instructions .Route .MEDSUPPLY Qty: 1 0RF Rx Instructions: As directed Double upright locking hinge KAFO potassium chloride 10 mEq capsule, extended release 10 meq PO DAILY Qty: 90 3RF hydrochlorothiazide 25 mg tablet 25 mg PO DAILY magnesium 250 mg tablet 250 mg PO DAILY nitroglycerin 0.4 mg tablet, sublingual 0.4 mg sublingual Q5M PRN (Reason: chest pain) Qty: 20 0RF Rx Instructions: do not exceed 3 doses per episode diltiazem HCl [Cartia XT] 180 mg capsule,extended release 24hr 180 mg PO BID Qty: 60 11RF Hold Instructions: Resume on 02/07/23. hold until bp improves cyclobenzaprine 10 mg tablet 10 mg PO TID PRN (Reason: Pain) Qty: 90 2RF alprazolam 0.5 mg tablet 0.5 mg PO DAILY PRN (Reason: anxiety) Qty: 30 0RF budesonide-formoterol [Symbicort] 80-4.5 mcg/actuation HFA aerosol inhaler 2 puff inhalation BID Qty: 10.2 3RF oxycodone 5 mg tablet 5 mg PO Q6H PRN (Reason: pain, postop total hip arthroplasty) 7 Days Qty: 28 0RF zinc acetate 50 mg (zinc) Capsule 50 mg PO DAILY Qty: 0 lisinopril 10 mg tablet 10 mg PO DAILY montelukast 10 mg tablet 10 mg PO DAILY PRN (Reason: Allergic Symptoms) fluticasone propionate 50 mcg/actuation spray,suspension 2 spray INTRANASAL DAILY PRN (Reason: Allergic Symptoms) omeprazole 20 mg capsule,delayed release(DR/EC) 20 mg PO DAILY PRN (Reason: Heartburn) Discharge Orders: Discharge ED (Routine); Ordered 07/13/23 Ordered By: Harpreet Mcdermott Referrals: Seamus Schroeder DO [Primary Care Provider] - 1 week Patient Instructions: Heart Palpitations, Acute Nausea and Vomiting (ED) Activity Restrictions/Additional Instructions: Please push plenty of fluids. Please take your medicine as directed. Please follow-up with your family practice doctor in the next 7 days or sooner as needed for further evaluation and treatment. Coding Level of Care Code ED Roll Forming Machine Set Up Operator for Charlotte Callaway
--- NOTE | 2023-07-13 15:41 | ECG_ITS ---
[facility] Test Date: 2023-07-13 Pat Name: Anita Harmon Department: Room: Gender: Female Loading Manager: : 1950 Requested By: Harpreet Mcdermott Order Number: [id number] Fuentes MD: Lea Andres M.D. Measurements Intervals [place] Rate: 77 P: 37 TN: 158 QRS: 14 QRSD: 97 T: 25 QT: 398 QTc: 452 Interpretive Statements SINUS RHYTHM POSSIBLE LEFT ATRIAL ENLARGEMENT [-0.1mV P-WAVE IN V1/V2] LOW QRS VOLTAGE IN PRECORDIAL LEADS [QRS DEFLECTION < 1.0 mV IN CHEST LEADS] POSSIBLE ANTERIOR MYOCARDIAL INFARCTION , PROBABLY OLD [30 ms Q WAVE IN V3/V4, OR R < 0.2 mV IN V4] Compared to ECG 01/18/2023 10:13:28 Myocardial infarct finding now present Electronically Signed On 07-13-2023 16:37:25 CDT by Lea Andres M.D. [id number]
--- NOTE | 2023-07-13 15:41 | XR_ITS ---
WS: [id number] Exam: XR chest 1V portable [id number] Date/Time of Exam: 07/13/2023 3:42 PM Reason For Exam: shortness of breath Comparison 01/26/2023. The lungs are fully expanded and clear. Normal cardiomediastinal silhouette. Bony structures are inta ct. Degenerative changes and spondylosis of the thoracic spine. Anchoring screws in the proximal RIGH T humerus. IMPRESSION: 1. No acute cardiopulmonary finding. No change.
[2023-07-13 16:25] LABS: Basophils % 0.3 %; Eosinophils # 0.2 10^3/uL (0.0-0.8); Eosinophils % 1.4 %; Hematocrit 43.6 % (36-47); Lymphocytes # 2.8 10^3/uL (0.8-4.8); Lymphocytes % 20.6 %; Mean Corpuscular HGB Conc 33.5 g/dL (30-55); Mean Corpuscular Hemoglobin 30.4 pg (27-33); Mean Corpuscular Volume 90.8 fl (85-98); Neutrophils # 9.65 10^3/uL (1.8-7.7); Neutrophils % 70.4 %; Nucleated Red Blood Cells % 0 %; Platelet Count 404 10^3/cmm (157-399); Red Cell Distribution Width 12.9 % (12.1-15.1)
[2023-07-13 16:37] LABS: Alanine Aminotransferase 30 U/L (0-33); Albumin Level 4.9 g/dL (3.5-5.2); Alkaline Phosphatase 122 U/L (35-105); Anion Gap 17.2 (5-19); Aspartate Amino Transferase 24 U/L (0-32); Blood Urea Nitrogen 17 mg/dL (8-23); Calcium 9.7 mg/dL (8.5-10.5); Carbon Dioxide 28 mmol/L (22-29); Chloride 97 mmol/L (98-107); Globulin 2.9 g/dL (1.3-4.6); Glucose 108 mg/dL (65-115); Osmolality Calculated 290 mOsm/kg (285-295); Potassium 3.2 mmol/L (3.5-5.1); Sodium 139 mmol/L (136-145); Total Protein 7.8 g/dL (6.6-8.7)
[2023-07-13] MEDS: ondansetron 2 mg/ML SDV 2 mL 4 MG IVP (16:45)
[2023-07-13] MEDS: sodium chloride 0.9% 1,000 ML 999 ML IV (16:45)
[2023-07-13 16:48] VITALS: PULSE 75; RESP 18; O2SAT 95
== END 2023-07-13 17:44 | disposition home or self-care (01) ==
PROVIDERS: Emergency Provider Emergency Medicine; PCP Electrodiagnostic Medicine
DX: R00.2 Palpitations (principal); R11.2 Nausea with vomiting, unspecified; Z87.891 Personal history of nicotine dependence; I11.0 Hypertensive heart disease with heart failure; I50.30 Unspecified diastolic (congestive) heart failure; E78.5 Hyperlipidemia, unspecified
CPT/HCPCS: 36415; 71045; 80053; 85025; 93005; 96374; 99285; J2405; J7030

== ENCOUNTER → 2023-11-29 08:55 | Outpatient (BNVA) | payer MEDICARE, OTHER, SELFPAY | PROVIDERS: PCP Electrodiagnostic Medicine; Visit Provider Physician Assistant | DX: M70.61 Trochanteric bursitis, right hip (principal); M70.62 Trochanteric bursitis, left hip; Z96.642 Presence of left artificial hip joint | CPT/HCPCS: 20610; 99213; J3301; J3490 ==

== ENCOUNTER 2023-12-19 08:36 | Oncology outpatient (recurring) (ONCR) | payer MEDICARE, OTHER, SELFPAY ==
[2023-12-19 09:01] LABS: Basophils % 0.1 %; Eosinophils # 0.1 10^3/uL (0.0-0.8); Eosinophils % 0.9 %; Hematocrit 39.9 % (36-47); Lymphocytes # 2.6 10^3/uL (0.8-4.8); Lymphocytes % 17.1 %; Mean Corpuscular HGB Conc 33.1 g/dL (30-55); Mean Corpuscular Hemoglobin 30.5 pg (27-33); Mean Corpuscular Volume 92.1 fl (85-98); Mean Platelet Volume 10.2 fL (7.4-10.4); Monocytes # 1.3 10^3/uL (0.2-0.9); Monocytes % 8.6 %; Neutrophils # 10.86 10^3/uL (1.8-7.7); Neutrophils % 72.8 %; Nucleated Red Blood Cells % 0 %; Platelet Count 290 10^3/cmm (157-399); Red Blood Count 4.33 10^6/uL (3.85-5.65); Red Cell Distribution Width 14.3 % (12.1-15.1)
[2023-12-19 09:22] LABS: Alanine Aminotransferase 27 U/L (0-33); Alkaline Phosphatase 52 U/L (35-105); Anion Gap 12.2 (5-19); Aspartate Amino Transferase 16 U/L (0-32); Blood Urea Nitrogen 29 mg/dL (8-23); Calcium 9.1 mg/dL (8.5-10.5); Carbon Dioxide 30 mmol/L (22-29); Chloride 99 mmol/L (98-107); Globulin 2.6 g/dL (1.3-4.6); Glucose 100 mg/dL (65-115); Osmolality Calculated 290 mOsm/kg (285-295); Potassium 4.2 mmol/L (3.5-5.1); Sodium 137 mmol/L (136-145); Total Bilirubin 0.7 mg/dL (0.15-1.2); Total Protein 6.6 g/dL (6.6-8.7)
[2023-12-19 10:26] LABS: Immunoglobulin IGA 83 mg/dL (70-400); Immunoglobulin IGG 630 mg/dL (700-1600); Immunoglobulin IGM 142 mg/dL (40-230)
[2023-12-20 12:10] LABS: Leukemia Profile (BBPL) See Report; Lymphoma Profile (BBPL) See Report
[2023-12-24 17:25] LABS: P190 BCR ALB1 NOT DETECTED; P190 BCR ALB1 Yes Test Yes; P210 BCR ALB1 NOT DETECTED; P210 BCR ALB1 Yes Test Yes; Prior Results NG; Source blood
[2023-12-29 11:19] LABS: CALR Exon 9 Mutation NOT DETECTED (NOT DETECTED); CSF3R Exon 14/17 Mutation NOT DETECTED (NOT DETECTED); JAK2 Exon 12 Mutation NOT DETECTED (NOT DETECTED); JAK2 V617 Block Specimen ID NG; JAK2 V617 Clinical Indication NG; JAK2 V617 Mutation NOT DETECTED (NOT DETECTED); JAK2 V617 Specimen Source BLOOD; MPL Exon 12 Mutation NOT DETECTED (NOT DETECTED)
== END 2024-01-12 23:59 | disposition home or self-care (01) ==
PROVIDERS: Internal Medicine; PCP Electrodiagnostic Medicine; Visit Provider Internal Medicine Medical Oncology
DX: D80.1 Nonfamilial hypogammaglobulinemia (principal); D64.9 Anemia, unspecified; E87.6 Hypokalemia; Z87.891 Personal history of nicotine dependence
CPT/HCPCS: 36415; 80053; 81206; 81207; 81270; 81279; 81339; 81479; 82784; 85025; 88184; 88185; 99214

== ENCOUNTER 2023-12-23 14:16 | Outpatient (CLI) | payer MEDICARE, OTHER, SELFPAY ==
--- NOTE | 2023-12-23 14:30 | US_ITS ---
WS: [id number] THYROID ULTRASOUND HISTORY: history of thyroid nodule COMPARISON: None available. Right lobe: RIGHT thyroidectomy. No recurrent mass at the thyroid bed. Left lobe: 2.0 cm x 2.1 cm x 4.9 cm (w x ap x l). Volume: 10 mL Thyroid is normal size. There are multiple benign cystic nodules throughout the gland. There are a fe w additional spongiform nodules. There is no dominant or solid nodule. Isthmus: 0.4 cm. IMPRESSION: 1. Status post RIGHT thyroidectomy. 2. There are multiple cystic and spongiform nodules throughout the LEFT thyroid. There are no suspic ious solid nodules.
== END 2023-12-23 14:17 | disposition home or self-care (01) ==
LOC: RAD 14:17
PROVIDERS: PCP Electrodiagnostic Medicine; Visit Provider Internal Medicine
DX: Z86.39 Personal history of other endocrine, nutritional and metabolic disease (principal)
CPT/HCPCS: 76536

== ENCOUNTER 2024-01-19 09:23 | Oncology outpatient (recurring) (ONCR) | payer MEDICARE, OTHER, SELFPAY ==
[2024-01-19 09:49] LABS: Basophils % 0.2 %; Eosinophils # 0.1 10^3/uL (0.0-0.8); Eosinophils % 0.7 %; Hematocrit 42.6 % (36-47); Lymphocytes # 3.6 10^3/uL (0.8-4.8); Lymphocytes % 24.7 %; Mean Corpuscular HGB Conc 33.8 g/dL (30-55); Mean Corpuscular Hemoglobin 30.6 pg (27-33); Mean Corpuscular Volume 90.6 fl (85-98); Mean Platelet Volume 10.1 fL (7.4-10.4); Monocytes # 1.2 10^3/uL (0.2-0.9); Monocytes % 8.2 %; Neutrophils # 9.67 10^3/uL (1.8-7.7); Neutrophils % 65.7 %; Nucleated Red Blood Cells % 0 %; Platelet Count 394 10^3/cmm (157-399); Red Cell Distribution Width 13.5 % (12.1-15.1); White Blood Count 14.73 10^3/uL (3.29-11.43)
[2024-01-19 10:14] LABS: Alanine Aminotransferase 30 U/L (0-33); Albumin Level 4.1 g/dL (3.5-5.2); Alkaline Phosphatase 87 U/L (35-105); Anion Gap 16.8 (5-19); Aspartate Amino Transferase 20 U/L (0-32); Blood Urea Nitrogen 20 mg/dL (8-23); Calcium 9.1 mg/dL (8.5-10.5); Carbon Dioxide 29 mmol/L (22-29); Chloride 94 mmol/L (98-107); Globulin 3.3 g/dL (1.3-4.6); Glucose 104 mg/dL (65-115); Immunoglobulin IGG 740 mg/dL (700-1600); Osmolality Calculated 285 mOsm/kg (285-295); Potassium 3.8 mmol/L (3.5-5.1); Sodium 136 mmol/L (136-145); Total Protein 7.4 g/dL (6.6-8.7)
== END 2024-02-12 23:59 | disposition home or self-care (01) ==
PROVIDERS: Internal Medicine; PCP Electrodiagnostic Medicine; Visit Provider Internal Medicine Medical Oncology
DX: D80.1 Nonfamilial hypogammaglobulinemia (principal); D64.9 Anemia, unspecified; E87.6 Hypokalemia; Z87.891 Personal history of nicotine dependence; E78.6 Lipoprotein deficiency; I50.30 Unspecified diastolic (congestive) heart failure; R30.0 Dysuria; M62.838 Other muscle spasm; Z96.642 Presence of left artificial hip joint; Z87.440 Personal history of urinary (tract) infections
CPT/HCPCS: 36415; 80053; 82784; 85025; 99214

== ENCOUNTER → 2024-02-14 14:51 | Outpatient (BNVA) | payer MEDICARE, OTHER, SELFPAY | PROVIDERS: PCP Electrodiagnostic Medicine; Visit Provider Physician Assistant | DX: Z96.642 Presence of left artificial hip joint (principal); M16.12 Unilateral primary osteoarthritis, left hip; M70.61 Trochanteric bursitis, right hip; M70.62 Trochanteric bursitis, left hip | CPT/HCPCS: 73502; 99213 ==

== ENCOUNTER → 2024-02-16 09:52 | Outpatient (BNVA) | payer MEDICARE, OTHER, SELFPAY | PROVIDERS: PCP Electrodiagnostic Medicine; Visit Provider Nurse Practitioner Family | DX: I50.30 Unspecified diastolic (congestive) heart failure (principal) | CPT/HCPCS: 36415; 80048; 83880; 99214 ==

== ENCOUNTER → 2024-02-21 13:55 | Outpatient (BNVA) | payer MEDICARE, OTHER, SELFPAY | PROVIDERS: Visit Provider Student in an Organized Health Care Education/Training Program | DX: N30.01 Acute cystitis with hematuria (principal); N89.8 Other specified noninflammatory disorders of vagina; M25.551 Pain in right hip | CPT/HCPCS: 99205 ==

== ENCOUNTER 2024-02-23 07:42 | Outpatient (CLI) | payer MEDICARE, OTHER, SELFPAY ==
--- NOTE | 2024-02-23 08:00 | CT_ITS ---
WS: [id number] CT LEFT HIP, NONCONTRAST. HISTORY: left hip pain/ p/o left total hip arthroplasty Technique: All CT scans at [facility] use at least one of these dose optimization techniques: automated exposure control; mA and/or kV adjustment per patient size (includes targeted exams where dose is matched to clinical indication); or iterative reconstruction. DLP: 1016.42 mGy.cm COMPARISON: 01/28/2023 Status post LEFT hip arthroplasty. The hardware appears appropriate. There is no fracture. No signifi cant medial migration. Acetabulum remains intact. Moderate atrophy of the muscle surrounding the LEFT hip but not as significant as described on the RIGHT hip CT. IMPRESSION: Uncomplicated LEFT hip total arthroplasty. No complications are evident.
--- NOTE | 2024-02-23 09:00 | CT_ITS ---
WS: [id number] CT HIP, NONCONTRAST, 3D HISTORY: right hip pain Technique: All CT scans at [facility] use at least one of these dose optimization techniques: automated exposure control; mA and/or kV adjustment per patient size (includes targeted exams where dose is matched to clinical indication); or iterative reconstruction. DLP: 1016.42 mGy.cm COMPARISON: 07/08/2021 CT. Femoral head is seated within the acetabulum. The RIGHT leg is externally rotated. The greater trocha nter is positioned posteriorly and nearly abuts the posterior acetabulum. There is no fracture. No os teophytic ridging. There is severe muscle atrophy surrounding the RIGHT hip and pelvis. There is no j oint effusion. No soft tissue mass. IMPRESSION: 1. RIGHT femoral head remains seated in the acetabulum at the hip is externally rotated. 2. The greater trochanter is positioned posteriorly nearly abutting the posterior acetabulum. 3. Severe muscle atrophy.
== END 2024-02-23 07:43 | disposition home or self-care (01) ==
LOC: RAD 07:43
PROVIDERS: PCP Electrodiagnostic Medicine; Visit Provider Physician Assistant
DX: M16.12 Unilateral primary osteoarthritis, left hip (principal); M70.61 Trochanteric bursitis, right hip; M70.62 Trochanteric bursitis, left hip; M25.551 Pain in right hip
CPT/HCPCS: 73700

== ENCOUNTER 2024-02-27 10:24 | Outpatient (RCR) | payer MEDICARE, OTHER, SELFPAY | END 2024-03-13 23:59 | disposition home or self-care (01) | LOC: SPT 10:24 | PROVIDERS: PCP Electrodiagnostic Medicine; Visit Provider Physician Assistant | DX: R26.89 Other abnormalities of gait and mobility (principal); M25.552 Pain in left hip | CPT/HCPCS: 97110; 97116; 97161 ==

== ENCOUNTER 2024-03-08 20:15 | Emergency (ER) | payer MEDICARE, OTHER, SELFPAY ==
--- NOTE | 2024-03-08 20:24 | ECG_ITS ---
[facility] Test Date: 2024-03-08 Pat Name: Anita Harmon Department: Room: Gender: Female Warranty Coordinator: : 1950 Requested By: Harpreet Mcdermott Order Number: [id number] Fuentes MD: Camden Ba M.D. Measurements Intervals [place] Rate: 86 P: 37 [place]: 146 QRS: 20 QRSD: 94 T: 51 QT: 361 QTc: 433 Interpretive Statements SINUS RHYTHM Compared to ECG 07/13/2023 15:53:43 Myocardial infarct finding no longer present Electronically Signed On 03-10-2024 19:16:26 CDT by Camden Ba M.D. [id number]
[2024-03-08 20:29] VITALS: BP 145/71; PULSE 89; RESP 16; TEMP 36.3; O2SAT 98
--- NOTE | 2024-03-08 20:37 | XRR_ITS ---
PROCEDURE INFORMATION: Exam: XR Chest Exam date and time: 03/08/2024 9:02 PM Age: 73 years old Clinical indication: Chest wall pain; Additional info: Chest pain TECHNIQUE: Imaging protocol: Radiologic exam of the chest. Views: 1 view. COMPARISON: No relevant prior studies available. FINDINGS: Lungs: Left lower lobe atelectasis versus minimal infiltrate. Pleural spaces: Unremarkable. No pleural effusion. No pneumothorax. Heart/Mediastinum: Unremarkable. No cardiomegaly. Bones/joints: Unremarkable. XR/XR chest 1V portable [id number] IMPRESSION: Left lower lobe atelectasis versus minimal infiltrate.
--- NOTE | 2024-03-08 20:45 | PC.NURSE ---
pt on bedside traffic monitor specialist
[2024-03-08 21:02] VITALS: BP 117/58; PULSE 80; RESP 21
[2024-03-08 21:33] LABS: Basophils # 0.1 10^3/uL (0.0-0.1); Basophils % 0.3 %; Eosinophils # 0.3 10^3/uL (0.0-0.8); Hematocrit 37.8 % (36-47); Lymphocytes # 3.8 10^3/uL (0.8-4.8); Lymphocytes % 22.1 %; Mean Corpuscular HGB Conc 34.4 g/dL (30-55); Mean Platelet Volume 11.1 fL (7.4-10.4); Monocytes # 1.5 10^3/uL (0.2-0.9); Monocytes % 8.5 %; Neutrophils % 66.7 %; Nucleated Red Blood Cells % 0 %; Platelet Count 381 10^3/cmm (157-399); Red Cell Distribution Width 12.5 % (12.1-15.1); White Blood Count 17.23 10^3/uL (3.29-11.43)
--- NOTE | 2024-03-08 21:49 | ED_ITS ---
HPI - SOB/Dyspnea 2 General: Chief Complaint: Shortness of Breath/Dyspnea Stated Complaint: cp and sob Time Seen by Provider: 03/08/24 20:36 History of Present Illness: HPI Narrative: Patient presents to the ER with complaints of intermittent and episodic chest pain and shortness of breath. Patient states he has been going on and off for the last month. They got worse the last couple nights. They are worse at night than they are during the daytime. Patient seen her PCP yesterday for other things and they told her to double up her Lasix. Patient did take 2 doses of Lasix yesterday with no improvement and swelling or additional diuresis noted per patient. Review of Systems 2 General: Reports: 10 or more systems reviewed and unremarkable except in HPI and below PFSH ED 2 PFSH: Medical History Hyperlipidemia Degenerative arthritis Degenerative joint disease of spine Nonfamilial hypogammaglobulinemia Fibromyalgia Aortic atherosclerosis Restrictive cardiomyopathy Asthma Diverticulosis Post-polio syndrome Recurrent UTI Diastolic heart failure History of aortic stenosis Hypertension Surgical History History of total hip arthroplasty Hx of adenoidectomy History of tonsillectomy History of surgery on lower extremity 3 surgeries on the right leg, 1 surgery on left leg H/O partial thyroidectomy H/O cardiac radiofrequency ablation History of ear surgery tube in left ear History of colonoscopy with polypectomy H/O total hysterectomy H/O repair of right rotator cuff H/O repair of left rotator cuff Family History Mother Stroke Hypertension Family/Other Diabetes maternal aunt Thyroid disease maternal, maternal great aunt Breast cancer maternal aunt, age onset in her 50's Colon cancer, Onset Age: 61 maternal uncle Grandmother Stroke maternal, maternal great grandmother Father Hypertension Denies family history of Ovarian cancer Clotting disorder Heart disease Hyperlipidemia Anesthesia complication Bleeding disorder Uterine cancer Social History Smoking and tobacco/nicotine status: former use of tobacco/nicotine Quit status (tobacco/nicotine): has quit using Year quit tobacco: smoked as a tean for 3 ye Alcohol intake: never Substance/Drug Use: never Marital status: Marital status details: to Richard Do you think of yourself as: Straight/Heterosexual Physical Exam 2 Const: COMMON NORMALS: no acute distress, average body habitus, patient oriented x3, no limitations, healthy appearing, alert and well nourished HENMT: COMMON NORMALS: normocephalic, atraumatic, hearing grossly normal bilaterally, external ears normal, Normal external nose present, moist oral mucous membranes and oropharynx normal HEAD & SCALP: normocephalic and atraumatic NOSE: Normal external nose present EXTERNAL EAR: Yes external ears normal Neck/C-Spine: COMMON NORMALS: no JVD Chest: COMMONS NORMALS: normal inspection of the chest and normal palpation of entire chest wall Resp: COMMON NORMALS: normal respiratory effort, No retractions, No use of accessory muscles and clear to auscultation bilaterally AUSCULTATION: clear to auscultation bilaterally Cardio: COMMON NORMALS: no JVD, regular rate, regular rhythm, S1 normal heart sound present, S2 normal heart sound present, No gallops present (Cardio), No clicks present (Cardio), No murmurs present (Cardio) and No rub (Cardio) R ATE: regular rate RHYTHM: regular rhythm HEART SOUNDS: S1 normal heart sound present and S2 normal heart sound present GI: COMMON NORMALS: Normal to inspection, nondistended, normoactive bowel sounds present, Soft to palpation, non-tender, No hepatosplenomegaly present and no masses PALPATION: Yes Soft to palpation and Yes No hepatosplenomegaly present Extremity: NARRATIVE EXTREMITY EXAM: Trace pitting edema bilateral lower extremities Neuro: COMMON NORMALS: patient oriented x3 SENSORIUM/ORIENTATION: Yes alert Course 2 Vital Signs: Vital signs: Vital Signs Temperature 97.3 F L 03/08/24 20:29 Pulse Rate 78 03/09/24 00:04 Respiratory Rate 22 H 03/09/24 00:04 Blood Pressure 126/87 03/09/24 00:04 Pulse Oximetry 98 03/08/24 20:29 Oxygen Delivery Me thod Room Air 03/08/24 20:29 MDM - SOB/Dyspnea Medical Decision Making Patient presents to the ER with intermittent chest pain shortness of breath. Patient was worked up in a standard chest pain fashion. White count 17.23, chest x-ray left lower lobe atelectasis versus minimal infiltrate. Troponin baseline 9, 2-hour troponin 8.77, patient was given 1 Augmentin here and a prescription be sent to the pharmacy. Differential Diagnosis Unlikely acute exacerbation of chronic obstructive airways disease, congestive heart failure, community acquired pneumonia, asthma with exacerbation or pulmonary embolism Medical Records I reviewed the patient's medical records. Lab Data I reviewed the patient's lab results. 03/08/24 21:25 03/08/24 21:25 Labs/Radiology: Radiology Impressions Chest X-Ray 03/08/24 20:37 IMPRESSION: Left lower lobe atelectasis versus minimal infiltrate. Laboratory Results WBC 17.23 10^3/uL (3.29-11.43) H 03/08/24 21: RBC 4.20 10^6/uL (3.85-5.65) 03/08/24 21: Hgb 13.00 g/dL (11.27-16.99) 03/08/24 21: Hct 37.8 % (36-47) 03/08/24 21: MCV 90.0 fl (85-98) 03/08/24: MCH 31.0 pg (27-33) 03/08/24 21: MCHC 34.4 g/dL (30-55) 03/08/24: RDW 12.5 % (12.1-15.1) 03/08/24: Plt Count 381 10^3/cmm (157-399) 03/08/24 21: MPV 11.1 fL (7.4-10.4) H 03/08/24 21: Neut % (Auto) 66.7 % 03/08/24: Lymph % (Auto) 22.1 % 03/08/24 21: [place] % (Auto) 8.5 % 03/08/24 21: Eos % (Auto) 2.0 % 03/08/24 21: Baso % (Auto) 0.3 % 03/08/24: Neut # (Auto) 11.50 10^3/uL (1.8-7.7) H 03/08/24 21: Lymph # (Auto) 3.8 10^3/uL (0.8-4.8) 03/08/24: [place] # (Auto) 1.5 10^3/uL (0.2-0.9) H 03/08/24 21:25 Eos # (Auto) 0.3 10^3/uL (0.0-0.8) 03/08/24 21:25 Baso # (Auto) 0.1 10^3/uL (0.0-0.1) 03/08/24 21:25 Nucleated RBC % (auto) 0 % 03/08/24: Nucleated RBCs # 0.0 /100WBC 03/08/24 21: Sodium 132 mmol/L (136-145) L 03/08/24 21:25 Potassium 3.5 mmol/L (3.5-5.1) 03/08/24: Chloride 91 mmol/L (98-107) L 03/08/24: Carbon Dioxide 29 mmol/L (22-29) 03/08/24: Anion Gap 15.5 (5-19) 03/08/24 21: BUN 23 mg/dL (8-23) 03/08/24: Creatinine 0.6 mg/dL (0.5-0.9) 03/08/24: GFR Calculation Not Reportable 03/08/24: Glucose 115 mg/dL (65-115) 03/08/24: Calculated Osmolality 279 mOsm/kg (285-295) L 03/08/24: Lactic Acid 1.5 mmol/L (0.5-2.2) 03/08/24: Calcium 9.3 mg/dL (8.5-10.5) 03/08/24: Magnesium 2.1 mg/dL (1.7-2.3) 03/08/24: Total Bilirubin 0.4 mg/dL (0.15-1.2) 03/08/24 21: AST 19 U/L (0-32) 03/08/24 21: ALT 24 U/L (0-33) 03/08/24:25 Alkaline Phosphatase 96 U/L (35-105) 03/08/24 21:25 Troponin T Baseline 9 ng/L (0-10) 03/08/24 21:25 Troponin T 120 Minute 8.77 ng/L (0-10) 03/08/24 23:40 Delta Troponin T -0.23 ABS# (0-10) L 03/08/24 23:40 NT-Pro-B Natriuret Pep 69 pg/mL (0-125) 03/08/24 21:25 Total Protein 7.1 g/dL (6.6-8.7) 03/08/24 21:25 Albumin 4.0 g/dL (3.5-5.2) 03/08/24 21:25 Globulin 3.1 g/dL (1.3-4.6) 03/08/24 21:25 Procalcitonin 0.04 ng/mL (0-0.5) 03/08/24 21:25 All radiology interpretation(s) finalized by discharge Discharge Plan Discharge Patient Disposition: Home Clinical Impression: Chest pain Left lower lobe pneumonia Qualifiers: Pneumonia type: due to unspecified organism Qualified Code(s): J18.9 - Pneumonia, unspecified organism Condition: Stable Prescriptions: New amoxicillin-pot clavulanate 875-125 mg tablet 1 tab PO Q12H Qty: 20 0RF No Action cholecalciferol (vitamin D3) 125 mcg (5,000 unit) capsule 125 mcg PO DAILY calcium carbonate [Calcium 600] 600 mg calcium (1,500 mg) tablet 600 mg PO DAILY ascorbic acid (vitamin C) 1,000 mg tablet 1 gm PO DAILY (DME) kafo See Rx Instructions .Route .MEDSUPPLY Qty: 1 0RF Rx Instructions: As directed Double upright locking hinge KAFO furosemide 20 mg tablet 20 mg PO DAILY Qty: 90 1RF potassium chloride 10 mEq capsule, extended release 20 meq PO DAILY Qty: 90 3RF amoxicillin-pot clavulanate 875-125 mg tablet PO nitrofurantoin monohyd/m-cryst 100 mg capsule PO nitroglycerin 0.4 mg tablet, sublingual 0.4 mg sublingual Q5M PRN (Reason: chest pain) Qty: 20 0RF Rx Instructions: do not exceed 3 doses per episode diltiazem HCl [Cartia XT] 180 mg capsule,extended release 24hr 180 mg PO BID Qty: 60 11RF Hold Instructions: Resume on 02/07/23. hold until bp improves cyclobenzaprine 10 mg tablet 10 mg PO TID PRN (Reason: Pain) Qty: 90 2RF alprazolam 0.5 mg tablet 0.5 mg PO DAILY PRN (Reason: anxiety) Qty: 30 0RF budesonide-formoterol [Symbicort] 80-4.5 mcg/actuation HFA aerosol inhaler 2 puff inhalation BID Qty: 10.2 3RF hydrochlorothiazide 25 mg tablet 25 mg PO DAILY Qty: 90 3RF tramadol 50 mg tablet 50 mg PO TID PRN (Reason: pain) 14 Days Qty: 42 0RF lisinopril 10 mg tablet 10 mg PO DAILY fluticasone propionate 50 mcg/actuation spray,suspension 2 spray INTRANASAL DAILY PRN (Reason: Allergic Symptoms) Discharge Orders: Discharge ED (Routine); Ordered 03/09/24 Ordered By: Harpreet Mcdermott Referrals: Seamus Schroeder, [Primary Care Provider] - 1 week Patient Instructions: Pneumonia (ED), Chest Pain (ED) Activity Restrictions/Additional Instructions: Please take all your antibiotics as directed. Please follow-up with your friend proximal physician within next 7 days for further evaluation testing. If your chest pain worsens please feel free to return to the ER. Coding Level of Care Code ED Accounts Receivable Manager for Charlotte Callaway
[2024-03-08 21:58] LABS: Troponin(5th) Baseline 9 ng/L (0-10)
[2024-03-08 22:02] VITALS: BP 118/58; PULSE 78; RESP 20
[2024-03-08 22:08] LABS: Alanine Aminotransferase 24 U/L (0-33); Alkaline Phosphatase 96 U/L (35-105); Anion Gap 15.5 (5-19); Aspartate Amino Transferase 19 U/L (0-32); Blood Urea Nitrogen 23 mg/dL (8-23); Calcium 9.3 mg/dL (8.5-10.5); Carbon Dioxide 29 mmol/L (22-29); Chloride 91 mmol/L (98-107); Creatinine Clr Calc Pharmacy 77.5855; Globulin 3.1 g/dL (1.3-4.6); Glucose 115 mg/dL (65-115); Magnesium 2.1 mg/dL (1.7-2.3); NT Pro B Type Natriuretic Pept 69 pg/mL (0-125); Osmolality Calculated 279 mOsm/kg (285-295); Potassium 3.5 mmol/L (3.5-5.1); Sodium 132 mmol/L (136-145); Total Bilirubin 0.4 mg/dL (0.15-1.2); Total Protein 7.1 g/dL (6.6-8.7)
[2024-03-08 22:12] LABS: Lactic Sepsis W/Reflex 1.5 mmol/L (0.5-2.2)
[2024-03-08 22:20] LABS: Procalcitonin 0.04 ng/mL (0-0.5)
[2024-03-08 23:30] VITALS: BP 115/60; RESP 19
[2024-03-08] MEDS: amoxicillin-clav 875-125 mg Tablet 1 TAB PO (23:59)
[2024-03-09 00:04] VITALS: BP 126/87; PULSE 78; RESP 22
[2024-03-09 00:17] LABS: Troponin 5 2HR 8.77 ng/L (0-10)
[2024-03-09 00:18] LABS: Troponin 5 2HR Delta -0.23 ABS# (0-10)
[2024-03-09 01:08] VITALS: BP 126/87; RESP 24
== END 2024-03-09 01:23 | disposition home or self-care (01) ==
PROVIDERS: Emergency Provider Emergency Medicine; PCP Electrodiagnostic Medicine
DX: R07.9 Chest pain, unspecified (principal); J18.9 Pneumonia, unspecified organism; E78.5 Hyperlipidemia, unspecified; I42.5 Other restrictive cardiomyopathy; I11.0 Hypertensive heart disease with heart failure; I50.30 Unspecified diastolic (congestive) heart failure; Z87.891 Personal history of nicotine dependence
CPT/HCPCS: 36415; 71045; 80053; 83605; 83735; 83880; 84145; 84484; 85025; 87040; 93005; 99285

== ENCOUNTER → 2024-03-12 16:37 | Outpatient (BNVA) | payer MEDICARE, SELFPAY | PROVIDERS: PCP Electrodiagnostic Medicine; Visit Provider Internal Medicine | DX: R07.9 Chest pain, unspecified (principal); I10 Essential (primary) hypertension; I50.33 Acute on chronic diastolic (congestive) heart failure | CPT/HCPCS: 36415; 80048; 83880; 99214 ==

== ENCOUNTER 2024-03-19 08:49 | Outpatient (CLI) | payer MEDICARE, OTHER, SELFPAY ==
--- NOTE | 2024-03-19 | ECG_ITS ---
[facility] Test Date: 2024-03-19 Pat Name: Anita Harmon Department: Room: Gender: Female Heel Breaster: Sanjana Cha : 1950 Requested By: Girma Corona Order Number: [id number] Fuentes MD: Girma Corona M.D. Interpretive Statements NAME OF STUDY: LEXISCAN SESTAMIBI STRESS TEST INDICATION: [Chest Pain, SOB, ] Procedure: At the baseline, the blood pressure was 138/69 mmHg with a heart rate of 73 bpm. The electrocardiogram showed normal sinus rhythm, normal axis with normal ST and T's. The Lexiscan was infused over a period of 20 seconds. A total of 0.4 mg of Lexiscan was infused. The stress phase was continued for a total of 5 minutes. Heart rate was at the end of stress phase was 86 bpm and a blood pressure of 126/59 mmHg. The EKG at the peak infusion revealed normal sinus rhythm with no significant ST-T wave changes. Sestamibi was injected 20 seconds after the Lexiscan infusion. Blood pressure at the end of recovery phase was 125/61 mmHg with a heart rate of 81 bpm. Conclusion: 1. Normal EKG response to Lexiscan infusion 2. No Lexiscan induced chest pain or cardiac arrhythmia. 3. Normal blood pressure and heart rate response. 4. Sestamibi/sestamibi perfusion scan pending; see separate report. Electronically Signed On 04-03-2024 9:42:25 CDT by Girma Corona M.D. [id number]
[2024-03-19 09:36] VITALS: BMI 35.7
--- NOTE | 2024-03-19 09:38 | NMCV_ITS ---
NM ignacio perf SPECT r/s* [id number] Anita Harmon Age: 73 Gender: F : 1950 Exam Date: 03/19/2024 09:54 Ordering Phys: Girma Corona M.D ([email or web address]) Technologist: CHASITY Dempsey Exam Location: [facility] Indications: CHEST PAIN STRESS TEST Please see separate stress test report in [facility] for full findings IMAGE PROTOCOL Rest/Stress 1 Lexiscan Day Radiopharmaceutical Dose (mCi) Administration Site Administered by Rest: Tc-99m 10.8 IV CHASITY Norman Sestamibi Stress:Tc-99m 32.4 IV CHASITY Norman Sestamibi Rest: 19-Mar-2024 60 Discovery 630 Stress: 19-Mar-2024 30 Discovery 630 0.4mg Lexiscan. Supine position only as patient was unable to lay prone. SPECT RESULTS Technical Quality: Excellent Raw Data Analysis: Normal Image Corrections: No attenuation or motion correction applied Summed Stress Score: 1 Summed Rest Score: 4 Summed Difference Score: 0 PERFUSION FINDINGS SPECT images demonstrate homogeneous tracer distribution throughout the myocardium. FUNCTIONAL RESULTS (calculated via Gated SPECT) Stress Image LV EF (%): 90 Stress EDV (mL):49 TID: 0.9 Stress ESV (mL):5 FUNCTIONAL FINDINGS: There is normal left ventricular systolic function. IMPRESSIONS 1. Normal myocardial perfusion imaging with no evidence of ischemia 2. LV systolic function is normal. Girma Corona MD (Electronically Signed) Final Date: 20 Mar 2024 09:43 S
[2024-03-19] MEDS: regadenoson 0.4 Mg/5 ml Syringe 0.400000000000000022 MG IVP (10:38)
[2024-03-19 10:47] VITALS: BP 125/61; PULSE 80
== END 2024-03-19 08:50 | disposition home or self-care (01) ==
LOC: CDL 08:49
PROVIDERS: PCP Electrodiagnostic Medicine; Visit Provider Internal Medicine
DX: R07.9 Chest pain, unspecified (principal); R06.02 Shortness of breath
CPT/HCPCS: 36415; 78452; 93017; 96374; A9500; J2785

== ENCOUNTER 2024-03-21 09:15 | Outpatient (CLI) | payer MEDICARE, OTHER, SELFPAY ==
--- NOTE | 2024-03-21 09:30 | USCV_ITS ---
Anita Harmon Age: 73 Gender: F : 1950 Exam Date: 03/21/2024 09:38 Ordering Phys: Girma Corona M.D ([email or web address]) Technologist: [place] [facility] [place]: murmur BP: 134 / 74 HR: 80 Rhythm: Sinus Technical Quality: Adequate MEASUREMENTS (Male / Female) Normal Values 2D ECHO LV Diastolic Diameter PLAX 3.6 cm 4.2 - 5.9 / 3.9 - 5.3 cm IVS Diastolic Thickness 1.0 cm 0.6 - 1.0 / 0.6 - 0.9 cm IVS Systolic Thickness 1.3 cm LVPW Diastolic Thickness 1.2 cm 0.6 - 1.0 / 0.6 - 0.9 cm LVPW Systolic Thickness 1.4 cm LVOT Diameter 2.0 cm LV Ejection Fraction 2D Teich 65.4 % LV Ejection Fraction MOD 2C 79.6 % LV Ejection Fraction 2C AL 79.5 % LA Diameter 3.9 cm RA Systolic Volume 4C AL 38.1 ml RA Systolic Volume 4C MOD 37.2 ml LA Sys Volume AL 53.7 cm cubed LA Sys Volume Index AL 29.0 cm cubed/m squared Aorta at Sinotubular Diameter 2.4 cm M-MODE LA Ao Ratio MM 1.1 AV Cusp Separation MM 1.7 cm DOPPLER AV Peak Velocity 129.0 cm/s LVOT Peak Velocity 105.0 cm/s AV Area Cont Eq vti 2.7 cm squared AV Area Cont Eq pk 2.7 cm squared MV Area PHT 3.6 cm squared TV Peak Velocity 264.3 cm/s TR Peak Velocity 279.0 cm/s TR Peak Gradient 31.1 mmHg TV Peak E Velocity 78.0 cm/s Right Atrial Pressure 3.0 mmHg Pulmonary Artery Systolic Pressu 34.1 mmHg PV Peak Velocity 98.0 cm/s FINDINGS Left Ventricle Left ventricle is normal size. LV systolic function is normal with EF of 55-60%. No regional wall motion abnormalities are seen. Grade 1 diastolic dysfunction Right Ventricle Normal in size and function Right Atrium Normal in size Left Atrium Normal in size Mitral Valve Mild mitral annular calcification. Trace mitral regurgitation. Aortic Valve Structurally normal aortic valve. No significant stenosis or regurgitation. Tricuspid Valve Mild tricuspid regurgitation. RVSP is 35 to 40 mmHg. This is consistent with mild pulmonary hypertension. Pulmonic Valve Mild pulmonic regurgitation. Pericardium Normal Aorta Normal in size IVC Appears to be normal CONCLUSIONS LV systolic function is normal with EF of 55-60% Grade 1 diastolic dysfunction Trace mitral regurgitation Mild tricuspid regurgitation Mild pulmonary hypertension Mild pulmonic regurgitation Compared to prior echocardiogram from 2022, no significant changes are seen Girma Corona MD (Electronically Signed) Final Date: 02 Apr 2024 18:19 S
[2024-03-21] MEDS: perflutren protein-a microsphr 0.22 mg/mL SDV 3 mL IV (10:28)
== END 2024-03-21 09:16 | disposition home or self-care (01) ==
LOC: RAD 09:16
PROVIDERS: PCP Electrodiagnostic Medicine; Visit Provider Internal Medicine
DX: R07.9 Chest pain, unspecified (principal); R06.02 Shortness of breath; I50.30 Unspecified diastolic (congestive) heart failure; I07.1 Rheumatic tricuspid insufficiency; I27.20 Pulmonary hypertension, unspecified; I37.1 Nonrheumatic pulmonary valve insufficiency
CPT/HCPCS: C8929; Q9956

== ENCOUNTER → 2024-03-29 08:52 | Outpatient (BNVA) | payer MEDICARE, OTHER, SELFPAY | PROVIDERS: PCP Electrodiagnostic Medicine; Visit Provider Nurse Practitioner Family | DX: I11.0 Hypertensive heart disease with heart failure (principal); I50.30 Unspecified diastolic (congestive) heart failure; Z87.891 Personal history of nicotine dependence | CPT/HCPCS: 99214 ==

== ENCOUNTER 2024-04-17 20:00 | Outpatient (CLI) | payer MEDICARE, OTHER, SELFPAY | END 2024-04-17 20:01 | disposition home or self-care (01) | LOC: SLEEP 04-18 06:23 | PROVIDERS: PCP Electrodiagnostic Medicine; Visit Provider Electrodiagnostic Medicine | DX: G47.33 Obstructive sleep apnea (adult) (pediatric) (principal); G47.36 Sleep related hypoventilation in conditions classified elsewhere | CPT/HCPCS: 95810 ==

== ENCOUNTER → 2024-04-24 14:21 | Outpatient (BNVA) | payer MEDICARE, OTHER, SELFPAY | PROVIDERS: PCP Electrodiagnostic Medicine; Visit Provider Dermatology | DX: D48.5 Neoplasm of uncertain behavior of skin (principal); L82.1 Other seborrheic keratosis; L64.8 Other androgenic alopecia; L82.0 Inflamed seborrheic keratosis; L81.4 Other melanin hyperpigmentation; L73.8 Other specified follicular disorders; L70.0 Acne vulgaris | CPT/HCPCS: 11102; 17110; 99204 ==

== ENCOUNTER → 2024-05-14 11:10 | Outpatient (BNVA) | payer MEDICARE, OTHER, SELFPAY | PROVIDERS: PCP Electrodiagnostic Medicine; Visit Provider Dermatology | DX: D04.5 Carcinoma in situ of skin of trunk (principal); D48.5 Neoplasm of uncertain behavior of skin; L70.0 Acne vulgaris | CPT/HCPCS: 11104; 17262; 99213 ==

== ENCOUNTER → 2024-06-05 15:24 | Outpatient (BNVA) | payer MEDICARE, OTHER, SELFPAY | PROVIDERS: PCP Electrodiagnostic Medicine; Visit Provider Student in an Organized Health Care Education/Training Program | DX: Z96.649 Presence of unspecified artificial hip joint (principal); M25.551 Pain in right hip; M25.552 Pain in left hip | CPT/HCPCS: 99213 ==

== ENCOUNTER 2024-07-30 19:21 | Emergency (ER) | payer MEDICARE, OTHER, SELFPAY ==
[2024-07-30 19:23] VITALS: BP 146/79; PULSE 79; RESP 20; TEMP 36.4; O2SAT 100; BMI 35.5
--- NOTE | 2024-07-30 19:28 | XRR_ITS ---
PROCEDURE INFORMATION: Exam: XR Chest Exam date and time: 07/30/2024 7:44 PM Age: 73 years old Clinical indication: Shortness of breath; Additional info: pranav PINEDA TECHNIQUE: Imaging protocol: Radiologic exam of the chest. Views: 1 view. COMPARISON: CR XR chest 2V* [id number] 07/25/2024 2:26 PM FINDINGS: Lungs: Left basilar hazy densities. Right lung clear. Low lung volumes. Pleural spaces: Unremarkable. No pleural effusion. No pneumothorax. Heart/Mediastinum: Unremarkable. No cardiomegaly. Vascular calcification. Bones/joints: Unremarkable. XR/XR chest 1V portable [id number] IMPRESSION: Small area of left lung base atelectasis or airspace disease possible.
--- NOTE | 2024-07-30 19:29 | ECG_ITS ---
[facility] Test Date: 2024-07-30 Pat Name: Anita Harmon Department: Room: Gender: Female [employer]: : [id number] Requested By: Harry Marsh Order Number: [id number] Fuentes MD: Girma Corona M.D. Measurements Intervals [place] Rate: 78 P: 48 WI: 142 QRS: 30 QRSD: 98 T: 42 QT: 400 QTc: 458 Interpretive Statements SINUS RHYTHM Compared to ECG 03/08/2024 20:24:47 No significant changes Electronically Signed On 07-31-2024 7:57:23 CDT by Girma Corona M.D. [id number]
[2024-07-30 19:30] VITALS: BP 146/79; PULSE 79; RESP 18; O2SAT 97
--- NOTE | 2024-07-30 19:32 | W.ED.CHESTPA ---
HPI - Chest Pain General: Chief Complaint: Chest Pain Stated Complaint: Chest Pain Time Seen by Provider: 07/30/24 19:25 History of Present Illness: 73-year-old female presents with some generalized malaise and not feeling well for about 3 weeks. Patient was brought via EMS. Patient complained of a little bit of chest pain today and a 4 pound weight gain. She had a history of CHF. She reports that she just has some generalized fatigue and malaise started about 3 weeks ago got better and encounter came back over the last few days. Patient does report she took a nitro earlier and it felt better. She reports she has taken a total of 3 over the last couple weeks. Associated symptoms: Reports dyspnea; Deny abdominal pain, nausea or vomiting Related Data Home Medications Medication Instructions Recorded Confirmed ascorbic acid (vitamin C) 1,000 mg 1 gm PO DAILY 09/17/20 06/05/24 tablet calcium carbonate (Calcium 600) 600 mg PO DAILY 09/17/20 06/05/24 cholecalciferol (vitamin D3) 125 125 mcg PO DAILY 09/17/20 06/05/24 mcg (5,000 unit) capsule fluticasone propionate 50 2 spray intranasal DAILY PRN 07/13/23 06/05/24 mcg/actuation nasal Allergic Symptoms spray,suspension lisinopril 10 mg tablet 10 mg PO DAILY 07/13/23 06/05/24 Previous Rx's Medication Instructions Recorded kafo #1 ea 09/28/22 nitroglycerin 0.4 mg sublingual 0.4 mg sublingual Q5M PRN chest 10/21/22 tablet pain #20 tabs Cartia XT 180 mg capsule,extended 180 mg PO BID #60 caps 10/29/22 release (diltiazem HCl) cyclobenzaprine 10 mg tablet 10 mg PO TID PRN Pain #90 tabs 01/17/23 alprazolam 0.5 mg tablet 0.5 mg PO DAILY PRN anxiety #30 01/19/23 tabs budesonide-formoterol HFA 80 2 puff inhalation BID #10.2 grams 02/09/23 mcg-4.5 mcg/actuation aerosol inhaler (Symbicort) hydrochlorothiazide 25 mg tablet 25 mg PO DAILY #90 tabs 01/31/24 potassium chloride 10 mEq 20 meq (2 x 10 mEq) PO DAILY #90 02/16/24 capsule,extended release caps amoxicillin 875 mg-potassium 1 tab PO Q12H #20 tabs 03/09/24 clavulanate 125 mg tablet amoxicillin 500 mg capsule 2,000 mg (4 x 500 mg) PO ONCE #4 07/19/24 caps furosemide 20 mg tablet 20 mg PO DAILY #90 tabs 07/20/24 amoxicillin 500 mg-potassium 1 tab PO Q12H #10 tabs 07/30/24 clavulanate 125 mg tablet (Augmentin) Allergies Allergy/AdvReac Type Severity Reaction Status Date / Time Lqefrfa-LLG-UkE Reductase Allergy Severe legs feel Verified 06/05/24 15:34 Inhibitor like rubber [Zsrmbfg-Kec-Lfu Reductase Inhibitor] Corticosteroids Allergy hypoglobuli Verified 06/05/24 15:34 (Glucocorticoids) nemia Review of Systems Const: Reports: fatigue and malaise Card: Reports: chest pain Resp: Reports: dyspnea and non-productive cough GI: Denies: abdominal pain, nausea or vomiting Skin/Breast: Denies: rash Neuro: Denies: headache(s) PFSH ED PFSH: Medical History Hyperlipidemia Degenerative arthritis Degenerative joint disease of spine Nonfamilial hypogammaglobulinemia Fibromyalgia Aortic atherosclerosis Restrictive cardiomyopathy Asthma Diverticulosis Post-polio syndrome Recurrent UTI Diastolic heart failure History of aortic stenosis Hypertension Surgical History History of total hip arthroplasty Hx of adenoidectomy History of tonsillectomy History of surgery on lower extremity 3 surgeries on the right leg, 1 surgery on left leg H/O partial thyroidectomy H/O cardiac radiofrequency ablation History of ear surgery tube in left ear History of colonoscopy with polypectomy H/O total hysterectomy H/O repair of right rotator cuff H/O repair of left rotator cuff Family History Mother Stroke Hypertension Family/Other Diabetes maternal aunt Thyroid disease maternal, maternal great aunt Breast cancer maternal aunt, age onset in her 50's Colon cancer, Onset Age: 61 maternal uncle Grandmother Stroke maternal, maternal great grandmother Father Hypertension Denies family history of Ovarian cancer Clotting disorder Heart disease Hyperlipidemia Anesthesia complication Bleeding disorder Uterine cancer Social History (Reviewed 07/30/24 @ 19:34 by STANLEY Kate Smoking and tobacco/nicotine status: never used tobacco/nicotine Quit status (tobacco/nicotine): has quit using Year quit tobacco: smoked as a tean for 3 ye Alcohol intake: never Substance/Drug Use: never Marital status: Marital status details: to Richard Do you think of yourself as: Straight/Heterosexual Physical Exam Const: COMMON NORMALS: no acute distress, patient oriented x3 and alert Resp: COMMON NORMALS: normal respiratory effort and No use of accessory muscles AUSCULTATION: diminished lung sounds diffuse (very mild ) Cardio: COMMON NORMALS: regular rate and regular rhythm RATE: regular rate RHYTHM: regular rhythm GI: COMMON NORMALS: Soft to palpation and non-tender PALPATION: Yes Soft to palpation Neuro: COMMON NORMALS: patient oriented x3 SENSORIUM/ORIENTATION: Yes alert Psych: COMMON NORMALS: mental status grossly normal, cooperative and normal affect Course Vital Signs: Vital signs: Vital Signs Temperature 97.5 F L 07/30/24 19:23 Pulse Rate 83 07/30/24 21:00 Respiratory Rate 18 07/30/24 19:30 Blood Pressure 138/83 07/30/24 21:00 Pulse Oximetry 100 07/30/24 21:00 Oxygen Delivery Me thod Room Air 07/30/24 21:00 MDM - Chest Pain Medical Decision Making Patient's diagnostic studies were ordered reviewed interpreted by me. She has a very minimal elevation of her white count. She has x-ray that shows may be some atelectasis versus airspace or bronchitis with final interpretation per radiology report. Patient's labs otherwise show no acute findings. There is no signs of any edema, elevated BNP to indicate CHF component. Patient been having some generalized malaise, fatigue weakness and feeling ill for about 3 weeks. With elevated white count, symptoms I will start her on Augmentin for bronchitis for 5 days. Patient should follow-up with her primary care provider after that for further evaluation and repeat testing. Patient is EKG shows normal sinus rhythm with heart rate 78, ND 142, QRS 98 with no acute changes . she is stable discharged home Lab Data 07/30/24 20:19 07/30/24 20:19 Radiology Impressions Chest X-Ray 07/30/24 19:28 IMPRESSION: Small area of left lung base atelectasis or airspace disease possible. Laboratory Results WBC 12.82 10^3/uL (3.29-11.43) H 07/30/24 20:19 RBC 4.23 10^6/uL (3.85-5.65) 07/30/24 20:19 Hgb 12.50 g/dL (11.27-16.99) 07/30/24 20:19 Hct 37.7 % (36-47) 07/30/24 20:19 MCV 89.1 fl (85-98) 07/30/24 20:19 MCH 29.6 pg (27-33) 07/30/24 20:19 MCHC 33.2 g/dL (30-55) 07/30/24 20:19 RDW 13.7 % (12.1-15.1) 07/30/24 20:19 Plt Count 313 10^3/cmm (157-399) 07/30/24 20:19 MPV 11.5 fL (7.4-10.4) H 07/30/24 20:19 Neut % (Auto) 59.8 % 07/30/24 20:19 Lymph % (Auto) 26.0 % 07/30/24 20:19 [place] % (Auto) 11.3 % 07/30/24 20:19 Eos % (Auto) 2.3 % 07/30/24 20:19 Baso % (Auto) 0.3 % 07/30/24 20:19 Neut # (Auto) 7.66 10^3/uL (1.8-7.7) 07/30/24 20:19 Lymph # (Auto) 3.3 10^3/uL (0.8-4.8) 07/30/24 20:19 [place] # (Auto) 1.5 10^3/uL (0.2-0.9) H 07/30/24 20:19 Eos # (Auto) 0.3 10^3/uL (0.0-0.8) 07/30/24 20:19 Baso # (Auto) 0.0 10^3/uL (0.0-0.1) 07/30/24 20:19 Nucleated RBC % (auto) 0 % 07/30/24 20:19 Nucleated RBCs # 0.0 /100WBC 07/30/24 20:19 Sodium 140 mmol/L (136-145) 07/30/24 20:19 Potassium 3.3 mmol/L (3.5-5.1) L 07/30/24 20:19 Chloride 101 mmol/L (98-107) 07/30/24 20:19 Carbon Dioxide 27 mmol/L (22-29) 07/30/24 20:19 Anion Gap 15.3 (5-19) 07/30/24 20:19 BUN 22 mg/dL (8-23) 07/30/24 20:19 Creatinine 0.6 mg/dL (0.5-0.9) 07/30/24 20:19 GFR Calculation Not Reportable 07/30/24 20:19 Glucose 110 mg/dL (65-115) 07/30/24 20:19 Calculated Osmolality 294 mOsm/kg (285-295) 07/30/24 20:19 Calcium 9.1 mg/dL (8.5-10.5) 07/30/24 20:19 Troponin T Baseline 10 ng/L (0-10) 07/30/24 20:19 NT-Pro-B Natriuret Pep 101 pg/mL (0-125) 07/30/24 20:19 Urine Color Yellow (Yellow) 07/30/24 19:46 Urine Appearance Clear (CLEAR) 07/30/24 19:46 Urine pH 5 (5-7) 07/30/24 19:46 Ur Specific [place] 1.010 (1.005-1.030) 07/30/24 19:46 Urine Protein Neg (Negative) 07/30/24 19:46 Urine Glucose (UA) Norm (Normal) 07/30/24 19:46 Urine Ketones Negative (Negative) 07/30/24 19:46 Urine Blood Neg (Negative) 07/30/24 19:46 Urine Nitrate Negative (Negative) 07/30/24 19:46 Urine Bilirubin Neg (Negative) 07/30/24 19:46 Urine Urobilinogen Norm mg/dL (Negative) 07/30/24 19:46 Ur Leukocyte Esterase Negative (Negative) 07/30/24 19:46 Amorphous Sediment Not Reportable 07/30/24 19:46 Coronavirus (PCR) Negative (Negative) 07/30/24 19:46 Influenza A (PCR) Negative (Negative) 07/30/24 19:46 Influenza Type B (PCR) Negative (Negative) 07/30/24 19:46 RSV (PCR) Negative (Negative) 07/30/24 19:46 All radiology interpretation(s) finalized by discharge Discharge Plan Discharge Patient Disposition: Home Clinical Impression: Bronchitis Condition: Stable Prescriptions: New Augmentin 500-125 mg tablet 1 tab PO Q12H Qty: 10 0RF No Action cholecalciferol (vitamin D3) 125 mcg (5,000 unit) capsule 125 mcg PO DAILY calcium carbonate [Calcium 600] 600 mg calcium (1,500 mg) tablet 600 mg PO DAILY ascorbic acid (vitamin C) 1,000 mg tablet 1 gm PO DAILY (DME) kafo See Rx Instructions .Route .MEDSUPPLY Qty: 1 0RF Rx Instructions: As directed Double upright locking hinge KAFO potassium chloride 10 mEq capsule, extended release 20 meq PO DAILY Qty: 90 3RF nitroglycerin 0.4 mg tablet, sublingual 0.4 mg sublingual Q5M PRN (Reason: chest pain) Qty: 20 0RF Rx Instructions: do not exceed 3 doses per episode diltiazem HCl [Cartia XT] 180 mg capsule,extended release 24hr 180 mg PO BID Qty: 60 11RF Hold Instructions: Resume on 02/07/23. hold until bp improves cyclobenzaprine 10 mg tablet 10 mg PO TID PRN (Reason: Pain) Qty: 90 2RF alprazolam 0.5 mg tablet 0.5 mg PO DAILY PRN (Reason: anxiety) Qty: 30 0RF budesonide-formoterol [Symbicort] 80-4.5 mcg/actuation HFA aerosol inhaler 2 puff inhalation BID Qty: 10.2 3RF hydrochlorothiazide 25 mg tablet 25 mg PO DAILY Qty: 90 3RF amoxicillin 500 mg capsule 2,000 mg PO ONCE Qty: 4 2RF Rx Instructions: take all four capsules one hour prior to dental work- furosemide 20 mg tablet 20 mg PO DAILY Qty: 90 1RF lisinopril 10 mg tablet 10 mg PO DAILY fluticasone propionate 50 mcg/actuation spray,suspension 2 spray INTRANASAL DAILY PRN (Reason: Allergic Symptoms) amoxicillin-pot clavulanate 875-125 mg tablet 1 tab PO Q12H Qty: 20 0RF Discharge Orders: Discharge ED (Routine); Ordered 07/30/24 Ordered By: Harry Marsh Referrals: Seamus Schroeder DO [Primary Care Provider] - Discharge Diet: Usual diet Discharge Activity: Resume usual activity Patient Instructions: Acute Bronchitis (ED), Weakness (ED), Fatigue (ED), Opioid Safety, Pain Management Activity Restrictions/Additional Instructions: Please follow-up with your primary care provider in 3 to 4 days for recheck of your symptoms. Coding Level of Care Code ED Floor Covering Printer Assistant for Charlotte Callaway
[2024-07-30 19:54] LABS: Add Urine Microscopic? NO
[2024-07-30 20:00] VITALS: BP 154/72; PULSE 81; O2SAT 97
[2024-07-30 20:11] LABS: Bilirubin Urine Neg (Negative); Blood Urine Neg (Negative); Glucose Urine UA Norm (Normal); Ketones Urine Negative (Negative); Leukocyte Esterase Urine Negative (Negative); Nitrate Urine Negative (Negative); Protein Urine Neg (Negative); Urine Appearance Clear (CLEAR); Urine Color Yellow (Yellow); Urobilinogen Urine Norm (Negative); pH Urine 5 (5-7)
[2024-07-30 20:12] LABS: Charge for UA Resulting for Rev
[2024-07-30 20:26] LABS: Basophils % 0.3 %; Eosinophils # 0.3 10^3/uL (0.0-0.8); Eosinophils % 2.3 %; Hematocrit 37.7 % (36-47); Lymphocytes # 3.3 10^3/uL (0.8-4.8); Mean Corpuscular HGB Conc 33.2 g/dL (30-55); Mean Corpuscular Hemoglobin 29.6 pg (27-33); Mean Corpuscular Volume 89.1 fl (85-98); Mean Platelet Volume 11.5 fL (7.4-10.4); Monocytes # 1.5 10^3/uL (0.2-0.9); Monocytes % 11.3 %; Neutrophils # 7.66 10^3/uL (1.8-7.7); Neutrophils % 59.8 %; Nucleated Red Blood Cells % 0 %; Platelet Count 313 10^3/cmm (157-399); Red Blood Count 4.23 10^6/uL (3.85-5.65); Red Cell Distribution Width 13.7 % (12.1-15.1); White Blood Count 12.82 10^3/uL (3.29-11.43)
[2024-07-30 20:38] LABS: Covid PCR NEGATIVE (Negative); Influenza A NEGATIVE (Negative); Influenza B NEGATIVE (Negative); Respiratory Syncytial Virus Ce NEGATIVE (Negative)
[2024-07-30 20:46] LABS: Troponin(5th) Baseline 10 ng/L (0-10)
[2024-07-30 20:55] LABS: Anion Gap 15.3 (5-19); Blood Urea Nitrogen 22 mg/dL (8-23); Calcium 9.1 mg/dL (8.5-10.5); Carbon Dioxide 27 mmol/L (22-29); Chloride 101 mmol/L (98-107); Creatinine Clr Calc Pharmacy 76.2408; Glucose 110 mg/dL (65-115); NT Pro B Type Natriuretic Pept 101 pg/mL (0-125); Osmolality Calculated 294 mOsm/kg (285-295); Potassium 3.3 mmol/L (3.5-5.1); Sodium 140 mmol/L (136-145)
[2024-07-30 21:00] VITALS: BP 138/83; PULSE 83; O2SAT 100
[2024-07-30] MEDS: amoxicillin-clav 875-125 mg Tablet 1 TAB PO (21:21)
[2024-07-30 21:29] VITALS: BP 147/60; PULSE 84; RESP 16; O2SAT 98
== END 2024-07-30 21:30 | disposition home or self-care (01) ==
PROVIDERS: Emergency Provider Student in an Organized Health Care Education/Training Program; PCP Electrodiagnostic Medicine
DX: J40 Bronchitis, not specified as acute or chronic (principal); Z87.891 Personal history of nicotine dependence; E78.5 Hyperlipidemia, unspecified; I11.0 Hypertensive heart disease with heart failure; I50.30 Unspecified diastolic (congestive) heart failure
CPT/HCPCS: 0241U; 71045; 80048; 81003; 83880; 84484; 85025; 93005; 99285

== ENCOUNTER 2024-07-31 20:00 | Outpatient (CLI) | payer MEDICARE, OTHER, SELFPAY | END 2024-07-31 20:01 | disposition home or self-care (01) | LOC: SLEEP 23:07 | PROVIDERS: PCP Electrodiagnostic Medicine; Visit Provider Electrodiagnostic Medicine | DX: G47.33 Obstructive sleep apnea (adult) (pediatric) (principal) | CPT/HCPCS: 95811 ==

== ENCOUNTER 2024-08-13 12:21 | Oncology outpatient (recurring) (ONCR) | payer MEDICARE, OTHER, SELFPAY ==
[2024-08-06 12:40] LABS: Basophils % 0.3 %; Eosinophils # 0.3 10^3/uL (0.0-0.8); Hematocrit 40.9 % (36-47); Lymphocytes # 3.1 10^3/uL (0.8-4.8); Mean Corpuscular HGB Conc 32.5 g/dL (30-55); Mean Corpuscular Hemoglobin 29.1 pg (27-33); Mean Corpuscular Volume 89.5 fl (85-98); Mean Platelet Volume 11.6 fL (7.4-10.4); Monocytes # 1.1 10^3/uL (0.2-0.9); Monocytes % 7.9 %; Neutrophils # 9.64 10^3/uL (1.8-7.7); Neutrophils % 67.5 %; Nucleated Red Blood Cells % 0 %; Platelet Count 366 10^3/cmm (157-399); Red Blood Count 4.57 10^6/uL (3.85-5.65); Red Cell Distribution Width 13.9 % (12.1-15.1); White Blood Count 14.27 10^3/uL (3.29-11.43)
[2024-08-06 12:53] LABS: Alanine Aminotransferase 30 U/L (0-33); Albumin Level 4.4 g/dL (3.5-5.2); Alkaline Phosphatase 98 U/L (35-105); Anion Gap 16.2 (5-19); Aspartate Amino Transferase 26 U/L (0-32); Blood Urea Nitrogen 19 mg/dL (8-23); Calcium 9.5 mg/dL (8.5-10.5); Carbon Dioxide 27 mmol/L (22-29); Chloride 99 mmol/L (98-107); Globulin 3.2 g/dL (1.3-4.6); Glucose 102 mg/dL (65-115); Immunoglobulin IGA 108 mg/dL (70-400); Immunoglobulin IGG 859 mg/dL (700-1600); Immunoglobulin IGM 106 mg/dL (40-230); Osmolality Calculated 290 mOsm/kg (285-295); Potassium 3.2 mmol/L (3.5-5.1); Sodium 139 mmol/L (136-145); Total Bilirubin 0.6 mg/dL (0.15-1.2); Total Protein 7.6 g/dL (6.6-8.7)
[2024-08-07 07:55] LABS: PROTEIN, TOTAL 7.3 g/dL (6.1-8.1)
[2024-08-08 12:54] LABS: ALBUMIN 4.4 g/dL (3.8-4.8); ALPHA 1 GLOBULIN 0.4 g/dL (0.2-0.3); ALPHA 2 GLOBULIN 0.9 g/dL (0.5-0.9); BETA 1 GLOBULIN 0.6 g/dL (0.4-0.6); BETA 2 GLOBULIN 0.4 g/dL (0.2-0.5); GAMMA GLOBULIN 0.8 g/dL (0.8-1.7)
[2024-08-08 16:20] LABS: KAPPA LIGHT CHAIN, FREE, SERUM 15.6 mg/L (3.3-19.4); KAPPA/LAMBDA LIGHT CHAINS FREE 1.17 (0.26-1.65); LAMBDA LIGHT CHAIN, FREE, SERU 13.3 mg/L (5.7-26.3)
[2024-08-09 21:40] LABS: Immunofixation Serum Normal pattern.
== END 2024-08-13 23:59 | disposition home or self-care (01) ==
PROVIDERS: PCP Electrodiagnostic Medicine; Visit Provider Nurse Practitioner Family
DX: D80.1 Nonfamilial hypogammaglobulinemia (principal)
CPT/HCPCS: 36415; 80053; 82784; 83883; 84155; 84165; 85025; 86334; 99214

== ENCOUNTER 2024-08-20 18:05 | Emergency (ER) | payer MEDICARE, OTHER, SELFPAY ==
[2024-08-20 18:07] VITALS: BP 137/67; PULSE 105; RESP 18; TEMP 36.5; O2SAT 99; BMI 36.6
--- NOTE | 2024-08-20 18:20 | ED_ITS ---
HPI - General Adult General: Chief complaint: General Medical Stated complaint: SOB Time Seen by Provider: 08/20/24 18:06 History of Present Illness: 73-year-old female who presents to the e mergency room with shortness of breath and hip pain. She presents by ambulance. Both of these problems have been going on for some time now. She says her oxygen saturations were low today. In the 70s and 80s. This worried her greatly. EMS reports her oxygen saturations were in the 90s when they arrived. She is 99% on room air on my exam. He is also worried about chronic left hip pain. She wants me to run iron studies and prescribe her iron. I tried to explain that I will check her hemoglobin and see if she is anemic at which point we can discuss whether or not she needs iron supplementation but likely that will be through her primary provider. She had become quite angry with me and felt that I was yelling at her. Her and her family have decided to leave [place]. Related Data Home Medications Medication Instructions Recorded Confirmed ascorbic acid (vitamin C) 1,000 mg 1 gm PO DAILY 09/17/20 08/13/24 tablet calcium carbonate (Calcium 600) 600 mg PO DAILY 09/17/20 08/13/24 cholecalciferol (vitamin D3) 125 125 mcg PO DAILY 09/17/20 08/13/24 mcg (5,000 unit) capsule fluticasone propionate 50 2 spray intranasal DAILY PRN 07/13/23 08/13/24 mcg/actuation nasal Allergic Symptoms spray,suspension lisinopril 10 mg tablet 10 mg PO DAILY 07/13/23 08/13/24 hydrocodone 5 mg-acetaminophen 325 tab PO 08/13/24 08/13/24 mg tablet spironolactone 25 mg tablet mg PO 08/13/24 08/13/24 Previous Rx's Medication Instructions Recorded kafo #1 ea 09/28/22 nitroglycerin 0.4 mg sublingual 0.4 mg sublingual Q5M PRN chest 10/21/22 tablet pain #20 tabs Cartia XT 180 mg capsule,extended 180 mg PO BID #60 caps 10/29/22 release (diltiazem HCl) alprazolam 0.5 mg tablet 0.5 mg PO DAILY PRN anxiety #30 01/19/23 tabs budesonide-formoterol HFA 80 2 puff inhalation BID #10.2 grams 02/09/23 mcg-4.5 mcg/actuation aerosol inhaler (Symbicort) hydrochlorothiazide 25 mg tablet 25 mg PO DAILY #90 tabs 01/31/24 amoxicillin 875 mg-potassium 1 tab PO Q12H #20 tabs 03/09/24 clavulanate 125 mg tablet amoxicillin 500 mg capsule 2,000 mg (4 x 500 mg) PO ONCE #4 07/19/24 caps furosemide 20 mg tablet 20 mg PO DAILY #90 tabs 07/20/24 amoxicillin 500 mg-potassium 1 tab PO Q12H #10 tabs 07/30/24 clavulanate 125 mg tablet (Augmentin) potassium chloride 10 mEq 20 meq (2 x 10 mEq) PO DAILY #90 08/09/24 capsule,extended release caps Allergies Allergy/AdvReac Type Severity Reaction Status Date / Time Fiaomtn-IXF-AhJ Reductase Allergy Severe legs feel Verified 08/13/24 12:29 Inhibitor like rubber [Gizefpe-Gqh-Whm Reductase Inhibitor] Corticosteroids Allergy hypoglobuli Verified 08/13/24 12:29 (Glucocorticoids) nemia Review of Systems Narrative: Constitutional symptoms: Negative except as documented in HPI. Skin symptoms: Negative except as documented in HPI. Eye symptoms: Negative except as documented in HPI. ENMT symptoms: Negative except as documented in HPI. Respiratory symptoms: Negative except as documented in HPI. Cardiovascular symptoms: Negative except as documented in HPI. Gastrointestinal symptoms: Negative except as documented in HPI. Genitourinary symptoms: Negative except as documented in HPI. Musculoskeletal symptoms: Negative except as documented in HPI. Neurologic symptoms: Negative except as documented in HPI. Psychiatric symptoms: Negative except as documented in HPI. Endocrine symptoms: Negative except as documented in HPI. PFSH ED PFSH: Medical History Aortic atherosclerosis Asthma Degenerative arthritis Degenerative joint disease of spine Diastolic heart failure Diverticulosis Fibromyalgia History of aortic stenosis Hyperlipidemia Hypertension Nonfamilial hypogammaglobulinemia Post-polio syndrome Recurrent UTI Restrictive cardiomyopathy Surgical History H/O cardiac radiofrequency ablation H/O partial thyroidectomy H/O repair of left rotator cuff H/O repair of right rotator cuff H/O total hysterectomy History of colonoscopy with polypectomy History of ear surgery tube in left ear History of surgery on lower extremity 3 surgeries on the right leg, 1 surgery on left leg History of tonsillectomy History of total hip arthroplasty Hx of adenoidectomy Family History Mother Stroke Hypertension Family/Other Diabetes maternal aunt Thyroid disease maternal, maternal great aunt Breast cancer maternal aunt, age onset in her 50's Colon cancer, Onset Age: 61 maternal uncle Grandmother Stroke maternal, maternal great grandmother Father Hypertension Denies family history of Ovarian cancer Clotting disorder Heart disease Hyperlipidemia Anesthesia complication Bleeding disorder Uterine cancer Social History Smoking and tobacco/nicotine status: never used tobacco/nicotine Quit status (tobacco/nicotine): has quit using Year quit tobacco: smoked as a tean for 3 ye Alcohol intake: never Substance/Drug Use: never Marital status: Marital status details: to Richard Do you think of yourself as: Straight/Heterosexual Physical Exam Narrative: EXAM NARRATIVE: General: Alert, no acute distress. Skin: Warm, dry. Head: Normocephalic, atraumatic. Neck: Supple, trachea midline. Eye: Extraocular movements are intact. Ears, nose, mouth and throat: mucosa moist. Cardiovascular: Regular, Normal peripheral perfusion. Respiratory: Lungs are clear to auscultation, respirations are non-labored, breath sounds are equal, Symmetrical chest wall expansion. Gastrointestinal: Soft, Nontender, Non distended Musculoskeletal: Normal ROM, no deformity. Neurological: Alert and oriented, No focal neurological deficit observed. Psychiatric: Cooperative, appropriate mood & affect. Course Vital Signs: Vital signs: Vital Signs Temperature 97.7 F 08/20/24 18:07 Pulse Rate 105 H 08/20/24 18:07 Respiratory Rate 18 08/20/24 18:07 Blood Pressure 137/67 08/20/24 18:07 Pulse Oximetry 99 08/20/24 18:07 Oxygen Delivery Me thod Room Air 08/20/24 18:07 MDM - General Adult Medical Decision Making Patient was unhappy with me and left AMA. No radiology studies performed this visit Discharge Plan Discharge Patient Disposition: Left Against Medical Advice Clinical Impression: Shortness of breath, Chronic hip pain Condition: Stable Prescriptions: No Action cholecalciferol (vitamin D3) 125 mcg (5,000 unit) capsule 125 mcg PO DAILY calcium carbonate [Calcium 600] 600 mg calcium (1,500 mg) tablet 600 mg PO DAILY ascorbic acid (vitamin C) 1,000 mg tablet 1 gm PO DAILY (DME) kafo See Rx Instructions .Route .MEDSUPPLY Qty: 1 0RF Rx Instructions: As directed Double upright locking hinge KAFO hydrocodone-acetaminophen 5-325 mg tablet PO spironolactone 25 mg tablet PO nitroglycerin 0.4 mg tablet, sublingual 0.4 mg sublingual Q5M PRN (Reason: chest pain) Qty: 20 0RF Rx Instructions: do not exceed 3 doses per episode diltiazem HCl [Cartia XT] 180 mg capsule,extended release 24hr 180 mg PO BID Qty: 60 11RF Hold Instructions: Resume on 02/07/23. hold until bp improves alprazolam 0.5 mg tablet 0.5 mg PO DAILY PRN (Reason: anxiety) Qty: 30 0RF budesonide-formoterol [Symbicort] 80-4.5 mcg/actuation HFA aerosol inhaler 2 puff inhalation BID Qty: 10.2 3RF hydrochlorothiazide 25 mg tablet 25 mg PO DAILY Qty: 90 3RF amoxicillin 500 mg capsule 2,000 mg PO ONCE Qty: 4 2RF Rx Instructions: take all four capsules one hour prior to dental work- furosemide 20 mg tablet 20 mg PO DAILY Qty: 90 1RF potassium chloride 10 mEq capsule, extended release 20 meq PO DAILY Qty: 90 3RF lisinopril 10 mg tablet 10 mg PO DAILY fluticasone propionate 50 mcg/actuation spray,suspension 2 spray INTRANASAL DAILY PRN (Reason: Allergic Symptoms) Augmentin 500-125 mg tablet 1 tab PO Q12H Qty: 10 0RF amoxicillin-pot clavulanate 875-125 mg tablet 1 tab PO Q12H Qty: 20 0RF Referrals: Seamus Schroeder DO [Primary Care Provider] - Coding Level of Care Code ED Transportation Assistant for Trixieg Nilton
== END 2024-08-20 18:39 | disposition left against medical advice (07) ==
PROVIDERS: Emergency Provider Emergency Medicine; PCP Electrodiagnostic Medicine
DX: R06.02 Shortness of breath (principal); G89.29 Other chronic pain; M25.552 Pain in left hip; Z87.891 Personal history of nicotine dependence; I11.0 Hypertensive heart disease with heart failure; I50.30 Unspecified diastolic (congestive) heart failure; E78.5 Hyperlipidemia, unspecified; Z96.649 Presence of unspecified artificial hip joint
CPT/HCPCS: 99281

== ENCOUNTER 2024-09-09 19:37 | Emergency (ER) | payer MEDICARE, OTHER, SELFPAY ==
--- NOTE | 2024-09-09 19:37 | ECG_ITS ---
[facility] Date: 2024-09-09 Pat Name: Anita Harmon Department: Room: Gender: Female Methods Examiner: : 1950 Requested By: Omero Han Order Number: [id number] Fuentes MD: Camden Ba M.D. Measurements Intervals Nelson Rate: 96 P: 53 RI: 139 QRS: 29 QRSD: 92 T: 44 QT: 347 QTc: 438 Interpretive Statements SINUS RHYTHM WITH OCCASIONAL VENTRICULAR PREMATURE COMPLEXES Compared to ECG 07/30/2024 19:26:33 Ventricular premature complex(es) now present Electronically Signed On 09-10-2024 00:12:24 CDT by Camden Ba M.D. [email or web address]
[2024-09-09 19:38] VITALS: BP 146/75; PULSE 97; RESP 18; TEMP 36.4; O2SAT 97; BMI 36.6
--- NOTE | 2024-09-09 19:39 | XRR_ITS ---
PROCEDURE INFORMATION: Exam: XR Chest Exam date and time: 09/09/2024 8:21 PM Age: 73 years old Clinical indication: Chest pressure; Prior surgery; Surgery date: 6+ months; Surgery type: Cardiac stent, cardiac ablation, RT rotator cuff repair; Patient HX: Chest pain TECHNIQUE: Imaging protocol: Radiologic exam of the chest. Views: 1 view. COMPARISON: CR (CHEST, ) 07/30/2024 7:44 PM FINDINGS: Lungs: Subsegmental atelectasis/scarring in the left lung base. No consolidation. Pleural spaces: Unremarkable. No pleural effusion. No pneumothorax. Heart/Mediastinum: Unremarkable. No cardiomegaly. Bones/joints: Surgical anchors in the right humeral head. XR/XR chest 1V portable [id number] IMPRESSION: No acute findings.
[2024-09-09 20:07] LABS: Basophils % 0.3 %; Eosinophils # 0.3 10^3/uL (0.0-0.8); Eosinophils % 2.6 %; Hematocrit 43.4 % (36-47); Lymphocytes # 3.7 10^3/uL (0.8-4.8); Lymphocytes % 27.7 %; Mean Corpuscular HGB Conc 32.5 g/dL (30-55); Mean Corpuscular Hemoglobin 29.3 pg (27-33); Mean Platelet Volume 11.1 fL (7.4-10.4); Monocytes % 7.5 %; Neutrophils # 8.15 10^3/uL (1.8-7.7); Neutrophils % 61.5 %; Nucleated Red Blood Cells % 0 %; Platelet Count 359 10^3/cmm (157-399); Red Blood Count 4.82 10^6/uL (3.85-5.65); Red Cell Distribution Width 13.6 % (12.1-15.1); White Blood Count 13.24 10^3/uL (3.29-11.43)
[2024-09-09 20:25] LABS: Troponin(5th) Baseline 10 ng/L (0-10)
[2024-09-09 20:34] LABS: Alanine Aminotransferase 24 U/L (0-33); Albumin Level 4.8 g/dL (3.5-5.2); Alkaline Phosphatase 98 U/L (35-105); Anion Gap 16.6 (5-19); Aspartate Amino Transferase 18 U/L (0-32); Blood Urea Nitrogen 25 mg/dL (8-23); Calcium 9.9 mg/dL (8.5-10.5); Carbon Dioxide 29 mmol/L (22-29); Chloride 99 mmol/L (98-107); Creatinine Clr Calc Pharmacy 78.4832; Globulin 2.2 g/dL (1.3-4.6); Glucose 129 mg/dL (65-115); Lipase 44 U/L (13-60); Osmolality Calculated 296 mOsm/kg (285-295); Potassium 4.6 mmol/L (3.5-5.1); Sodium 140 mmol/L (136-145); Total Bilirubin 0.3 mg/dL (0.15-1.2)
--- NOTE | 2024-09-09 22:12 | CTR_ITS ---
PROCEDURE INFORMATION: Exam: CTA Neck With Contrast Exam date and time: 09/09/2024 11:11 PM Age: 73 years old Clinical indication: Other: RT side neck pain; Patient HX: C/O RT sided anterior neck pain with very prominent pulse. ; Additional info: Right side neck pain with abnormal pulse. Dissection? TECHNIQUE: Imaging protocol: Computed tomographic angiography of the neck with contrast. Exam focused on the cervical segments of the vasculature. 3D rendering (Not supervised by radiologist): MIP and/or 3D reconstructed images were created by the technologist. Radiation optimization: All CT scans at this facility use at least one of these dose optimization techniques: automated exposure control; mA and/or kV adjustment per patient size (includes targeted exams where dose is matched to clinical indication); or iterative reconstruction. Contrast material: OMNI 350; Contrast volume: 100 ml; Contrast route: INTRAVENOUS (IV); COMPARISON: CT neck w con* [id number] 10/03/2020 9:12 AM RADIATION DOSE METRICS: Total DLP (mGy-cm): 335.14 FINDINGS: Tubes, catheters and devices: Peripheral enhancement along portions of the left internal jugular vein is likely related to reflux of contrast from the left subclavian vein from power injection. Right common carotid artery: No stenosis. No dissection or occlusion. Right internal carotid artery: No stenosis of the extracranial segment. No dissection or occlusion. Right external carotid artery: No occlusion or stenosis of the origin. Left common carotid artery: No stenosis. No dissection or occlusion. Left internal carotid artery: No stenosis of the extracranial segment. No dissection or occlusion. Left external carotid artery: No occlusion or stenosis of the origin. Right vertebral artery: No stenosis. No dissection or occlusion. Left vertebral artery: No stenosis. No dissection or occlusion. Other arteries: Mild atherosclerotic calcifications along the visualized carotid siphons without stenosis. Thyroid: Stable appearance of the thyroid with prior right hemithyroidectomy. Enlarged left thyroid lobe with numerous nodules measuring up to 11 mm. A few of these nodules appear slightly increased in size since 2019. Soft tissues: Normal. No significant soft tissue swelling. Bones/joints: No acute fracture. Other findings: Mild atherosclerotic calcifications of bilateral carotid bulbs, [id number]-right, without hemodynamically significant stenosis by NASCET criteria. CT/CT angio neck [id number] IMPRESSION: 1. No evidence of dissection, stenosis or occlusion. 2. Enlarged, heterogeneous left thyroid lobe with multiple nodules measuring up to 11 mm, some of which appear minimally increased in size since 2020. However, a nonemergent dedicated thyroid ultrasound may be of benefit to further characterize these nodules. COMMENTS: Consistent with the [employer]'s Incidental Findings Committee white paper (J Am Mayo Radiol 2015): In patients aged 35 years and older with an incidental thyroid nodule equal to or greater than 1.[address], MRI or extrathyroidal US, further evaluation with dedicated thyroid US is recommended for patients with normal life expectancy and without comorbidities. For smaller nodules without suspicious features, no further evaluation or follow up is recommended. REFERENCES: NASCET CRITERIA. The degree of stenosis in the cervical segment of the internal carotid artery is based on NASCET criteria. Normal is no stenosis. Mild is less than 50% stenosis. Moderate is 50-69% stenosis. Severe is 70% to 99% stenosis. Total occlusion is no detectable patent lumen.
[2024-09-09 22:34] LABS: Troponin 5 2HR 10.15 ng/L (0-10); Troponin 5 2HR Delta 0.15 ABS# (0-10)
--- NOTE | 2024-09-09 22:45 | W.ED.CHESTPA ---
HPI - Chest Pain General: Chief Complaint: Chest Pain Stated Complaint: chest pain Time Seen by Provider: 09/09/24 21:54 History of Present Illness: 73-year-old female patient with no prior history of coronary disease. She presents with a pain that was sudden onset to the right side of the base of her neck anteriorly. It radiated up to her right ear. She felt pain in her chest and back in the upper right side as well. This seemed to self resolve, but then happened again later. Pain is mostly resolved now, but she still feels sore in her neck, and in the upper chest. She was mildly short of breath. She is no longer. She denies any fever or other symptoms. No trauma. She was sitting in her chair when this happened. Related Data Home Medications Medication Instructions Recorded Confirmed ascorbic acid (vitamin C) 1,000 mg 1 gm PO DAILY 09/17/20 08/13/24 tablet calcium carbonate (Calcium 600) 600 mg PO DAILY 09/17/20 08/13/24 cholecalciferol (vitamin D3) 125 125 mcg PO DAILY 09/17/20 08/13/24 mcg (5,000 unit) capsule fluticasone propionate 50 2 spray intranasal DAILY PRN 07/13/23 08/13/24 mcg/actuation nasal Allergic Symptoms spray,suspension lisinopril 10 mg tablet 10 mg PO DAILY 07/13/23 08/13/24 hydrocodone 5 mg-acetaminophen 325 tab PO 08/13/24 08/13/24 mg tablet spironolactone 25 mg tablet mg PO 08/13/24 08/13/24 Previous Rx's Medication Instructions Recorded kafo #1 ea 09/28/22 nitroglycerin 0.4 mg sublingual 0.4 mg sublingual Q5M PRN chest 10/21/22 tablet pain #20 tabs Cartia XT 180 mg capsule,extended 180 mg PO BID #60 caps 10/29/22 release (diltiazem HCl) alprazolam 0.5 mg tablet 0.5 mg PO DAILY PRN anxiety #30 01/19/23 tabs budesonide-formoterol HFA 80 2 puff inhalation BID #10.2 grams 02/09/23 mcg-4.5 mcg/actuation aerosol inhaler (Symbicort) hydrochlorothiazide 25 mg tablet 25 mg PO DAILY #90 tabs 01/31/24 amoxicillin 875 mg-potassium 1 tab PO Q12H #20 tabs 03/09/24 clavulanate 125 mg tablet amoxicillin 500 mg capsule 2,000 mg (4 x 500 mg) PO ONCE #4 07/19/24 caps furosemide 20 mg tablet 20 mg PO DAILY #90 tabs 07/20/24 amoxicillin 500 mg-potassium 1 tab PO Q12H #10 tabs 07/30/24 clavulanate 125 mg tablet (Augmentin) potassium chloride 10 mEq 20 meq (2 x 10 mEq) PO DAILY #90 08/09/24 capsule,extended release caps Allergies Allergy/AdvReac Type Severity Reaction Status Date / Time Jxbrldk-ZKU-DzD Reductase Allergy Severe legs feel Verified 08/13/24 12:29 Inhibitor like rubber [Emfslbv-Hau-Mzs Reductase Inhibitor] Corticosteroids Allergy hypoglobuli Verified 08/13/24 12:29 (Glucocorticoids) nemia [facility] ED PFSH: Medical History Hyperlipidemia Degenerative arthritis Degenerative joint disease of spine Nonfamilial hypogammaglobulinemia Fibromyalgia Aortic atherosclerosis Restrictive cardiomyopathy Asthma Diverticulosis Post-polio syndrome Recurrent UTI Diastolic heart failure History of aortic stenosis Hypertension Surgical History History of total hip arthroplasty Hx of adenoidectomy History of tonsillectomy History of surgery on lower extremity 3 surgeries on the right leg, 1 surgery on left leg H/O partial thyroidectomy H/O cardiac radiofrequency ablation History of ear surgery tube in left ear History of colonoscopy with polypectomy H/O total hysterectomy H/O repair of right rotator cuff H/O repair of left rotator cuff Family History Mother Stroke Hypertension Family/Other Diabetes maternal aunt Thyroid disease maternal, maternal great aunt Breast cancer maternal aunt, age onset in her 50's Colon cancer, Onset Age: 61 maternal uncle Grandmother Stroke maternal, maternal great grandmother Father Hypertension Denies family history of Ovarian cancer Clotting disorder Heart disease Hyperlipidemia Anesthesia complication Bleeding disorder Uterine cancer Social History Smoking and tobacco/nicotine status: never used tobacco/nicotine Quit status (tobacco/nicotine): has quit using Year quit tobacco: smoked as a tean for 3 ye Alcohol intake: never Substance/Drug Use: never Marital status: Marital status details: to Richard Do you think of yourself as: Straight/Heterosexual Physical Exam Const: COMMON NORMALS: no acute distress GENERAL APPEARANCE: cooperative; not ill appearing and not frail appearing HENMT: COMMON NORMALS: normocephalic, atraumatic and Normal external nose present HEAD & SCALP: normocephalic and atraumatic FACE & SINUS: normal facial exam and face symmetric NOSE: Normal external nose present Eye: COMMON NORMALS: Equal, round and reactive pupils present and EOMs intact bilaterally PUPIL: Yes Equal, round and reactive pupils present Neck/C-Spine: GENERAL: Yes trachea midline OTHER: Palpable bounding pulse at the base of the right neck. Asymmetrical to the left. Carotid is tender in this area. No bruit Chest: CHEST: Yes Symmetrical chest wall rise Resp: COMMON NORMALS: normal respiratory effort, No retractions, No use of accessory muscles and clear to auscultation bilaterally AUSCULTATION: clear to auscultation bilaterally Cardio: COMMON NORMALS: regular rate and regular rhythm RATE: regular rate RHYTHM: regular rhythm GI: COMMON NORMALS: Normal to inspection, nondistended, normoactive bowel sounds present Extremity: COMMON NORMALS: no pedal edema Neuro: STEFAN COMA SCALE: document GCS findings [place] coma scale eye opening: Spontaneous Stefan coma scale verbal response: Orientated [place] coma scale motor response: Obey commands Stefan coma scale total score: 15 SENSORY EXAM: Yes extremities (intact) Psych: COMMON NORMALS: speech normal SPEECH: Yes normal speech Skin: COMMON NORMALS: no rashes or lesions noted GENERAL SKIN EXAM: no rashes or lesions noted Course Vital Signs: Vital signs: Vital Signs Temperature 97.5 F L 09/09/24 19:38 Pulse Rate 72 09/10/24 00:41 Respiratory Rate 17 09/09/24 23:06 Blood Pressure 110/42 09/10/24 00:41 Pulse Oximetry 96 09/10/24 00:41 Oxygen Delivery Me thod Room Air 09/09/24 23:06 MDM - Chest Pain Medical Decision Making Vitals are good. Chest is nonacute on x-ray. White blood cell count is 13.2. BUN is 25. Troponin is normal at 0 and 2 hours. CTA of the neck, completed because of palpable bounding widened pulse at the base of the neck that is tender, is pending. CTA does not reveal any aneurysm, dissection, etc. There are thyroid nodules on the left, which are known to her. She will follow-up as an outpatient regarding this. Lab Data 09/09/24 19:59 09/09/24 19:59 Radiology Impressions Chest X-Ray 09/09/24 19:39 IMPRESSION: No acute findings. Neck CTA 09/09/24 22:12 IMPRESSION: 1. No evidence of dissection, stenosis or occlusion. 2. Enlarged, heterogeneous left thyroid lobe with multiple nodules measuring up to 11 mm, some of which appear minimally increased in size since 2020. However, a nonemergent dedicated thyroid ultrasound may be of benefit to further characterize these nodules. COMMENTS: Consistent with the [employer]'s Incidental Findings Committee white paper (J Am Mayo Radiol 2015): In patients aged 35 years and older with an incidental thyroid nodule equal to or greater than 1.[address], MRI or extrathyroidal US, further evaluation with dedicated thyroid US is recommended for patients with normal life expectancy and without comorbidities. For smaller nodules without suspicious features, no further evaluation or follow up is recommended. REFERENCES: NASCET CRITERIA. The degree of stenosis in the cervical segment of the internal carotid artery is based on NASCET criteria. Normal is no stenosis. Mild is less than 50% stenosis. Moderate is 50-69% stenosis. Severe is 70% to 99% stenosis. Total occlusion is no detectable patent lumen. Laboratory Results WBC 13.24 10^3/uL (3.29-11.43) H 09/09/24 19:59 RBC 4.82 10^6/uL (3.85-5.65) 09/09/24 19:59 Hgb 14.10 g/dL (11.27-16.99) 09/09/24 19:59 Hct 43.4 % (36-47) 09/09/24 19:59 MCV 90.0 fl (85-98) 09/09/24 19:59 MCH 29.3 pg (27-33) 09/09/24 19:59 MCHC 32.5 g/dL (30-55) 09/09/24 19:59 RDW 13.6 % (12.1-15.1) 09/09/24 19:59 Plt Count 359 10^3/cmm (157-399) 09/09/24 19:59 MPV 11.1 fL (7.4-10.4) H 09/09/24 19:59 Neut % (Auto) 61.5 % 09/09/24 19:59 Lymph % (Auto) 27.7 % 09/09/24 19:59 [place] % (Auto) 7.5 % 09/09/24 19:59 Eos % (Auto) 2.6 % 09/09/24 19:59 Baso % (Auto) 0.3 % 09/09/24 19:59 Neut # (Auto) 8.15 10^3/uL (1.8-7.7) H 09/09/24 19:59 Lymph # (Auto) 3.7 10^3/uL (0.8-4.8) 09/09/24 19:59 [place] # (Auto) 1.0 10^3/uL (0.2-0.9) H 09/09/24 19:59 Eos # (Auto) 0.3 10^3/uL (0.0-0.8) 09/09/24 19:59 Baso # (Auto) 0.0 10^3/uL (0.0-0.1) 09/09/24 19:59 Nucleated RBC % (auto) 0 % 09/09/24 19:59 Nucleated RBCs # 0.0 /100WBC 09/09/24 19:59 Sodium 140 mmol/L (136-145) 09/09/24 19:59 Potassium 4.6 mmol/L (3.5-5.1) 09/09/24 19:59 Chloride 99 mmol/L (98-107) 09/09/24 19:59 Carbon Dioxide 29 mmol/L (22-29) 09/09/24 19:59 Anion Gap 16.6 (5-19) 09/09/24 19:59 BUN 25 mg/dL (8-23) H 09/09/24 19:59 Creatinine 0.8 mg/dL (0.5-0.9) 09/09/24 19:59 GFR Calculation Not Reportable 09/09/24 19:59 Glucose 129 mg/dL (65-115) H 09/09/24 19:59 Calculated Osmolality 296 mOsm/kg (285-295) H 09/09/24 19:59 Calcium 9.9 mg/dL (8.5-10.5) 09/09/24 19:59 Total Bilirubin 0.3 mg/dL (0.15-1.2) 09/09/24 19:59 AST 18 U/L (0-32) 09/09/24 19:59 ALT 24 U/L (0-33) 09/09/24 19:59 Alkaline Phosphatase 98 U/L (35-105) 09/09/24 19:59 Troponin T Baseline 10 ng/L (0-10) 09/09/24 19:59 Troponin T 120 Minute 10.15 ng/L (0-10) H 09/09/24 21:58 Delta Troponin T 0.15 ABS# (0-10) 09/09/24 21:58 Total Protein 7.0 g/dL (6.6-8.7) 09/09/24 19:59 Albumin 4.8 g/dL (3.5-5.2) 09/09/24 19:59 Globulin 2.2 g/dL (1.3-4.6) 09/09/24 19:59 Lipase 44 U/L (13-60) 09/09/24 19:59 All radiology interpretation(s) finalized by discharge Discharge Plan Discharge Patient Disposition: Home Clinical Impression: Acute neck pain Chest pain Qualifiers: Chest pain type: unspecified Qualified Code(s): R07.9 - Chest pain, unspecified Condition: Stable Prescriptions: No Action cholecalciferol (vitamin D3) 125 mcg (5,000 unit) capsule 125 mcg PO DAILY calcium carbonate [Calcium 600] 600 mg calcium (1,500 mg) tablet 600 mg PO DAILY ascorbic acid (vitamin C) 1,000 mg tablet 1 gm PO DAILY (DME) kafo See Rx Instructions .Route .MEDSUPPLY Qty: 1 0RF Rx Instructions: As directed Double upright locking hinge KAFO hydrocodone-acetaminophen 5-325 mg tablet PO spironolactone 25 mg tablet PO nitroglycerin 0.4 mg tablet, sublingual 0.4 mg sublingual Q5M PRN (Reason: chest pain) Qty: 20 0RF Rx Instructions: do not exceed 3 doses per episode diltiazem HCl [Cartia XT] 180 mg capsule,extended release 24hr 180 mg PO BID Qty: 60 11RF Hold Instructions: Resume on 02/07/23. hold until bp improves alprazolam 0.5 mg tablet 0.5 mg PO DAILY PRN (Reason: anxiety) Qty: 30 0RF budesonide-formoterol [Symbicort] 80-4.5 mcg/actuation HFA aerosol inhaler 2 puff inhalation BID Qty: 10.2 3RF hydrochlorothiazide 25 mg tablet 25 mg PO DAILY Qty: 90 3RF amoxicillin 500 mg capsule 2,000 mg PO ONCE Qty: 4 2RF Rx Instructions: take all four capsules one hour prior to dental work- furosemide 20 mg tablet 20 mg PO DAILY Qty: 90 1RF potassium chloride 10 mEq capsule, extended release 20 meq PO DAILY Qty: 90 3RF lisinopril 10 mg tablet 10 mg PO DAILY fluticasone propionate 50 mcg/actuation spray,suspension 2 spray INTRANASAL DAILY PRN (Reason: Allergic Symptoms) Augmentin 500-125 mg tablet 1 tab PO Q12H Qty: 10 0RF amoxicillin-pot clavulanate 875-125 mg tablet 1 tab PO Q12H Qty: 20 0RF Discharge Orders: Discharge ED (Routine); Ordered 09/10/24 Ordered By: Heath Zhou Referrals: Seamus Schroeder, [Primary Care Provider] - 1-3 days Patient Instructions: Chest Pain (ED), Acute Neck Pain (ED), Opioid Safety, Pain Management Activity Restrictions/Additional Instructions: Return for any new or concerning symptoms. See your doctor this week. Coding Level of Care Code ED Equipment Scheduler for Charlotte Callaway
[2024-09-09 23:06] VITALS: BP 105/59; PULSE 67; RESP 17; O2SAT 98
[2024-09-09] MEDS: iohexol 350 mg/mL 500 mL Btl (per mL) IV (23:16)
[2024-09-10 00:41] VITALS: BP 110/42; PULSE 72; O2SAT 96
== END 2024-09-10 00:43 | disposition home or self-care (01) ==
PROVIDERS: Emergency Medicine; Emergency Provider Emergency Medicine; PCP Electrodiagnostic Medicine
DX: M54.2 Cervicalgia (principal); R07.9 Chest pain, unspecified
CPT/HCPCS: 36415; 70498; 71045; 80053; 83690; 84484; 85025; 93005; 99285

== ENCOUNTER 2024-09-12 13:24 | Outpatient (CLI) | payer MEDICARE, OTHER, SELFPAY ==
--- NOTE | 2024-09-12 13:26 | CTR_ITS ---
PROCEDURE INFORMATION: Exam: CT Temporal Bones Without Contrast. Exam date and time: 09/12/2024 1:53 PM Age: 73 years old Clinical indication: Pain; Other: Otitis media; Prior surgery; Surgery date: 6+ months; Surgery type: Tubes; Additional info: Chronic serous otitis media, bilateral TECHNIQUE: Imaging protocol: Computed tomography of the temporal bones without contrast. Radiation optimization: All CT scans at this facility use at least one of these dose optimization techniques: automated exposure control; mA and/or kV adjustment per patient size (includes targeted exams where dose is matched to clinical indication); or iterative reconstruction. COMPARISON: CT angio neck [id number] 09/09/2024 11:11 PM RADIATION DOSE METRICS: Total DLP (mGy-cm): 397.83 FINDINGS: Right inner ear: Unremarkable appearance of the cochlea, vestibule and semicircular canals. Normal size of the internal auditory canal. Right ossicles and middle ear: No opacification. The ossicles are preserved. No erosion of the scutum. Right external auditory canal: Normal. Right facial nerve canal: Normal. Right jugular foramen: No jugular dehiscence. Right carotid canal: No aberrant carotid canal. Right mastoid air cells: Partial opacification of the inferior air cells. No opacification in the antrum. Left inner ear: Unremarkable appearance of the cochlea, vestibule and semicircular canals. Normal size of the internal auditory canal. Left ossicles and middle ear: No opacification. The ossicles are preserved. No erosion of the scutum. Myringotomy tube is in place. Left external auditory canal: Normal. Left facial nerve canal: Normal. Left jugular foramen: No jugular dehiscence. Left carotid canal: No aberrant carotid canal. Left mastoid air cells: Minimal opacification in a couple of inferior most air cells, otherwise with normal aeration. Soft tissues: Unremarkable. CT/CT temporal bone wo con* [id number] IMPRESSION: No opacification in the middle ear or ossicular destruction bilaterally. Left myringotomy tube is in place. Mild partial opacification of the inferior mastoid air cells more prominent on the right side.
== END 2024-09-12 13:25 | disposition home or self-care (01) ==
LOC: RAD 13:25
PROVIDERS: PCP Electrodiagnostic Medicine; Visit Provider Specialist
DX: H65.23 Chronic serous otitis media, bilateral (principal); H69.83 Other specified disorders of Eustachian tube, bilateral
CPT/HCPCS: 70480

== ENCOUNTER 2024-09-13 14:47 | Oncology outpatient (recurring) (ONCR) | payer MEDICARE, OTHER, SELFPAY ==
[2024-09-13 15:41] VITALS: BP 124/73; PULSE 76
[2024-09-13] MEDS: sodium chloride 0.9% 250 ML 75 ML IV (15:55)
[2024-09-13] MEDS: ferric carboxy (PYXIS) 750 MG in sodium chloride 0.9% (100 ml) 100 ML 345 MG IV (15:55)
[2024-09-13 16:29] VITALS: BP 117/68; PULSE 74; RESP 18; TEMP 36.8; O2SAT 98
== END 2024-09-13 23:59 | disposition home or self-care (01) ==
LOC: ONCMED 14:47
PROVIDERS: PCP Electrodiagnostic Medicine; Visit Provider Nurse Practitioner Family
DX: D80.1 Nonfamilial hypogammaglobulinemia (principal); D64.9 Anemia, unspecified; E87.6 Hypokalemia; Z87.891 Personal history of nicotine dependence; E78.6 Lipoprotein deficiency; I50.30 Unspecified diastolic (congestive) heart failure; R30.0 Dysuria; M62.838 Other muscle spasm; Z96.642 Presence of left artificial hip joint; Z87.440 Personal history of urinary (tract) infections
CPT/HCPCS: 96365; J1439; J7050

== ENCOUNTER 2024-09-20 14:44 | Oncology outpatient (recurring) (ONCR) | payer MEDICARE, OTHER, SELFPAY ==
[2024-09-20 15:10] VITALS: BP 153/79; PULSE 80; RESP 16; TEMP 36.5
[2024-09-20] MEDS: ferric carboxy (PYXIS) 750 MG in sodium chloride 0.9% (100 ml) 100 ML 345 MG IV (15:16)
[2024-09-20 15:48] VITALS: BP 153/80; PULSE 84; RESP 16; TEMP 36.6; O2SAT 98
== END 2024-10-13 23:59 | disposition home or self-care (01) ==
PROVIDERS: PCP Electrodiagnostic Medicine; Visit Provider Nurse Practitioner Family
DX: D80.1 Nonfamilial hypogammaglobulinemia (principal); Z79.899 Other long term (current) drug therapy; D50.9 Iron deficiency anemia, unspecified
CPT/HCPCS: 96365; J1439

== ENCOUNTER → 2024-10-23 13:20 | Outpatient (BNVA) | payer MEDICARE, OTHER, SELFPAY | PROVIDERS: PCP Electrodiagnostic Medicine; Visit Provider Nurse Practitioner Family | DX: L70.0 Acne vulgaris (principal); L82.1 Other seborrheic keratosis; L81.4 Other melanin hyperpigmentation; L73.8 Other specified follicular disorders; Z08 Encounter for follow-up examination after completed treatment for malignant neoplasm; Z85.828 Personal history of other malignant neoplasm of skin; B07.8 Other viral warts; L53.8 Other specified erythematous conditions | CPT/HCPCS: 17110; 99213 ==

== ENCOUNTER 2024-11-13 13:11 | Oncology outpatient (recurring) (ONCR) | payer MEDICARE, OTHER, SELFPAY ==
[2024-11-13 13:58] LABS: Basophils % 0.3 %; Eosinophils # 0.3 10^3/uL (0.0-0.8); Eosinophils % 2.6 %; Hematocrit 46.3 % (36-47); Lymphocytes # 3.6 10^3/uL (0.8-4.8); Lymphocytes % 31.3 %; Mean Corpuscular Volume 93.7 fl (85-98); Mean Platelet Volume 11.8 fL (7.4-10.4); Neutrophils # 6.48 10^3/uL (1.8-7.7); Neutrophils % 56.5 %; Nucleated Red Blood Cells % 0 %; Platelet Count 286 10^3/cmm (157-399); Red Blood Count 4.94 10^6/uL (3.85-5.65); Red Cell Distribution Width 14.2 % (12.1-15.1)
[2024-11-13 14:16] LABS: Alanine Aminotransferase 35 U/L (0-33); Albumin Level 4.4 g/dL (3.5-5.2); Alkaline Phosphatase 109 U/L (35-105); Anion Gap 15.3 (5-19); Aspartate Amino Transferase 23 U/L (0-32); Blood Urea Nitrogen 15 mg/dL (8-23); Calcium 9.7 mg/dL (8.5-10.5); Carbon Dioxide 27 mmol/L (22-29); Chloride 101 mmol/L (98-107); Creatinine Clr Calc Pharmacy 78.4832; Ferritin 961 ng/mL (15-150); Globulin 2.9 g/dL (1.3-4.6); Glucose 97 mg/dL (65-115); Iron 107 ug/dL (37-145); Osmolality Calculated 289 mOsm/kg (285-295); Percent Saturation 36.2 % (20-50); Potassium 4.3 mmol/L (3.5-5.1); Sodium 139 mmol/L (136-145); Total Bilirubin 0.6 mg/dL (0.15-1.2); Total Iron Binding Capacity 295 mcg/dl; Total Protein 7.3 g/dL (6.6-8.7); Unsaturated Iron Binding 188 ug/dL (112-347)
[2024-11-13 14:30] LABS: Immunoglobulin IGA 87 mg/dL (70-400); Immunoglobulin IGG 708 mg/dL (700-1600); Immunoglobulin IGM 71 mg/dL (40-230)
[2024-11-14 07:29] LABS: PROTEIN, TOTAL 7.2 g/dL (6.1-8.1)
[2024-11-15 11:30] LABS: KAPPA LIGHT CHAIN, FREE, SERUM 12.4 mg/L (3.3-19.4); KAPPA/LAMBDA LIGHT CHAINS FREE 1.24 (0.26-1.65)
[2024-11-15 20:39] LABS: ALBUMIN 4.6 g/dL (3.8-4.8); ALPHA 1 GLOBULIN 0.3 g/dL (0.2-0.3); ALPHA 2 GLOBULIN 0.9 g/dL (0.5-0.9); BETA 1 GLOBULIN 0.5 g/dL (0.4-0.6); BETA 2 GLOBULIN 0.4 g/dL (0.2-0.5); GAMMA GLOBULIN 0.7 g/dL (0.8-1.7)
== END 2024-11-13 23:59 | disposition home or self-care (01) ==
PROVIDERS: Nurse Practitioner Family; PCP Electrodiagnostic Medicine; Visit Provider Internal Medicine Medical Oncology
DX: D80.1 Nonfamilial hypogammaglobulinemia; D50.9 Iron deficiency anemia, unspecified; Z79.899 Other long term (current) drug therapy
CPT/HCPCS: 36415; 80053; 82728; 82784; 83540; 83550; 83883; 84155; 84165; 85025; 99214

== ENCOUNTER → 2024-11-16 09:55 | Outpatient (BNVA) | payer MEDICARE, OTHER, SELFPAY | PROVIDERS: PCP Electrodiagnostic Medicine; Referring Provider Internal Medicine Medical Oncology; Visit Provider Student in an Organized Health Care Education/Training Program | DX: R10.9 Unspecified abdominal pain; E61.1 Iron deficiency | CPT/HCPCS: 99204 ==

== ENCOUNTER 2024-12-10 10:54 | Day surgery (SDC) | payer MEDICARE, OTHER, SELFPAY ==
[2024-12-10 10:35] VITALS: BMI 36.3
[2024-12-10] MEDS: sodium chloride 0.9% 500 ML 15 ML IV (10:43)
[2024-12-10 10:56] VITALS: BP 154/75; PULSE 93; RESP 18; TEMP 37.1; O2SAT 98
--- NOTE | 2024-12-10 12:03 | W.PM.OPSUD ---
Surgery/Procedure H&P Update DATE OF PROCEDURE: December 10, 2024 DATE H&P PERFORMED: 11/16/24 H&P UPDATE INFORMATION: I have reviewed H&P completed within last 30 days, I have examined patient prior to procedure and No changes to prior documentation PLANNED PROCEDURE: Operation Date: 12/10/24 11:30 Proposed Procedures p EGD 69822, 51330, G0105, Z12.11, D64.9, R10.9, E61.1(Not Applicable) - Otto Draper MD s Colonoscopy(Not Applicable) - Otto Draper MD
--- NOTE | 2024-12-10 12:11 | ANES.PREANE2 ---
Pre-Anesthetic Assessment Height/Weight: Height 1.47 m Weight 78.925 kg Temp Pulse Resp BP Pulse Ox O2 Del Method 98.7 F 93 18 154/75 98 Room Air 12/10/24 10:56 12/10/24 10:56 12/10/24 10:56 12/10/24 10:56 12/10/24 10:56 12/10/24 10:56 Operation Date: 12/10/24 11:30 Proposed Procedures p EGD 37561, 07806, G0105, Z12.11, D64.9, R10.9, E61.1(Not Applicable) - Otto Draper MD s Colonoscopy(Not Applicable) - Otto Draper MD Familial anesthetic complications: None Was Beta Mamie taken within 24 hours: N/A Was Clonidine taken within 24 hours: N/A Last intake: Intake Last Liquid Date 12/09/24 Last Liquid Time 22:00 Last Solid Date 12/08/24 Social No alcohol and No tobacco Exam alert, oriented x 3, clear to auscultation bilaterally and regular rate & rhythm Airway Mallampati: Class I Dentition: full Pulmonary Asthma and Sleep Apnea CV/HEM Congestive Heart Failure and Hypertension Neuropsych post polio syndrome Anesthetic Plan ASA status: 4 Anesthesia: MAC Risk of > 500 ml blood loss (7ml/kg in children): No Medications/Allergies Home Medications Medication Instructions Recorded Confirmed Last Taken Type ascorbic acid (vitamin C) 1,000 mg 1 gm PO DAILY 09/17/20 12/06/24 12/09/24 History tablet calcium carbonate (Calcium 600) 600 mg PO DAILY 09/17/20 12/06/24 12/09/24 History cholecalciferol (vitamin D3) 125 125 mcg PO DAILY 09/17/20 12/06/24 12/09/24 History mcg (5,000 unit) capsule kafo #1 ea 09/28/22 11/16/24 Unknown Rx nitroglycerin 0.4 mg sublingual 0.4 mg sublingual Q5M PRN chest 10/21/22 12/10/24 12/03/24 Rx tablet pain #20 tabs alprazolam 0.5 mg tablet 0.5 mg PO DAILY PRN anxiety #30 01/19/23 12/10/24 01/26/23 Rx tabs lisinopril 10 mg tablet 5 mg PO DAILY PRN Hypertension 07/13/23 12/06/24 12/09/24 History hydrocodone 5 mg-acetaminophen 325 1 tab PO QID PRN Pain 08/13/24 12/06/24 12/09/24 History mg tablet spironolactone 25 mg tablet 25 mg PO DAILY 08/13/24 12/06/24 12/09/24 History albuterol sulfate 90 mcg/actuation 2 puff inhalation Q6H PRN 12/06/24 12/10/24 12/10/24 History aerosol inhaler Shortness Of Breath diltiazem HCl 180 mg 180 mg PO DAILY 12/06/24 12/06/24 12/10/24 History capsule,extended release 24 hr (Cartia XT) furosemide 40 mg tablet 40 mg PO DAILY PRN Edema 12/06/24 12/10/24 12/09/24 History gabapentin 300 mg capsule 300 mg PO DAILY PRN Pain 12/06/24 12/06/24 12/09/24 History montelukast 10 mg tablet 10 mg PO .EVENING 12/06/24 12/06/24 12/09/24 History omeprazole 20 mg capsule,delayed 20 mg PO DAILY 12/06/24 12/06/24 12/09/24 History release potassium chloride 10 mEq 40 meq PO DAILY 12/06/24 12/06/24 12/09/24 History capsule,extended release tizanidine 2 mg tablet 2 mg PO DAILY PRN Spasms 12/06/24 12/10/24 Unknown History Allergies Allergy/AdvReac Type Severity Reaction Status Date / Time Mpshbjy-TYG-UpG Reductase Allergy Severe legs feel Verified 12/10/24 10:48 Inhibitor like rubber [Vgwwwjt-Utl-Nlc Reductase Inhibitor] Corticosteroids Allergy hypoglobuli Verified 12/10/24 10:48 (Glucocorticoids) nemia Current Medications Generic Name Dose Route Start Last Admin Trade Name Freq PRN Reason Stop Dose Admin Sodium Chloride 500 mls @ 15 mls/hr 12/10/24 10:32 12/10/24 10:43 Sodium Chloride 0.9% IV 12/11/24 10:31 15 mls/hr .Q24H PRN Administration COLONOSCOPY FLUIDS PFSH Anesthesia Medical History Hyperlipidemia Degenerative arthritis Degenerative joint disease of spine Nonfamilial hypogammaglobulinemia Fibromyalgia Aortic atherosclerosis Restrictive cardiomyopathy Asthma Diverticulosis Post-polio syndrome Recurrent UTI Diastolic heart failure History of aortic stenosis Hypertension Surgical History History of total hip arthroplasty Hx of adenoidectomy History of tonsillectomy History of surgery on lower extremity 3 surgeries on the right leg, 1 surgery on left leg H/O partial thyroidectomy H/O cardiac radiofrequency ablation History of ear surgery tube in left ear History of colonoscopy with polypectomy H/O total hysterectomy H/O repair of right rotator cuff H/O repair of left rotator cuff Family History Mother Stroke Hypertension Family/Other Diabetes maternal aunt Thyroid disease maternal, maternal great aunt Breast cancer maternal aunt, age onset in her 50's Colon cancer, Onset Age: 61 maternal uncle Grandmother Stroke maternal, maternal great grandmother Father Hypertension Denies family history of Ovarian cancer Clotting disorder Heart disease Hyperlipidemia Anesthesia complication Bleeding disorder Uterine cancer Social History (Updated 11/16/24 @ 10:03 by Nafisa Armijo) Smoking and tobacco/nicotine status: former use of tobacco/nicotine Quit status (tobacco/nicotine): has quit using Year quit tobacco: smoked as a tean for 3 ye Alcohol intake: never Substance/Drug Use: never Marital status: Marital status details: to Richard Do you think of yourself as: Straight/Heterosexual Data Anesthesia Cardiac Studies: Echocardiogram 03/21/24 Echocardiogram Ultrasound 04/17/21 Sestamibi Stress Test (Cardiology) 03/19/24
[2024-12-10 12:43] VITALS: BP 151/71; PULSE 84; RESP 18; TEMP 36.1; O2SAT 96
[2024-12-10 12:55] VITALS: BP 135/81; PULSE 75; RESP 16; O2SAT 92
[2024-12-10 13:05] VITALS: BP 145/74; PULSE 73; RESP 16; O2SAT 92
--- NOTE | 2024-12-10 15:37 | ANE.PACU2 ---
Inpatient post-anesthesia follow up: Airway intact: Yes Vital signs: Temperature 97.0 F Pulse Rate 73 Respiratory Rate 16 Blood Pressure 145/74 Pulse Oximetry 92 Oxygen Delivery Me thod Room Air Oxygen Flow Rate Fraction of Inspir ed Oxygen Hydration adequate: Yes Nausea and vomiting: No Pain level: 1 Mental status: Baseline
== END 2024-12-10 13:16 | disposition home or self-care (01) ==
PROVIDERS: PCP Electrodiagnostic Medicine; Visit Provider Student in an Organized Health Care Education/Training Program
PROC: 0DJ08ZZ Inspection of Upper Intestinal Tract, Via Natural or Artificial Opening Endoscopic (ICD-10-PCS; principal; 2024-12-10 11:30)
PROC: 0DJD8ZZ Inspection of Lower Intestinal Tract, Via Natural or Artificial Opening Endoscopic (ICD-10-PCS; CPT 45378; 2024-12-10 11:30)
DX: Z12.11 Encounter for screening for malignant neoplasm of colon (principal); D12.0 Benign neoplasm of cecum; D12.3 Benign neoplasm of transverse colon; D12.2 Benign neoplasm of ascending colon; K29.50 Unspecified chronic gastritis without bleeding; D50.9 Iron deficiency anemia, unspecified; K57.30 Diverticulosis of large intestine without perforation or abscess without bleeding; I11.0 Hypertensive heart disease with heart failure; I50.32 Chronic diastolic (congestive) heart failure; G14 Postpolio syndrome; Z79.899 Other long term (current) drug therapy; Z88.8 Allergy status to other drugs, medicaments and biological substances; E78.5 Hyperlipidemia, unspecified; M47.9 Spondylosis, unspecified; Z80.0 Family history of malignant neoplasm of digestive organs; Z87.891 Personal history of nicotine dependence
CPT/HCPCS: 45380; 45385; 88305; J2704; J7040

== ENCOUNTER 2024-12-11 14:49 | Outpatient (CLI) | payer MEDICARE, OTHER, SELFPAY ==
--- NOTE | 2024-12-11 15:00 | USCV_ITS ---
Anita Harmon Age: 73 Gender: F : 1950 Exam Date: 12/11/2024 15:29 Ordering Phys: Samantha Morris Technologist: CT Exam [place] [facility] [place] Indication: SOB BP: 130 / 86 HR: 73 Rhythm: Sinus Technical Quality: Adequate MEASUREMENTS (Male / Female) Normal Values 2D ECHO LVOT Diameter 2.0 cm LV Ejection Fraction MOD 4C 59.8 % LV Ejection Fraction MOD 2C 62.1 % LV Ejection Fraction 2C AL 60.5 % LA Diameter 3.4 cm RA Systolic Volume 4C AL 38.1 ml RA Systolic Volume 4C MOD 38.1 ml LA Sys Volume AL 44.4 cm cubed LA Sys Volume Index AL 24.0 cm cubed/m squared Aorta at Sinotubular Diameter 2.3 cm M-MODE LA Ao Ratio MM 1.9 AV Cusp Separation MM 1.8 cm DOPPLER AV Peak Velocity 106.0 cm/s LVOT Peak Velocity 102.0 cm/s AV Area Cont Eq vti 2.8 cm squared AV Area Cont Eq pk 3.1 cm squared MV Peak Velocity 103.0 cm/s MV Area PHT 4.9 cm squared Mitral E to A Ratio 0.9 TV Peak Velocity 281.3 cm/s TR Peak Velocity 304.5 cm/s TR Peak Gradient 37.1 mmHg TR Mean Velocity 233.0 cm/s TR Mean Gradient 23.4 mmHg TR Velocity Time Integral 93.8 cm TV Peak E Velocity 70.0 cm/s PV Peak Velocity 93.5 cm/s FINDINGS Left Ventricle Left ventricle is normal in size. LV systolic function is normal with EF of 60-65%. No regional wall motion abnormalities. Grade 1 diastolic dysfunction Right Ventricle Normal in size and function. Right Atrium Normal in size Left Atrium Normal in size Mitral Valve Mild mitral annular calcification. Mild mitral regurgitation. Aortic Valve Structurally normal aortic valve. No significant stenosis or regurgitation. Tricuspid Valve Mild tricuspid regurgitation. RVSP is 35-40 mmHg. This is consistent with mild pulmonary hypertension. Pulmonic Valve Mild to moderate pulmonic regurgitation. Pericardium Normal Aorta Normal in size IVC Appears to be normal CONCLUSIONS LV systolic function is normal with EF of 60-65% Grade 1 diastolic dysfunction Mild mitral regurgitation Mild tricuspid regurgitation Mild pulmonary hypertension Mild to moderate pulmonic regurgitation. Compared to prior echocardiogram from 2023, no significant changes are seen Girma Corona MD (Electronically Signed) Final Date: 16 December 2024 14:28 S
== END 2024-12-11 14:50 | disposition home or self-care (01) ==
LOC: RAD 14:50
PROVIDERS: PCP Electrodiagnostic Medicine; Visit Provider Physical Therapy Assistant
DX: R60.9 Edema, unspecified (principal); R06.02 Shortness of breath; R93.1 Abnormal findings on diagnostic imaging of heart and coronary circulation; I34.81 Nonrheumatic mitral (valve) annulus calcification; I34.0 Nonrheumatic mitral (valve) insufficiency; I07.1 Rheumatic tricuspid insufficiency; I37.1 Nonrheumatic pulmonary valve insufficiency; I27.20 Pulmonary hypertension, unspecified
CPT/HCPCS: 93306

== ENCOUNTER → 2025-01-07 11:32 | Outpatient (BNVA) | payer MEDICARE, OTHER, SELFPAY | PROVIDERS: PCP Electrodiagnostic Medicine; Visit Provider Student in an Organized Health Care Education/Training Program | DX: Z09 Encounter for follow-up examination after completed treatment for conditions other than malignant neoplasm (principal) | CPT/HCPCS: 99213 ==

== ENCOUNTER 2025-02-05 12:54 | Oncology outpatient (recurring) (ONCR) | payer MEDICARE, OTHER, SELFPAY ==
[2025-02-05 13:41] LABS: Basophils % 0.2 %; Eosinophils # 0.3 10^3/uL (0.0-0.8); Eosinophils % 2.9 %; Lymphocytes # 2.8 10^3/uL (0.8-4.8); Lymphocytes % 27.3 %; Mean Corpuscular HGB Conc 32.2 g/dL (30-55); Mean Corpuscular Hemoglobin 30.6 pg (27-33); Mean Platelet Volume 11.6 fL (7.4-10.4); Monocytes # 0.8 10^3/uL (0.2-0.9); Neutrophils # 6.36 10^3/uL (1.8-7.7); Neutrophils % 61.3 %; Nucleated Red Blood Cells % 0 %; Platelet Count 321 10^3/cmm (157-399); Red Blood Count 4.84 10^6/uL (3.85-5.65); Red Cell Distribution Width 12.1 % (12.1-15.1); White Blood Count 10.37 10^3/uL (3.29-11.43)
[2025-02-05 14:00] LABS: Alanine Aminotransferase 43 U/L (0-33); Albumin Level 4.7 g/dL (3.5-5.2); Alkaline Phosphatase 91 U/L (35-105); Anion Gap 15.9 (5-19); Aspartate Amino Transferase 35 U/L (0-32); Blood Urea Nitrogen 21 mg/dL (8-23); Calcium 9.9 mg/dL (8.5-10.5); Carbon Dioxide 27 mmol/L (22-29); Chloride 102 mmol/L (98-107); Creatinine Clr Calc Pharmacy 78.6364; Ferritin 916 ng/mL (15-150); Globulin 2.5 g/dL (1.3-4.6); Glucose 115 mg/dL (65-115); Iron 118 ug/dL (37-145); Osmolality Calculated 294 mOsm/kg (285-295); Percent Saturation 37.8 % (20-50); Potassium 4.9 mmol/L (3.5-5.1); Sodium 140 mmol/L (136-145); Total Bilirubin 0.6 mg/dL (0.15-1.2); Total Iron Binding Capacity 312 mcg/dl; Total Protein 7.2 g/dL (6.6-8.7); Unsaturated Iron Binding 194 ug/dL (112-347)
[2025-02-05 14:13] LABS: Immunoglobulin IGA 72 mg/dL (70-400); Immunoglobulin IGG 681 mg/dL (700-1600); Immunoglobulin IGM 57 mg/dL (40-230)
== END 2025-02-11 23:59 | disposition home or self-care (01) ==
LOC: ONCMED 12:55
PROVIDERS: PCP Electrodiagnostic Medicine; Visit Provider Internal Medicine Medical Oncology
DX: D80.1 Nonfamilial hypogammaglobulinemia (principal); N93.9 Abnormal uterine and vaginal bleeding, unspecified; D50.9 Iron deficiency anemia, unspecified; Z87.891 Personal history of nicotine dependence; Z79.899 Other long term (current) drug therapy
CPT/HCPCS: 80053; 82728; 82784; 83540; 83550; 85025; 99214

== ENCOUNTER → 2025-02-18 13:20 | Outpatient (BNVA) | payer MEDICARE, OTHER, SELFPAY | PROVIDERS: PCP Electrodiagnostic Medicine; Visit Provider Podiatrist Foot & Ankle Surgery | DX: R09.89 Other specified symptoms and signs involving the circulatory and respiratory systems (principal); M79.671 Pain in right foot; I89.0 Lymphedema, not elsewhere classified | CPT/HCPCS: 99204 ==

== ENCOUNTER → 2025-03-06 11:35 | Outpatient (BNVA) | payer MEDICARE, OTHER, SELFPAY | PROVIDERS: PCP Electrodiagnostic Medicine; Visit Provider Internal Medicine | DX: E04.1 Nontoxic single thyroid nodule (principal); E11.9 Type 2 diabetes mellitus without complications; R13.10 Dysphagia, unspecified; I10 Essential (primary) hypertension | CPT/HCPCS: 99204 ==

== ENCOUNTER 2025-03-07 09:30 | Oncology outpatient (recurring) (ONCR) | payer MEDICARE, OTHER, SELFPAY ==
--- NOTE | 2025-03-07 09:45 | USR_ITS ---
PROCEDURE INFORMATION: Exam: US Non-Invasive Physiologic Bilateral Lower Extremities Arteries, Complete Exam date and time: 03/07/2025 9:21 AM Age: 74 years old Clinical indication: Other: Decreased pulses TECHNIQUE: Imaging protocol: Complete bilateral noninvasive physiologic studies of lower extremity arteries, 3 or more levels or single level study with provocative functional maneuvers. Waveforms were obtained and evaluated. Images were documented and archived. Exam is complete. COMPARISON: US ROR venous duplex [facility] 07/14/2023 3:03 PM FINDINGS: The following are the pressures and indices at the respective levels listed. Right brachial: 116 Right thigh: 86-0.69 Right calf: 72-0.58 Right PT: 70-0.56 DP: 64-0.51 Digit: 62-0.50 Left brachial 125 Thigh: 77-0.62 Calf: 81-0.65 PT: 91-0.73 DP: 70-0.56 Digit: 60-0.48 US/CV segpressure [facility] [id number] IMPRESSION: There is significant arterial occlusive disease bilaterally possibly at the aortoiliac level and distally.. CT angiography may add additional information if desired.
== END 2025-03-13 23:59 | disposition home or self-care (01) ==
LOC: RAD 09:31 → ONCMED 11:05
PROVIDERS: PCP Electrodiagnostic Medicine; Visit Provider Podiatrist Foot & Ankle Surgery
DX: R09.89 Other specified symptoms and signs involving the circulatory and respiratory systems (principal); I77.9 Disorder of arteries and arterioles, unspecified
CPT/HCPCS: 93923

== ENCOUNTER → 2025-03-12 13:05 | Outpatient (BNVA) | payer MEDICARE, OTHER, SELFPAY | PROVIDERS: PCP Electrodiagnostic Medicine; Visit Provider Internal Medicine | DX: I11.0 Hypertensive heart disease with heart failure (principal); I50.33 Acute on chronic diastolic (congestive) heart failure; Z86.79 Personal history of other diseases of the circulatory system | CPT/HCPCS: 99214 ==

== ENCOUNTER 2025-03-20 14:09 | Oncology outpatient (recurring) (ONCR) | payer MEDICARE, OTHER, SELFPAY ==
--- NOTE | 2025-03-20 14:15 | USR_ITS ---
PROCEDURE INFORMATION: Exam: US Duplex Lower Extremity Veins, Bilateral, Venous Insufficiency Exam date and time: 03/20/2025 2:44 PM Age: 74 years old Clinical indication: Screening exam; Eval for reflux; Additional info: Swelling of lower extremity TECHNIQUE: Imaging protocol: Real-time duplex ultrasound of the extremities with 2-D styles scale, color Doppler flow and spectral waveform analysis including responses to compression and other maneuvers (when performed) with image documentation. Complete exam focused on the bilateral lower extremity veins for venous insufficiency. COMPARISON: US ROR venous duplex LE 07/14/2023 3:03 PM FINDINGS: Right deep veins: Unremarkable. The common femoral, femoral, proximal profunda femoral and popliteal veins are patent without thrombus. Normal Doppler waveforms. Normal compressibility and/or augmentation response. No evidence of venous reflux. Right superficial veins: Saphenofemoral junction and greater saphenous veins are patent without thrombus. No evidence of venous reflux. Left deep veins: Unremarkable. The common femoral, femoral, proximal profunda femoral and popliteal veins are patent without thrombus. Normal Doppler waveforms. Normal compressibility and/or augmentation response. No evidence of venous reflux. Left superficial veins: Saphenofemoral junction and greater saphenous veins are patent without thrombus. No evidence of venous reflux. Soft tissues: Unremarkable. US/CV ilya dup insusofía [facility] [id number] IMPRESSION: No evidence of deep vein thrombosis or venous insufficiency.
--- NOTE | 2025-03-20 16:00 | CTR_ITS ---
PROCEDURE INFORMATION: Exam: CTA Abdominal Aorta and Bilateral Lower Extremities (Run-off) With Contrast Exam date and time: 03/20/2025 3:52 PM Age: 74 years old Clinical indication: Condition or disease; Arterial aneurysm; Without rupture; Abdominal; Prior surgery; Surgery date: 6+ months; Surgery type: Left hip, hyst, gb, left leg, right leg x 3/polio, aaa TECHNIQUE: Imaging protocol: Computed tomographic angiography of the of the abdominal aorta, pelvis and bilateral lower extremities with contrast. 3D rendering (Not supervised by radiologist): MIP and/or 3D reconstructed images were created by the technologist. Radiation optimization: All CT scans at this facility use at least one of these dose optimization techniques: automated exposure control; mA and/or kV adjustment per patient size (includes targeted exams where dose is matched to clinical indication); or iterative reconstruction. Contrast material: OMNIPAQUE 350; Contrast volume: 125 ml; Contrast route: INTRAVENOUS (IV); COMPARISON: CT abdomen pelvis wo con [id number] 01/28/2023 9:39 AM RADIATION DOSE METRICS: Total DLP (mGy-cm): 1562.68 FINDINGS: Aorta: Mixed calcified and noncalcified plaque with focal 60% stenosis in the infrarenal aorta, series 6, image 235. No aneurysm. Celiac trunk and mesenteric arteries: Celiac artery and SMA are patent without high-grade stenosis. Renal arteries: Bilateral renal arteries are patent without high-grade stenosis. Right iliac arteries: Bilateral common iliac arteries are patent. Focal 50% stenosis in the proximal right common iliac artery. Bilateral external and internal iliac arteries are patent without high-grade stenosis. Right femoral/popliteal arteries: Hypoplastic relative to the contralateral extremity. Common femoral, profunda femoris, SFA, and popliteal arteries are patent without high-grade stenosis. Right infrapopliteal arteries: Posterior tibial artery is patent through the proximal 2/3 of the lower extremity, opacifies heterogeneously distal to this, which may be to severe stenoses and/or short segment occlusions, with contrast seen within the posterior tibialis artery. Anterior tibial artery is patent through the distal lower extremity, but opacifies poorly at the level of the ankle and there is no significant opacification of the dorsalis pedis artery. Peroneal artery is patent through the distal lower extremity. Left iliac arteries: No occlusion or significant stenosis. Left femoral/popliteal arteries: Common femoral, profunda femoris, SFA, and popliteal artery are patent without high-grade stenosis. Left infrapopliteal arteries: Anterior tibial, posterior tibial, and peroneal arteries are patent to the ankle. Contrast is seen within posterior tibialis and dorsalis pedis arteries. Liver: No hepatic mass. Gallbladder and biliary ducts: Cholecystectomy. Pancreas: Atrophic or surgically absent pancreatic tail. Spleen: Spleen is unremarkable. Adrenal glands: No adrenal nodules. Kidneys and ureters: Subcentimeter too small to characterize renal hypodensities. No hydroureteronephrosis. Stomach and bowel: No bowel obstruction. Colonic diverticulosis without CT findings of acute diverticulitis. Appendix: No evidence of appendicitis. Urinary bladder: Bladder is decompressed and not well evaluated. Reproductive: Hysterectomy. Intraperitoneal space: Unremarkable. No free air. No significant fluid collection. Lymph nodes: No lymphadenopathy. Bones/joints: Right talocalcaneal and calcaneocuboid ankylosis. Left hip arthroplasty. No acute fracture. Degenerative changes. Soft tissues: No soft tissue gas or discrete drainable collection. 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 CT/CT angio abd aorta runof [id number] IMPRESSION: 1. Left extremity: Patent three-vessel runoff. 2. Right extremity: Posterior tibial artery is patent through the proximal 2/3 of the lower extremity, opacifies heterogeneously distal to this, which may be to severe stenoses and/or short segment occlusions, with trickle contrast seen within the posterior tibialis artery. Anterior tibial artery is patent through the distal lower extremity, but opacifies poorly at the level of the ankle and there is no significant opacification of the dorsalis pedis artery. Peroneal artery is patent through the distal lower extremity.
[2025-03-20] MEDS: iohexol 350 mg/mL 500 mL Btl (per mL) IV (16:41)
== END 2025-04-13 23:59 | disposition home or self-care (01) ==
LOC: ONCMED 14:09 → RAD 14:10 → ONCMED 03-25 10:26
PROVIDERS: PCP Electrodiagnostic Medicine; Visit Provider Internal Medicine
DX: M79.89 Other specified soft tissue disorders (principal); I71.40 Abdominal aortic aneurysm, without rupture, unspecified
CPT/HCPCS: 75635; 93970

== ENCOUNTER 2025-03-21 13:49 | Oncology outpatient (recurring) (ONCR) | payer MEDICARE, OTHER, SELFPAY ==
--- NOTE | 2025-03-21 14:00 | US_ITS ---
WS: [id number] THYROID ULTRASOUND HISTORY: RIGHT sided thyroidectomy. COMPARISON: 12/23/2023 Right lobe: RIGHT thyroidectomy. No recurrent mass at the thyroid bed or along the cervical chains. Left lobe: 2.0 cm x 2.4 cm x 5.1 cm (w x ap x l). Volume: 11.7 cm3. Enlarged very heterogeneous thyroid. Numerous predominantly cystic nodules scattered throughout the gland. The largest nodule in the lower pole measures 0.8 x 1.3 x 1.6 cm and is predominantly cystic. No echogenic foci are identified. There is an additional predominantly solid nodule in the lower pole measuring 1.1 x 0.8 x 1.4 cm which is markedly vascular. Nodule is similar in size to the prior examination of 12/23/2023 Isthmus: 0.5 cm. Heterogeneous and prominent. US/US thyroid [id number] IMPRESSION: 1. TI-RADS 3; nodule inferior LEFT thyroid which is mixed solid and cystic. Re commend yearly ultrasound thyroid evaluations. 2. Status post RIGHT thyroidectomy. No recurrent mass in the thyroid bed.
== END 2025-04-13 23:59 | disposition home or self-care (01) ==
LOC: RAD 13:50 → ONCMED 03-25 10:30
PROVIDERS: PCP Electrodiagnostic Medicine; Visit Provider Internal Medicine
DX: E04.1 Nontoxic single thyroid nodule (principal); E11.9 Type 2 diabetes mellitus without complications; Z98.890 Other specified postprocedural states
CPT/HCPCS: 76536

== ENCOUNTER → 2025-04-01 13:20 | Outpatient (BNVA) | payer MEDICARE, OTHER, SELFPAY | PROVIDERS: PCP Electrodiagnostic Medicine; Visit Provider Podiatrist Foot & Ankle Surgery | DX: R09.89 Other specified symptoms and signs involving the circulatory and respiratory systems (principal); I89.0 Lymphedema, not elsewhere classified; M79.89 Other specified soft tissue disorders | CPT/HCPCS: 99213 ==

== ENCOUNTER → 2025-04-10 13:22 | Outpatient (BNVA) | payer MEDICARE, OTHER, SELFPAY | PROVIDERS: PCP Electrodiagnostic Medicine; Visit Provider Internal Medicine | DX: I11.0 Hypertensive heart disease with heart failure (principal); I50.33 Acute on chronic diastolic (congestive) heart failure; E78.5 Hyperlipidemia, unspecified; Z87.891 Personal history of nicotine dependence; I35.0 Nonrheumatic aortic (valve) stenosis | CPT/HCPCS: 99214 ==

== ENCOUNTER 2025-04-11 11:13 | Outpatient (CLI) | payer MEDICARE, OTHER, SELFPAY ==
[2025-04-11 12:20] LABS: Creatinine Urine, Random 48 mg/dL (28-217); Microalbum Creatinine Ratio Ur 21 mg/dL (0-20); Microalbumin Random Urine 1 ug/dL (0-20)
[2025-04-11 12:21] LABS: Estmated Average Glucose 126
[2025-04-11 12:29] LABS: Alanine Aminotransferase 28 U/L (0-33); Albumin Level 4.4 g/dL (3.5-5.2); Alkaline Phosphatase 99 U/L (35-105); Anion Gap 15.6 (5-19); Aspartate Amino Transferase 21 U/L (0-32); Blood Urea Nitrogen 14 mg/dL (8-23); Calcium 9.6 mg/dL (8.5-10.5); Carbon Dioxide 25 mmol/L (22-29); Chloride 102 mmol/L (98-107); Chol HDL Ratio 4.14 mg/dL (0.0-4.40); Cholesterol 240 mg/dL (0-200); Free T4 Free Thyroxine 1.23 ng/dL (0.82-1.77); Globulin 2.7 g/dL (1.3-4.6); Glucose 104 mg/dL (65-115); HDL Cholesterol 58 mg/dL (60-100); LDL Cholesterol Calculated 147 mg/dL (50-129); LDL HDL Ratio 2.53 RATIO (0.00-3.22); Osmolality Calculated 289 mOsm/kg (285-295); Potassium 3.6 mmol/L (3.5-5.1); Sodium 139 mmol/L (136-145); Thyroid Stimulating Hormone 0.69 uIU/mL (0.27-4.20); Total Bilirubin 0.6 mg/dL (0.15-1.2); Total Protein 7.1 g/dL (6.6-8.7); Triglycerides 173 mg/dL (0-150)
== END 2025-04-11 11:14 | disposition home or self-care (01) ==
LOC: LAB 11:14
PROVIDERS: Internal Medicine; PCP Electrodiagnostic Medicine; Visit Provider Internal Medicine
DX: E78.5 Hyperlipidemia, unspecified (principal); E11.9 Type 2 diabetes mellitus without complications; E04.1 Nontoxic single thyroid nodule
CPT/HCPCS: 36415; 80053; 80061; 82044; 83036; 84439; 84443

== ENCOUNTER → 2025-05-16 15:17 | Outpatient (BNVA) | payer MEDICARE, OTHER, SELFPAY | PROVIDERS: PCP Electrodiagnostic Medicine; Visit Provider Nurse Practitioner Family | DX: L73.8 Other specified follicular disorders (principal); L81.4 Other melanin hyperpigmentation; Z08 Encounter for follow-up examination after completed treatment for malignant neoplasm; Z85.828 Personal history of other malignant neoplasm of skin; B07.8 Other viral warts; R20.8 Other disturbances of skin sensation; R23.8 Other skin changes; L29.89 Other pruritus; L53.8 Other specified erythematous conditions; L82.0 Inflamed seborrheic keratosis; R20.9 Unspecified disturbances of skin sensation | CPT/HCPCS: 17110; 99213 ==

== ENCOUNTER → 2025-05-24 10:07 | Outpatient (BNVA) | payer MEDICARE, OTHER, SELFPAY | PROVIDERS: PCP Electrodiagnostic Medicine; Visit Provider Internal Medicine | DX: R13.10 Dysphagia, unspecified (principal); I10 Essential (primary) hypertension; E04.1 Nontoxic single thyroid nodule; I73.9 Peripheral vascular disease, unspecified; E78.5 Hyperlipidemia, unspecified; E11.69 Type 2 diabetes mellitus with other specified complication | CPT/HCPCS: 99214 ==

== ENCOUNTER → 2025-07-16 14:15 | Outpatient (BNVA) | payer MEDICARE, OTHER, SELFPAY | PROVIDERS: PCP Electrodiagnostic Medicine; Visit Provider Podiatrist Foot & Ankle Surgery | DX: I73.9 Peripheral vascular disease, unspecified (principal); L60.3 Nail dystrophy; I89.0 Lymphedema, not elsewhere classified; M79.89 Other specified soft tissue disorders; Z86.12 Personal history of poliomyelitis; M21.6X9 Other acquired deformities of unspecified foot; M79.671 Pain in right foot; M21.6X1 Other acquired deformities of right foot | CPT/HCPCS: 11721; 99213 ==

== ENCOUNTER → 2025-08-13 07:47 | Outpatient (BNVA) | payer MEDICARE, OTHER, SELFPAY | PROVIDERS: PCP Electrodiagnostic Medicine; Visit Provider Nurse Practitioner Family | DX: B35.1 Tinea unguium (principal); L60.1 Onycholysis; L81.4 Other melanin hyperpigmentation; Z08 Encounter for follow-up examination after completed treatment for malignant neoplasm; Z85.828 Personal history of other malignant neoplasm of skin; B07.8 Other viral warts; R20.8 Other disturbances of skin sensation; R23.8 Other skin changes; L29.89 Other pruritus; L53.8 Other specified erythematous conditions | CPT/HCPCS: 17110; 99213 ==

== ENCOUNTER → 2025-10-16 15:08 | Outpatient (BNVA) | payer MEDICARE, OTHER, SELFPAY | PROVIDERS: PCP Electrodiagnostic Medicine; Visit Provider Internal Medicine | DX: I10 Essential (primary) hypertension (principal); I73.9 Peripheral vascular disease, unspecified | CPT/HCPCS: 36415; 83880; 85025 ==

== ENCOUNTER → 2025-10-21 13:00 | Outpatient (BNVA) | payer MEDICARE, OTHER, SELFPAY | PROVIDERS: PCP Electrodiagnostic Medicine; Visit Provider Podiatrist Foot & Ankle Surgery | DX: I73.9 Peripheral vascular disease, unspecified (principal); L60.3 Nail dystrophy; L60.8 Other nail disorders; I89.0 Lymphedema, not elsewhere classified; M79.89 Other specified soft tissue disorders; Z86.12 Personal history of poliomyelitis; M21.6X1 Other acquired deformities of right foot; Z79.84 Long term (current) use of oral hypoglycemic drugs | CPT/HCPCS: 11721 ==

== ENCOUNTER 2025-10-25 11:50 | Outpatient (CLI) | payer MEDICARE, OTHER, SELFPAY ==
--- NOTE | 2025-10-25 12:00 | USCV_ITS ---
Anita Harmon Age: 74 Gender: F : 1950 Exam Date: 10/25/2025 12:39 Ordering Phys: Girma Corona M.D ([email or web address]) Technologist: CELESTE Exam Location: [facility] [place] Indication: CP, SoB BP: 128 / 70 HR: 77 Rhythm: Sinus Technical Quality: Adequate MEASUREMENTS (Male / Female) Normal Values 2D ECHO LV Diastolic Diameter PLAX 5.4 cm 4.2 - 5.9 / 3.9 - 5.3 cm IVS Diastolic Thickness 0.4 cm 0.6 - 1.0 / 0.6 - 0.9 cm IVS Systolic Thickness 0.5 cm LVPW Diastolic Thickness 0.8 cm 0.6 - 1.0 / 0.6 - 0.9 cm LVPW Systolic Thickness 0.9 cm LVOT Diameter 2.0 cm LV Ejection Fraction 2D Teich 29.6 % LV Ejection Fraction MOD 4C 52.1 % LV Ejection Fraction MOD 2C 56.3 % LV Ejection Fraction 2C AL 57.7 % LA Diameter 3.5 cm RA Systolic Volume 4C AL 55.6 ml RA Systolic Volume 4C MOD 54.5 ml LA Sys Volume AL 42.5 cm cubed LA Sys Volume Index AL 23.0 cm cubed/m squared Aorta at Sinotubular Diameter 2.5 cm M-MODE LA Ao Ratio MM 1.2 AV Cusp Separation MM 1.7 cm DOPPLER AV Peak Velocity 118.0 cm/s LVOT Peak Velocity 101.0 cm/s AV Area Cont Eq vti 2.8 cm squared AV Area Cont Eq pk 2.6 cm squared MV Peak Velocity 111.0 cm/s MV Area PHT 3.6 cm squared Mitral E to A Ratio 0.7 TV Peak Velocity 244.7 cm/s TR Peak Velocity 269.0 cm/s TR Peak Gradient 28.9 mmHg TV Peak E Velocity 80.0 cm/s PV Peak Velocity 120.0 cm/s FINDINGS Left Ventricle Normal left ventricular size, systolic function and wall thickness, with no regional wall motion abnormalities. Left ventricular ejection fraction is estimated at 60 %. Grade I/IV diastolic dysfunction (abnormal relaxation filling pattern), normal to mildly elevated filling pressures. Right Ventricle Normal right ventricular size and systolic function. Right Atrium Normal right atrial size. Left Atrium Normal left atrial size. IA Septum Normal appearance of the interatrial septum. Mitral Valve Normal mitral valve structure. No mitral valve stenosis or regurgitation. Aortic Valve Mild aortic valve calcification. No aortic valve stenosis. Trace aortic valve regurgitation. Tricuspid Valve Mild tricuspid valve regurgitation. Pulmonic Valve Mild pulmonary valve regurgitation. Pericardium No pericardial effusion. Aorta Normal diameter of the aortic root and ascending thoracic aorta. IVC Normal IVC diameter. CONCLUSIONS Normal left ventricular size, systolic function and wall thickness, with no regional wall motion abnormalities. Left ventricular ejection fraction is estimated at 60 %. Grade I/IV diastolic dysfunction (abnormal relaxation filling pattern), normal to mildly elevated filling pressures. Mild aortic valve calcification. No aortic valve stenosis. Trace aortic valve regurgitation. Mild tricuspid valve regurgitation. Mild pulmonary valve regurgitation. There is no pericardial effusion. Right atrial pressure is around 5 mm of mercury. Coty Griffith MD (Electronically Signed) Final Date: 06 November 2025 21:43 S
== END 2025-10-25 11:51 | disposition home or self-care (01) ==
LOC: RAD 11:50
PROVIDERS: PCP Electrodiagnostic Medicine; Visit Provider Internal Medicine
DX: R07.9 Chest pain, unspecified (principal); R06.02 Shortness of breath; R93.1 Abnormal findings on diagnostic imaging of heart and coronary circulation; I35.8 Other nonrheumatic aortic valve disorders; I07.1 Rheumatic tricuspid insufficiency; I37.1 Nonrheumatic pulmonary valve insufficiency
CPT/HCPCS: 93306

== ENCOUNTER 2025-11-04 15:18 | Outpatient (CLI) | payer MEDICARE, OTHER, SELFPAY ==
--- NOTE | 2025-11-04 15:27 | MM_ITS ---
WS: [id number] BILATERAL 3D TOMOSYNTHESIS DIGITAL SCREENING MAMMOGRAPHY WITH CAD CLINICAL INFORMATION: ANNUAL MAMMO HISTORY: Screening mammogram. No current complaints. COMPARISON: 2022 TECHNIQUE: Bilateral CC and MLO views. FINDINGS: The breasts are composed of heterogeneous fibroglandular density tissue, which can limit the detection of small underlying mass lesions. No suspicious mass, asymmetry, calcifications, or architectural distortion. No evidence of malignancy. Punctate and lucent centered calcifications. Stable biopsy clip subareolar RIGHT breast MM/MM scr tomosynthesis [id number] IMPRESSION: DENSITY: The breasts are heterogeneously dense, which may obscure small masses. BI-RADS: 2 - Benign FOLLOW UP: 1 Year Follow-up Recommend return to annual screening mammography.
== END 2025-11-04 15:19 | disposition home or self-care (01) ==
LOC: RAD 15:20
PROVIDERS: PCP Electrodiagnostic Medicine; Visit Provider Electrodiagnostic Medicine
DX: Z12.31 Encounter for screening mammogram for malignant neoplasm of breast (principal); R92.333 Mammographic heterogeneous density, bilateral breasts; Z96.89 Presence of other specified functional implants; R92.1 Mammographic calcification found on diagnostic imaging of breast
CPT/HCPCS: 77063; 77067